=== PATIENT | female | born 1940 | race Caucasian/White ===

== ENCOUNTER 2020-05-24 09:30 | Outpatient (REF) | payer MEDICARE, SELFPAY ==
[2020-05-24 10:15] LABS: MANUAL DIFF FLAG NO
[2020-05-24 10:21] LABS: Basophils Absolute Auto 0.1 X10*3/uL (0.0-0.2); Basophils Percent Auto 0.7 % (0-2); Eosinophils Absolute Auto 0.3 X10*3/uL (0.0-0.4); Eosinophils Percent Auto 4.2 % (0-4); Hematocrit 42.3 % (37-47); Hemoglobin 13.1 g/dl (12.0-16.0); Imm Gran Abs Auto 0.03 X10*3/uL (0.00-0.03); Imm Gran Pct Auto 0.4 % (0.0-0.4); Lymphocytes Absolute Auto 1.3 X10*3/uL (1.2-4.9); Mean Corpuscular Hemoglobin 26.2 pg (27.0-33.0); Mean Corpuscular Volume 84.6 fL (80-98); Mean Platelet Volume 10.7 fL (9.4-12.3); Monocytes Absolute Auto 0.4 X10*3/uL (0.1-1.2); Monocytes Percent Auto 6.3 % (2-11); Neutrophils Absolute Auto 4.6 X10*3/uL (2.0-8.3); Neutrophils Percent Auto 69.4 % (45-73); Platelet Count 246 X10*3/uL (160-400); White Blood Count 6.7 X10*3/uL (4.8-10.8)
[2020-05-24 10:41] LABS: Estimated Average Glucose 105 mg/dL; Hemoglobin A1c % 5.3 %
[2020-05-24 10:43] LABS: Alanine Aminotransferase 29 U/L (0-31); Albumin Level 4.4 g/dL (3.5-5.0); Alkaline Phosphatase 75 U/L (39-117); Anion Gap 11 (12-20); Aspartate Amino Transferase 21 U/L (5-31); Bilirubin Total 0.5 mg/dL (0.0-1.0); Blood Urea Nitrogen 24 mg/dL (9-16); Calcium 9.7 mg/dL (8.4-10.2); Carbon Dioxide 25 mmol/L (22-29); Chloride 109 mmol/L (96-108); Cholesterol 152 mg/dL; Estimated Glomerular Filt Rate 51; Glucose Fasting 110 mg/dL (60-99); HDL Cholesterol 51 mg/dL; LDL Cholesterol Calculated 76 mg/dl; Potassium 4.2 mmol/l (3.3-5.1); Sodium 141 mmol/L (135-145); Total Protein 6.9 g/dL (6.5-8.0); Triglycerides 128 mg/dL
[2020-05-24 11:10] LABS: Thyroid Stimulating Hormone 1.18 mIU/mL (0.32-4.0); Vitamin D 25-OH Total 30.4 ng/mL (>30)
[2020-05-24 11:48] LABS: T4 Thyroxine 8.2 ug/dL (4.5-12.0)
[2020-05-24 18:54] LABS: Folate > 20.0 ng/mL (> or = 4.0); Vitamin B12 > 2000 pg/mL (200-900)
== END 2020-05-24 09:31 | disposition home or self-care (01) ==
LOC: HO.LAB 09:30
PROVIDERS: PCP Internal Medicine; Visit Provider Internal Medicine
DX: I63.9 Cerebral infarction, unspecified (principal); D50.9 Iron deficiency anemia, unspecified; K21.9 Gastro-esophageal reflux disease without esophagitis; F31.60 Bipolar disorder, current episode mixed, unspecified; J45.909 Unspecified asthma, uncomplicated; I10 Essential (primary) hypertension; E66.9 Obesity, unspecified; E78.00 Pure hypercholesterolemia, unspecified
CPT/HCPCS: 36415; 80053; 80061; 82306; 82607; 82746; 83036; 84436; 84443; 85025

== ENCOUNTER 2020-05-27 17:08 | Outpatient (REF) | payer MEDICARE, SELFPAY ==
--- NOTE | 2020-05-27 | US_ITS ---
EXAMINATION: RIGHT LOWER EXTREMITY VENOUS ULTRASOUND CLINICAL INFORMATION: Pain COMPARISON: None TECHNIQUE: Doppler color and grayscale evaluation of the veins of the right lower extremity FINDINGS: The right common femoral, superficial femoral, popliteal, profunda and visualized posterior tibial and peroneal veins in the calf are patent. There is no Canela's cyst. IMPRESSION: No evidence of DVT.
== END 2020-05-27 17:09 | disposition home or self-care (01) ==
LOC: HO.US 17:08
PROVIDERS: PCP Internal Medicine; Visit Provider Internal Medicine
DX: R60.0 Localized edema (principal); M79.89 Other specified soft tissue disorders
CPT/HCPCS: 93971

== ENCOUNTER → 2020-05-31 14:16 | Outpatient (BNVA) | payer MEDICARE, SELFPAY | PROVIDERS: PCP Internal Medicine; Visit Provider Internal Medicine | DX: Z86.73 Personal history of transient ischemic attack (TIA), and cerebral infarction without residual deficits (principal); Z51.81 Encounter for therapeutic drug level monitoring; Z79.01 Long term (current) use of anticoagulants | CPT/HCPCS: 85610 ==

== ENCOUNTER → 2020-06-28 13:16 | Outpatient (BNVA) | payer MEDICARE, SELFPAY | PROVIDERS: PCP Internal Medicine; Visit Provider Internal Medicine | DX: Z86.73 Personal history of transient ischemic attack (TIA), and cerebral infarction without residual deficits (principal); Z51.81 Encounter for therapeutic drug level monitoring; Z79.01 Long term (current) use of anticoagulants | CPT/HCPCS: 85610; 99211 ==

== ENCOUNTER → 2020-08-25 11:06 | Outpatient (BNVA) | payer MEDICARE, SELFPAY | PROVIDERS: PCP Internal Medicine; Visit Provider Internal Medicine | DX: Z86.73 Personal history of transient ischemic attack (TIA), and cerebral infarction without residual deficits (principal); Z51.81 Encounter for therapeutic drug level monitoring; Z79.01 Long term (current) use of anticoagulants | CPT/HCPCS: Q3014 ==

== ENCOUNTER → 2020-08-27 08:51 | Outpatient (BNVA) | payer MEDICARE, SELFPAY | PROVIDERS: PCP Internal Medicine; Visit Provider Internal Medicine | DX: Z86.73 Personal history of transient ischemic attack (TIA), and cerebral infarction without residual deficits (principal); Z51.81 Encounter for therapeutic drug level monitoring; Z79.01 Long term (current) use of anticoagulants | CPT/HCPCS: Q3014 ==

== ENCOUNTER → 2020-09-01 13:28 | Outpatient (BNVA) | payer MEDICARE, SELFPAY | PROVIDERS: PCP Internal Medicine; Visit Provider Internal Medicine | DX: Z86.73 Personal history of transient ischemic attack (TIA), and cerebral infarction without residual deficits (principal); Z51.81 Encounter for therapeutic drug level monitoring; Z79.01 Long term (current) use of anticoagulants | CPT/HCPCS: 85610; 99211 ==

== ENCOUNTER → 2020-09-13 11:16 | Outpatient (BNVA) | payer MEDICARE, SELFPAY | PROVIDERS: PCP Internal Medicine; Visit Provider Internal Medicine | DX: Z86.73 Personal history of transient ischemic attack (TIA), and cerebral infarction without residual deficits (principal); Z51.81 Encounter for therapeutic drug level monitoring; Z79.01 Long term (current) use of anticoagulants | CPT/HCPCS: 85610; 99211 ==

== ENCOUNTER → 2020-10-04 11:21 | Outpatient (BNVA) | payer MEDICARE, SELFPAY | PROVIDERS: PCP Internal Medicine; Visit Provider Internal Medicine | DX: Z86.73 Personal history of transient ischemic attack (TIA), and cerebral infarction without residual deficits (principal); Z51.81 Encounter for therapeutic drug level monitoring; Z79.01 Long term (current) use of anticoagulants | CPT/HCPCS: 85610; 99211 ==

== ENCOUNTER 2020-10-13 10:50 | Outpatient (REF) | payer MEDICARE, SELFPAY ==
[2020-10-13 12:01] LABS: Lithium 0.53 mmol/L (0.60-1.20)
[2020-10-13 12:07] LABS: Alanine Aminotransferase 24 U/L (0-31); Albumin Level 4.4 g/dL (3.5-5.0); Alkaline Phosphatase 80 U/L (39-117); Anion Gap 11 (12-20); Aspartate Amino Transferase 26 U/L (5-31); Bilirubin Total 0.5 mg/dL (0.0-1.0); Blood Urea Nitrogen 19 mg/dL (9-16); Calcium 10.2 mg/dL (8.4-10.2); Carbon Dioxide 25 mmol/L (22-29); Chloride 108 mmol/L (96-108); Estimated Glomerular Filt Rate 50; Glucose Random 91 mg/dL (60-115); Sodium 140 mmol/L (135-145); Total Protein 6.9 g/dL (6.5-8.0)
== END 2020-10-13 10:51 | disposition home or self-care (01) ==
LOC: HO.LAB 10:50
PROVIDERS: PCP Internal Medicine; Visit Provider Internal Medicine
DX: F31.62 Bipolar disorder, current episode mixed, moderate (principal)
CPT/HCPCS: 36415; 80053; 80178

== ENCOUNTER → 2020-10-25 11:33 | Outpatient (BNVA) | payer MEDICARE, SELFPAY | PROVIDERS: PCP Internal Medicine; Visit Provider Internal Medicine | DX: Z86.73 Personal history of transient ischemic attack (TIA), and cerebral infarction without residual deficits (principal); Z51.81 Encounter for therapeutic drug level monitoring; Z79.01 Long term (current) use of anticoagulants | CPT/HCPCS: 85610; 99211 ==

== ENCOUNTER → 2020-11-15 11:27 | Outpatient (BNVA) | payer MEDICARE, SELFPAY | PROVIDERS: PCP Internal Medicine; Visit Provider Internal Medicine | DX: Z86.73 Personal history of transient ischemic attack (TIA), and cerebral infarction without residual deficits (principal); Z79.01 Long term (current) use of anticoagulants; Z51.81 Encounter for therapeutic drug level monitoring | CPT/HCPCS: 85610; 99211 ==

== ENCOUNTER → 2020-12-21 10:58 | Outpatient (BNVA) | payer MEDICARE, SELFPAY | PROVIDERS: PCP Internal Medicine; Visit Provider Internal Medicine | DX: Z86.73 Personal history of transient ischemic attack (TIA), and cerebral infarction without residual deficits (principal); Z51.81 Encounter for therapeutic drug level monitoring; Z79.01 Long term (current) use of anticoagulants | CPT/HCPCS: 85610; 99211 ==

== ENCOUNTER → 2021-01-11 11:04 | Outpatient (BNVA) | payer MEDICARE, SELFPAY | PROVIDERS: PCP Internal Medicine; Visit Provider Internal Medicine | DX: Z86.73 Personal history of transient ischemic attack (TIA), and cerebral infarction without residual deficits (principal); Z51.81 Encounter for therapeutic drug level monitoring; Z79.01 Long term (current) use of anticoagulants | CPT/HCPCS: 85610; 99211 ==

== ENCOUNTER → 2021-01-24 10:25 | Outpatient (BNVA) | payer MEDICARE, SELFPAY | PROVIDERS: PCP Internal Medicine; Visit Provider Internal Medicine | DX: Z86.73 Personal history of transient ischemic attack (TIA), and cerebral infarction without residual deficits (principal); Z51.81 Encounter for therapeutic drug level monitoring; Z79.01 Long term (current) use of anticoagulants | CPT/HCPCS: 85610; 99211 ==

== ENCOUNTER → 2021-02-07 13:23 | Outpatient (BNVA) | payer MEDICARE, SELFPAY | PROVIDERS: PCP Internal Medicine; Visit Provider Internal Medicine | DX: Z86.73 Personal history of transient ischemic attack (TIA), and cerebral infarction without residual deficits (principal); Z51.81 Encounter for therapeutic drug level monitoring; Z79.01 Long term (current) use of anticoagulants | CPT/HCPCS: 85610; 99211 ==

== ENCOUNTER → 2021-03-07 13:02 | Outpatient (BNVA) | payer MEDICARE, SELFPAY | PROVIDERS: PCP Internal Medicine; Visit Provider Internal Medicine | DX: Z86.73 Personal history of transient ischemic attack (TIA), and cerebral infarction without residual deficits (principal); Z51.81 Encounter for therapeutic drug level monitoring; Z79.01 Long term (current) use of anticoagulants | CPT/HCPCS: 85610; 99211 ==

== ENCOUNTER → 2021-04-05 14:21 | Outpatient (BNVA) | payer MEDICARE, SELFPAY | PROVIDERS: PCP Internal Medicine; Visit Provider Internal Medicine | DX: Z86.73 Personal history of transient ischemic attack (TIA), and cerebral infarction without residual deficits (principal); Z51.81 Encounter for therapeutic drug level monitoring; Z79.01 Long term (current) use of anticoagulants | CPT/HCPCS: 85610; 99211 ==

== ENCOUNTER → 2021-05-03 10:50 | Outpatient (BNVA) | payer MEDICARE, SELFPAY | PROVIDERS: PCP Internal Medicine; Visit Provider Internal Medicine | DX: Z86.73 Personal history of transient ischemic attack (TIA), and cerebral infarction without residual deficits (principal); Z51.81 Encounter for therapeutic drug level monitoring; Z79.01 Long term (current) use of anticoagulants | CPT/HCPCS: 85610; 99211 ==

== ENCOUNTER → 2021-05-18 10:36 | Outpatient (BNVA) | payer MEDICARE, SELFPAY | PROVIDERS: PCP Internal Medicine; Visit Provider Internal Medicine | DX: Z86.73 Personal history of transient ischemic attack (TIA), and cerebral infarction without residual deficits (principal); Z51.81 Encounter for therapeutic drug level monitoring; Z79.01 Long term (current) use of anticoagulants | CPT/HCPCS: 85610; 99211 ==

== ENCOUNTER 2021-06-15 10:21 | Outpatient (REF) | payer MEDICARE, SELFPAY ==
--- NOTE | ~2021-06-15 | MM_ITS ---
EXAMINATION: BONE DENSITOMETRY CLINICAL INDICATION: Unspecified fracture of right foot, initial encounter. COMPARISON: None (current study represents initial baseline exam). TECHNIQUE: Using a [employer] DXA System (software version: 13.1) manufactured by [employer], dual-energy x-ray absorptiometry was performed of the lumbar spine and left hip. The images are of good technical quality. Summary results are attached. FINDINGS: AP SPINE L1-L2 (excluding L3 and L4): The data of L1-L4 has been changed to exclude the L3 and L4 vertebral bodies, because degenerative changes at these levels may cause overestimation of lumbar spine density. BMD 0.854 g/cm2, Z-score -0.9, T-score -2.6, osteoporosis. LEFT FEMUR, NECK: BMD 0.798 g/cm2, Z-score 0.3, T-score -1.7, osteopenia. LEFT FEMUR, TOTAL: BMD 0.872 g/cm2, Z-score 0.8, T-score -1.1, osteopenia. IDENTIFIED RISK FACTORS: Height loss, menopause. HISTORY OF FRACTURE: Foot. MEDICATIONS: None listed. MM/XR DEXA axial skeleton IMPRESSION: 1. DIAGNOSIS: Osteoporosis based on the lowest T-score value of -2.6 in the lumbar spine applying World Health Organization criteria. 2. 10-YEAR FRACTURE RISK PREDICTION, FRAX: According to the guidelines, FRAX calculation should only be performed on patients in the osteopenia bone density category. 3. Treatment Recommendations: NOF guidelines recommend consideration for treatment in postmenopausal women and men age 50 and older presenting with the following: -A hip or vertebral (clinical or morphometric) fracture. -T-score less than or equal to -2.5 at the femoral neck or spine after appropriate evaluation to exclude secondary causes. -Low bone mass at the hip or spine and a 10-year fracture probability by FRAX of greater than or equal to 3% for hip fracture or greater than or equal to 20% for major osteoporotic fracture based on the [place] adapted WHO algorithm. 4. Other Recommendations: All treatment decisions require clinical judgment and consideration of individual patient factors, including patient preferences, comorbidities, previous drug use, risk factors not captured in the FRAX model (e.g. frailty, falls, vitamin D deficiency, increased bone turnover, interval significant decline in bone density) and possible under or overestimation of fracture risk by FRAX. Additional medical evaluation for secondary cause of low bone mineral density may be appropriate. FUTURE SCAN RECOMMENDATION: People with diagnosed cases of osteoporosis or at high risk for fracture should have regular bone mineral density tests. For patients eligible for Medicare, routine testing is allowed once every 2 years. The testing frequency can be increased to one year for patients who have rapidly progressing disease, those who are receiving or discontinuing medical therapy to restore bone mass, or have additional risk factors.
== END 2021-06-15 10:22 | disposition home or self-care (01) ==
LOC: HO.MAMMO 10:21
PROVIDERS: Visit Provider Internal Medicine
DX: Z13.820 Encounter for screening for osteoporosis (principal); S92.901A Unspecified fracture of right foot, initial encounter for closed fracture; M81.0 Age-related osteoporosis without current pathological fracture; Z78.0 Asymptomatic menopausal state
CPT/HCPCS: 77080; 85610; 99211

== ENCOUNTER → 2021-07-13 10:59 | Outpatient (BNVA) | payer MEDICARE, SELFPAY | PROVIDERS: PCP Internal Medicine; Visit Provider Internal Medicine | DX: Z86.73 Personal history of transient ischemic attack (TIA), and cerebral infarction without residual deficits (principal); Z51.81 Encounter for therapeutic drug level monitoring; Z79.01 Long term (current) use of anticoagulants | CPT/HCPCS: 85610; 99211 ==

== ENCOUNTER → 2021-08-10 11:06 | Outpatient (BNVA) | payer MEDICARE, SELFPAY | PROVIDERS: PCP Internal Medicine; Visit Provider Internal Medicine | DX: Z86.73 Personal history of transient ischemic attack (TIA), and cerebral infarction without residual deficits (principal); Z51.81 Encounter for therapeutic drug level monitoring; Z79.01 Long term (current) use of anticoagulants | CPT/HCPCS: 85610; 99211 ==

== ENCOUNTER 2021-08-16 15:11 | Outpatient (REF) | payer MEDICARE, SELFPAY ==
[2021-08-16 16:23] LABS: Lithium 0.42 mmol/L (0.60-1.20)
[2021-08-16 16:31] LABS: Alanine Aminotransferase 24 U/L (0-31); Albumin Level 4.4 g/dL (3.5-5.0); Alkaline Phosphatase 93 U/L (39-117); Anion Gap 13 (12-20); Aspartate Amino Transferase 17 U/L (5-31); Bilirubin Total 0.3 mg/dL (0.0-1.0); Blood Urea Nitrogen 19 mg/dL (9-16); Calcium 10.3 mg/dL (8.4-10.2); Carbon Dioxide 21 mmol/L (22-29); Chloride 111 mmol/L (96-108); Estimated Glomerular Filt Rate 49; Glucose Random 115 mg/dL (60-115); Potassium 4.3 mmol/L (3.3-5.1); Sodium 141 mmol/L (135-145); Total Protein 7.1 g/dL (6.5-8.0)
[2021-08-16 16:51] LABS: Thyroid Stimulating Hormone 1.07 uIU/mL (0.32-4.0)
[2021-08-16 17:02] LABS: Folate 14.3 ng/mL (> or = 4.0); Vitamin B12 1708 pg/mL (200-900)
[2021-08-22 04:22] LABS: FT4 by Equilib. Dialysis 1.2 ng/dL (0.9-2.2)
== END 2021-08-16 15:12 | disposition home or self-care (01) ==
LOC: HO.LAB 15:11
PROVIDERS: PCP Internal Medicine; Visit Provider Psychiatry & Neurology Psychiatry
DX: F31.70 Bipolar disorder, currently in remission, most recent episode unspecified (principal); Z79.899 Other long term (current) drug therapy
CPT/HCPCS: 36415; 80053; 80178; 82607; 82746; 84439; 84443

== ENCOUNTER → 2021-09-05 10:45 | Outpatient (BNVA) | payer MEDICARE, SELFPAY | PROVIDERS: PCP Internal Medicine; Visit Provider Internal Medicine | DX: Z86.73 Personal history of transient ischemic attack (TIA), and cerebral infarction without residual deficits (principal); Z51.81 Encounter for therapeutic drug level monitoring; Z79.01 Long term (current) use of anticoagulants | CPT/HCPCS: 85610; 99211 ==

== ENCOUNTER → 2021-09-27 13:58 | Outpatient (BNVA) | payer MEDICARE, SELFPAY | PROVIDERS: PCP Internal Medicine; Visit Provider Internal Medicine | DX: Z86.73 Personal history of transient ischemic attack (TIA), and cerebral infarction without residual deficits (principal); Z51.81 Encounter for therapeutic drug level monitoring; Z79.01 Long term (current) use of anticoagulants | CPT/HCPCS: 85610; 99211 ==

== ENCOUNTER → 2021-09-30 15:42 | Outpatient (BNVA) | payer MEDICARE, SELFPAY | PROVIDERS: PCP Internal Medicine; Visit Provider Internal Medicine | DX: Z86.73 Personal history of transient ischemic attack (TIA), and cerebral infarction without residual deficits (principal); Z51.81 Encounter for therapeutic drug level monitoring; Z79.01 Long term (current) use of anticoagulants | CPT/HCPCS: 85610; 99211 ==

== ENCOUNTER → 2021-10-10 10:42 | Outpatient (BNVA) | payer MEDICARE, SELFPAY | PROVIDERS: PCP Internal Medicine; Visit Provider Internal Medicine | DX: Z86.73 Personal history of transient ischemic attack (TIA), and cerebral infarction without residual deficits (principal); Z51.81 Encounter for therapeutic drug level monitoring; Z79.01 Long term (current) use of anticoagulants | CPT/HCPCS: 85610; 99211 ==

== ENCOUNTER 2021-10-26 10:00 | Outpatient (REF) | payer MEDICARE, SELFPAY ==
[2021-10-26 11:50] LABS: Basophils Absolute Auto 0.1 X10*3/uL (0.0-0.2); Basophils Percent Auto 0.8 % (0-2); Eosinophils Absolute Auto 0.5 X10*3/uL (0.0-0.4); Eosinophils Percent Auto 5.6 % (0-4); Hematocrit 28.8 % (37.0-47.0); Hemoglobin 7.2 g/dl (12.0-16.0); Imm Gran Abs Auto 0.04 X10*3/uL (0.00-0.03); Imm Gran Pct Auto 0.5 % (0.0-0.4); Immature Retic Fraction 21.7 % (3.0-15.9); Lymphocytes Absolute Auto 1.4 X10*3/uL (1.2-4.9); Lymphocytes Percent Auto 16.7 % (20-40); MANUAL DIFF FLAG SCAN; Mean Corpuscular Hemoglobin 15.7 pg (27.0-33.0); Mean Platelet Volume 10.3 fL (9.4-12.3); Monocytes Absolute Auto 0.5 X10*3/uL (0.1-1.2); Monocytes Percent Auto 6.1 % (2-11); Neutrophils Absolute Auto 5.9 x10*3/uL (2.0-8.3); Neutrophils Percent Auto 70.3 % (45-73); Platelet Count 358 X10*3/uL (160-400); Red Blood Count 4.58 X10*6/uL (4.20-5.50); Retic HGB Equivalent 14.1 pg (30.0-35.0); Reticulocyte Percent 1.6 % (0.5-1.8); Reticulocytes Absolute 0.073 X10*6/uL (0.026-0.095); SCAN SMEAR FLAG 1; White Blood Count 8.3 X10*3/uL (4.8-10.8)
[2021-10-26 11:52] LABS: Mean Corpuscular Volume 62.9 fL (80.0-98.0)
[2021-10-26 12:07] LABS: Estimated Average Glucose 105 mg/dL; Hemoglobin A1c % 5.3 %
[2021-10-26 12:23] LABS: Alanine Aminotransferase 20 U/L (0-31); Albumin Level 4.2 g/dL (3.5-5.0); Alkaline Phosphatase 102 U/L (39-117); Anion Gap 13 (12-20); Aspartate Amino Transferase 17 U/L (5-31); Bilirubin Total 0.2 mg/dL (0.0-1.0); Blood Urea Nitrogen 21 mg/dL (9-16); Calcium 10.1 mg/dL (8.4-10.2); Carbon Dioxide 21 mmol/L (22-29); Chloride 109 mmol/L (96-108); Cholesterol 118 mg/dL; Estimated Glomerular Filt Rate 60; Glucose Random 101 mg/dL (60-115); HDL Cholesterol 44 mg/dL; Iron 10 mcg/dL (30-160); LDL Cholesterol Calculated 62 mg/dl; Percent Iron Saturation 2 % (15-50); Potassium 4.4 mmol/L (3.3-5.1); Sodium 139 mmol/L (135-145); Total Iron Binding Capacity 464 mcg/dL (228-428); Total Protein 6.7 g/dL (6.5-8.0); Triglycerides 63 mg/dL; Unsaturated Iron Binding 454 ug/dL
[2021-10-26 12:37] LABS: Free T4 (Free Thyroxine) 1.06 ng/dL (0.71-1.85); Thyroid Stimulating Hormone 1.46 uIU/mL (0.32-4.0); Vitamin D 25-OH Total 22.7 ng/mL (>30)
[2021-10-26 12:56] LABS: Folate 13.1 ng/mL (> or = 4.0); Vitamin B12 1152 pg/mL (200-900)
[2021-10-26 13:09] LABS: Ferritin 3 ng/mL (10-250)
[2021-10-26 14:06] LABS: SLIDE REVIEW VERIFIED
== END 2021-10-26 10:01 | disposition home or self-care (01) ==
LOC: HO.LAB 10:00
PROVIDERS: PCP Internal Medicine; Visit Provider Internal Medicine
DX: I10 Essential (primary) hypertension (principal); K21.9 Gastro-esophageal reflux disease without esophagitis; E78.00 Pure hypercholesterolemia, unspecified; R73.02 Impaired glucose tolerance (oral)
CPT/HCPCS: 36415; 80053; 80061; 82306; 82607; 82728; 82746; 83036; 83540; 84439; 84443; 85025; 85045

== ENCOUNTER 2021-10-26 15:57 | Emergency (ER) | payer MEDICARE, SELFPAY ==
--- NOTE | ~2021-10-26 | CT_ITS ---
EXAMINATION: CT CHEST, ABDOMEN AND PELVIS WITH CONTRAST CLINICAL INFORMATION: fall, hit chest and abdomen, low H H COMPARISON: Renal ultrasound 06/11/2009 TECHNIQUE: Multidetector volumetric imaging was performed from the thoracic inlet through the pubic symphysis following administration of 85 mL of Omnipaque 350. Sagittal and coronal reformatted images were obtained on the technologist's workstation. This CT examination was performed using dose optimization techniques as appropriate, variously including the following: *Automated exposure control *Adjustment of mA and/or kV according to patient size (this includes techniques or standardized protocols for targeted exams where dose is matched to indication/reason for exam; i.e. extremities or head) *Use of iterative reconstruction technique DLP: Chest 235, abdomen and pelvis 580 mGy-cm FINDINGS: CHEST: Lung: The lungs are clear without focal opacity or nodule. Mediastinum: A 1.3 cm right thyroid nodule is present.. The central vascular structures are unremarkable aside from the presence of marked coronary calcification. No hilar or mediastinal lymphadenopathy. Moderate portion of the stomach is in the mediastinum again (see below) Pericardium/Pleura: No significant effusion. No pleural mass or thickening. Chest Wall/Axilla: Marked degenerative changes present in the spine with scoliosis. No rib fractures are seen. ABDOMEN/PELVIS: Peritoneal Space: No significant free air or free fluid identified. Liver, Gallbladder, Biliary Tree: The liver is normal in size, shape, and attenuation. No focal hepatic lesion or biliary ductal dilatation is present. The gallbladder is unremarkable with no evidence of radiopaque gallstones, gallbladder wall thickening, or obvious pericholecystic inflammatory changes. Pancreas: Unremarkable Spleen: Unremarkable Adrenal Glands: Unremarkable Kidneys and Ureters: The kidneys are normal in size, shape, and attenuation. At least 4 nonobstructing punctate calcification noted in the left kidney the largest measuring only 2 to 3 mm in size. Hounsfield units are 300 but this is not accurate because of volume averaging. The largest stone is 10.7 cm from the posterior axillary line. Bilateral Bosniak class I cysts are present including one hyperattenuating mass measuring 80 Hounsfield units at the lower pole on the left most likely a hyperattenuating/hemorrhagic cyst. No hydronephrosis, hydroureter, or calculi seen. No perinephric stranding. Bladder: Unremarkable Gastrointestinal Tract: A moderate-sized hiatal hernia is present. The small and large bowel are unremarkable. The appendix is unremarkable. Abdominal Wall: No significant hernia is appreciated. Lymph Nodes: No lymphadenopathy. No retroperitoneal hematoma. Vascular: Marked calcific aorto iliac atherosclerotic plaque without aneurysm.. The IVC appears unremarkable. PELVIC VISCERA: A multilobular fibroid uterus is present. An abnormal adnexal mass is not seen. No free intraperitoneal fluid or blood is present. OSSEUS STRUCTURES: Mild degenerative changes are noted in the spine. No bony destructive lesions are seen. No acute fractures are identified. CT/CT abdomen pelvis w con IMPRESSION: No evidence of an acute traumatic injury in the chest abdomen or pelvis. The following incidental findings are present: * 1.3 cm right-sided thyroid nodule. Baseline thyroid ultrasound is recommended. * Moderate hiatal hernia * Moderate degenerative changes in the spine * Bilateral benign Bosniak class I renal cysts which need no further follow-up. * Hyperattenuating left lower pole renal mass which is most likely a Bosniak class II cyst. This could be confirmed with ultrasound. * Four punctate nonobstructing left renal calculi. * Uterine fibroid Fleischner guidelines were followed.
--- NOTE | ~2021-10-26 | CT_ITS ---
EXAMINATION: CT HEAD WITHOUT CONTRAST CLINICAL INFORMATION: Fell, head strike. COMPARISON: CT head dated from 11/17/2018. TECHNIQUE: Contiguous axial imaging was performed from the skull base to vertex without intravenous administration of contrast. This CT examination was performed using dose optimization techniques as appropriate, variously including the following: *Automated exposure control *Adjustment of mA and/or kV according to patient size (this includes techniques or standardized protocols for targeted exams where dose is matched to indication/reason for exam; i.e. extremities or head) *Use of iterative reconstruction technique DLP: 719 mGy-cm FINDINGS: Encephalomalacia/gliosis from a prior infarction in the left occipital lobe with associated ex vacuo dilatation of the adjacent lateral ventricle. Chronic left basal ganglia infarctions. There is no evidence of acute intracranial hemorrhage or edematous territorial infarction. Scattered hypoattenuation in the periventricular and deep white matter are consistent with moderate microangiopathy. Stewart-white matter differentiation is preserved. Proportional prominence of the ventricles and sulcal spaces. No evidence for obstructive hydrocephalus. No abnormal mass effect or midline shift. No extra-axial fluid collections. Calcified meningiomas along the interhemispheric falx are stable. No acute soft tissue or osseous abnormalities. Degenerative osteoarthritis of the TM joints. Periapical lucencies on left superior molars. Mild mucoperiosteal thickening of the paranasal sinuses. No air-fluid level. The mastoids are clear. CT/CT head/brain wo con IMPRESSION: Chronic infarctions as above. No acute intracranial abnormality.
[2021-10-26 16:24] VITALS: BP 151/75; PULSE 86; RESP 18; TEMP 36.7; O2SAT 97; BMI 29.5
--- NOTE | 2021-10-26 16:50 | ED.RECABL ---
HPI - Recheck/Abnormal Lab/Rx General Chief Complaint: Recheck/Abnormal Lab/Rx Stated Complaint: internal bleeding sent by Time Seen by Provider: 10/26/21 16:45 Source: patient Mode of arrival: ambulatory Limitations: no limitations History of Present Illness HPI narrative: This is a 80-year-old female history of CVA with left-sided weakness, hypercholesterolemia, asthma, hypertension, bipolar disorder, GERD, iron deficiency anemia presenting to the emergency department with abnormal labs according to her primary care provider. She was told that her hemoglobin and hematocrit were lower than usual. She tells me she is having no symptoms at this time. She has no complaints. She denies fatigue, nausea, vomiting, dizziness, rectal bleeding, hemoptysis, chest pain, shortness of breath, abdominal pain, weakness. Patient tells me that her last colonoscopy was a few years ago when it was normal to the best of her knowledge. MD complaint: abnormal lab (Low H&H per patient's primary care.) Description of abnormal result: Patient was told by PCP that her hemoglobin and hematocrit were low. Symptoms since prior visit: no new symptoms Associated symptoms: none Related Data Home Medications Medication Instructions Recorded Confirmed aspirin 81 mg tablet,delayed 81 mg PO DAILY 05/27/20 09/30/21 release (Adult Aspirin Regimen) cholecalciferol (vitamin D3) 25 25 mcg PO DAILY 05/27/20 09/30/21 mcg (1,000 unit) capsule clonazepam 0.5 mg tablet (Klonopin) 0.5 mg PO DAILY 05/27/20 09/30/21 lithium carbonate 450 mg mg PO 09/13/20 09/30/21 tablet,extended release lamotrigine 25 mg tablet 25 mg PO BID tab 04/25/21 09/30/21 Previous Rx's Medication Instructions Recorded montelukast 10 mg tablet 10 mg PO DAILY #90 tab 05/11/21 (Singulair) irbesartan 150 mg tablet 150 mg PO DAILY #90 tab 06/09/21 albuterol sulfate 90 mcg/actuation 2 puff INHALATION Q4-6H PRN #8.5 g 06/15/21 aerosol inhaler (ProAir HFA) warfarin 2 mg tablet 4 mg PO DAILY #180 tab 07/25/21 rosuvastatin 5 mg tablet 5 mg PO DAILY 90 Days #90 tab 08/29/21 fluticasone 250 mcg-salmeterol 50 1 inh INHALATION Q12H #60 ea 09/27/21 mcg/dose blistr powdr for inhalation (Advair Diskus) tiotropium bromide 2.5 2 puff INHALATION DAILY #4 g 09/27/21 mcg/actuation mist for inhalation (Spiriva Respimat) alendronate 70 mg tablet (Fosamax) 70 mg PO QWEEK 30 Days #13 tab 10/04/21 pantoprazole 40 mg tablet,delayed 40 mg PO DAILY 90 Days #90 tab 10/04/21 release ferrous sulfate 324 mg (65 mg 324 mg PO DAILY #30 tab 10/26/21 iron) tablet,delayed release Allergies Allergy/AdvReac Type Severity Reaction Status Date / Time clindamycin [CLINDAMYCIN] Allergy Unknown UNKNOWN Verified 10/10/21 10:54 oxycodone [OXYCODONE] Allergy Unknown UNKNOWN Verified 10/10/21 10:54 Penicillins [PENICILLINS] Allergy Unknown UNKNOWN Verified 10/10/21 10:54 Seafood Allergy Unknown anaphylaxis Verified 10/10/21 10:54 shellfish derived Allergy Unknown Anaphylaxis Verified 10/10/21 10:54 [SHELLFISH DERIVED] animal dander [ANIMAL DANDER] AdvReac Unknown ITCHING, Verified 10/10/21 10:54 REDNESS atorvastatin [Lipitor] AdvReac Unknown myalgia Verified 10/10/21 10:54 Review of Systems Review of Systems: Constitutional : No Weight loss, No Fever, No Chills, No Fatigue, No Malaise ENT/Mouth : No sore throat, No Rhinorrhea Eyes: No Eye Pain, No Swelling, No Redness Cardiovascular : No Chest Pain, No SOB, No Dyspnea on Exertion, No Orthopnea, No Edema, No Palpitations Respiratory : No Cough, No Sputum, No Wheezing Gastrointestinal : No Nausea, No Vomiting, No Diarrhea, No Constipation, No abdominal Pain, No Hematochezia, No Melena Genitourinary : No Dysuria, No Urinary Frequency, No Hematuria, Musculoskeletal : No joint pain, No Myalgias, No Joint Swelling Skin : No Skin Lesions, No rash Neuro : No Weakness, No Numbness, No Dizziness, No Headache Psych : No Anxiety/Panic, No Depression All other systems reviewed and are negative Yes all other systems are reviewed and are negative [facility] Past Medical History Attestation statement: The following information was validated with the patient. Source: old records reviewed and nursing notes reviewed Medical History Asthma Bipolar disorder GERD (gastroesophageal reflux disease) History of CVA (cerebrovascular accident) History of renal calculi Hypercholesterolemia Hypertension Impaired glucose tolerance Iron deficiency anemia Obesity (BMI 30-39.9) Patent foramen ovale Tubular adenoma of colon Surgical History History of mastoidectomy History of parathyroidectomy Family History Family History Father Cataract Mother Anxiety Cancer Brother Lung cancer Liver cancer Sister Dementia Autoimmune disease Social History Social History Housing: House Alcohol intake: never Patient Tobacco Use Status: Never used Tobacco e-Cigarette/Vaping Use: Never Used Second Hand Smoke Exposure: No Advance Directives: No Advance Directives Information Provided: No Current occupational status: retired Physical Exam Vital Signs: Vital Signs: Last Vital Signs Temp 98.4 F 10/26/21 19:52 Pulse 79 10/26/21 19:52 Resp 16 10/26/21 19:52 BP 140/73 H 10/26/21 19:52 Pulse Ox 97 10/26/21 18:00 BMI result Body Mass Index 29.5 Vital signs stable. Appearance: Alert.? Oriented X3.? No acute distress.? Head: Normocephalic, atraumatic, no step-offs or deformities Eyes: Pupils equal, round and reactive to light.? ENT: Pharynx normal.? Neck: Normal inspection.? Neck supple.? CVS: Normal heart rate and rhythm.? Pulses normal.? Respiratory: No respiratory distress.? Breath sounds normal.? Abdomen: Soft and nontender.? Skin: Skin warm and dry.? Normal skin color.? Normal skin turgor.? Extremities: No lower extremity edema.? No calf ttp. Left-sided weakness, this is patient's baseline (from old CVA) Rectal exam: Sternal nonbleeding nonthrombosed hemorrhoids noted upon rectal exam. No pain with palpation in the rectum, no gross blood noted on my exam. Back: No midline tenderness, no C-spine tenderness, full range of motion, no CVA tenderness bilaterally Neuro: Oriented X 3.? No motor deficit.? No sensory deficit. CN 2-12 intact Course Reevaluation(s) Reevaluation #1: Patient's hemoglobin 6.9 hematocrit 27.2 at this time verbal and written consent obtained for 1 unit of packed red blood cells. Went over risks and benefits with patient and significant other. Patient's electrolytes appear to be at baseline. COVID negative. OBS negative. Time: 19:06 Reevaluation #2: CT of the head with no acute findings. CT of the abdomen with no signs of acute bleeding. Incidental findings noted in these were shared with the patient. CT of the chest with no acute findings. Repeat CBC with improvement hemoglobin and hematocrit stable. Patient will be restarted on ferrous sulfate. Advised her to follow-up with her PCP. She tells me she has an appointment tomorrow with him. Also advised her to follow-up with Hematology. Educated patient on worrisome signs and symptoms. At this time I feel comfortable with discharge home. Time: 20:22 MDM - Recheck/Abnormal Lab/Rx MDM Narrative Medical decision making narrative: [id number] 80 yo f was sent here from PCP for abnormal labs, low H&H today. Physical exam benign. Plan at this time type and screen, laboratory studies, urine, obs Medical Records Attestation: I reviewed the patient's medical records. Lab Data Attestation: I reviewed the patient's lab results. Result diagrams: 10/26/21 20:06 10/26/21 17:10 Labs: Lab Results 10/26/21 10/26/21 10/26/21 Range/Units 17:06 17:10 17:10 WBC 6.8 (4.8-10.8) X10*3/uL RBC 4.35 (4.20-5.50) X10*6/uL Hgb 6.9 L* (12.0-16.0) g/dl Hct 27.2 L (37.0-47.0) % MCV 62.5 L (80.0-98.0) fL MCH 15.9 L (27.0-33.0) pg MCHC 25.4 L (31.0-35.0) g/dl RDW 21.0 H (11.0-16.0) % Plt Count 360 (160-400) X10*3/uL MPV 9.6 (9.4-12.3) fL Immature Gran % (Auto) 0.4 (0.0-0.4) % Neut % (Auto) 65.2 (45-73) % Lymph % (Auto) 21.3 (20-40) % [place] % (Auto) 6.2 (2-11) % Eos % (Auto) 6.5 H (0-4) % Baso % (Auto) 0.4 (0-2) % Lymph # (Auto) 1.4 (1.2-4.9) X10*3/uL [place] # (Auto) 0.4 (0.1-1.2) X10*3/uL Eos # (Auto) 0.4 (0.0-0.4) X10*3/uL Baso # (Auto) 0.0 (0.0-0.2) X10*3/uL Abs Immat Gran (auto) 0.03 (0.00-0.03) X10*3/uL Absolute Neuts (auto) 4.4 (2.0-8.3) x10*3/uL Absolute Nucleated RBC 0.000 (0.0-0.012) X10*3/uL Nucleated RBC % (auto) 0.0 (0.0-0.2) /100WBC Smear Tech's Comments PT (9.9-13.0) SEC INR (0.9-1.1) Sodium 141 (135-145) mmol/L Potassium 4.1 (3.3-5.1) mmol/L Chloride 112 H (96-108) mmol/L Carbon Dioxide 22 (22-29) mmol/L Anion Gap 11 L (12-20) BUN 19 H (9-16) mg/dL Creatinine 0.92 (0.5-1.4) mg/dL Estim Creat Clear Calc 45.3 Estimated GFR 59 Random Glucose 106 (60-115) mg/dL Calcium 9.8 (8.4-10.2) mg/dL Magnesium 2.2 (1.6-2.6) mg/dL Total Bilirubin 0.2 (0.0-1.0) mg/dL AST 16 (5-31) U/L ALT 19 (0-31) U/L Alkaline Phosphatase 94 (39-117) U/L Total Protein 6.4 L (6.5-8.0) g/dL Albumin 4.0 (3.5-5.0) g/dL Stool Occult Blood (NEGATIVE) COVID-19 (HOWIE) Negative (Negative) COVID-19 Clin Com See Note Blood Type Antibody Screen Crossmatch 10/26/21 10/26/21 10/26/21 Range/Units 17:10 17:10 17:12 WBC (4.8-10.8) X10*3/uL RBC (4.20-5.50) X10*6/uL Hgb (12.0-16.0) g/dl Hct (37.0-47.0) % MCV (80.0-98.0) fL MCH (27.0-33.0) pg MCHC (31.0-35.0) g/dl RDW (11.0-16.0) % Plt Count (160-400) X10*3/uL MPV (9.4-12.3) fL Immature Gran % (Auto) (0.0-0.4) % Neut % (Auto) (45-73) % Lymph % (Auto) (20-40) % [place] % (Auto) (2-11) % Eos % (Auto) (0-4) % Baso % (Auto) (0-2) % Lymph # (Auto) (1.2-4.9) X10*3/uL [place] # (Auto) (0.1-1.2) X10*3/uL Eos # (Auto) (0.0-0.4) X10*3/uL Baso # (Auto) (0.0-0.2) X10*3/uL Abs Immat Gran (auto) (0.00-0.03) X10*3/uL Absolute Neuts (auto) (2.0-8.3) x10*3/uL Absolute Nucleated RBC (0.0-0.012) X10*3/uL Nucleated RBC % (auto) (0.0-0.2) /100WBC Smear Tech's Comments PT 30.8 H (9.9-13.0) SEC INR 2.7 H (0.9-1.1) Sodium (135-145) mmol/L Potassium (3.3-5.1) mmol/L Chloride (96-108) mmol/L Carbon Dioxide (22-29) mmol/L Anion Gap (12-20) BUN (9-16) mg/dL Creatinine (0.5-1.4) mg/dL Estim Creat Clear Calc Estimated GFR Random Glucose (60-115) mg/dL Calcium (8.4-10.2) mg/dL Magnesium (1.6-2.6) mg/dL Total Bilirubin (0.0-1.0) mg/dL AST (5-31) U/L ALT (0-31) U/L Alkaline Phosphatase (39-117) U/L Total Protein (6.5-8.0) g/dL Albumin (3.5-5.0) g/dL Stool Occult Blood NEGATIVE (NEGATIVE) COVID-19 (HOWIE) (Negative) COVID-19 Clin Com Blood Type O Positive Antibody Screen NEGATIVE Crossmatch See Detail 10/26/21 Range/Units 20:06 WBC 9.1 (4.8-10.8) X10*3/uL RBC 4.76 (4.20-5.50) X10*6/uL Hgb 8.5 L D (12.0-16.0) g/dl Hct 32.7 L D (37.0-47.0) % MCV 68.7 L D (80.0-98.0) fL MCH 17.9 L (27.0-33.0) pg MCHC 26.0 L (31.0-35.0) g/dl RDW 25.3 H (11.0-16.0) % Plt Count 347 (160-400) X10*3/uL MPV 9.7 (9.4-12.3) fL Immature Gran % (Auto) 0.4 (0.0-0.4) % Neut % (Auto) 66.6 (45-73) % Lymph % (Auto) 19.9 L (20-40) % [place] % (Auto) 6.9 (2-11) % Eos % (Auto) 5.5 H (0-4) % Baso % (Auto) 0.7 (0-2) % Lymph # (Auto) 1.8 (1.2-4.9) X10*3/uL [place] # (Auto) 0.6 (0.1-1.2) X10*3/uL Eos # (Auto) 0.5 H (0.0-0.4) X10*3/uL Baso # (Auto) 0.1 (0.0-0.2) X10*3/uL Abs Immat Gran (auto) 0.04 H (0.00-0.03) X10*3/uL Absolute Neuts (auto) 6.1 (2.0-8.3) x10*3/uL Absolute Nucleated RBC 0.000 (0.0-0.012) X10*3/uL Nucleated RBC % (auto) 0.0 (0.0-0.2) /100WBC Smear Tech's Comments VERIFIED PT (9.9-13.0) SEC INR (0.9-1.1) Sodium (135-145) mmol/L Potassium (3.3-5.1) mmol/L Chloride (96-108) mmol/L Carbon Dioxide (22-29) mmol/L Anion Gap (12-20) BUN (9-16) mg/dL Creatinine (0.5-1.4) mg/dL Estim Creat Clear Calc Estimated GFR Random Glucose (60-115) mg/dL Calcium (8.4-10.2) mg/dL Magnesium (1.6-2.6) mg/dL Total Bilirubin (0.0-1.0) mg/dL AST (5-31) U/L ALT (0-31) U/L Alkaline Phosphatase (39-117) U/L Total Protein (6.5-8.0) g/dL Albumin (3.5-5.0) g/dL Stool Occult Blood (NEGATIVE) COVID-19 (HOWIE) (Negative) COVID-19 Clin Com Blood Type Antibody Screen Crossmatch Critical Care Time Critical Care Time Critical Care Time: No Total Critical Care Time: 35 Attestation: I attest to this time spent taking care of the patient, obtaining history, physical, reviewing labs, imaging, speaking to my attending. Discharge Plan Discharge Clinical Impression: Microcytic anemia Patient Disposition: Home, Self-Care Instructions: Anemia (ED) Additional Instructions: Take your medications as prescribed. If you were prescribed antibiotics today, it is important that you take your medication to their entirety, do not skip any doses, do not finish them early. Follow-up with your primary care provider as soon as possible. Follow up with hematology Return to the emergency department with new or worsening symptoms. Such as fevers, chills, chest pain, shortness of breath, nausea, vomiting, dizziness, headache, vision changes, lethargy In case of emergency call 911 I sent ferrous sulfate to her pharmacy. 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 CT/CT chest & abdomen pelvis w con IMPRESSION: No evidence of an acute traumatic injury in the chest abdomen or pelvis. The following incidental findings are present: *? 1.3 cm right-sided thyroid nodule. Baseline thyroid ultrasound is recommended. *? Moderate hiatal hernia *? Moderate degenerative changes in the spine *? Bilateral benign Bosniak class I renal cysts which need no further follow-up. *? Hyperattenuating left lower pole renal mass which is most likely a Bosniak class II cyst. This could be confirmed with ultrasound. *? Four punctate nonobstructing left renal calculi. *? Uterine fibroid Prescriptions: New ferrous sulfate 324 mg (65 mg iron) tablet,delayed release (DR/EC) 324 mg PO DAILY Qty: 30 0RF No Action montelukast [Singulair] 10 mg tablet 10 mg PO DAILY Qty: 90 2RF irbesartan 150 mg tablet 150 mg PO DAILY Qty: 90 3RF albuterol sulfate [ProAir HFA] 90 mcg/actuation HFA aerosol inhaler 2 puff inhalation Q4-6H PRN (Reason: shortness of breath or wheezing) Qty: 8.5 2RF warfarin 2 mg tablet 4 mg PO DAILY Qty: 180 3RF Protocol: Dose Management Condition: Sunday (Week One) Dose/Route: 4 mg Instruction: 2 x 2 mg tablets Condition: Sunday Dose/Route: 4 mg Instruction: 2 x 2 mg tablets Condition: Sunday Dose/Route: 4 mg Instruction: 2 x 2 mg tablets Condition: Sunday Dose/Route: 4 mg Instruction: 2 x 2 mg tablets Condition: Dose/Route: 4 mg Instruction: 2 x 2 mg tablets Condition: Sunday Dose/Route: 4 mg Instruction: 2 x 2 mg tablets Condition: Sunday Dose/Route: 4 mg Instruction: 2 x 2 mg tablets Condition: Sunday (Week Two) Dose/Route: 4 mg Instruction: 2 x 2 mg tablets Condition: Sunday Dose/Route: 4 mg Instruction: 2 x 2 mg tablets Condition: Sunday Dose/Route: 4 mg Instruction: 2 x 2 mg tablets Condition: Sunday Dose/Route: 4 mg Instruction: 2 x 2 mg tablets Condition: Dose/Route: 4 mg Instruction: 2 x 2 mg tablets Condition: Sunday Dose/Route: 4 mg Instruction: 2 x 2 mg tablets Condition: Sunday Dose/Route: 4 mg Instruction: 2 x 2 mg tablets Protocol Text: Adjustment Start Date: Sunday10/10/21 INR Value: 2.8 INR Date: 10/10/21 Recheck Date: 10/31/21 rosuvastatin 5 mg tablet 5 mg PO DAILY 90 Days Qty: 90 2RF pantoprazole 40 mg tablet,delayed release (DR/EC) 40 mg PO DAILY 90 Days Qty: 90 2RF alendronate [Fosamax] 70 mg tablet 70 mg PO QWEEK 30 Days Qty: 13 3RF lamotrigine 25 mg tablet 25 mg PO BID 0RF Label Comments: Dr. Garcia cholecalciferol (vitamin D3) 25 mcg (1,000 unit) capsule 25 mcg PO DAILY 0RF clonazepam [Klonopin] 0.5 mg tablet 0.5 mg PO DAILY 0RF aspirin [Adult Aspirin Regimen] 81 mg tablet,delayed release (DR/EC) 81 mg PO DAILY 0RF fluticasone propion-salmeterol [Advair Diskus] 250-50 mcg/dose blister with device 1 inh inhalation Q12H Qty: 60 4RF Spiriva Respimat 2.5 mcg/actuation mist 2 puff inhalation DAILY Qty: 4 3RF lithium carbonate 450 mg tablet extended release PO 0RF Referrals: Maria Eugenia Law MD [Physician] - 1 week Po,Victoriano Luna MD [Primary Care Provider] - 2 days
[2021-10-26 17:16] LABS: MANUAL DIFF FLAG NO
[2021-10-26 17:17] LABS: OBS Int Ctl Valid YES; OBS1 NEGATIVE (NEGATIVE)
[2021-10-26 17:20] LABS: Basophils Percent Auto 0.4 % (0-2); Eosinophils Absolute Auto 0.4 X10*3/uL (0.0-0.4); Eosinophils Percent Auto 6.5 % (0-4); Hematocrit 27.2 % (37.0-47.0); Imm Gran Abs Auto 0.03 X10*3/uL (0.00-0.03); Imm Gran Pct Auto 0.4 % (0.0-0.4); Lymphocytes Absolute Auto 1.4 X10*3/uL (1.2-4.9); Lymphocytes Percent Auto 21.3 % (20-40); Mean Corpuscular HGB Conc 25.4 g/dl (31.0-35.0); Mean Corpuscular Hemoglobin 15.9 pg (27.0-33.0); Mean Platelet Volume 9.6 fL (9.4-12.3); Monocytes Absolute Auto 0.4 X10*3/uL (0.1-1.2); Monocytes Percent Auto 6.2 % (2-11); Neutrophils Absolute Auto 4.4 x10*3/uL (2.0-8.3); Neutrophils Percent Auto 65.2 % (45-73); Platelet Count 360 X10*3/uL (160-400); Red Blood Count 4.35 X10*6/uL (4.20-5.50); White Blood Count 6.8 X10*3/uL (4.8-10.8)
[2021-10-26 17:23] LABS: INTERNATIONAL NORM RATIO 2.7 (0.9-1.1); Prothrombin Time 30.8 SEC (9.9-13.0)
[2021-10-26 17:25] LABS: Mean Corpuscular Volume 62.5 fL (80.0-98.0)
[2021-10-26 17:26] LABS: Hemoglobin 6.9 g/dl (12.0-16.0)
[2021-10-26 17:33] LABS: COVID-19 Test Negative (Negative); IDNOW Serial# 16C4AD1C
[2021-10-26 17:39] LABS: Alanine Aminotransferase 19 U/L (0-31); Alkaline Phosphatase 94 U/L (39-117); Anion Gap 11 (12-20); Aspartate Amino Transferase 16 U/L (5-31); Bilirubin Total 0.2 mg/dL (0.0-1.0); Blood Urea Nitrogen 19 mg/dL (9-16); Calcium 9.8 mg/dL (8.4-10.2); Carbon Dioxide 22 mmol/L (22-29); Chloride 112 mmol/L (96-108); Creatinine Clr Calc Pharmacy 45.3; Estimated Glomerular Filt Rate 59; Glucose Random 106 mg/dL (60-115); Magnesium 2.2 mg/dL (1.6-2.6); Potassium 4.1 mmol/L (3.3-5.1); Sodium 141 mmol/L (135-145); Total Protein 6.4 g/dL (6.5-8.0)
[2021-10-26 18:00] VITALS: BP 133/69; PULSE 78; RESP 18; TEMP 37.1; O2SAT 97
[2021-10-26] MEDS: iohexoL 350 MG/ML 100 ML INFUS..BTL IV (18:29)
[2021-10-26 18:42] VITALS: BP 122/74; PULSE 80; RESP 18; TEMP 37.1
[2021-10-26 18:59] VITALS: BP 137/72; PULSE 80; PULSE 81; RESP 16; TEMP 37.2
[2021-10-26 19:52] VITALS: BP 140/73; PULSE 79; RESP 16; TEMP 36.9
[2021-10-26] MEDS: Ferrous Sulfate 324 MG TABLET.DR PO (19:58)
[2021-10-26 20:15] LABS: Basophils Absolute Auto 0.1 X10*3/uL (0.0-0.2); Basophils Percent Auto 0.7 % (0-2); Eosinophils Absolute Auto 0.5 X10*3/uL (0.0-0.4); Eosinophils Percent Auto 5.5 % (0-4); Hematocrit 32.7 % (37.0-47.0); Hemoglobin 8.5 g/dl (12.0-16.0); Imm Gran Abs Auto 0.04 X10*3/uL (0.00-0.03); Imm Gran Pct Auto 0.4 % (0.0-0.4); Lymphocytes Absolute Auto 1.8 X10*3/uL (1.2-4.9); Lymphocytes Percent Auto 19.9 % (20-40); MANUAL DIFF FLAG SCAN; Mean Corpuscular Hemoglobin 17.9 pg (27.0-33.0); Mean Corpuscular Volume 68.7 fL (80.0-98.0); Mean Platelet Volume 9.7 fL (9.4-12.3); Monocytes Absolute Auto 0.6 X10*3/uL (0.1-1.2); Monocytes Percent Auto 6.9 % (2-11); Neutrophils Absolute Auto 6.1 x10*3/uL (2.0-8.3); Neutrophils Percent Auto 66.6 % (45-73); Platelet Count 347 X10*3/uL (160-400); Red Blood Count 4.76 X10*6/uL (4.20-5.50); Red Cell Distribution Width 25.3 % (11.0-16.0); SCAN SMEAR FLAG 1; White Blood Count 9.1 X10*3/uL (4.8-10.8)
[2021-10-26 20:16] LABS: PLT ABN DIST 1
[2021-10-26 20:18] LABS: SLIDE REVIEW VERIFIED
== END 2021-10-26 21:01 | disposition home or self-care (01) ==
PROVIDERS: Physician Assistant; Emergency Provider Emergency Medicine; PCP Internal Medicine
DX: D50.9 Iron deficiency anemia, unspecified (principal); R79.89 Other specified abnormal findings of blood chemistry; M54.6 Pain in thoracic spine; R51.9 Headache, unspecified; R10.84 Generalized abdominal pain; Z20.822 Contact with and (suspected) exposure to COVID-19; Z79.899 Other long term (current) drug therapy
CPT/HCPCS: 36415; 36430; 70450; 71260; 74177; 80053; 82272; 83735; 85025; 85610; 86850; 86900; 86901; 86923; 87635; 96360; 99284; 99291; P9016; Q9967

== ENCOUNTER → 2021-10-27 14:43 | Outpatient (BNVA) | payer MEDICARE, SELFPAY | PROVIDERS: PCP Internal Medicine; Visit Provider Internal Medicine | DX: Z86.73 Personal history of transient ischemic attack (TIA), and cerebral infarction without residual deficits (principal); Z51.81 Encounter for therapeutic drug level monitoring; Z79.01 Long term (current) use of anticoagulants | CPT/HCPCS: 85610; 99211 ==

== ENCOUNTER → 2021-11-16 11:00 | Outpatient (BNVA) | payer MEDICARE, SELFPAY | PROVIDERS: PCP Internal Medicine; Visit Provider Internal Medicine | DX: Z86.73 Personal history of transient ischemic attack (TIA), and cerebral infarction without residual deficits (principal); Z51.81 Encounter for therapeutic drug level monitoring; Z79.01 Long term (current) use of anticoagulants | CPT/HCPCS: 85610; 99211 ==

== ENCOUNTER 2021-11-21 10:10 | Outpatient (REF) | payer MEDICARE, SELFPAY ==
--- NOTE | ~2021-11-21 | US_ITS ---
EXAMINATION: US RETROPERITONEAL LIMITED (RENAL ONLY) CLINICAL INFORMATION: Personal history of urinary calculi. COMPARISON: CT chest, abdomen and pelvis with contrast 10/26/2021. TECHNIQUE: Real-time imaging of the kidneys. FINDINGS: RIGHT KIDNEY: 11.1 x 3.6 x 4.8 cm (SAG x AP x TRV). The kidney is normal in size and contour. Right renal pelviectasis without leah hydronephrosis. Renal cortical thickness is normal. No calculi or focal parenchymal lesions. LEFT KIDNEY: 10.8 x 4.8 x 4.7 cm (SAG x AP x TRV). The kidney is normal in size and contour benign-appearing 1.7 cm left renal cyst, no imaging follow-up recommended. 7 mm nonobstructing left lower pole renal stone. 3 mm nonobstructing left midpole renal stone. Renal cortical thickness is normal. No hydronephrosis. US/US renal BI IMPRESSION: Nonobstructing left renal stones measuring up to 7 mm. Right renal pelviectasis without leah hydronephrosis.
--- NOTE | ~2021-11-21 | US_ITS ---
EXAMINATION: US THYROID CLINICAL INFORMATION: Nontoxic single thyroid nodule. COMPARISON: CT chest, abdomen and pelvis with contrast 10/26/2021. TECHNIQUE: Linear transducer grayscale and color Doppler examination with attention to the region of the thyroid. FINDINGS: SIZE: Measurements of the thyroid lobes and nodules are given in sagittal, anteroposterior and transverse dimensions respectively. Right Thyroid Lobe: 3.9 x 1.8 x 2.0 cm, volume 7.4 mL. Parenchyma: The gland echotexture is homogeneous. Thyroid vascularity is normal. Left Thyroid Lobe: 3.8 x 1.5 x 1.6 cm, volume 4.8 mL. Parenchyma: The gland echotexture is homogeneous. Thyroid vascularity is normal. Isthmus: 0.5 cm in maximum AP dimension. Estimated total number of nodules greater than or equal to 1 cm: 2. Forest Examiner nodules are described as follows: 1. Location: Inferior right isthmus. Size: 1.9 x 1.1 x 1.9 cm, volume 2.03 mL. Nodule characteristics: Composition: Spongiform (0). ACR TI-RADS total points: 0 ACR TI-RADS category: 1 2. Location: Left inferior medial. Size: 0.6 x 0.5 x 0.6 cm, volume 0.09 mL. Nodule characteristics: Composition: Solid (2). Echogenicity: Isoechoic (1). Shape: Not taller than wide (0). Margins: Ill-defined (0). Echogenic Foci: None (0). ACR TI-RADS total points: 3 ACR TI-RADS category: 3 3. Location: Superior isthmus. Size: 1.3 x 0.4 x 0.8 cm, volume 0.21 mL. Nodule characteristics: Composition: Solid (2). Echogenicity: Isoechoic (1). Shape: Not taller than wide (0). Margins: Ill-defined (0). Echogenic Foci: None (0). ACR TI-RADS total points: 3 ACR TI-RADS category: 3 NODES: No lymphadenopathy is seen in the tissue surrounding the thyroid gland. US/US thyroid IMPRESSION: 2 TI RADS 3 thyroid nodules measuring up to 1.3 cm. Given size less than 1.5 cm, no routine follow up imaging recommended. A 1.9 cm benign-appearing spongiform nodule for which no imaging follow-up is recommended. ACR TI-RADS RECOMMENDATION REFERENCE: Ultrasound-guided fine-needle aspiration, followup ultrasound, no further follow up. * TR1 (0 point) and TR 2 (2 points): No FNA or follow up * TR3 (3 points): FNA if more than or equal to 2.5 cm in maximum dimension, followup ultrasound in 1, 3 and 5 years if 1.5 to 2.4 cm in maximum dimension. * TR4 (4-6 points): FNA if more than or equal to 1.5 cm in maximum dimension, followup ultrasound in 1, 2, 3 and 5 years if 1 to 1.4 cm in maximum dimension. * TR5 (more than or equal to 7 points): FNA if more than or equal to 1 cm in maximum dimension, followup ultrasound every year for 5 years if 0.5 to 0.9 cm in maximum dimension. * TR3, TR4 or TR5 nodules that are below the size threshold for follow up receive no follow up.
== END 2021-11-21 10:11 | disposition home or self-care (01) ==
LOC: HO.HMGCX 10:10
PROVIDERS: Visit Provider Internal Medicine
DX: N28.1 Cyst of kidney, acquired (principal); E04.1 Nontoxic single thyroid nodule; Z87.442 Personal history of urinary calculi
CPT/HCPCS: 76536; 76775

== ENCOUNTER → 2021-12-14 10:54 | Outpatient (BNVA) | payer MEDICARE, SELFPAY | PROVIDERS: PCP Internal Medicine; Visit Provider Internal Medicine | DX: Z86.73 Personal history of transient ischemic attack (TIA), and cerebral infarction without residual deficits (principal); Z79.01 Long term (current) use of anticoagulants; Z51.81 Encounter for therapeutic drug level monitoring | CPT/HCPCS: 85610 ==

== ENCOUNTER → 2021-12-16 15:22 | Outpatient (BNVA) | payer MEDICARE, SELFPAY | PROVIDERS: PCP Internal Medicine; Visit Provider Internal Medicine | DX: Z86.73 Personal history of transient ischemic attack (TIA), and cerebral infarction without residual deficits (principal); Z79.01 Long term (current) use of anticoagulants; Z51.81 Encounter for therapeutic drug level monitoring | CPT/HCPCS: 85610; 99211 ==

== ENCOUNTER → 2021-12-28 13:20 | Outpatient (BNVA) | payer MEDICARE, SELFPAY | PROVIDERS: PCP Internal Medicine; Visit Provider Internal Medicine | DX: Z86.73 Personal history of transient ischemic attack (TIA), and cerebral infarction without residual deficits (principal); Z79.01 Long term (current) use of anticoagulants; Z51.81 Encounter for therapeutic drug level monitoring | CPT/HCPCS: 85610; 99211 ==

== ENCOUNTER → 2022-01-24 13:20 | Outpatient (BNVA) | payer MEDICARE, SELFPAY | PROVIDERS: PCP Internal Medicine; Visit Provider Internal Medicine | DX: Z86.73 Personal history of transient ischemic attack (TIA), and cerebral infarction without residual deficits (principal); Z79.01 Long term (current) use of anticoagulants; Z51.81 Encounter for therapeutic drug level monitoring | CPT/HCPCS: 85610; 99211 ==

== ENCOUNTER 2022-02-21 13:40 | Outpatient (REF) | payer MEDICARE, SELFPAY ==
[2022-02-21 14:20] LABS: MANUAL DIFF FLAG NO
[2022-02-21 14:42] LABS: Basophils Absolute Auto 0.1 X10*3/uL (0.0-0.2); Basophils Percent Auto 0.7 % (0-2); Eosinophils Absolute Auto 0.3 X10*3/uL (0.0-0.4); Hematocrit 48.2 % (37.0-47.0); Hemoglobin 15.6 g/dl (12.0-16.0); Imm Gran Abs Auto 0.03 X10*3/uL (0.00-0.03); Imm Gran Pct Auto 0.4 % (0.0-0.4); Immature Retic Fraction 9.4 % (3.0-15.9); Lymphocytes Absolute Auto 1.7 X10*3/uL (1.2-4.9); Lymphocytes Percent Auto 20.3 % (20-40); Mean Corpuscular HGB Conc 32.4 g/dl (31.0-35.0); Mean Corpuscular Hemoglobin 28.8 pg (27.0-33.0); Mean Corpuscular Volume 89.1 fL (80.0-98.0); Mean Platelet Volume 10.6 fL (9.4-12.3); Monocytes Absolute Auto 0.6 X10*3/uL (0.1-1.2); Monocytes Percent Auto 6.8 % (2-11); Neutrophils Absolute Auto 5.8 x10*3/uL (2.0-8.3); Neutrophils Percent Auto 67.8 % (45-73); Platelet Count 220 X10*3/uL (160-400); Red Blood Count 5.41 X10*6/uL (4.20-5.50); Red Cell Distribution Width 15.6 % (11.0-16.0); Retic HGB Equivalent 34.5 pg (30.0-35.0); Reticulocyte Percent 1.3 % (0.5-1.8); Reticulocytes Absolute 0.069 X10*6/uL (0.026-0.095); White Blood Count 8.5 X10*3/uL (4.8-10.8)
[2022-02-21 15:19] LABS: Iron 63 mcg/dL (30-160); Percent Iron Saturation 18 % (15-50); Total Iron Binding Capacity 355 mcg/dL (228-428); Unsaturated Iron Binding 292 ug/dL
[2022-02-21 15:41] LABS: Ferritin 48 ng/mL (10-250)
[2022-02-21 15:57] LABS: Folate 9.5 ng/mL (> or = 4.0); Vitamin B12 871 pg/mL (200-900)
== END 2022-02-21 13:41 | disposition home or self-care (01) ==
LOC: HO.LAB 13:40
PROVIDERS: Absent Provider Internal Medicine; PCP Internal Medicine; Visit Provider Internal Medicine
DX: Z86.73 Personal history of transient ischemic attack (TIA), and cerebral infarction without residual deficits (principal); D50.9 Iron deficiency anemia, unspecified; Z51.81 Encounter for therapeutic drug level monitoring; Z79.01 Long term (current) use of anticoagulants
CPT/HCPCS: 36415; 82607; 82728; 82746; 83540; 85025; 85045; 85610; 99211

== ENCOUNTER 2022-03-01 13:00 | Outpatient (RCR) | payer MEDICARE, SELFPAY ==
--- NOTE | 2022-01-02 15:20 | MHC.PT.EP ---
[facility] [place] Office [place] Office [place] Office [address] Brice Munoz [address] [phone] F: [phone] F: [phone] F: [phone] F: [phone] Physical Therapy Plan of Care Date of Evaluation: Date of Surgery: Diagnosis: bicipital tendonitis R shoulder Assessment: 81 y/o RHD female referred to PT with R bicipital tendonitis. Of note, she arrives with her and needs MICROFILM CLERK from for ambulation due to poor balance and vision. 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 She has R shoulder/ elbow pain for 3-4 months of insidious onset that is worse with lifting, carrying, reaching behind back, and dressing. Her and sister help with ADL s, child's nurse, grooming. Examination shows decreased cervical AROM (limited R-sided motions), significantly limited R shoulder A/AA/PROM, decreased R UE strength, decreased R elbow extension, and pain. Recommend PT 1x/week for 8 weeks to address impairments, implement HEP and optimize functional mobility. They will also be looking into script for balance therapy. Frequency and Duration: The patient will be seen 1x/week for 8 weeks Short Term Goals: 4 weeks 1. I with HEP 2. Demonstate R elbow AROM WNL Veneer Lathe Operator Goals: 8 weeks 1. I with HEP and self management of sx 2. Pt will be able to don shirt with pain < 3/10 3. Improve R shoulder flexion to 90* in sitting Treatment Plan: Modalities to reduce pain, spasms and effusion. Manual therapy to restore motion and function. Therapeutic exercise to improve strength and flexibility. Neuromuscular re-education for posture and balance. Therapeutic activities to return to functional activities of daily living. Electronically signed by: Kori Jesus PT Please sign and return to therapist. Thank you for your referral.
--- NOTE | 2022-03-10 14:32 | MHC.PT.DC ---
[facility] [place] Office [place] [facility] [place] Office [address] Brice Munoz [address] [phone] F: [phone] F: [phone] F: [phone] F: [phone] Physical Therapy Discharge Report Diagnosis: bicipital tendonitis R shoulder Date of Surgery: Date of Evaluation: 01/02/22 Date of Discharge: 03/10/22 Treatments to Date: 8 Cancellations to Date: 0 No Shows to Date: 0 Discharge Status: Improved Function Independent with HEP Discharge Summary: Her assists with HEP. They reports less pain and improved function. D/c to HEP Electronically signed by: Kori Jesus PT Please sign and return to therapist. Thank you for your referral.
== END 2022-03-10 14:33 | disposition home or self-care (01) ==
LOC: HO.PTCHIC 13:00
PROVIDERS: PCP Internal Medicine; Visit Provider Internal Medicine
DX: M75.21 Bicipital tendinitis, right shoulder (principal)
CPT/HCPCS: 97035; 97110; 97140; 97162

== ENCOUNTER → 2022-03-21 13:02 | Outpatient (BNVA) | payer MEDICARE, SELFPAY | PROVIDERS: PCP Internal Medicine; Visit Provider Internal Medicine | DX: Z86.73 Personal history of transient ischemic attack (TIA), and cerebral infarction without residual deficits (principal); Z79.01 Long term (current) use of anticoagulants; Z51.81 Encounter for therapeutic drug level monitoring | CPT/HCPCS: 85610; 99211 ==

== ENCOUNTER → 2022-04-10 14:19 | Outpatient (BNVA) | payer MEDICARE, SELFPAY | PROVIDERS: PCP Internal Medicine; Visit Provider Internal Medicine | DX: Z86.73 Personal history of transient ischemic attack (TIA), and cerebral infarction without residual deficits (principal); Z79.01 Long term (current) use of anticoagulants; Z51.81 Encounter for therapeutic drug level monitoring | CPT/HCPCS: 85610; 99211 ==

== ENCOUNTER 2022-05-08 12:43 | Outpatient (REF) | payer MEDICARE, SELFPAY ==
[2022-05-08 14:38] LABS: Lithium 0.53 mmol/L (0.60-1.20)
[2022-05-08 14:50] LABS: Alanine Aminotransferase 24 U/L (0-31); Albumin Level 4.6 g/dL (3.5-5.0); Alkaline Phosphatase 67 U/L (39-117); Anion Gap 16 (12-20); Aspartate Amino Transferase 16 U/L (5-31); Bilirubin Total 0.2 mg/dL (0.0-1.0); Blood Urea Nitrogen 23 mg/dL (9-16); Calcium 10.5 mg/dL (8.4-10.2); Carbon Dioxide 24 mmol/L (22-29); Chloride 108 mmol/L (96-108); Estimated Glomerular Filt Rate 50; Glucose Random 106 mg/dL (60-115); Potassium 4.6 mmol/L (3.3-5.1); Sodium 143 mmol/L (135-145); Total Protein 7.1 g/dL (6.5-8.0)
[2022-05-08 15:02] LABS: Thyroid Stimulating Hormone 0.96 uIU/mL (0.32-4.0)
[2022-05-12 15:57] LABS: Lamotrigine Lamictal 2.9 mcg/mL (4.0-18.0)
== END 2022-05-08 12:44 | disposition home or self-care (01) ==
LOC: HO.LAB 12:43
PROVIDERS: PCP Internal Medicine; Visit Provider Psychiatry & Neurology Psychiatry
DX: Z86.73 Personal history of transient ischemic attack (TIA), and cerebral infarction without residual deficits (principal); F31.70 Bipolar disorder, currently in remission, most recent episode unspecified; Z51.81 Encounter for therapeutic drug level monitoring; Z79.01 Long term (current) use of anticoagulants; Z79.899 Other long term (current) drug therapy
CPT/HCPCS: 36415; 80053; 80175; 80178; 84443; 85610; 99211

== ENCOUNTER → 2022-05-15 15:08 | Outpatient (BNVA) | payer MEDICARE, SELFPAY | PROVIDERS: PCP Internal Medicine; Visit Provider Psychiatry & Neurology Psychiatry | DX: F31.62 Bipolar disorder, current episode mixed, moderate (principal); I10 Essential (primary) hypertension; Z86.73 Personal history of transient ischemic attack (TIA), and cerebral infarction without residual deficits; R26.81 Unsteadiness on feet | CPT/HCPCS: 90833; 99212 ==

== ENCOUNTER → 2022-05-16 12:38 | Outpatient (REF) | payer MEDICARE, SELFPAY ==
--- NOTE | 2022-05-16 12:46 | ECG_ITS ---
Test Reason : bipolar Blood Pressure : / mmHG Vent. Rate : 078 BPM Atrial Rate : 078 BPM P-R Int : 184 ms QRS Dur : 070 ms QT Int : 380 ms P-R-T Axes : 057 -30 042 degrees QTc Int : 433 ms Normal sinus rhythm Left axis deviation Inferior infarct (cited on or before 17-NOV-2018) Possible Anterolateral infarct , age undetermined Abnormal ECG When compared with ECG of 17-NOV-2018 17:20, Borderline criteria for Anterior infarct are now Present Borderline criteria for Anterolateral infarct are now Present Nonspecific T wave abnormality has replaced inverted T waves in Inferior leads Referred By: Emilio Garcia Electronically Signed By:LOUIS SZYMANSKI
== END ==
LOC: HO.CARD 12:38
PROVIDERS: PCP Internal Medicine; Visit Provider Psychiatry & Neurology Psychiatry
DX: F31.62 Bipolar disorder, current episode mixed, moderate (principal)
CPT/HCPCS: 93005

== ENCOUNTER 2022-05-24 13:00 | Outpatient (RCR) | payer MEDICARE, SELFPAY ==
[2022-03-06 14:50] VITALS: BP 150/90; PULSE 77; O2SAT 96
--- NOTE | 2022-03-06 16:23 | MHC.PT.EP ---
[facility] [place] Office [place] Office [place] Office [address] Brice Munoz [address] [phone] F: [phone] F: [phone] F: [phone] F: [phone] Physical Therapy Plan of Care Date of Evaluation: Date of Surgery: Diagnosis: This is a 81 female presenting to skilled PT with a script for leg weakness, gait/balance Assessment: This is a 81 female presenting to skilled PT with a script for leg weakness, gait/balance. Patient was recently DC last week from out clinic for R shoulder pain. Reports R shoulder pain for 3-4 months of insidious onset. Feels like she has good days and bad days, still and cannot associate soreness with any activity. She is now here for balance/gait. Pt reports a history of 2 CVA's (lacks peripheral vision on R side and hemiparesis R side), the last 3 years ago. She had some therapy right after the strokes but feels like she is getting weaker and weaker. She reports difficulty with dressing and cooking. Her does her hair (he is a hairdresser). She has B railings on all stairs, grab bars in the bathroom. She has a full flight of stairs to the bedroom (goes up these on all 4 limbs). States she gets some help from her sister and with chores and meals. She has had multiple falls and reports at least 3 in the last week. Her walks in with her arm-in-arm, denies AD use but has them at home. Assessment reveals pain that ranges up to a 10/10. She demos decreased RUE and RLE ROM, decreased RUE and RLE strength, impaired gait pattern with LOB and reports of multiple falls, decreased balance as evidenced through testing as well as gross functional decline with transfers, ADLs and ambulation. She is a fair candidate for skilled PT 2x/wk for 4wks (patient would like to come 1x/wk for 8wks) Frequency and Duration: The patient will be seen 2x/wk for 4wks Short Term Goals: I in HEP demo at least 10 mins on the stepper Tester Armature Or Fields Goals: Improve DGI by at least 5 Improve LE strength by at least 1/5 Demo proper transfers supine<>sit without cues or assist Report no falls in 5 wks Treatment Plan: Modalities to reduce pain, spasms and effusion. Manual therapy to restore motion and function. Therapeutic exercise to improve strength and flexibility. Neuromuscular re-education for posture and balance. Therapeutic activities to return to functional activities of daily living. Electronically signed by: Cathy Cedeno PT Please sign and return to therapist. Thank you for your referral.
--- NOTE | 2022-09-28 09:13 | MHC.PT.DC ---
[facility] [place] Office [place] Office [place] Office [address] Brice Munoz [address] [phone] F: [phone] F: [phone] F: [phone] F: [phone] Physical Therapy Discharge Report Diagnosis: This is a 81 female presenting to skilled PT with a script for leg weakness, gait/balance Date of Surgery: Date of Evaluation: 03/06/22 Date of Discharge: 09/28/22 Treatments to Date: 8 Cancellations to Date: 0 No Shows to Date: 0 Discharge Status: Discharge Summary: Pt performs exercises with mild fatigue, she was challenged with balance exs and was progressing with strength and endurance. Pt has handouts for HEP and is DC with exercises at this time with assist from . Electronically signed by: Cathy Cedeno PT Please sign and return to therapist. Thank you for your referral.
== END 2022-09-28 09:13 | disposition home or self-care (01) ==
LOC: HO.PTCHIC 13:00
PROVIDERS: PCP Internal Medicine; Visit Provider Internal Medicine
DX: R26.81 Unsteadiness on feet (principal); Z86.73 Personal history of transient ischemic attack (TIA), and cerebral infarction without residual deficits
CPT/HCPCS: 85610; 97110; 97112; 97163; 99211

== ENCOUNTER → 2022-06-26 13:06 | Outpatient (BNVA) | payer MEDICARE, SELFPAY | PROVIDERS: PCP Internal Medicine; Visit Provider Internal Medicine | DX: Z86.73 Personal history of transient ischemic attack (TIA), and cerebral infarction without residual deficits (principal); Z79.01 Long term (current) use of anticoagulants; Z51.81 Encounter for therapeutic drug level monitoring | CPT/HCPCS: 85610; 99211 ==

== ENCOUNTER → 2022-07-24 13:03 | Outpatient (BNVA) | payer MEDICARE, SELFPAY | PROVIDERS: PCP Internal Medicine; Visit Provider Internal Medicine | DX: Z86.73 Personal history of transient ischemic attack (TIA), and cerebral infarction without residual deficits (principal); Z79.01 Long term (current) use of anticoagulants; Z51.81 Encounter for therapeutic drug level monitoring | CPT/HCPCS: 85610; 99211 ==

== ENCOUNTER → 2022-08-21 13:01 | Outpatient (BNVA) | payer MEDICARE, SELFPAY | PROVIDERS: PCP Internal Medicine; Visit Provider Internal Medicine | DX: Z86.73 Personal history of transient ischemic attack (TIA), and cerebral infarction without residual deficits (principal); Z79.01 Long term (current) use of anticoagulants; Z51.81 Encounter for therapeutic drug level monitoring; F31.62 Bipolar disorder, current episode mixed, moderate; I69.319 Unspecified symptoms and signs involving cognitive functions following cerebral infarction | CPT/HCPCS: 85610; 99211; 99212 ==

== ENCOUNTER → 2022-09-18 13:23 | Outpatient (BNVA) | payer MEDICARE, SELFPAY | PROVIDERS: PCP Internal Medicine; Visit Provider Internal Medicine | DX: Z86.73 Personal history of transient ischemic attack (TIA), and cerebral infarction without residual deficits (principal); Z51.81 Encounter for therapeutic drug level monitoring; Z79.01 Long term (current) use of anticoagulants | CPT/HCPCS: 85610; 99211 ==

== ENCOUNTER → 2022-10-09 13:24 | Outpatient (BNVA) | payer MEDICARE, SELFPAY | PROVIDERS: PCP Internal Medicine; Visit Provider Psychiatry & Neurology Psychiatry | DX: I69.319 Unspecified symptoms and signs involving cognitive functions following cerebral infarction (principal); F31.62 Bipolar disorder, current episode mixed, moderate | CPT/HCPCS: 90833; 99212 ==

== ENCOUNTER → 2022-10-16 13:43 | Outpatient (BNVA) | payer MEDICARE, SELFPAY | PROVIDERS: PCP Internal Medicine; Visit Provider Internal Medicine | DX: Z86.73 Personal history of transient ischemic attack (TIA), and cerebral infarction without residual deficits (principal); Z79.01 Long term (current) use of anticoagulants; Z51.81 Encounter for therapeutic drug level monitoring | CPT/HCPCS: 85610; 99211 ==

== ENCOUNTER → 2022-11-13 13:34 | Outpatient (BNVA) | payer MEDICARE, SELFPAY | PROVIDERS: PCP Internal Medicine; Visit Provider Internal Medicine | DX: Z86.73 Personal history of transient ischemic attack (TIA), and cerebral infarction without residual deficits (principal); Z79.01 Long term (current) use of anticoagulants; Z51.81 Encounter for therapeutic drug level monitoring | CPT/HCPCS: 85610; 99211 ==

== ENCOUNTER → 2022-12-11 13:25 | Outpatient (BNVA) | payer MEDICARE, SELFPAY | PROVIDERS: PCP Internal Medicine; Visit Provider Internal Medicine | DX: Z86.73 Personal history of transient ischemic attack (TIA), and cerebral infarction without residual deficits (principal); Z79.01 Long term (current) use of anticoagulants; Z51.81 Encounter for therapeutic drug level monitoring | CPT/HCPCS: 85610; 99211 ==

== ENCOUNTER → 2022-12-12 14:13 | Outpatient (BNVA) | payer MEDICARE, SELFPAY | PROVIDERS: PCP Internal Medicine; Visit Provider Psychiatry & Neurology Psychiatry | DX: F31.62 Bipolar disorder, current episode mixed, moderate (principal); F31.9 Bipolar disorder, unspecified; G89.4 Chronic pain syndrome; I69.319 Unspecified symptoms and signs involving cognitive functions following cerebral infarction; I10 Essential (primary) hypertension | CPT/HCPCS: Q3014 ==

== ENCOUNTER 2023-01-01 09:31 | Outpatient (REF) | payer MEDICARE, SELFPAY ==
[2023-01-01 10:54] LABS: Lithium 0.37 mmol/L (0.60-1.20)
== END 2023-01-01 09:32 | disposition home or self-care (01) ==
LOC: HO.LAB 09:31
PROVIDERS: Psychiatry & Neurology Psychiatry; PCP Internal Medicine; Visit Provider Internal Medicine
DX: F31.9 Bipolar disorder, unspecified (principal); Z79.899 Other long term (current) drug therapy
CPT/HCPCS: 36415; 80178

== ENCOUNTER → 2023-01-18 15:21 | Outpatient (BNVA) | payer MEDICARE, SELFPAY | PROVIDERS: PCP Internal Medicine; Visit Provider Internal Medicine | DX: Z86.73 Personal history of transient ischemic attack (TIA), and cerebral infarction without residual deficits (principal); Z51.81 Encounter for therapeutic drug level monitoring; Z79.01 Long term (current) use of anticoagulants | CPT/HCPCS: 85610; 99211 ==

== ENCOUNTER → 2023-01-31 11:09 | Outpatient (BNVA) | payer MEDICARE, SELFPAY | PROVIDERS: PCP Internal Medicine; Visit Provider Psychiatry & Neurology Psychiatry | DX: F31.9 Bipolar disorder, unspecified (principal) ==

== ENCOUNTER → 2023-02-14 13:25 | Outpatient (BNVA) | payer MEDICARE, SELFPAY | PROVIDERS: PCP Internal Medicine; Visit Provider Internal Medicine | DX: Z86.73 Personal history of transient ischemic attack (TIA), and cerebral infarction without residual deficits (principal); Z79.01 Long term (current) use of anticoagulants; Z51.81 Encounter for therapeutic drug level monitoring | CPT/HCPCS: 85610; 99211 ==

== ENCOUNTER 2023-02-28 14:03 | Outpatient (AMB) | payer MEDICARE, SELFPAY ==
--- NOTE | 2023-02-28 15:38 | MHC.OFFVISPS ---
Intake Intake Visit Reasons: DEPRESSION Allergies clindamycin [CLINDAMYCIN] Allergy (Unknown, Verified 02/14/23 13:29) UNKNOWN oxycodone [OXYCODONE] Allergy (Unknown, Verified 02/14/23 13:29) UNKNOWN Penicillins [PENICILLINS] Allergy (Unknown, Verified 02/14/23 13:29) UNKNOWN seafood Allergy (Unknown, Verified 02/14/23 13:29) Anaphylaxis shellfish derived [SHELLFISH DERIVED] Allergy (Unknown, Verified 02/14/23 13:29) Anaphylaxis animal dander [ANIMAL DANDER] Adverse Reaction (Unknown, Verified 02/14/23 13:29) ITCHING, REDNESS atorvastatin [Lipitor] Adverse Reaction (Unknown, Verified 02/14/23 13:29) myalgia Medication List - Last Reconciled 02/28/23 by Emilio Garcia MD albuterol sulfate 90 mcg/actuation (ProAir HFA) 2 puffs inhalation Q4-6H PRN alendronate (Fosamax) 70 mg PO QWEEK 30 days fluticasone propionate 100 mcg/actuation (Flovent Diskus) 2 inhalations inhalation BID irbesartan 150 mg PO DAILY lamotrigine 50 mg (1/2 x 100 mg) PO QAM 90 days lithium carbonate ER 300 mg PO BEDTIME 30 days lorazepam 0.5 mg PO BEDTIME PRN modafinil 100 mg PO DAILY montelukast (Singulair) 10 mg PO DAILY pantoprazole 40 mg PO DAILY 90 days rosuvastatin 5 mg PO DAILY 90 days warfarin 4 mg See Protocol PO DAILY HPI- Psychiatric Chief Complaint: DEPRESSION HPI Narrative: Patient has noticed some improvement in mood and energy on modafinil 100 mg daily. She did not increase to 150 mg as we discussed on the previous appointment. No manic symptoms has been going to the [facility] 3 times a week. She has gone to some dances with her although not able to dance she does enjoy the stimulation and is feeling she states more live more interested in things no elevated mood states racing thoughts agitation irritability. Lamictal continues at 100 mg daily Continues on Coumadin no new stroke symptoms feels more alert she and her seems getting along better Past Psychiatric History: History of bipolar disorder was stable on lithium for years until CVA Subjective Review of Systems Review of Systems Has problems with balance slowed mental processing good memory especially in regards to numbers Mental Status Exam Mental Status Exam Narrative: Mental Status Exam Narrative: Appearance: Casually dressed Behavior: Cooperative psychomotor: Slowed ambulation difficulty with balance not using cane or walker Speech: Clear some hesitation Thought proccess logical some improved processing speed Thought content: feels somewhat better more alive better able to enjoy things Mood: Less apathetic euthymic Affect: Sears affect SI:denies HI:denies VH/AH:none Delusions:none Insight/judgment:generally ok takes her medication regularly has been more cooperative with adding activities going to [facility] Memory/cog: some episodic memory difficulty but more alert knows her dosing and medication [facility] edwina Garcia Assessment and Plan Assessment & Plan (1) 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): Status: Acute Code(s): I69.319 - Unspecified symptoms and signs involving cognitive functions following cerebral infarction (2) History of CVA (cerebrovascular accident): Status: Acute Code(s): Z86.73 - Personal history of transient ischemic attack (TIA), and cerebral infarction without residual deficits (3) Bipolar disorder: Status: Acute Qualifiers: Active/Remission status: currently active Current bipolar episode type: mixed Current episode severity: moderate Qualified Code(s): F31.62 - Bipolar disorder, current episode mixed, moderate Code(s): F31.9 - Bipolar disorder, unspecified (4) Gait instability: Status: Acute Code(s): R26.81 - Unsteadiness on feet Plan Patient continues on lithium Lamictal modafinil. History of CVA. Has shown significant improvement on modafinil. With blood pressure stable not hypertensive no palpitations will maintain 100 mg dose of modafinil continue to monitor for arrhythmia blood pressure changes or manic agitation. Check renal function on lithium check Lamictal level. Could try and increase Lamictal to 150 mg depending on level might benefit from eventual discontinuation of lithium however there is some evidence that low-dose lithium is neuroprotective Encourage physical therapy for gait stability would also most likely benefit from exercise classes at the [facility] and cognitive stimulation discussion classes card games bingo etc. Medications: Refilled modafinil 100 mg PO DAILY 90 tabs 0RF Orders: Orders Comprehensive Met. Panel 02/28/23 F31.9 - Bipolar disorder, unspecified Lamotrigine Lamictal 02/28/23 F31.9 - Bipolar disorder, unspecified [place] 02/28/23 F31.9 - Bipolar disorder, unspecified Counseling and coordination of Care Pt. Self Management counseling: Behavior activation Details-Self Mgmt counseling: Patient and her appear to be more social and active this is been quite helpful for the patient and she has been more cooperative with this Medication management counseling: Effectiveness, Side effects and Dosing range Diagnosis and Prognosis Counseling: Impact of diagnosis on life functions and Adequacy of current interventions Details: I spent [38] minutes reviewing the record, seeing the patient and documenting in the medical record. Counseling provided to the patient/caregiver as outlined below. Addressed patient/caregiver concerns regarding current medication regime including effective adherence. Addressed patient/caregiver concerns regarding diagnosis and prognosis including accuracy of diagnosis, prognosis over time, impact of diagnosis. Addressed patient/caregiver concerns regarding impact of recent stressors. [facility] Medical History (Updated 08/30/22 @ 15:27 by Victoriano Wong MD) Asthma Bipolar disorder 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) GERD (gastroesophageal reflux disease) History of CVA (cerebrovascular accident) History of renal calculi Hypercholesterolemia Hypertension Impaired glucose tolerance Iron deficiency anemia Obesity (BMI 30-39.9) Patent foramen ovale Tubular adenoma of colon Surgical History History of mastoidectomy History of parathyroidectomy Family History Father Cataract Mother Anxiety Cancer Brother Lung cancer Liver cancer Sister Dementia Autoimmune disease Social History Housing: House Alcohol intake: never Patient Tobacco Use Status: Never used Tobacco e-Cigarette/Vaping Use: Never Used Second Hand Smoke Exposure: No Current occupational status: retired Cognitive needs: Yes Hearing needs: No Vision needs: Yes Social History: Patient has a medical history hypertension renal insufficiency glaucoma status post CVA. 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 She does have 3 children. 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
== END 2023-02-28 14:42 | disposition home or self-care (01) ==
LOC: HO.HOP 14:03
PROVIDERS: PCP Internal Medicine; Visit Provider Psychiatry & Neurology Psychiatry
DX: F31.62 Bipolar disorder, current episode mixed, moderate (principal); I69.319 Unspecified symptoms and signs involving cognitive functions following cerebral infarction; R26.81 Unsteadiness on feet; Z86.73 Personal history of transient ischemic attack (TIA), and cerebral infarction without residual deficits
CPT/HCPCS: 90833; 99213

== ENCOUNTER 2023-02-28 14:03 | Outpatient (REF) | payer MEDICARE, SELFPAY ==
[2023-02-28 17:27] LABS: Lithium 0.31 mmol/L (0.60-1.20)
[2023-03-01 02:49] LABS: Alanine Aminotransferase 20 U/L (0-31); Albumin Level 4.2 g/dL (3.5-5.0); Alkaline Phosphatase 70 U/L (39-117); Anion Gap 12 (12-20); Aspartate Amino Transferase 23 U/L (5-31); Bilirubin Total 0.3 mg/dL (0.0-1.0); Blood Urea Nitrogen 16 mg/dL (9-16); Calcium 10.1 mg/dL (8.4-10.2); Carbon Dioxide 25 mmol/L (22-29); Chloride 109 mmol/L (96-108); Estimated Glomerular Filt Rate 59; Glucose Random 91 mg/dL (60-115); Sodium 142 mmol/L (135-145); Total Protein 6.9 g/dL (6.5-8.0)
[2023-03-05 00:19] LABS: Lamotrigine Lamictal 1.1 mcg/mL (2.5-15.0)
== END 2023-02-28 14:04 | disposition home or self-care (01) ==
LOC: HO.LAB 14:03
PROVIDERS: PCP Internal Medicine; Visit Provider Psychiatry & Neurology Psychiatry
DX: F31.9 Bipolar disorder, unspecified (principal); F31.62 Bipolar disorder, current episode mixed, moderate; R26.81 Unsteadiness on feet; Z86.73 Personal history of transient ischemic attack (TIA), and cerebral infarction without residual deficits; Z79.899 Other long term (current) drug therapy
CPT/HCPCS: 36415; 80053; 80175; 80178; 90833; 99212

== ENCOUNTER 2023-03-06 13:43 | Outpatient (AMB) | payer MEDICARE, SELFPAY ==
[2023-03-06 13:50] VITALS: BP 144/70; PULSE 73; O2SAT 98; BMI 29.5
--- NOTE | 2023-03-06 13:50 | A.OFFPC_ITS ---
Vital Signs 03/06/23 13:50 03/06/23 14:16 Height 5 ft 1 in Weight 156 lb BMI 29.5 BP 144/70 H 138/70 Blood Pressure Location Lt brachial Lt brachial Position Sitting Sitting Pulse 73 Pulse Source Pulse Oximeter Pulse Oximetry (%) 98 Oxygen Delivery Method Room Air Intake Visit Reasons: follow up Allergies clindamycin [CLINDAMYCIN] Allergy (Unknown, Verified 03/06/23 13:50) UNKNOWN oxycodone [OXYCODONE] Allergy (Unknown, Verified 03/06/23 13:50) UNKNOWN Penicillins [PENICILLINS] Allergy (Unknown, Verified 03/06/23 13:50) UNKNOWN seafood Allergy (Unknown, Verified 03/06/23 13:50) Anaphylaxis shellfish derived [SHELLFISH DERIVED] Allergy (Unknown, Verified 03/06/23 13:50) Anaphylaxis animal dander [ANIMAL DANDER] Adverse Reaction (Unknown, Verified 03/06/23 13:50) ITCHING, REDNESS atorvastatin [Lipitor] Adverse Reaction (Unknown, Verified 03/06/23 13:50) myalgia Tobacco use date assessed: 12/04/22 Fall risk assessment: 1 Fall in past year Last assessed Fall Risk: 03/06/23 Dental Screening Dental Screen Date: 03/06/23 Did you have a dental visit in the last 12 months?: Yes Did you have a dental problem in the last 6 months where you did not have access to dental care?: No Was dental information given to patient?: Patient has dentist HPI follow up HPI0 Details 82-year-old overweight female with a history of CVA iron deficiency anemia GERD asthma hypertension hypercholesterolemia impaired glucose tolerance last seen in November 2022 patient is here for follow-up patient also has recurrent depression seeing Psychiatry blood work monitored February 2023 last complete blood work with cholesterol is last year blood work that I have requested was not done again. Patient has been feeling better has been walking a little bit more has been eating lunch is outside. Otherwise no nausea no vomiting no chest pains no shortness of breath no bowel bladder symptoms. 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) GERD (gastroesophageal reflux disease) History of CVA (cerebrovascular accident) History of renal calculi Hypercholesterolemia Hypertension Impaired glucose tolerance Iron deficiency anemia Obesity (BMI 30-39.9) Patent foramen ovale Tubular adenoma of colon Surgical History History of mastoidectomy History of parathyroidectomy Family History (Updated 03/06/23 @ 13:51 by Coreen Fajardo [employer] CLERK) Father Cataract Mother Anxiety Cancer Mental health disorder Brother Lung cancer Liver cancer Sister Dementia Autoimmune disease Social History Housing: House Alcohol intake: never Patient Tobacco Use Status: Never used Tobacco e-Cigarette/Vaping Use: Never Used Second Hand Smoke Exposure: No Current occupational status: retired Cognitive needs: Yes Hearing needs: No Vision needs: Yes Questionnaire PHQ-9 Over the last 2 weeks, how often have you been bothered by any of the following problems? 1. Little interest or pleasure in doing things: not at all 2. Feeling down, depressed, or hopeless: not at all 3. Trouble falling or staying asleep, or sleeping too much: not at all 4. Feeling tired or having little energy: not at all 5. Poor appetite or overeating: not at all 6. Feeling bad about yourself - or that you are a failure or have let yourself or your family down: not at all 7. Trouble concentrating on things, such as reading the newspaper or watching television: not at all 8. Moving or speaking so slowly that other people could have noticed. Or the opposite - being so fidgety or restless that you have been moving around a lot more than usual: not at all 9. Thoughts that you would be better off or of hurting yourself in some way: not at all Total score: 0 Depression Screening Interpretation: Negative Source: Developed by Drs. Francis Kim, Shelley Estrella, Miguel Morrison and colleagues, with an educational kezia from [employer]. Thrive Questionnaire Date Thrive assessed: 12/04/22 AUDIT C Alcohol Use Questionnaire (AUDIT-C) 1. How often do you have a drink containing alcohol?: Never 3. How often do you have six or more drinks on one occasion?: Never Total Score: 0 MARANDA-7 AMB Questionnaire MARANDA-7 Date MARANDA - 7 assessed: 08/30/22 Source: Developed by Drs. Francis Kim, Shelley Estrella, Miguel Morrison and colleagues, with an educational kezia from [employer]. Physical exam (Primary Care) Vital Signs: Last Vital Signs Pulse 73 03/06/23 13:50 BP 138/70 03/06/23 14:16 Pulse Ox 98 03/06/23 13:50 Oxygen Delivery Method Room Air 03/06/23 13:50 BMI result Body Mass Index 29.5 Tobacco/Smoking Status: Tobacco use Status Tobacco use date assessed 12/04/22 03/06/23 13:57 Patient Tobacco Use Status Never used Tobacco 03/06/23 13:57 e-Cigarette/Vaping Use Never Used 03/06/23 13:57 PHQ-9: PHQ-9 Score PHQ-9: Total score 0 03/06/23 14:28 Depression Screening Interpretation: Negative Thrive Assessment: Date of Thrive Assessment Date Thrive assessed 12/04/22 03/06/23 13:57 Const General: alert; No acute distress Eyes Conjunctivae: conjunctivae normal Resp Auscultation: clear to auscultation bilaterally Cardio Rate: regular rate Rhythm: regular rhythm GI Inspection: Yes normal to inspection Extrem General: Yes normal to inspection and No edema Immunizations tetanus-diphtheria toxoids-Td Performing Provider: Victoriano Wong MD Administered by: Coreen Fajardo CMA on 03/06/23 14:28 Dose Route Admin Location Lot Number Expiration Date [employer]DC Sanding Machine Buffer 0.5 mL IM Left Deltoid [id number] 12/17/23 [address]-6 [employer] VIS Given Date VIS Provided VIS Publication Date 03/06/23 Single Vaccine 21 Eligibility Eligibility Date Funding Source Not [facility] Eligible 03/06/23 [facility] Assessment and Plan Assessment & Plan (1) History of CVA (cerebrovascular accident): Comment: Status post tPA July 2017 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 November 2018 Code(s): Z86.73 - Personal history of transient ischemic attack (TIA), and cerebral infarction without residual deficits Plan: Continuing on anticoagulation, Control the cholesterol, weight, blood pressure, diabetes (2) GERD (gastroesophageal reflux disease): Code(s): K21.9 - Gastro-esophageal reflux disease without esophagitis Qualifiers: Esophagitis presence: without esophagitis Qualified Code(s): K21.9 - Gastro-esophageal reflux disease without esophagitis Plan: Avoid the foods that causes that usually spicy foods, tomato products, juices, coffee, soda and foods that your sensitive to. After eating do not lie down, allow 3-4 hours before in lie down. And keep the head of bed above 30 degrees to avoid the acid from going up. (3) Bipolar disorder: Comment: Dr. Garcia psychiatrist Code(s): F31.9 - Bipolar disorder, unspecified Qualifiers: Active/Remission status: currently active Current bipolar episode type: mixed Current episode severity: moderate Qualified Code(s): F31.62 - Bipolar disorder, current episode mixed, moderate Plan: Patient follows up with Psychiatry on modafinil lamotrigine and lithium (4) Asthma: Comment: PFT January 2018 Code(s): J45.909 - Unspecified asthma, uncomplicated Qualifiers: Asthma complication type: uncomplicated Asthma persistence: intermittent Asthma severity: mild Qualified Code(s): J45.20 - Mild intermittent asthma, uncomplicated Plan: Continue with inhaler as needed (5) Hypertension: Code(s): I10 - Essential (primary) hypertension Qualifiers: Hypertension type: essential hypertension Qualified Code(s): I10 - Essential (primary) hypertension Plan: Continue with blood pressure medication. Decrease salt intake and exercise patient takes irbesartan 150 mg once a day (6) Hypercholesterolemia: Code(s): E78.00 - Pure hypercholesterolemia, unspecified Plan: Avoid fried foods, chicken skin, eggs, butter margarine, pastries and meat. Be it pork or beef they have a lot of cholesterol LDL goal of less than 70 and triglyceride of less than 150 patient on rosuvastatin 5 mg once a day (7) Impaired glucose tolerance: Code(s): R73.02 - Impaired glucose tolerance (oral) Plan: Decrease the amount of carbohydrate intake, pasta, bread, rice and potatoes are all sugar and that is aside from all the sweet stuff, remember that fruits are good but they are Sweet also. (8) Overweight (BMI 25.0-29.9): Code(s): E66.3 - Overweight Plan: Diet and exercise Orders: Orders Td State Immunization Today Z23 - Encounter for immunization Coding Level of Care Code Est Pt Level 4 (17280) Diagnoses History of CVA (cerebrovascular accident) Z86.73 GERD (gastroesophageal reflux disease) K21.9 Esophagitis presence: without esophagitis Bipolar disorder F31.62 Active/Remission status: currently active Current bipolar episode type: mixed Current episode severity: moderate Asthma J45.20 Asthma complication type: uncomplicated Asthma persistence: intermittent Asthma severity: mild Hypertension I10 Hypertension type: essential hypertension Hypercholesterolemia E78.00 Impaired glucose tolerance R73.02 Overweight (BMI 25.0-29.9) E66.3
[2023-03-06 14:16] VITALS: BP 138/70
== END 2023-03-06 14:35 | disposition home or self-care (01) ==
PROVIDERS: PCP Internal Medicine; Visit Provider Internal Medicine
DX: K21.9 Gastro-esophageal reflux disease without esophagitis (principal); Z86.73 Personal history of transient ischemic attack (TIA), and cerebral infarction without residual deficits; F31.62 Bipolar disorder, current episode mixed, moderate; Z23 Encounter for immunization; J45.20 Mild intermittent asthma, uncomplicated; I10 Essential (primary) hypertension; E78.00 Pure hypercholesterolemia, unspecified; R73.02 Impaired glucose tolerance (oral); E66.3 Overweight
CPT/HCPCS: 90471; 90714; 99214

== ENCOUNTER 2023-03-13 13:19 | Outpatient (AMB) | payer MEDICARE, SELFPAY ==
[2023-03-13 13:27] LABS: Prothrombin Time Whole Bld POC 34.9 sec (11.1-13.5); ~PT, ~INR - Anti Coag Clinic 2.9 (0.9-1.1)
--- NOTE | 2023-03-13 13:39 | MHC.OFFVISCO ---
Intake Intake Visit Reasons: Anticoagulation Allergies clindamycin [CLINDAMYCIN] Allergy (Unknown, Verified 03/13/23 13:19) UNKNOWN oxycodone [OXYCODONE] Allergy (Unknown, Verified 03/13/23 13:19) UNKNOWN Penicillins [PENICILLINS] Allergy (Unknown, Verified 03/13/23 13:19) UNKNOWN seafood Allergy (Unknown, Verified 03/13/23 13:19) Anaphylaxis shellfish derived [SHELLFISH DERIVED] Allergy (Unknown, Verified 03/13/23 13:19) Anaphylaxis animal dander [ANIMAL DANDER] Adverse Reaction (Unknown, Verified 03/13/23 13:19) ITCHING, REDNESS atorvastatin [Lipitor] Adverse Reaction (Unknown, Verified 03/13/23 13:19) myalgia Medication List - Last Reconciled 03/13/23 by Silvia Saunders RN albuterol sulfate 90 mcg/actuation (ProAir HFA) 2 puffs inhalation Q4-6H PRN alendronate (Fosamax) 70 mg PO QWEEK 30 days fluticasone propionate 100 mcg/actuation (Flovent Diskus) 2 inhalations inhalation BID irbesartan 150 mg PO DAILY lamotrigine 150 mg PO DAILY lithium carbonate ER 300 mg PO BEDTIME 30 days lorazepam 0.5 mg PO BEDTIME PRN modafinil 100 mg PO DAILY montelukast (Singulair) 10 mg PO DAILY pantoprazole 40 mg PO DAILY 90 days rosuvastatin 5 mg PO DAILY 90 days warfarin 4 mg See Protocol PO DAILY Nursing Note Amb to ACS feeling Medications and supplements reviewed No changes in health, diet, medications, or supplements Denies any unusual signs and symptoms of bruising, bleeding Denies any new Chest pain, SOB, or clotting INR: in therapeutic range Nutritional guidance given: balance greens and reds in diet Dose: continue usual dosing; 4mg daily F/U INR: 4 weeks Patient verbalizes understanding of instructions given with accurate read back/ teach back of dosing Anti-Coag Initial Assessment Social Hx Patient Tobacco Use Status: Never used Tobacco alcohol intake: never Coding Level of Care Code Est Patient Level 1 Diagnoses Current use of anticoagulant therapy Z79.01 Time Spent (min) 15 Assessment & Plan Assessment & Plan (1) Current use of anticoagulant therapy: Code(s): 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
== END 2023-03-13 13:43 | disposition home or self-care (01) ==
LOC: HO.ACS 13:19
PROVIDERS: PCP Internal Medicine; Visit Provider Internal Medicine
DX: Z79.01 Long term (current) use of anticoagulants (principal)

== ENCOUNTER → 2023-03-13 13:19 | Outpatient (BNVA) | payer MEDICARE, SELFPAY | PROVIDERS: PCP Internal Medicine; Visit Provider Internal Medicine | DX: Z86.73 Personal history of transient ischemic attack (TIA), and cerebral infarction without residual deficits (principal); Z79.01 Long term (current) use of anticoagulants; Z51.81 Encounter for therapeutic drug level monitoring | CPT/HCPCS: 85610; 99211 ==

== ENCOUNTER 2023-04-10 13:04 | Outpatient (AMB) | payer MEDICARE, SELFPAY ==
[2023-04-10 13:43] LABS: ~PT, ~INR - Anti Coag Clinic 2.5 (0.9-1.1)
--- NOTE | 2023-04-10 13:43 | MHC.OFFVISCO ---
Intake Intake Visit Reasons: Anticoagulation Allergies clindamycin [CLINDAMYCIN] Allergy (Unknown, Verified 04/10/23 13:38) UNKNOWN oxycodone [OXYCODONE] Allergy (Unknown, Verified 04/10/23 13:38) UNKNOWN Penicillins [PENICILLINS] Allergy (Unknown, Verified 04/10/23 13:38) UNKNOWN seafood Allergy (Unknown, Verified 04/10/23 13:38) Anaphylaxis shellfish derived [SHELLFISH DERIVED] Allergy (Unknown, Verified 04/10/23 13:38) Anaphylaxis animal dander [ANIMAL DANDER] Adverse Reaction (Unknown, Verified 04/10/23 13:38) ITCHING, REDNESS atorvastatin [Lipitor] Adverse Reaction (Unknown, Verified 04/10/23 13:38) myalgia Medication List - Last Reconciled 04/10/23 by Piedad Diana RN albuterol sulfate 90 mcg/actuation (ProAir HFA) 2 puffs inhalation Q4-6H PRN alendronate (Fosamax) 70 mg PO QWEEK 30 days fluticasone propionate 100 mcg/actuation (Flovent Diskus) 2 inhalations inhalation BID irbesartan 150 mg PO DAILY lamotrigine 150 mg PO DAILY lithium carbonate ER 300 mg PO BEDTIME 30 days lorazepam 0.5 mg PO BEDTIME PRN modafinil 100 mg PO DAILY montelukast (Singulair) 10 mg PO DAILY pantoprazole 40 mg PO DAILY 90 days rosuvastatin 5 mg PO DAILY 90 days warfarin 4 mg See Protocol PO DAILY Nursing Note INR: 2.5- in therapeutic range Medications and supplements reviewed- no changes No changes in health, diet, medications, or supplements, Denies any signs and symptoms of bleeding or bruising or clotting. Bleeding, bruising, clotting discussed Nutritional guidance given Dose: 4mg x 7 F/U INR: 4 weeks Patient verbalizes understanding of instructions given pt present for visit. 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
== END 2023-04-10 13:51 | disposition home or self-care (01) ==
LOC: HO.ACS 13:04
PROVIDERS: PCP Internal Medicine; Visit Provider Internal Medicine
DX: Z79.01 Long term (current) use of anticoagulants (principal)

== ENCOUNTER → 2023-04-10 13:04 | Outpatient (BNVA) | payer MEDICARE, SELFPAY | PROVIDERS: PCP Internal Medicine; Visit Provider Internal Medicine | DX: Z86.73 Personal history of transient ischemic attack (TIA), and cerebral infarction without residual deficits (principal); Z79.01 Long term (current) use of anticoagulants; Z51.81 Encounter for therapeutic drug level monitoring | CPT/HCPCS: 85610; 99211 ==

== ENCOUNTER 2023-04-20 18:35 | Emergency (ER) | payer MEDICARE, SELFPAY ==
--- NOTE | ~2023-04-20 | CT_ITS ---
EXAMINATION: CT head/brain wo IV con, CT cervical spine wo IV con INDICATION INFORMATION: Reason for Exam fall with head strike, on anticoagulation COMPARISON: CT head without contrast 10/26/2021 TECHNIQUE: Separate noncontrast CT examinations of the head and cervical spine were performed. Coronal and sagittal images were created for each examination at the technologist workstation. This CT examination was performed using dose optimization techniques as appropriate, variously including the following: *Automated exposure control *Adjustment of mA and/or kV according to patient size (this includes techniques or standardized protocols for targeted exams where dose is matched to indication/reason for exam; i.e. extremities or head) *Use of iterative reconstruction technique DLP: 923.43 mGy-cm FINDINGS: Head: No acute osseous or soft tissue abnormality. The mastoid air cells and visualized portions of the paranasal sinuses are well aerated. There is no evidence of acute intracranial hemorrhage or territorial infarction. No abnormal mass effect or midline shift is seen. No extra-axial fluid collections are identified. No hydrocephalus. Ex vacuo dilatation of the left occipital and temporal horns. Patchy periventricular and deep white matter hypoattenuation is consistent with moderate small vessel ischemic changes. Chronic left HAIR MIXER territory infarct. Chronic lacunar infarcts involving the left stark radiata, left thalamus, bilateral basal ganglia. Stable masslike calcifications along the falx cerebri, compatible with meningiomas Cervical spine: There is no evidence of acute cervical spine fracture. Vertebral bodies remain normal in height. Alignment is maintained. Disc space heights are maintained. No pre- or paravertebral soft tissue abnormality is identified. Moderate atlantodental arthrosis with retrodental pannus contributing to suspected mild to moderate central spinal canal stenosis. Osteopenia. Visualized portions of the lung apices are unremarkable. The thyroid gland is unremarkable. CT/CT cervical spine wo IV con IMPRESSION: 1. No acute intracranial abnormality. 2. No cervical spine fracture or traumatic malalignment.
--- NOTE | ~2023-04-20 | CT_ITS ---
EXAMINATION: CT head/brain wo IV con, CT cervical spine wo IV con INDICATION INFORMATION: Reason for Exam fall with head strike, on anticoagulation COMPARISON: CT head without contrast 10/26/2021 TECHNIQUE: Separate noncontrast CT examinations of the head and cervical spine were performed. Coronal and sagittal images were created for each examination at the technologist workstation. This CT examination was performed using dose optimization techniques as appropriate, variously including the following: *Automated exposure control *Adjustment of mA and/or kV according to patient size (this includes techniques or standardized protocols for targeted exams where dose is matched to indication/reason for exam; i.e. extremities or head) *Use of iterative reconstruction technique DLP: 923.43 mGy-cm FINDINGS: Head: No acute osseous or soft tissue abnormality. The mastoid air cells and visualized portions of the paranasal sinuses are well aerated. There is no evidence of acute intracranial hemorrhage or territorial infarction. No abnormal mass effect or midline shift is seen. No extra-axial fluid collections are identified. No hydrocephalus. Ex vacuo dilatation of the left occipital and temporal horns. Patchy periventricular and deep white matter hypoattenuation is consistent with moderate small vessel ischemic changes. Chronic left SCREEN TACKER territory infarct. Chronic lacunar infarcts involving the left stark radiata, left thalamus, bilateral basal ganglia. Stable masslike calcifications along the falx cerebri, compatible with meningiomas Cervical spine: There is no evidence of acute cervical spine fracture. Vertebral bodies remain normal in height. Alignment is maintained. Disc space heights are maintained. No pre- or paravertebral soft tissue abnormality is identified. Moderate atlantodental arthrosis with retrodental pannus contributing to suspected mild to moderate central spinal canal stenosis. Osteopenia. Visualized portions of the lung apices are unremarkable. The thyroid gland is unremarkable. CT/CT head/brain wo IV con IMPRESSION: 1. No acute intracranial abnormality. 2. No cervical spine fracture or traumatic malalignment.
[2023-04-20 20:27] VITALS: BP 148/96; PULSE 94; O2SAT 97
[2023-04-20 20:29] VITALS: BP 150/74; PULSE 78; RESP 12; TEMP 36.5; O2SAT 97; BMI 28.5
--- NOTE | 2023-04-20 22:00 | PC.NURSE ---
Pt ca&ox4, no signs of distress. Pt at bedside Pt reports 1/10 head pain. Pt requesting to remove collar Pt and advised collar needs to remain on until provider reads the CT scan Pt hob lowered for comfort. Plan of care ongoing.
--- NOTE | 2023-04-20 22:34 | PC.NURSE ---
Pt ca&ox4, no signs of distress. Pts remains at bedside. Pt denies pain but reports being uncomfortable with collar on Pt advised we will remove it as soon as we can. Plan of care ongoing.
[2023-04-20 22:35] VITALS: RESP 14
--- NOTE | 2023-04-20 22:51 | PC.NURSE ---
Pt head cleaned per provider request. Provider with pt. Plan of care ongoing.
--- NOTE | 2023-04-20 23:07 | PC.NURSE ---
Lidocaine 10ml pulled per provider
--- NOTE | 2023-04-20 23:51 | PC.NURSE ---
Provider Calos administered lidocaine
--- NOTE | 2023-04-20 23:52 | ED_ITS ---
HPI - Fall General Chief Complaint: Fall Stated Complaint: mechanical fall w/ headstrike, on thinners Time Seen by Provider: 04/20/23 22:09 Source: patient and family Mode of arrival: ambulatory Limitations: no limitations History of Present Illness HPI Narrative: Patient comes to the emergency room accompanied by her . Earlier today, patient turned around too fast tripped and fell hitting her head on the ground. Patient does take blood thinners. Patient states that she only has pain at the laceration site, no headache, no neck pain. Patient denies any other injuries. Related Data Previous Rx's Medication Instructions Recorded alendronate 70 mg tablet (Fosamax) 70 mg PO QWEEK 30 days #13 tabs 08/30/22 warfarin 2 mg tablet 4 mg PO DAILY #180 tabs 09/05/22 lithium carbonate 300 mg 300 mg PO BEDTIME 30 days #90 tabs 09/28/22 tablet,extended release montelukast 10 mg tablet 10 mg PO DAILY #90 tabs 11/14/22 (Singulair) pantoprazole 40 mg tablet,delayed 40 mg PO DAILY 90 days #90 tabs 11/14/22 release fluticasone propionate 100 2 inh inhalation BID #3 ea 12/04/22 mcg/actuation blister powder for inhalation (Flovent Diskus) rosuvastatin 5 mg tablet 5 mg PO DAILY 90 days #90 tabs 02/14/23 irbesartan 150 mg tablet 150 mg PO DAILY #90 tabs 02/26/23 modafinil 100 mg tablet 100 mg PO DAILY #90 tabs 02/28/23 albuterol sulfate 90 mcg/actuation 2 puff inhalation Q4-6H PRN 03/05/23 aerosol inhaler (ProAir HFA) shortness of breath or wheezing #8.5 grams lamotrigine 150 mg tablet 150 mg PO DAILY #30 tabs 03/06/23 lorazepam 0.5 mg tablet 0.5 mg PO BEDTIME PRN anxiety #90 03/07/23 tabs Allergies Allergy/AdvReac Type Severity Reaction Status Date / Time clindamycin [CLINDAMYCIN] Allergy Unknown UNKNOWN Verified 04/10/23 13:38 oxycodone [OXYCODONE] Allergy Unknown UNKNOWN Verified 04/10/23 13:38 Penicillins [PENICILLINS] Allergy Unknown UNKNOWN Verified 08/29/23 13:38 seafood Allergy Unknown Anaphylaxis Verified 04/10/23 13:38 shellfish derived Allergy Unknown Anaphylaxis Verified 04/10/23 13:38 [SHELLFISH DERIVED] animal dander [ANIMAL DANDER] AdvReac Unknown ITCHING, Verified 04/10/23 13:38 REDNESS atorvastatin [Lipitor] AdvReac Unknown myalgia Verified 04/10/23 13:38 Review of Systems Review of Systems: Constitutional : No Weight loss, No Fever, No Chills, No Night Sweats, No Fatigue, No Malaise ENT/Mouth : No Hearing loss, No Ear Pain, No Nasal Congestion, No Sinus Pain, No Hoarseness, No sore throat, No Rhinorrhea, No Swallowing Difficulty Eyes: No Eye Pain, No Swelling, No Redness, No Foreign Body, No Discharge, No Vi kamla Changes Cardiovascular : No Chest Pain, No SOB, No Dyspnea on Exertion, No Orthopnea, No Edema, No Palpitations Respiratory : No Cough, No Sputum, No Wheezing, No Smoke Exposure, No Dyspnea Gastrointestinal : No Nausea, No Vomiting, No Diarrhea, No Constipation, No abdominal Pain, No Hematochezia, No Melena Genitourinary : no irregular bleeding, No Dysuria, No Urinary Frequency, No Hematuria, No Urinary Incontinence, No Urgency, No Flank Pain, No Urinary Flow Changes, No Hesitancy Musculoskeletal : No joint pain, No Myalgias, No Joint Swelling Skin : Laceration to the scalp Neuro : No Weakness, No Numbness, No Paresthesias, No Loss of Consciousness, No Dizziness, No Headache Psych : No Anxiety/Panic, No Depression, No SI/HI/AH/VH, No Social Issues, Heme/Lymph: No Bruising, No Bleeding,No Lymphadenopathy Endocrine : No Polyuria, No Polydipsia, No Temperature Intolerance [facility] Past Medical History Medical History 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) Impaired glucose tolerance Patent foramen ovale Tubular adenoma of colon History of renal calculi Hypercholesterolemia Obesity (BMI 30-39.9) Hypertension Asthma Bipolar disorder GERD (gastroesophageal reflux disease) Iron deficiency anemia History of CVA (cerebrovascular accident) Surgical History History of parathyroidectomy History of mastoidectomy Family History Family History (Updated 03/06/23 @ 13:51 by Coreen Fajardo CMA) Father Cataract Mother Anxiety Cancer Mental health disorder Brother Lung cancer Liver cancer Sister Dementia Autoimmune disease Social History Social History Housing: House Alcohol intake: never Patient Tobacco Use Status: Never used Tobacco Smoked in Last 30 Days: No e-Cigarette/Vaping Use: Never Used Second Hand Smoke Exposure: No Use of substances other than those prescribed or required for medical reasons: No Advance Directives: No Advance Directives Information Provided: Yes Current occupational status: retired Cognitive needs: Yes Hearing needs: No Vision needs: Yes Physical Exam Vital Signs: Vital Signs: Last Vital Signs Temp 97.7 F 04/20/23 20:29 Pulse 78 04/20/23 20:29 Resp 14 04/20/23 22:35 BP 150/74 H 04/20/23 20:29 Pulse Ox 97 04/20/23 20:29 O2 Del Method Room Air 04/20/23 20:29 BMI result Body Mass Index 28.5 Const: Other: Appearance: Alert. Oriented X3. No acute distress. Eyes: Pupils equal, round and reactive to light. ENT: Pharynx normal. Neck: Normal inspection. Neck supple. No lymph nodes noted. No crepitus CVS: Normal heart rate and rhythm. Pulses normal. Normal S1 and S2 Respiratory: No respiratory distress. Breath sounds normal. No Wheezing. No rales Abdomen: Soft and nontender. No rigidity. No distention. Skin: Skin warm and dry. Normal skin color. Patient has a 5 cm laceration to the scalp, actively bleeding Extremities: No lower extremity edema. No Lacerations. No Rash Neuro: Oriented X 3. No motor deficit. No sensory deficit. Moving all extremities. No slurred speech. CN 2 through 12 grossly intact Psych: calm, cooperative, normal affect Medical Decision Making Medical Decision Making MDM Narrative: -initially comes maddy were considered to close the wound. However, it was too deep and actively bleeding. Patient required absorbable sutures initially, stop the bleeding. Then, nonabsorbable sutures were used to close the scalp, total of 6 external sutures. Patient tolerated well the procedure. -patient given p.o. Tylenol Differential Diagnosis Differential Diagnoses: The differential diagnosis associated with the presentation includes (Laceration, contusion, concussion, intracranial bleed) Admission/Observation Consideration of admission/observation: Escalation of care including admission/observation considered (Given the differential, admission was considered arrived) Independent Interpretation Interpretation: My interpretation of CT scan of the head, no intracranial bleed. Patient has large circular calcified lesions, unlikely to be a bleed. I reviewed the radiology report, calcified meningiomas Radiology Impression Discussion of test interpretation with radiology: I have reviewed the radiologist's reading. Radiologist Impression: FINDINGS: Head: No acute osseous or soft tissue abnormality. The mastoid air cells and visualized portions of the paranasal sinuses are well aerated. There is no evidence of acute intracranial hemorrhage or territorial infarction. No abnormal mass effect or midline shift is seen. No extra-axial fluid collections are identified. No hydrocephalus. Ex vacuo dilatation of the left occipital and temporal horns. Patchy periventricular and deep white matter hypoattenuation is consistent with moderate small vessel ischemic changes. Chronic left LICENSED MORTGAGE LOAN OFFICER territory infarct. Chronic lacunar infarcts involving the left stark radiata, left thalamus, bilateral basal ganglia. Stable masslike calcifications along the falx cerebri, compatible with meningiomas Cervical spine: There is no evidence of acute cervical spine fracture. Vertebral bodies remain normal in height. Alignment is maintained. Disc space heights are maintained. No pre- or paravertebral soft tissue abnormality is identified. Moderate atlantodental arthrosis with retrodental pannus contributing to suspected mild to moderate central spinal canal stenosis. Osteopenia. Visualized portions of the lung apices are unremarkable. The thyroid gland is unremarkable. CT/CT head/brain wo IV con IMPRESSION: 1. No acute intracranial abnormality. 2. No cervical spine fracture or traumatic malalignment. Independent Historian Clinical information obtained from an independent historian. History obtained from or confirmed by: Spouse (At bedside) Discharge Plan Discharge Clinical Impression: Fall, Laceration of scalp Patient Disposition: Home, Self-Care Instructions: Laceration (ED), Care For Your Stitches (ED), Fall Prevention for Older Adults (ED) Additional Instructions: Your sutures need to be removed in 7-10 days. Please follow-up with your primary care physician tomorrow. If you have any worsening or new symptoms, p lease return to the emergency room or call 911 Prescriptions: No Action warfarin 2 mg tablet 4 mg PO DAILY Qty: 180 3RF Protocol: Dose Management Condition: Sunday (Week One) Dose/Route: 4 mg Instruction: 2 x 2 mg tablets Condition: Sunday Dose/Route: 4 mg Instruction: 2 x 2 mg tablets Condition: Sunday Dose/Route: 4 mg Instruction: 2 x 2 mg tablets Condition: Sunday Dose/Route: 4 mg Instruction: 2 x 2 mg tablets Condition: Dose/Route: 4 mg Instruction: 2 x 2 mg tablets Condition: Sunday Dose/Route: 4 mg Instruction: 2 x 2 mg tablets Condition: Sunday Dose/Route: 4 mg Instruction: 2 x 2 mg tablets Condition: Sunday (Week Two) Dose/Route: 4 mg Instruction: 2 x 2 mg tablets Condition: Sunday Dose/Route: 4 mg Instruction: 2 x 2 mg tablets Condition: Sunday Dose/Route: 4 mg Instruction: 2 x 2 mg tablets Condition: Sunday Dose/Route: 4 mg Instruction: 2 x 2 mg tablets Condition: Dose/Route: 4 mg Instruction: 2 x 2 mg tablets Condition: Sunday Dose/Route: 4 mg Instruction: 2 x 2 mg tablets Condition: Sunday Dose/Route: 4 mg Instruction: 2 x 2 mg tablets Protocol Text: Adjustment Start Date: Sunday04/10/23 INR Value: 2.5 INR Date: 04/10/23 Recheck Date: 05/08/23 Additional Instructions: cont prev dosing call with any changes in medications lithium carbonate 300 mg tablet extended release 300 mg PO BEDTIME 30 Days Qty: 90 3RF montelukast [Singulair] 10 mg tablet 10 mg PO DAILY Qty: 90 3RF pantoprazole 40 mg tablet,delayed release (DR/EC) 40 mg PO DAILY 90 Days Qty: 90 2RF rosuvastatin 5 mg tablet 5 mg PO DAILY 90 Days Qty: 90 2RF irbesartan 150 mg tablet 150 mg PO DAILY Qty: 90 3RF albuterol sulfate [ProAir HFA] 90 mcg/actuation HFA aerosol inhaler 2 puff inhalation Q4-6H PRN (Reason: shortness of breath or wheezing) Qty: 8.5 0RF lamotrigine 150 mg tablet 150 mg PO DAILY Qty: 30 2RF lorazepam 0.5 mg tablet 0.5 mg PO BEDTIME PRN (Reason: anxiety) Qty: 90 1RF alendronate [Fosamax] 70 mg tablet 70 mg PO QWEEK 30 Days Qty: 13 3RF Flovent Diskus 100 mcg/actuation blister with device 2 inh inhalation BID Qty: 3 3RF modafinil 100 mg tablet 100 mg PO DAILY Qty: 90 0RF
[2023-04-21] MEDS: Acetaminophen 325 MG TABLET 975 MG PO (00:07)
--- NOTE | 2023-04-21 00:08 | PC.NURSE ---
pt med per mar. plan of care ongoing.
== END 2023-04-21 00:21 | disposition home or self-care (01) ==
PROVIDERS: Emergency Provider Emergency Medicine; PCP Internal Medicine
DX: S01.01XA Laceration without foreign body of scalp, initial encounter (principal); W01.0XXA Fall on same level from slipping, tripping and stumbling without subsequent striking against object, initial encounter; Z79.01 Long term (current) use of anticoagulants; Z79.899 Other long term (current) drug therapy; Y93.9 Activity, unspecified; Y92.019 Unspecified place in single-family (private) house as the place of occurrence of the external cause; Y99.9 Unspecified external cause status
CPT/HCPCS: 12032; 70450; 72125; 99284

== ENCOUNTER 2023-04-26 13:04 | Outpatient (AMB) | payer MEDICARE, SELFPAY ==
[2023-04-26 13:12] VITALS: BP 134/80; PULSE 86; O2SAT 96; BMI 27.6
--- NOTE | 2023-04-26 13:12 | MHC.PC.OV ---
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 Accompanied by: Self / Same As Patient Allergies clindamycin [CLINDAMYCIN] Allergy (Unknown, Verified 04/26/23 13:12) UNKNOWN oxycodone [OXYCODONE] Allergy (Unknown, Verified 04/26/23 13:12) UNKNOWN Penicillins [PENICILLINS] Allergy (Unknown, Verified 04/26/23 13:12) UNKNOWN seafood Allergy (Unknown, Verified 04/26/23 13:12) Anaphylaxis shellfish derived [SHELLFISH DERIVED] Allergy (Unknown, Verified 04/26/23 13:12) Anaphylaxis animal dander [ANIMAL DANDER] Adverse Reaction (Unknown, Verified 04/26/23 13:12) ITCHING, REDNESS atorvastatin [Lipitor] Adverse Reaction (Unknown, Verified 04/26/23 13:12) myalgia Tobacco use date assessed: 04/26/23 Fall risk assessment: 1 Fall in past year Last assessed Fall Risk: 04/26/23 Dental Screening Dental Screen Date: 04/26/23 Did you have a dental visit in the last 12 months?: Yes Did you have a dental problem in the last 6 months where you did not have access to dental care?: No Was dental information given to patient?: Patient has dentist HPI Suture removal HPI Details 82-year-old overweight female with a history of CVA GERD bipolar disorder asthma hypertension hypercholesterolemia impaired glucose tolerance last seen in February 2023. Patient is here for follow-up. Review of the notes patient was recently in the hospital for a fall with head trauma patient was turning around to fast and tripped patient is on a blood thinner CT scan done no bleed had laceration of the scalp [facility] Medical History 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) Impaired glucose tolerance Patent foramen ovale Tubular adenoma of colon History of renal calculi Hypercholesterolemia Obesity (BMI 30-39.9) Hypertension Asthma Bipolar disorder GERD (gastroesophageal reflux disease) Iron deficiency anemia History of CVA (cerebrovascular accident) Surgical History History of parathyroidectomy History of mastoidectomy Family History Father Cataract Mother Anxiety Cancer Mental health disorder Brother Lung cancer Liver cancer Sister Dementia Autoimmune disease Social History Housing: House Alcohol intake: never Patient Tobacco Use Status: Never used Tobacco e-Cigarette/Vaping Use: Never Used Second Hand Smoke Exposure: No Current occupational status: retired Cognitive needs: Yes Hearing needs: No Vision needs: Yes Questionnaire PHQ-9 Over the last 2 weeks, how often have you been bothered by any of the following problems? 1. Little interest or pleasure in doing things: not at all 2. Feeling down, depressed, or hopeless: not at all 3. Trouble falling or staying asleep, or sleeping too much: not at all 4. Feeling tired or having little energy: not at all 5. Poor appetite or overeating: not at all 6. Feeling bad about yourself - or that you are a failure or have let yourself or your family down: not at all 7. Trouble concentrating on things, such as reading the newspaper or watching television: not at all 8. Moving or speaking so slowly that other people could have noticed. Or the opposite - being so fidgety or restless that you have been moving around a lot more than usual: not at all 9. Thoughts that you would be better off or of hurting yourself in some way: not at all Total score: 0 Depression Screening Interpretation: Negative Source: Developed by Drs. Francis Kim, Shelley Estrella, Miguel Morrison and colleagues, with an educational kezia from [employer]. Thrive Questionnaire Date Thrive assessed: 04/26/23 I am a: Patient What is your living situation today?: I have a steady place to live Within the past 12 months, did the food you bought not last and you didn't have the money to get more?: Never true Within the past 12 months, did you worry whether your food would run out before you got money to buy more?: Never true Do you have trouble paying for medicines?: No Do you have trouble getting transportation to medical appointments?: No Do you have trouble paying your heating and electricity bill?: No Do you have trouble taking care of your child, family member or friend?: No Do you have trouble with day-to-day activities such as bathing, preparing meals, shopping, managing finances, etc.?: No Are you currently unemployed and looking for a job?: No Are you interested in more education?: No Please select the resources that you would like help with: None Currently or been in a relationship where the following occur: no concerns reported AUDIT C Alcohol Use Questionnaire (AUDIT-C) 1. How often do you have a drink containing alcohol?: Never 3. How often do you have six or more drinks on one occasion?: Never Total Score: 0 MARANDA-7 AMB Questionnaire MARANDA-7 Date MARANDA - 7 assessed: 04/26/23 Feeling nervous, anxious, or on edge: 0 = Not at all Not being able to stop or control worryin = Not at all Worrying too much about different things: 0 = Not at all Trouble relaxin = Not at all Being so restless that it is hard to sit still: 0 = Not at all Becoming easily annoyed or irritable: 0 = Not at all Feeling afraid as if something awful might happen: 0 = Not at all Total MARANDA-7 score (0-4 normal; 5-9 mild; 10-14 moderate; 15-21 severe): 0 Source: Developed by Drs. Francis Kim, Shelley Estrella, Miguel Morrison and colleagues, with an educational kezia from [employer]. Physical exam (Primary Care) Vital Signs: Last Vital Signs Pulse 86 04/26/23 13:12 BP 134/80 04/26/23 13:12 Pulse Ox 96 04/26/23 13:12 Oxygen Delivery Method Room Air 04/26/23 13:12 BMI result Body Mass Index 27.6 Tobacco/Smoking Status: Tobacco use Status Tobacco use date assessed 04/26/23 04/26/23 13:23 Patient Tobacco Use Status Never used Tobacco 04/26/23 13:23 e-Cigarette/Vaping Use Never Used 04/26/23 13:23 PHQ-9: PHQ-9 Score PHQ-9: Total score 0 04/26/23 13:38 Depression Screening Interpretation: Negative Thrive Assessment: Date of Thrive Assessment Date Thrive assessed 04/26/23 04/26/23 13:23 Currently or been in a relationship where the following occur: no concerns reported Const General: alert; No acute distress [facility] Head images: 1. 5 cm lacaretion 7 sutures Eyes Conjunctivae: conjunctivae normal Resp Auscultation: clear to auscultation bilaterally Cardio Rate: regular rate Rhythm: regular rhythm GI Inspection: Yes normal to inspection Extrem General: Yes normal to inspection and No edema Assessment and Plan Assessment & Plan (1) Head trauma: Code(s): S09.90XA - Unspecified injury of head, initial encounter (2) Laceration of scalp: Code(s): S01.01XA - Laceration without foreign body of scalp, initial encounter Plan: suture removal 7 stitches L scalp area (3) Fall: Code(s): W19.XXXA - Unspecified fall, initial encounter Coding Level of Care Code Est Pt Level 3 (20852) Diagnoses Head trauma S09.90XA Laceration of scalp S01.01XA Fall W19.XXXA
== END 2023-04-26 13:59 | disposition home or self-care (01) ==
PROVIDERS: PCP Internal Medicine; Visit Provider Internal Medicine
DX: S09.90XA Unspecified injury of head, initial encounter (principal); S01.01XA Laceration without foreign body of scalp, initial encounter; W19.XXXA Unspecified fall, initial encounter
CPT/HCPCS: 99213

== ENCOUNTER 2023-05-07 13:02 | Outpatient (AMB) | payer MEDICARE, SELFPAY ==
[2023-05-07 13:11] LABS: Prothrombin Time Whole Bld POC 39.2 sec (11.1-13.5); ~PT, ~INR - Anti Coag Clinic 3.3 (0.9-1.1)
--- NOTE | 2023-05-07 13:11 | MHC.OFFVISCO ---
Intake Intake Visit Reasons: Anticoagulation Allergies clindamycin [CLINDAMYCIN] Allergy (Unknown, Verified 05/07/23 13:04) UNKNOWN oxycodone [OXYCODONE] Allergy (Unknown, Verified 05/07/23 13:04) UNKNOWN Penicillins [PENICILLINS] Allergy (Unknown, Verified 05/07/23 13:04) UNKNOWN seafood Allergy (Unknown, Verified 05/07/23 13:04) Anaphylaxis shellfish derived [SHELLFISH DERIVED] Allergy (Unknown, Verified 05/07/23 13:04) Anaphylaxis animal dander [ANIMAL DANDER] Adverse Reaction (Unknown, Verified 05/07/23 13:04) ITCHING, REDNESS atorvastatin [Lipitor] Adverse Reaction (Unknown, Verified 05/07/23 13:04) myalgia Medication List - Last Reconciled 05/07/23 by Piedad Diana RN albuterol sulfate 90 mcg/actuation (ProAir HFA) 2 puffs inhalation Q4-6H PRN alendronate (Fosamax) 70 mg PO QWEEK 30 days fluticasone propionate 100 mcg/actuation (Flovent Diskus) 2 inhalations inhalation BID irbesartan 150 mg PO DAILY lamotrigine 150 mg PO DAILY lithium carbonate ER 300 mg PO BEDTIME 30 days lorazepam 0.5 mg PO BEDTIME PRN modafinil 100 mg PO DAILY montelukast (Singulair) 10 mg PO DAILY pantoprazole 40 mg PO DAILY 90 days rosuvastatin 5 mg PO DAILY 90 days warfarin 4 mg See Protocol PO DAILY Nursing Note INR 3.3-?? out of therapeutic range Medications and supplements reviewed Patient status: pt s/p fall on 04/20/23 with lacertion to scalp- had sutures which were removed by dr ruelas. pt spouse states ct scan of head done in ed Medications or supplements: no changes Diet: decreased Denies any signs and symptoms of bleeding or clotting or unusual bruising Bleeding, bruising, clotting discussed Nutritional guidance given: have greens to lower inr Dose: already took warfarin today reduce tomm to 2mg then cont 4mg x 7 F/U INR Date : 2 weeks?? Patient and spouse verbalizing understanding of instructions given. 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
== END 2023-05-07 13:19 | disposition home or self-care (01) ==
LOC: HO.ACS 13:02
PROVIDERS: PCP Internal Medicine; Visit Provider Internal Medicine
DX: Z79.01 Long term (current) use of anticoagulants (principal)

== ENCOUNTER → 2023-05-07 13:02 | Outpatient (BNVA) | payer MEDICARE, SELFPAY | PROVIDERS: PCP Internal Medicine; Visit Provider Internal Medicine | DX: Z86.73 Personal history of transient ischemic attack (TIA), and cerebral infarction without residual deficits (principal); Z79.01 Long term (current) use of anticoagulants; Z51.81 Encounter for therapeutic drug level monitoring | CPT/HCPCS: 85610; 99211 ==

== ENCOUNTER 2023-05-22 13:04 | Outpatient (AMB) | payer MEDICARE, SELFPAY ==
--- NOTE | 2023-05-22 13:15 | MHC.OFFVISCO ---
Intake Intake Visit Reasons: Anticoagulation Allergies clindamycin [CLINDAMYCIN] Allergy (Unknown, Verified 05/22/23 13:09) UNKNOWN oxycodone [OXYCODONE] Allergy (Unknown, Verified 05/22/23 13:09) UNKNOWN Penicillins [PENICILLINS] Allergy (Unknown, Verified 05/22/23 13:09) UNKNOWN seafood Allergy (Unknown, Verified 05/22/23 13:09) Anaphylaxis shellfish derived [SHELLFISH DERIVED] Allergy (Unknown, Verified 05/22/23 13:09) Anaphylaxis animal dander [ANIMAL DANDER] Adverse Reaction (Unknown, Verified 05/22/23 13:09) ITCHING, REDNESS atorvastatin [Lipitor] Adverse Reaction (Unknown, Verified 05/22/23 13:09) myalgia Medication List - Last Reconciled 05/22/23 by Piedad Diana RN albuterol sulfate 90 mcg/actuation (ProAir HFA) 2 puffs inhalation Q4-6H PRN alendronate (Fosamax) 70 mg PO QWEEK 30 days fluticasone propionate 100 mcg/actuation (Flovent Diskus) 2 inhalations inhalation BID irbesartan 150 mg PO DAILY lamotrigine 150 mg PO DAILY lithium carbonate ER 300 mg PO BEDTIME 30 days lorazepam 0.5 mg PO BEDTIME PRN modafinil 100 mg PO DAILY montelukast (Singulair) 10 mg PO DAILY pantoprazole 40 mg PO DAILY 90 days rosuvastatin 5 mg PO DAILY 90 days warfarin 4 mg See Protocol PO DAILY Nursing Note INR: 2.6- in therapeutic range Medications and supplements reviewed- no changes No changes in health, diet, medications, or supplements, Denies any signs and symptoms of bleeding or bruising or clotting. Bleeding, bruising, clotting discussed Nutritional guidance given Dose: 4mg x 7 F/U INR: 4 weeks Patient verbalizes understanding of instructions given Anti-Coag Initial Assessment Social Hx Patient Tobacco Use Status: Never used Tobacco alcohol intake: never Alcohol intake frequency: does not drink Coding Level of Care Code Est Patient Level 1 Diagnoses Current use of anticoagulant therapy Z79.01 Assessment & Plan Assessment & Plan (1) Current use of anticoagulant therapy: Code(s): Z79.01 - [facility] (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
== END 2023-05-22 13:21 | disposition home or self-care (01) ==
LOC: HO.ACS 13:04
PROVIDERS: PCP Internal Medicine; Visit Provider Internal Medicine
DX: Z79.01 Long term (current) use of anticoagulants (principal)

== ENCOUNTER → 2023-05-22 13:04 | Outpatient (BNVA) | payer MEDICARE, SELFPAY | PROVIDERS: PCP Internal Medicine; Visit Provider Internal Medicine | DX: Z86.73 Personal history of transient ischemic attack (TIA), and cerebral infarction without residual deficits (principal); Z79.01 Long term (current) use of anticoagulants; Z51.81 Encounter for therapeutic drug level monitoring | CPT/HCPCS: 85610; 99211 ==

== ENCOUNTER 2023-06-26 13:12 | Outpatient (AMB) | payer MEDICARE, SELFPAY ==
--- NOTE | 2023-06-26 13:33 | MHC.OFFVISCO ---
Intake Intake Visit Reasons: Anticoagulation Allergies clindamycin [CLINDAMYCIN] Allergy (Unknown, Verified 06/26/23 13:24) UNKNOWN oxycodone [OXYCODONE] Allergy (Unknown, Verified 06/26/23 13:24) UNKNOWN Penicillins [PENICILLINS] Allergy (Unknown, Verified 06/26/23 13:24) UNKNOWN seafood Allergy (Unknown, Verified 06/26/23 13:24) Anaphylaxis shellfish derived [SHELLFISH DERIVED] Allergy (Unknown, Verified 06/26/23 13:24) Anaphylaxis animal dander [ANIMAL DANDER] Adverse Reaction (Unknown, Verified 06/26/23 13:24) ITCHING, REDNESS atorvastatin [Lipitor] Adverse Reaction (Unknown, Verified 06/26/23 13:24) myalgia Medication List - Last Reconciled 06/26/23 by Piedad Diana RN albuterol sulfate 90 mcg/actuation (ProAir HFA) 2 puffs inhalation Q4-6H PRN alendronate (Fosamax) 70 mg PO QWEEK 30 days fluticasone propionate 100 mcg/actuation (Flovent Diskus) 2 inhalations inhalation BID irbesartan 150 mg PO DAILY lamotrigine 150 mg PO DAILY lithium carbonate ER 300 mg PO BEDTIME 30 days lorazepam 0.5 mg PO BEDTIME PRN modafinil 100 mg PO DAILY montelukast (Singulair) 10 mg PO DAILY pantoprazole 40 mg PO DAILY 90 days rosuvastatin 5 mg PO DAILY 90 days warfarin 4 mg See Protocol PO DAILY Nursing Note INR 3.1-?? out of therapeutic range of 2-3 Medications and supplements reviewed Patient status: no c.o, to acs with ,he provides steadying assist as nec Medications or supplements: no changes Diet: same Denies any signs and symptoms of bleeding or clotting or unusual bruising Bleeding, bruising, clotting discussed Nutritional guidance given: eat greens today and tomm, no reds for 2 days Dose: 4mg x 7 F/U INR Date : pt req 4 weeks?? Patient verbalizing understanding of instructions given. 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
[2023-06-28 13:34] LABS: Prothrombin Time Whole Bld POC 37.1 sec (11.1-13.5); ~PT, ~INR - Anti Coag Clinic 3.1 (0.9-1.1)
== END 2023-06-26 13:36 | disposition home or self-care (01) ==
LOC: HO.ACS 13:12
PROVIDERS: PCP Internal Medicine; Visit Provider Internal Medicine
DX: Z79.01 Long term (current) use of anticoagulants (principal)

== ENCOUNTER → 2023-06-26 13:12 | Outpatient (BNVA) | payer MEDICARE, SELFPAY | PROVIDERS: PCP Internal Medicine; Visit Provider Internal Medicine | DX: Z86.73 Personal history of transient ischemic attack (TIA), and cerebral infarction without residual deficits (principal); Z79.01 Long term (current) use of anticoagulants; Z51.81 Encounter for therapeutic drug level monitoring | CPT/HCPCS: 85610; 99211 ==

== ENCOUNTER 2023-07-23 13:16 | Outpatient (AMB) | payer MEDICARE, SELFPAY ==
[2023-07-23 13:18] VITALS: BP 126/80; PULSE 78; O2SAT 99; BMI 26.7
--- NOTE | 2023-07-23 13:18 | MHC.PC.OV ---
Vital Signs 07/23/23 13:18 Height 5 ft 2 in Weight 146 lb BMI 26.7 BP 126/80 Blood Pressure Location Lt brachial Position Sitting Pulse 78 Pulse Source Pulse Oximeter Pulse Oximetry (%) 99 Oxygen Delivery Method Room Air Intake Visit Reasons: cva, htn, chol Surveillance Analyst Required: No Allergies clindamycin [CLINDAMYCIN] Allergy (Unknown, Verified 07/23/23 13:22) UNKNOWN oxycodone [OXYCODONE] Allergy (Unknown, Verified 07/23/23 13:22) UNKNOWN Penicillins [PENICILLINS] Allergy (Unknown, Verified 07/23/23 13:22) UNKNOWN seafood Allergy (Unknown, Verified 07/23/23 13:22) Anaphylaxis shellfish derived [SHELLFISH DERIVED] Allergy (Unknown, Verified 07/23/23 13:22) Anaphylaxis animal dander [ANIMAL DANDER] Adverse Reaction (Unknown, Verified 07/23/23 13:22) ITCHING, REDNESS atorvastatin [Lipitor] Adverse Reaction (Unknown, Verified 07/23/23 13:22) myalgia Medication List - Last Reconciled 07/23/23 by Victoriano Wong MD albuterol sulfate 90 mcg/actuation (ProAir HFA) 2 puffs inhalation Q4-6H PRN alendronate (Fosamax) 70 mg PO QWEEK 30 days fluticasone propionate 100 mcg/actuation (Flovent Diskus) 2 inhalations inhalation BID irbesartan 150 mg PO DAILY lamotrigine 150 mg PO DAILY lithium carbonate ER 300 mg PO BEDTIME 30 days lorazepam 0.5 mg PO BEDTIME PRN modafinil 100 mg PO DAILY montelukast (Singulair) 10 mg PO DAILY pantoprazole 40 mg PO DAILY 90 days rosuvastatin 5 mg PO DAILY 90 days warfarin 4 mg See Protocol PO DAILY Tobacco use date assessed: 07/23/23 Last assessed Fall Risk: 07/23/23 Dental Screening Dental Screen Date: 07/23/23 Did you have a dental visit in the last 12 months?: No Did you have a dental problem in the last 6 months where you did not have access to dental care?: No HPI cva, htn, chol HPI Details 82-year-old overweight female with a history of impaired glucose tolerance osteoporosis hypercholesterolemia hypertension GERD bipolar disorder asthma history of CV cognitive impairment coming in for follow-up. Patient has declined mammogram. [facility] Medical History (Updated 07/23/23 @ 13:39 by Victoriano Wong MD) Breast cancer screening Colon cancer screening Gait instability 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) Impaired glucose tolerance Patent foramen ovale Tubular adenoma of colon History of renal calculi Hypercholesterolemia Obesity (BMI 30-39.9) Hypertension Asthma Bipolar disorder GERD (gastroesophageal reflux disease) Iron deficiency anemia History of CVA (cerebrovascular accident) Surgical History History of parathyroidectomy History of mastoidectomy Family History Father Cataract Mother Anxiety Cancer Mental health disorder Brother Lung cancer Liver cancer Sister Dementia Autoimmune disease Social History Housing: House Alcohol intake: never Patient Tobacco Use Status: Never used Tobacco e-Cigarette/Vaping Use: Never Used Second Hand Smoke Exposure: No Current occupational status: retired Cognitive needs: Yes Hearing needs: No Vision needs: Yes Questionnaire Thrive Questionnaire Date Thrive assessed: 04/26/23 AUDIT C Alcohol Use Questionnaire (AUDIT-C) 1. How often do you have a drink containing alcohol?: Never 3. How often do you have six or more drinks on one occasion?: Never Total Score: 0 MARANDA-7 AMB Questionnaire MARANDA-7 Date MARANDA - 7 assessed: 04/26/23 Source: Developed by Drs. Francis Kim, Shelley Estrella, Miguel Morrison and colleagues, with an educational kezia from [employer]. Physical exam (Primary Care) Vital Signs: Last Vital Signs Pulse 78 07/23/23 13:18 BP 126/80 07/23/23 13:18 Pulse Ox 99 07/23/23 13:18 Oxygen Delivery Method Room Air 07/23/23 13:18 BMI result Body Mass Index 26.7 Tobacco/Smoking Status: Tobacco use Status Tobacco use date assessed 07/23/23 07/23/23 13:24 Patient Tobacco Use Status Never used Tobacco 07/23/23 13:18 e-Cigarette/Vaping Use Never Used 07/23/23 13:18 Thrive Assessment: Date of Thrive Assessment Date Thrive assessed 04/26/23 07/23/23 13:18 Const General: alert; No acute distress Eyes Conjunctivae: conjunctivae normal Resp Auscultation: clear to auscultation bilaterally Cardio Rate: regular rate Rhythm: regular rhythm GI Inspection: Yes normal to inspection Extrem General: Yes normal to inspection and No edema Assessment and Plan Assessment & Plan (1) Impaired glucose tolerance: Code(s): R73.02 - Impaired glucose tolerance (oral) Plan: Decrease the amount of carbohydrate intake, pasta, bread, rice and potatoes are all sugar and that is aside from all the sweet stuff, remember that fruits are good but they are Sweet also. (2) Osteoporosis: Code(s): M81.0 - Age-related osteoporosis without current pathological fracture Plan: Discussed about bone density (3) Hypercholesterolemia: Code(s): E78.00 - Pure hypercholesterolemia, unspecified Plan: Avoid fried foods, chicken skin, eggs, butter margarine, pastries and meat. Be it pork or beef they have a lot of cholesterol LDL goal of less than 130 and triglyceride of less than 150 patient is on rosuvastatin 5 mg once a (4) Hypertension: Code(s): I10 - Essential (primary) hypertension Qualifiers: Hypertension type: essential hypertension Qualified Code(s): I10 - Essential (primary) hypertension Plan: Continue with blood pressure medication. Decrease salt intake and exercise patient takes irbesartan 150 mg once a day (5) Asthma: Comment: PFT January 2018 Code(s): J45.909 - Unspecified asthma, uncomplicated Qualifiers: Asthma severity: mild Asthma persistence: intermittent Asthma complication type: uncomplicated Qualified Code(s): J45.20 - Mild intermittent asthma, uncomplicated Plan: Continue with inhaler as needed (6) Bipolar disorder: Comment: Dr. Garcia psychiatrist Code(s): F31.9 - Bipolar disorder, unspecified Qualifiers: Active/Remission status: currently active Current bipolar episode type: mixed Current episode severity: moderate Qualified Code(s): F31.62 - Bipolar disorder, current episode mixed, moderate Plan: Continue with counseling and therapy (7) GERD (gastroesophageal reflux disease): Code(s): K21.9 - Gastro-esophageal reflux disease without esophagitis Qualifiers: Esophagitis presence: without esophagitis Qualified Code(s): K21.9 - Gastro-esophageal reflux disease without esophagitis Plan: Avoid the foods that causes that usually spicy foods, tomato products, juices, coffee, soda and foods that your sensitive to. After eating do not lie down, allow 3-4 hours before in lie down. And keep the head of bed above 30 degrees to avoid the acid from going up. (8) History of CVA (cerebrovascular accident): Comment: Status post tPA July 2017 left [employer] territory occipital and temporal infarct November 2018 Code(s): Z86.73 - Personal history of transient ischemic attack (TIA), and cerebral infarction without residual deficits Plan: Control the cholesterol, weight, blood pressure (9) Cognitive impairment: Code(s): R41.89 - Other symptoms and signs involving cognitive functions and awareness Plan: Supportive treatment Orders: Orders XR DEXA axial skeleton Today M81.0 - Age-related osteoporosis without current pathological fracture Medications: Refilled alendronate (Fosamax) 70 mg PO QWEEK 30 days 13 tabs 3RF M81.0 - Age-related osteoporosis without current pathological fracture Coding Level of Care Code Est Pt Level 4 ([id number]) Diagnoses Impaired glucose tolerance R73.02 Osteoporosis M81.0 Hypercholesterolemia E78.00 Essential hypertension I10 Hypertension type: essential hypertension Mild intermittent asthma without complication J45.20 Asthma severity: mild Asthma persistence: intermittent Asthma complication type: uncomplicated Bipolar disorder, current episode mixed, moderate F31.62 Active/Remission status: currently active Current bipolar episode type: mixed Current episode severity: moderate Gastroesophageal reflux disease without esophagitis K21.9 Esophagitis presence: without esophagitis History of CVA (cerebrovascular accident) Z86.73 Cognitive impairment R41.89
== END 2023-07-23 13:56 | disposition home or self-care (01) ==
PROVIDERS: PCP Internal Medicine; Visit Provider Internal Medicine
DX: R73.02 Impaired glucose tolerance (oral) (principal); M81.0 Age-related osteoporosis without current pathological fracture; F31.62 Bipolar disorder, current episode mixed, moderate; E78.00 Pure hypercholesterolemia, unspecified; I10 Essential (primary) hypertension; J45.20 Mild intermittent asthma, uncomplicated; K21.9 Gastro-esophageal reflux disease without esophagitis; Z86.73 Personal history of transient ischemic attack (TIA), and cerebral infarction without residual deficits; R41.89 Other symptoms and signs involving cognitive functions and awareness
CPT/HCPCS: 99214

== ENCOUNTER 2023-07-25 13:13 | Outpatient (AMB) | payer MEDICARE, SELFPAY ==
--- NOTE | 2023-07-25 13:22 | MHC.OFFVISCO ---
Intake Intake Visit Reasons: Anticoagulation Allergies clindamycin [CLINDAMYCIN] Allergy (Unknown, Verified 07/25/23 13:15) UNKNOWN oxycodone [OXYCODONE] Allergy (Unknown, Verified 07/25/23 13:15) UNKNOWN Penicillins [PENICILLINS] Allergy (Unknown, Verified 07/25/23 13:15) UNKNOWN seafood Allergy (Unknown, Verified 07/25/23 13:15) Anaphylaxis shellfish derived [SHELLFISH DERIVED] Allergy (Unknown, Verified 07/25/23 13:15) Anaphylaxis animal dander [ANIMAL DANDER] Adverse Reaction (Unknown, Verified 07/25/23 13:15) ITCHING, REDNESS atorvastatin [Lipitor] Adverse Reaction (Unknown, Verified 07/25/23 13:15) myalgia Medication List - Last Reconciled 07/25/23 by Piedad Diana RN albuterol sulfate 90 mcg/actuation (ProAir HFA) 2 puffs inhalation Q4-6H PRN alendronate (Fosamax) 70 mg PO QWEEK 30 days fluticasone propionate 100 mcg/actuation (Flovent Diskus) 2 inhalations inhalation BID irbesartan 150 mg PO DAILY lamotrigine 150 mg PO DAILY lithium carbonate ER 300 mg PO BEDTIME 30 days lorazepam 0.5 mg PO BEDTIME PRN modafinil 100 mg PO DAILY montelukast (Singulair) 10 mg PO DAILY pantoprazole 40 mg PO DAILY 90 days rosuvastatin 5 mg PO DAILY 90 days warfarin 4 mg See Protocol PO DAILY Nursing Note INR 4.3-? out of therapeutic range of 2-3 Medications and supplements reviewed Patient status: pt c.o bilat arm pain, saw pcp yesterday Medications or supplements: taking tylenol 2-3 times a day, voltaren bid pt spouse present- aware to increase greens with tylenol usage Diet: same Denies any signs and symptoms of bleeding or clotting or unusual bruising Bleeding, bruising, clotting discussed - aware at risk for bleeding- avoid high risk activity Nutritional guidance given: eat greens for 2 days, no reds for 2 days F/U appt mon 07/30/23 Dose- already took warfarin today, hold dose tomm- may reduce weekly dosing if continued tylenol and voltaren usage?? Patient verbalizing understanding of instructions given. 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
[2023-07-26 09:17] LABS: Prothrombin Time Whole Bld POC 51.3 sec (11.1-13.5); ~PT, ~INR - Anti Coag Clinic 4.3 (0.9-1.1)
== END 2023-07-25 13:40 | disposition home or self-care (01) ==
LOC: HO.ACS 13:13
PROVIDERS: PCP Internal Medicine; Visit Provider Internal Medicine
DX: Z79.01 Long term (current) use of anticoagulants (principal)

== ENCOUNTER → 2023-07-25 13:13 | Outpatient (BNVA) | payer MEDICARE, SELFPAY | PROVIDERS: PCP Internal Medicine; Visit Provider Internal Medicine | DX: Z86.73 Personal history of transient ischemic attack (TIA), and cerebral infarction without residual deficits (principal); Z79.01 Long term (current) use of anticoagulants; Z51.81 Encounter for therapeutic drug level monitoring | CPT/HCPCS: 85610; 99211 ==

== ENCOUNTER 2023-07-30 13:21 | Outpatient (AMB) | payer MEDICARE, SELFPAY ==
[2023-07-30 13:27] LABS: Prothrombin Time Whole Bld POC 26.9 sec (11.1-13.5); ~PT, ~INR - Anti Coag Clinic 2.2 (0.9-1.1)
--- NOTE | 2023-07-30 13:31 | MHC.OFFVISCO ---
Intake Intake Visit Reasons: Anticoagulation Allergies clindamycin [CLINDAMYCIN] Allergy (Unknown, Verified 07/30/23 13:22) UNKNOWN oxycodone [OXYCODONE] Allergy (Unknown, Verified 07/30/23 13:22) UNKNOWN Penicillins [PENICILLINS] Allergy (Unknown, Verified 07/30/23 13:22) UNKNOWN seafood Allergy (Unknown, Verified 07/30/23 13:22) Anaphylaxis shellfish derived [SHELLFISH DERIVED] Allergy (Unknown, Verified 07/30/23 13:22) Anaphylaxis animal dander [ANIMAL DANDER] Adverse Reaction (Unknown, Verified 07/30/23 13:22) ITCHING, REDNESS atorvastatin [Lipitor] Adverse Reaction (Unknown, Verified 07/30/23 13:22) myalgia Medication List - Last Reconciled 07/30/23 by Silvia Saunders RN albuterol sulfate 90 mcg/actuation (ProAir HFA) 2 puffs inhalation Q4-6H PRN alendronate (Fosamax) 70 mg PO QWEEK 30 days diclofenac sodium 1% (Voltaren Arthritis Pain) 2 grams topical BID fluticasone furoate 200 mcg/actuation (Arnuity Ellipta) 1 inh inhalation DAILY irbesartan 150 mg PO DAILY lamotrigine 150 mg PO DAILY lithium carbonate ER 300 mg PO BEDTIME 30 days lorazepam 0.5 mg PO BEDTIME PRN modafinil 100 mg PO DAILY montelukast (Singulair) 10 mg PO DAILY pantoprazole 40 mg PO DAILY 90 days rosuvastatin 5 mg PO DAILY 90 days warfarin 4 mg See Protocol PO DAILY Nursing Note Amb to ACS feeling ok, noted slower gait, unsteady, accomp by who is assisting with ambulation pt indicates that she has had multiple falls little ones, missing couch both deny any head involvement with falls Medications and supplements reviewed No other changes in health, diet, medications, or supplements Denies any unusual signs and symptoms of bruising, bleeding Denies any new Chest pain, SOB, or clotting INR: 2.2 now in therapeutic range Nutritional guidance given: balance greens and reds in diet, instructed to ingrease greens if taking tylenol and the voltaren for arthritis Dose: continue usual dosing; 4mg daily F/U INR: 2 weeks Patient verbalizes understanding of instructions given with accurate read back/ teach back of dosing Anti-Coag Initial Assessment Social Hx Patient Tobacco Use Status: Never used Tobacco alcohol intake: never Alcohol intake frequency: does not drink Questionnaires HAS-BLED Does the patient had uncontrolled Hypertension?: No Does the patient have renal disease?: No Does the patient have liver disease?: No Does the patient have a history of stroke?: Yes Has the patient had major bleeding or predisposition to bleeding?: No Does the patient have labile INRs?: No Is the patient over 65 years of age?: Yes Is the patient on medications that gives them a predisposition to bleeding?: Yes Does the patient use alcohol?: No HAS-BLED Score: 3 CHADSVASC Age: 75 or over Gender: Female Does the patient have a history of CHF?: No Does the patient have a history of Hypertension?: Yes Does the patient have a history of Stroke/TIA/Thromboembolism?: Yes Does the patient have a history of Vascular Disease (prior [place], PAD or aortic plaque)?: No Does the patient have a history of Diabetes?: No CHADS VACS Score: 6 Deidra Prediction Score Rsk VTE Active Cancer: No Previous VTE, excluding superficial vein thrombosis: No Reduced mobility: Yes Already known Thrombophilic Condition: Yes With-in last month Trauma and/or Surgery: No Elderly 70 year or older: Yes Heart and/or Respiratory Failure: No Acute Myocardial infarction and/or Ischemic Stroke: No Acute Infection and/or Rheumatologic Disorder: No Obesity (BMI 30 or greater): No Ongoing Hormonal Treatment: No Score: 7 Deidra Score less than 4; Low Risk of VTE Deidra Score 4 or greater; High Risk of VTE Coding Level of Care Code Est Patient Level 1 Diagnoses Current use of anticoagulant therapy Z79.01 Time Spent (min) 15 Assessment & Plan Assessment & Plan (1) Current use of anticoagulant therapy: Code(s): Z79.01 - [facility]FP (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
== END 2023-07-30 13:41 | disposition home or self-care (01) ==
LOC: HO.ACS 13:21
PROVIDERS: PCP Internal Medicine; Visit Provider Internal Medicine
DX: Z79.01 Long term (current) use of anticoagulants (principal)

== ENCOUNTER → 2023-07-30 13:21 | Outpatient (BNVA) | payer MEDICARE, SELFPAY | PROVIDERS: PCP Internal Medicine; Visit Provider Internal Medicine | DX: Z86.73 Personal history of transient ischemic attack (TIA), and cerebral infarction without residual deficits (principal); Z79.01 Long term (current) use of anticoagulants; Z51.81 Encounter for therapeutic drug level monitoring | CPT/HCPCS: 85610; 99211 ==

== ENCOUNTER → 2023-07-31 14:02 | Outpatient (BNVA) | payer MEDICARE, SELFPAY | PROVIDERS: PCP Internal Medicine; Visit Provider Psychiatry & Neurology Psychiatry ==

== ENCOUNTER 2023-08-14 13:06 | Outpatient (AMB) | payer MEDICARE, SELFPAY ==
[2023-08-14 13:35] LABS: Prothrombin Time Whole Bld POC 29.6 sec (11.1-13.5); ~PT, ~INR - Anti Coag Clinic 2.5 (0.9-1.1)
--- NOTE | 2023-08-14 13:36 | MHC.OFFVISCO ---
Intake Intake Visit Reasons: Anticoagulation Allergies clindamycin [CLINDAMYCIN] Allergy (Unknown, Verified 08/14/23 13:29) UNKNOWN oxycodone [OXYCODONE] Allergy (Unknown, Verified 08/14/23 13:29) UNKNOWN Penicillins [PENICILLINS] Allergy (Unknown, Verified 08/14/23 13:29) UNKNOWN seafood Allergy (Unknown, Verified 08/14/23 13:29) Anaphylaxis shellfish derived [SHELLFISH DERIVED] Allergy (Unknown, Verified 08/14/23 13:29) Anaphylaxis animal dander [ANIMAL DANDER] Adverse Reaction (Unknown, Verified 08/14/23 13:29) ITCHING, REDNESS atorvastatin [Lipitor] Adverse Reaction (Unknown, Verified 08/14/23 13:29) myalgia Medication List - Last Reconciled 08/14/23 by Silvia Saunders RN albuterol sulfate 90 mcg/actuation (ProAir HFA) 2 puffs inhalation Q4-6H PRN alendronate (Fosamax) 70 mg PO QWEEK 30 days diclofenac sodium 1% (Voltaren Arthritis Pain) 2 grams topical BID fluticasone furoate 200 mcg/actuation (Arnuity Ellipta) 1 inh inhalation DAILY irbesartan 150 mg PO DAILY lamotrigine 150 mg PO DAILY lithium carbonate ER 300 mg PO BEDTIME 30 days lorazepam 0.5 mg PO BEDTIME PRN modafinil 100 mg PO DAILY montelukast (Singulair) 10 mg PO DAILY pantoprazole 40 mg PO DAILY 90 days rosuvastatin 5 mg PO DAILY 90 days warfarin 4 mg See Protocol PO DAILY Nursing Note Amb to ACS accomp by feeling well, sts balance better this week, no recent falls Medications and supplements reviewed No changes in health, diet, medications, or supplements Denies any unusual signs and symptoms of bruising, bleeding Denies any new Chest pain, SOB, or clotting INR: 2.5 in therapeutic range Nutritional guidance given: balance greens and reds in diet Dose: continue usual dosing; 4mg daily F/U INR: 4 weeks Patient verbalizes understanding of instructions given with accurate read back/ teach back of dosing Anti-Coag Initial Assessment Social Hx Patient Tobacco Use Status: Never used Tobacco alcohol intake: never Alcohol intake frequency: does not drink Coding Level of Care Code Est Patient Level 1 Diagnoses Current use of anticoagulant therapy Z79.01 Time Spent (min) 15 Assessment & Plan Assessment & Plan (1) Current use of anticoagulant therapy: Code(s): 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
== END 2023-08-14 13:39 | disposition home or self-care (01) ==
LOC: HO.ACS 13:06
PROVIDERS: PCP Internal Medicine; Visit Provider Internal Medicine
DX: Z79.01 Long term (current) use of anticoagulants (principal)

== ENCOUNTER → 2023-08-14 13:06 | Outpatient (BNVA) | payer MEDICARE, SELFPAY | PROVIDERS: PCP Internal Medicine; Visit Provider Internal Medicine | DX: Z86.73 Personal history of transient ischemic attack (TIA), and cerebral infarction without residual deficits (principal); Z51.81 Encounter for therapeutic drug level monitoring; Z79.01 Long term (current) use of anticoagulants | CPT/HCPCS: 85610; 99211 ==

== ENCOUNTER 2023-09-10 13:13 | Outpatient (AMB) | payer MEDICARE, SELFPAY ==
[2023-09-10 13:33] LABS: Prothrombin Time Whole Bld POC 31.6 sec (11.1-13.5); ~PT, ~INR - Anti Coag Clinic 2.6 (0.9-1.1)
--- NOTE | 2023-09-10 13:34 | MHC.OFFVISCO ---
Intake Intake Visit Reasons: Anticoagulation Allergies clindamycin [CLINDAMYCIN] Allergy (Unknown, Verified 09/10/23 13:26) UNKNOWN oxycodone [OXYCODONE] Allergy (Unknown, Verified 09/10/23 13:26) UNKNOWN Penicillins [PENICILLINS] Allergy (Unknown, Verified 09/10/23 13:26) UNKNOWN seafood Allergy (Unknown, Verified 09/10/23 13:26) Anaphylaxis shellfish derived [SHELLFISH DERIVED] Allergy (Unknown, Verified 09/10/23 13:26) Anaphylaxis animal dander [ANIMAL DANDER] Adverse Reaction (Unknown, Verified 09/10/23 13:26) ITCHING, REDNESS atorvastatin [Lipitor] Adverse Reaction (Unknown, Verified 09/10/23 13:26) myalgia Medication List - Last Reconciled 09/10/23 by Silvia Saundesr RN albuterol sulfate 90 mcg/actuation (ProAir HFA) 2 puffs inhalation Q4-6H PRN alendronate (Fosamax) 70 mg PO QWEEK 30 days diclofenac sodium 1% (Voltaren Arthritis Pain) 2 grams topical BID fluticasone furoate 200 mcg/actuation (Arnuity Ellipta) 1 inh inhalation DAILY irbesartan 150 mg PO DAILY lamotrigine 150 mg PO DAILY lithium carbonate ER 300 mg PO BEDTIME 30 days lorazepam 0.5 mg PO BEDTIME PRN modafinil 100 mg PO DAILY montelukast (Singulair) 10 mg PO DAILY pantoprazole 40 mg PO DAILY 90 days rosuvastatin 5 mg PO DAILY 90 days warfarin 4 mg See Protocol PO DAILY Nursing Note Amb to [facility], accomp by (pt has memory issues) feeling well, sts she fell last Sunday (09/01) verifies no head issues soft fall Medications and supplements reviewed No changes in health, diet, medications, or supplements Denies any unusual signs and symptoms of bruising, bleeding Denies any new Chest pain, SOB, or clotting INR: 2.6 in therapeutic range Nutritional guidance given: balance greens and reds in diet, be consistent Dose: continue usual dosing;4mg daily F/U INR: 4 weeks Patient verbalizes understanding of instructions given with accurate read back/ teach back of dosing Anti-Coag Initial Assessment Social Hx Patient Tobacco Use Status: Never used Tobacco alcohol intake: never Alcohol intake frequency: does not drink Coding Level of Care Code Est Patient Level 1 Diagnoses Current use of anticoagulant therapy Z79.01 Time Spent (min) 15 Assessment & Plan Assessment & Plan (1) Current use of anticoagulant therapy: Code(s): Z79.01 - half-way (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
== END 2023-09-10 13:39 | disposition home or self-care (01) ==
LOC: HO.ACS 13:13
PROVIDERS: PCP Internal Medicine; Visit Provider Internal Medicine
DX: Z79.01 Long term (current) use of anticoagulants (principal)

== ENCOUNTER → 2023-09-10 13:13 | Outpatient (BNVA) | payer MEDICARE, SELFPAY | PROVIDERS: PCP Internal Medicine; Visit Provider Internal Medicine | DX: Z86.73 Personal history of transient ischemic attack (TIA), and cerebral infarction without residual deficits (principal); Z79.01 Long term (current) use of anticoagulants; Z51.81 Encounter for therapeutic drug level monitoring | CPT/HCPCS: 85610; 99211 ==

== ENCOUNTER 2023-10-09 12:58 | Outpatient (AMB) | payer MEDICARE, SELFPAY ==
--- NOTE | 2023-10-09 13:08 | MHC.OFFVISCO ---
Intake Intake Visit Reasons: Anticoagulation Allergies clindamycin [CLINDAMYCIN] Allergy (Unknown, Verified 10/09/23 13:04) UNKNOWN oxycodone [OXYCODONE] Allergy (Unknown, Verified 10/09/23 13:04) UNKNOWN Penicillins [PENICILLINS] Allergy (Unknown, Verified 10/09/23 13:04) UNKNOWN seafood Allergy (Unknown, Verified 10/09/23 13:04) Anaphylaxis shellfish derived [SHELLFISH DERIVED] Allergy (Unknown, Verified 10/09/23 13:04) Anaphylaxis animal dander [ANIMAL DANDER] Adverse Reaction (Unknown, Verified 10/09/23 13:04) ITCHING, REDNESS atorvastatin [Lipitor] Adverse Reaction (Unknown, Verified 10/09/23 13:04) myalgia Medication List - Last Reconciled 10/09/23 by Piedad Diana RN albuterol sulfate 90 mcg/actuation (ProAir HFA) 2 puffs inhalation Q4-6H PRN alendronate (Fosamax) 70 mg PO QWEEK 30 days diclofenac sodium 1% (Voltaren Arthritis Pain) 2 grams topical BID fluticasone furoate 200 mcg/actuation (Arnuity Ellipta) 1 inh inhalation DAILY irbesartan 150 mg PO DAILY lamotrigine 150 mg PO DAILY lithium carbonate ER 300 mg PO BEDTIME 30 days lorazepam 0.5 mg PO BEDTIME PRN modafinil 100 mg PO DAILY montelukast (Singulair) 10 mg PO DAILY pantoprazole 40 mg PO DAILY 90 days rosuvastatin 5 mg PO DAILY 90 days warfarin 4 mg See Protocol PO DAILY Nursing Note INR: 2.7- in therapeutic range of 2-3 Medications and supplements reviewed- no changes No changes in health, diet, medications, or supplements, Denies any signs and symptoms of bleeding or bruising or clotting. Bleeding, bruising, clotting discussed Nutritional guidance given Dose: 4mg x7 F/U INR: 4 weeks Patient and verbalizes understanding of instructions given Anti-Coag Initial Assessment Social Hx Patient Tobacco Use Status: Never used Tobacco alcohol intake: never Alcohol intake frequency: does not drink Coding Level of Care Code Est Patient Level 1 Diagnoses Current use of anticoagulant therapy Z79.01 Assessment & Plan Assessment & Plan (1) Current use of anticoagulant therapy: Code(s): Z79.01 - group home (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
[2023-10-09 13:10] LABS: Prothrombin Time Whole Bld POC 32.2 sec (11.1-13.5); ~PT, ~INR - Anti Coag Clinic 2.7 (0.9-1.1)
== END 2023-10-09 13:14 | disposition home or self-care (01) ==
LOC: HO.ACS 12:58
PROVIDERS: PCP Internal Medicine; Visit Provider Internal Medicine
DX: Z79.01 Long term (current) use of anticoagulants (principal)

== ENCOUNTER → 2023-10-09 12:58 | Outpatient (BNVA) | payer MEDICARE, SELFPAY | PROVIDERS: PCP Internal Medicine; Visit Provider Internal Medicine | DX: Z86.73 Personal history of transient ischemic attack (TIA), and cerebral infarction without residual deficits (principal); Z79.01 Long term (current) use of anticoagulants; Z51.81 Encounter for therapeutic drug level monitoring | CPT/HCPCS: 85610; 99211 ==

== ENCOUNTER 2023-11-06 13:04 | Outpatient (AMB) | payer MEDICARE, SELFPAY ==
[2023-11-06 13:10] LABS: Prothrombin Time Whole Bld POC 40.7 sec (11.1-13.5); ~PT, ~INR - Anti Coag Clinic 3.4 (0.9-1.1)
--- NOTE | 2023-11-06 13:19 | MHC.OFFVISCO ---
Intake Intake Visit Reasons: Anticoagulation Allergies clindamycin [CLINDAMYCIN] Allergy (Unknown, Verified 11/06/23 13:06) UNKNOWN oxycodone [OXYCODONE] Allergy (Unknown, Verified 11/06/23 13:06) UNKNOWN Penicillins [PENICILLINS] Allergy (Unknown, Verified 11/06/23 13:06) UNKNOWN seafood Allergy (Unknown, Verified 11/06/23 13:06) Anaphylaxis shellfish derived [SHELLFISH DERIVED] Allergy (Unknown, Verified 11/06/23 13:06) Anaphylaxis animal dander [ANIMAL DANDER] Adverse Reaction (Unknown, Verified 11/06/23 13:06) ITCHING, REDNESS atorvastatin [Lipitor] Adverse Reaction (Unknown, Verified 11/06/23 13:06) myalgia Medication List - Last Reconciled 11/06/23 by Silvia Parker, RN albuterol sulfate 90 mcg/actuation (ProAir HFA) 2 puffs inhalation Q4-6H PRN alendronate (Fosamax) 70 mg PO QWEEK 30 days diclofenac sodium 1% (Voltaren Arthritis Pain) 2 grams topical BID fluticasone furoate 200 mcg/actuation (Arnuity Ellipta) 1 inh inhalation DAILY irbesartan 150 mg PO DAILY lamotrigine 150 mg PO DAILY lithium carbonate ER 300 mg PO BEDTIME 30 days lorazepam 0.5 mg PO BEDTIME PRN modafinil 100 mg PO DAILY montelukast (Singulair) 10 mg PO DAILY pantoprazole 40 mg PO DAILY 90 days rosuvastatin 5 mg PO DAILY 90 days warfarin 4 mg See Protocol PO DAILY Nursing Note INR 3.4?out of therapeutic range of 2-3 Medications and supplements reviewed: no changes Patient status: feels well Medications or supplements: no changes Diet: has been a bit out of ordinary for pt as has been out of town and pt states she has not had any greens. Denies any signs and symptoms of bleeding or clotting or unusual bruising Bleeding, bruising, clotting discussed Nutritional guidance given: pt to have a serving of greens today Dose: pt already took today's dose of 4mg which is daily dose so tomorrow's dose cut to 2mg F/U INR Date : 2 weeks?? Patient verbalizing understanding of instructions given. 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
== END 2023-11-06 13:23 | disposition home or self-care (01) ==
LOC: HO.ACS 13:04
PROVIDERS: PCP Internal Medicine; Visit Provider Internal Medicine
DX: Z79.01 Long term (current) use of anticoagulants (principal)

== ENCOUNTER → 2023-11-06 13:04 | Outpatient (BNVA) | payer MEDICARE, SELFPAY | PROVIDERS: PCP Internal Medicine; Visit Provider Internal Medicine | DX: Z86.73 Personal history of transient ischemic attack (TIA), and cerebral infarction without residual deficits (principal); Z79.01 Long term (current) use of anticoagulants; Z51.81 Encounter for therapeutic drug level monitoring | CPT/HCPCS: 85610; 99211 ==

== ENCOUNTER 2023-11-13 13:50 | Outpatient (AMB) | payer MEDICARE, SELFPAY ==
--- NOTE | 2023-11-13 14:14 | A.OFFPSYCH_ITS ---
Intake Intake Visit Reasons: depression Allergies clindamycin [CLINDAMYCIN] Allergy (Unknown, Verified 11/06/23 13:06) UNKNOWN oxycodone [OXYCODONE] Allergy (Unknown, Verified 11/06/23 13:06) UNKNOWN Penicillins [PENICILLINS] Allergy (Unknown, Verified 11/06/23 13:06) UNKNOWN seafood Allergy (Unknown, Verified 11/06/23 13:06) Anaphylaxis shellfish derived [SHELLFISH DERIVED] Allergy (Unknown, Verified 11/06/23 13:06) Anaphylaxis animal dander [ANIMAL DANDER] Adverse Reaction (Unknown, Verified 11/06/23 13:06) ITCHING, REDNESS atorvastatin [Lipitor] Adverse Reaction (Unknown, Verified 11/06/23 13:06) myalgia HPI- Psychiatric Chief Complaint: depression HPI Narrative: Patient seen psychiatric follow-up. Patient's mood somewhat flat some in motivation but has been going to the [facility] 3 times week she does feel somewhat discouraged at times why does her stay with her she is slow moving but their relationship continues to be quite connected. Her 's brother recently [place] that had been stressful for the family no new medical concerns except for left hand finger tingling for the past 2 3 weeks no other symptoms noted No facial cranial nerve abnormalities gait unchanged alert cooperative patient had felt that she had stopped modafinil otherwise she continues on lamotrigine Past Psychiatric History: History of bipolar disorder was stable on lithium for years until CVA Mental Status Exam Mental Status Exam Narrative: Mental Status Exam Narrative: Appearance: Casually dressed Behavior: Cooperative psychomotor: Slowed ambulation difficulty with balance not using cane or walker Speech: Clear some hesitation Thought proccess logical some improved processing speed Thought content: Feeling okay wishes she could function better not motivated for further physical rehab future oriented Mood: Mood described as okay Affect: Sears affect somewhat flat SI:denies HI:denies VH/AH:none Delusions:none Insight/judgment:generally ok takes her medication regularly has been more cooperative with adding activities going to [facility] Memory/cog: some episodic memory difficulty but more alert knows her dosing and medication generally [address] [facility] home address Assessment and Plan Assessment & Plan (1) 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 HIPAA compliant testing sent to Dr. Krishnamurthy her PCP patient's to call in the morning to go to the ER if any furthering of symptoms appears to have developed what appears to be peripheral neuropathy question carpal tunnel to go to the are any further symptoms Medications: Refilled modafinil 100 mg PO DAILY 90 tabs 0RF Counseling and coordination of Care Pt. Self Management counseling: Maintenance-social rhythm and Behavior activation Diagnosis and Prognosis Counseling: Problematic behaviors secondary to diagnosis and Adequacy of current interventions Details: I spent [37] minutes reviewing the record, seeing the patient and documenting in the medical record. Counseling provided to the patient/caregiver as outlined below. Addressed patient/caregiver concerns regarding current medication regime including effective adherence. Addressed patient/caregiver concerns regarding diagnosis and prognosis including accuracy of diagnosis, prognosis over time, impact of diagnosis. Addressed patient/caregiver concerns regarding impact of recent stressors. 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) Impaired glucose tolerance Patent foramen ovale Tubular adenoma of colon History of renal calculi Hypercholesterolemia Obesity (BMI 30-39.9) Hypertension Asthma Bipolar disorder GERD (gastroesophageal reflux disease) Iron deficiency anemia History of CVA (cerebrovascular accident) Surgical History History of parathyroidectomy History of mastoidectomy Family History Father Cataract Mother Anxiety Cancer Mental health disorder Brother Lung cancer Liver cancer Sister Dementia Autoimmune disease Social History Housing: House Alcohol intake: never Patient Tobacco Use Status: Never used Tobacco e-Cigarette/Vaping Use: Never Used Second Hand Smoke Exposure: No Current occupational status: retired Cognitive needs: Yes Hearing needs: No Vision needs: Yes Social History: Patient has a medical history hypertension renal insufficiency glaucoma status post CVA. 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 She does have 3 children. 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
== END 2023-11-13 15:34 | disposition home or self-care (01) ==
LOC: HO.HOP 13:50
PROVIDERS: PCP Internal Medicine; Visit Provider Psychiatry & Neurology Psychiatry
DX: I69.319 Unspecified symptoms and signs involving cognitive functions following cerebral infarction (principal); F31.62 Bipolar disorder, current episode mixed, moderate
CPT/HCPCS: 90833; 99213

== ENCOUNTER → 2023-11-13 13:50 | Outpatient (BNVA) | payer MEDICARE, SELFPAY | PROVIDERS: PCP Internal Medicine; Visit Provider Psychiatry & Neurology Psychiatry | DX: I69.319 Unspecified symptoms and signs involving cognitive functions following cerebral infarction (principal); F31.62 Bipolar disorder, current episode mixed, moderate | CPT/HCPCS: 99212 ==

== ENCOUNTER 2023-11-14 12:14 | Outpatient (AMB) | payer MEDICARE, SELFPAY ==
[2023-11-14 12:31] VITALS: BP 138/82; PULSE 84; O2SAT 97; BMI 26.8
--- NOTE | 2023-11-14 12:31 | A.OFFPC_ITS ---
Vital Signs 11/14/23 12:31 Height 5 ft 2 in Weight 146 lb 6.191 oz BMI 26.8 BP 138/82 Blood Pressure Location Lt brachial Position Sitting Pulse 84 Pulse Source Pulse Oximeter Pulse Oximetry (%) 97 Oxygen Delivery Method Room Air Intake Visit Reasons: Finger tips are numb Hazardous Materials Analyst Required: No Allergies clindamycin [CLINDAMYCIN] Allergy (Unknown, Verified 11/14/23 12:31) UNKNOWN oxycodone [OXYCODONE] Allergy (Unknown, Verified 11/14/23 12:31) UNKNOWN Penicillins [PENICILLINS] Allergy (Unknown, Verified 11/14/23 12:31) UNKNOWN seafood Allergy (Unknown, Verified 11/14/23 12:31) Anaphylaxis shellfish derived [SHELLFISH DERIVED] Allergy (Unknown, Verified 11/14/23 12:31) Anaphylaxis animal dander [ANIMAL DANDER] Adverse Reaction (Unknown, Verified 11/14/23 12:31) ITCHING, REDNESS atorvastatin [Lipitor] Adverse Reaction (Unknown, Verified 11/14/23 12:31) myalgia Tobacco use date assessed: 11/14/23 Last assessed Fall Risk: 11/14/23 Dental Screening Dental Screen Date: 07/23/23 HPI Finger tips are numb HPI Details 82-year-old female with multiple medical problems history of CVA cognitive impairment GERD bipolar disorder asthma hypertension hypercholesterolemia impaired glucose tolerance and osteoporosis last seen in July 2023. Patient continues to be followed up by Psychiatry. Complains of acute problem right now. Patient complains of left hand numbness for 1 week denies any fall or trauma denies any change in color of the hands. Persistence prompted for consultation. 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) Impaired glucose tolerance Patent foramen ovale Tubular adenoma of colon History of renal calculi Hypercholesterolemia Obesity (BMI 30-39.9) Hypertension Asthma Bipolar disorder GERD (gastroesophageal reflux disease) Iron deficiency anemia History of CVA (cerebrovascular accident) Surgical History History of parathyroidectomy History of mastoidectomy Family History Father Cataract Mother Anxiety Cancer Mental health disorder Brother Lung cancer Liver cancer Sister Dementia Autoimmune disease Social History Housing: House Alcohol intake: never Patient Tobacco Use Status: Never used Tobacco e-Cigarette/Vaping Use: Never Used Second Hand Smoke Exposure: No Current occupational status: retired Cognitive needs: Yes Hearing needs: No Vision needs: Yes Questionnaire Thrive Questionnaire Date Thrive assessed: 11/14/23 AUDIT C Alcohol Use Questionnaire (AUDIT-C) 1. How often do you have a drink containing alcohol?: Never 3. How often do you have six or more drinks on one occasion?: Never Total Score: 0 MARANDA-7 AMB Questionnaire MARANDA-7 Date MARANDA - 7 assessed: 04/26/23 Source: Developed by Drs. Francis Kim, Shelley Estrella, Miguel Morrison and colleagues, with an educational kezia from [employer]. Physical exam (Primary Care) Vital Signs: Last Vital Signs Pulse 84 11/14/23 12:31 BP 138/82 11/14/23 12:31 Pulse Ox 97 11/14/23 12:31 Oxygen Delivery Method Room Air 11/14/23 12:31 BMI result Body Mass Index 26.8 Tobacco/Smoking Status: Tobacco use Status Tobacco use date assessed 11/14/23 11/14/23 12:37 Patient Tobacco Use Status Never used Tobacco 11/14/23 12:31 e-Cigarette/Vaping Use Never Used 11/14/23 12:31 Thrive Assessment: Date of Thrive Assessment Date Thrive assessed 11/14/23 11/14/23 12:37 Neuro Other: numbness on the tips of the left fingers. Palpable radial pulse good Assessment and Plan Assessment & Plan (1) Numbness and tingling in left hand: Code(s): R20.0 - Anesthesia of skin; R20.2 - Paresthesia of skin Plan: Discussed about carpal tunnel syndrome and advised to wear the left wrist splint at night. On follow-up will discuss about this problem and if still continues to have some numbness will advise nerve conduction test. Coding Level of Care Code Est Pt Level 3 (96332) Diagnoses Numbness and tingling in left hand R20.0; R20.2
== END 2023-11-14 13:56 | disposition home or self-care (01) ==
PROVIDERS: PCP Internal Medicine; Visit Provider Internal Medicine
DX: R20.0 Anesthesia of skin (principal); R20.2 Paresthesia of skin
CPT/HCPCS: 99213

== ENCOUNTER 2023-11-19 09:22 | Outpatient (REF) | payer MEDICARE, SELFPAY ==
[2023-11-19 09:39] LABS: MANUAL DIFF FLAG NO
[2023-11-19 10:29] LABS: Basophils Absolute Auto 0.1 X10*3/uL (0.0-0.2); Basophils Percent Auto 0.7 % (0-2); Eosinophils Absolute Auto 0.3 X10*3/uL (0.0-0.4); Eosinophils Percent Auto 4.5 % (0-4); Hematocrit 35.5 % (37.0-47.0); Hemoglobin 10.1 g/dl (12.0-16.0); Imm Gran Abs Auto 0.01 X10*3/uL (0.00-0.03); Imm Gran Pct Auto 0.1 % (0.0-0.4); Immature Retic Fraction 19.7 % (3.0-15.9); Lymphocytes Absolute Auto 1.5 X10*3/uL (1.2-4.9); Lymphocytes Percent Auto 22.8 % (20-40); Mean Corpuscular HGB Conc 28.5 g/dl (31.0-35.0); Mean Corpuscular Hemoglobin 20.6 pg (27.0-33.0); Mean Corpuscular Volume 72.4 fL (80.0-98.0); Mean Platelet Volume 10.7 fL (9.4-12.3); Monocytes Absolute Auto 0.5 X10*3/uL (0.1-1.2); Monocytes Percent Auto 7.8 % (2-11); Neutrophils Absolute Auto 4.3 x10*3/uL (2.0-8.3); Neutrophils Percent Auto 64.1 % (45-73); Platelet Count 331 X10*3/uL (160-400); Red Cell Distribution Width 18.2 % (11.0-16.0); Retic HGB Equivalent 19.1 pg (30.0-35.0); Reticulocyte Percent 1.1 % (0.5-1.8); Reticulocytes Absolute 0.052 X10*6/uL (0.026-0.095); White Blood Count 6.7 X10*3/uL (4.8-10.8)
[2023-11-19 11:21] LABS: Alanine Aminotransferase 19 U/L (0-31); Albumin Level 4.2 g/dL (3.5-5.0); Alkaline Phosphatase 65 U/L (39-117); Anion Gap 10 (12-20); Aspartate Amino Transferase 21 U/L (5-31); Bilirubin Total 0.3 mg/dL (0.0-1.0); Blood Urea Nitrogen 21 mg/dL (9-16); Calcium 9.8 mg/dL (8.4-10.2); Carbon Dioxide 24 mmol/L (22-29); Chloride 113 mmol/L (96-108); Cholesterol 126 mg/dL (<200); Estimated Glomerular Filt Rate > 60; Ferritin 7 ng/mL (10-250); Free T4 (Free Thyroxine) 0.89 ng/dL (0.71-1.85); Glucose Fasting 97 mg/dL (60-99); Glucose Random 97 mg/dL (60-115); HDL Cholesterol 46 mg/dL (>40); Iron 15 mcg/dL (30-160); LDL Cholesterol Calculated 64 mg/dL (<100); Percent Iron Saturation 4 % (15-50); Potassium 4.4 mmol/L (3.3-5.1); Sodium 143 mmol/L (135-145); Thyroid Stimulating Hormone 1.35 uIU/mL (0.32-4.0); Total Iron Binding Capacity 342 mcg/dL (228-428); Total Protein 6.8 g/dL (6.5-8.0); Triglycerides 83 mg/dL (<150); Unsaturated Iron Binding 327 ug/dL; Vitamin D 25-OH Total 21.4 ng/mL (>30)
[2023-11-19 12:17] LABS: Folate 3.3 ng/mL (> or = 4.0); Vitamin B12 485 pg/mL (200-900)
== END 2023-11-19 09:23 | disposition home or self-care (01) ==
LOC: HO.LAB 09:22
PROVIDERS: Absent Provider Psychiatry & Neurology Psychiatry; PCP Internal Medicine; Visit Provider Internal Medicine
DX: R73.02 Impaired glucose tolerance (oral) (principal); F31.9 Bipolar disorder, unspecified; E78.00 Pure hypercholesterolemia, unspecified; R41.89 Other symptoms and signs involving cognitive functions and awareness
CPT/HCPCS: 36415; 80053; 80061; 82306; 82607; 82728; 82746; 83540; 84439; 84443; 85025; 85045; 85610; 99211

== ENCOUNTER 2023-11-19 09:41 | Outpatient (AMB) | payer MEDICARE, SELFPAY ==
[2023-11-19 09:46] LABS: Prothrombin Time Whole Bld POC 39.4 sec (11.1-13.5); ~PT, ~INR - Anti Coag Clinic 3.3 (0.9-1.1)
--- NOTE | 2023-11-19 09:51 | MHC.OFFVISCO ---
Intake Intake Visit Reasons: Anticoagulation Allergies clindamycin [CLINDAMYCIN] Allergy (Unknown, Verified 11/19/23 09:41) UNKNOWN oxycodone [OXYCODONE] Allergy (Unknown, Verified 11/19/23 09:41) UNKNOWN Penicillins [PENICILLINS] Allergy (Unknown, Verified 11/19/23 09:41) UNKNOWN seafood Allergy (Unknown, Verified 11/19/23 09:41) Anaphylaxis shellfish derived [SHELLFISH DERIVED] Allergy (Unknown, Verified 11/19/23 09:41) Anaphylaxis animal dander [ANIMAL DANDER] Adverse Reaction (Unknown, Verified 11/19/23 09:41) ITCHING, REDNESS atorvastatin [Lipitor] Adverse Reaction (Unknown, Verified 11/19/23 09:41) myalgia Medication List - Last Reconciled 11/19/23 by Silvia Parker, RN albuterol sulfate 90 mcg/actuation (ProAir HFA) 2 puffs inhalation Q4-6H PRN alendronate (Fosamax) 70 mg PO QWEEK 30 days diclofenac sodium 1% (Voltaren Arthritis Pain) 2 grams topical BID fluticasone furoate 200 mcg/actuation (Arnuity Ellipta) 1 inh inhalation DAILY irbesartan 150 mg PO DAILY lamotrigine 150 mg PO DAILY lithium carbonate ER 300 mg PO BEDTIME 30 days lorazepam 0.5 mg PO BEDTIME PRN modafinil 100 mg PO DAILY montelukast (Singulair) 10 mg PO DAILY pantoprazole 40 mg PO DAILY 90 days rosuvastatin 5 mg PO DAILY 90 days warfarin 4 mg See Protocol PO DAILY Nursing Note Pt to [facility] accompanied by INR 3.3?out of therapeutic range of 2-3 Medications and supplements reviewed: no changes Patient status: no changes Medications or supplements: no changes Diet: no changes Only change today is pt was NPO overnight for fasting bloodwork today and has not had breakfast yet. Denies any signs and symptoms of bleeding or clotting or unusual bruising Bleeding, bruising, clotting discussed Nutritional guidance given: to have greens today and tomorrow then balance both greens and reds Dose: already took today's dose of 4mg which is pt's usual daily dose but decreased tomorrow and the next day to 2mg each. After those 2 days she will return to 4 mg daily. F/U INR Date : 2 weeks?? Patient verbalizing understanding of instructions given. Anti-Coag Initial Assessment Social Hx Patient Tobacco Use Status: Never used Tobacco alcohol intake: never Alcohol intake frequency: does not drink Coding Level of Care Code Est Patient Level 1 Diagnoses Current use of anticoagulant therapy Z79.01 Assessment & Plan Assessment & Plan (1) Current use of anticoagulant therapy: Code(s): Z79.01 - long-term (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
== END 2023-11-19 09:57 | disposition home or self-care (01) ==
LOC: HO.ACS 09:41
PROVIDERS: PCP Internal Medicine; Visit Provider Internal Medicine
DX: Z79.01 Long term (current) use of anticoagulants (principal)

== ENCOUNTER 2023-12-03 12:59 | Outpatient (AMB) | payer MEDICARE, SELFPAY ==
[2023-12-03 13:12] LABS: Prothrombin Time Whole Bld POC 31.2 sec (11.1-13.5); ~PT, ~INR - Anti Coag Clinic 2.6 (0.9-1.1)
--- NOTE | 2023-12-03 13:18 | MHC.OFFVISCO ---
Intake Intake Visit Reasons: Anticoagulation Allergies clindamycin [CLINDAMYCIN] Allergy (Unknown, Verified 12/03/23 13:06) UNKNOWN oxycodone [OXYCODONE] Allergy (Unknown, Verified 12/03/23 13:06) UNKNOWN Penicillins [PENICILLINS] Allergy (Unknown, Verified 12/03/23 13:06) UNKNOWN seafood Allergy (Unknown, Verified 12/03/23 13:06) Anaphylaxis shellfish derived [SHELLFISH DERIVED] Allergy (Unknown, Verified 12/03/23 13:06) Anaphylaxis animal dander [ANIMAL DANDER] Adverse Reaction (Unknown, Verified 12/03/23 13:06) ITCHING, REDNESS atorvastatin [Lipitor] Adverse Reaction (Unknown, Verified 12/03/23 13:06) myalgia Medication List - Last Reconciled 12/03/23 by Korina Andrew RN albuterol sulfate 90 mcg/actuation (ProAir HFA) 2 puffs inhalation Q4-6H PRN alendronate (Fosamax) 70 mg PO QWEEK 30 days ascorbic acid (vitamin C) 500 mg PO .QD 90 days diclofenac sodium 1% (Voltaren Arthritis Pain) 2 grams topical BID ferrous sulfate 325 mg PO DAILY fluticasone furoate 200 mcg/actuation (Arnuity Ellipta) 1 inh inhalation DAILY folic acid 1 mg PO DAILY irbesartan 150 mg PO DAILY lamotrigine 150 mg PO DAILY lithium carbonate ER 300 mg PO BEDTIME 30 days lorazepam 0.5 mg PO BEDTIME PRN modafinil 100 mg PO DAILY montelukast (Singulair) 10 mg PO DAILY pantoprazole 40 mg PO DAILY 90 days rosuvastatin 5 mg PO DAILY 90 days warfarin 4 mg See Protocol PO DAILY Nursing Note INR: 2.6 in therapeutic range Medications and supplements reviewed No changes in health, diet, medications, or supplements, Denies any signs and symptoms of bleeding or bruising or clotting. Bleeding, bruising, clotting discussed Nutritional guidance given - REVIEW Food list weekly - eat a mix of fruits and vegetables Dose: 4MG DAILY F/U INR: 4 WEEKS Patient verbalizes understanding of instructions given Anti-Coag Initial Assessment Social Hx Patient Tobacco Use Status: Never used Tobacco alcohol intake: never Alcohol intake frequency: does not drink Coding Level of Care Code Est Patient Level 1 Diagnoses Current use of anticoagulant therapy Z79.01 Assessment & Plan Assessment & Plan (1) Current use of anticoagulant therapy: Code(s): Z79.01 - alf (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
== END 2023-12-03 13:20 | disposition home or self-care (01) ==
LOC: HO.ACS 12:59
PROVIDERS: PCP Internal Medicine; Visit Provider Internal Medicine
DX: Z79.01 Long term (current) use of anticoagulants (principal)

== ENCOUNTER → 2023-12-03 12:59 | Outpatient (BNVA) | payer MEDICARE, SELFPAY | PROVIDERS: PCP Internal Medicine; Visit Provider Internal Medicine | DX: Z86.73 Personal history of transient ischemic attack (TIA), and cerebral infarction without residual deficits (principal); Z51.81 Encounter for therapeutic drug level monitoring; Z79.01 Long term (current) use of anticoagulants | CPT/HCPCS: 85610; 99211 ==

== ENCOUNTER 2023-12-31 12:57 | Outpatient (AMB) | payer MEDICARE, SELFPAY ==
--- NOTE | 2023-12-31 13:14 | MHC.OFFVISCO ---
Intake Intake Visit Reasons: Anticoagulation Allergies clindamycin [CLINDAMYCIN] Allergy (Unknown, Verified 12/31/23 13:03) UNKNOWN oxycodone [OXYCODONE] Allergy (Unknown, Verified 12/31/23 13:03) UNKNOWN Penicillins [PENICILLINS] Allergy (Unknown, Verified 12/31/23 13:03) UNKNOWN seafood Allergy (Unknown, Verified 12/31/23 13:03) Anaphylaxis shellfish derived [SHELLFISH DERIVED] Allergy (Unknown, Verified 12/31/23 13:03) Anaphylaxis animal dander [ANIMAL DANDER] Adverse Reaction (Unknown, Verified 12/31/23 13:03) ITCHING, REDNESS atorvastatin [Lipitor] Adverse Reaction (Unknown, Verified 12/31/23 13:03) myalgia Medication List - Last Reconciled 12/31/23 by Silvia Parker, RN albuterol sulfate 90 mcg/actuation (ProAir HFA) 2 puffs inhalation Q4-6H PRN alendronate (Fosamax) 70 mg PO QWEEK 30 days ascorbic acid (vitamin C) 500 mg PO .QD 90 days diclofenac sodium 1% (Voltaren Arthritis Pain) 2 grams topical BID ferrous sulfate 325 mg PO DAILY fluticasone furoate 200 mcg/actuation (Arnuity Ellipta) 1 inh inhalation DAILY folic acid 1 mg PO DAILY irbesartan 150 mg PO DAILY lamotrigine 150 mg PO DAILY lithium carbonate ER 300 mg PO BEDTIME 30 days lorazepam 0.5 mg PO BEDTIME PRN modafinil 100 mg PO DAILY montelukast (Singulair) 10 mg PO DAILY pantoprazole 40 mg PO DAILY 90 days rosuvastatin 5 mg PO DAILY 90 days warfarin 4 mg See Protocol PO DAILY Nursing Note Pt to [facility] accompanied by INR: 2.7 in therapeutic range of 2-3 Medications and supplements reviewed: no changes No changes in health, diet, medications, or supplements, Denies any signs and symptoms of bleeding or bruising or clotting. Bleeding, bruising, clotting discussed Nutritional guidance given Dose: 4mg daily F/U INR: 4 weeks Patient verbalizes understanding of instructions given Anti-Coag Initial Assessment Social Hx Patient Tobacco Use Status: Never used Tobacco alcohol intake: never Alcohol intake frequency: does not drink Coding Level of Care Code Est Patient Level 1 Diagnoses Current use of anticoagulant therapy Z79.01 Results AMB INR Fingerstick AMB INR Fingerstick 2.7 Last Edit by Silvia Parker RN on 12/31/23 13:11 interface delay Assessment & Plan Assessment & Plan (1) Current use of anticoagulant therapy: Code(s): Z79.01 - [facility] (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
[2023-12-31 13:17] LABS: Prothrombin Time Whole Bld POC 32.2 sec (11.1-13.5); ~PT, ~INR - Anti Coag Clinic 2.7 (0.9-1.1)
== END 2023-12-31 14:37 | disposition home or self-care (01) ==
LOC: HO.ACS 12:57
PROVIDERS: PCP Internal Medicine; Visit Provider Internal Medicine
DX: Z79.01 Long term (current) use of anticoagulants (principal)

== ENCOUNTER → 2023-12-31 12:57 | Outpatient (BNVA) | payer MEDICARE, SELFPAY | PROVIDERS: PCP Internal Medicine; Visit Provider Internal Medicine | DX: Z86.73 Personal history of transient ischemic attack (TIA), and cerebral infarction without residual deficits (principal); Z79.01 Long term (current) use of anticoagulants; Z51.81 Encounter for therapeutic drug level monitoring | CPT/HCPCS: 85610; 99211 ==

== ENCOUNTER 2024-01-30 13:02 | Outpatient (AMB) | payer MEDICARE, SELFPAY ==
--- NOTE | 2024-01-30 13:28 | MHC.OFFVISCO ---
Intake Intake Visit Reasons: Anticoagulation Allergies clindamycin [CLINDAMYCIN] Allergy (Unknown, Verified 01/30/24 13:14) UNKNOWN oxycodone [OXYCODONE] Allergy (Unknown, Verified 01/30/24 13:14) UNKNOWN Penicillins [PENICILLINS] Allergy (Unknown, Verified 01/30/24 13:14) UNKNOWN seafood Allergy (Unknown, Verified 01/30/24 13:14) Anaphylaxis shellfish derived [SHELLFISH DERIVED] Allergy (Unknown, Verified 01/30/24 13:14) Anaphylaxis animal dander [ANIMAL DANDER] Adverse Reaction (Unknown, Verified 01/30/24 13:14) ITCHING, REDNESS atorvastatin [Lipitor] Adverse Reaction (Unknown, Verified 01/30/24 13:14) myalgia Medication List - Last Reconciled 01/30/24 by Maryjane Real RN albuterol sulfate 90 mcg/actuation (ProAir HFA) 2 puffs inhalation Q4-6H PRN alendronate (Fosamax) 70 mg PO QWEEK 30 days ascorbic acid (vitamin C) 500 mg PO .QD 90 days diclofenac sodium 1% (Voltaren Arthritis Pain) 2 grams topical BID ferrous sulfate 325 mg PO DAILY fluticasone furoate 200 mcg/actuation (Arnuity Ellipta) 1 inh inhalation DAILY folic acid 1 mg PO DAILY irbesartan 150 mg PO DAILY lamotrigine 150 mg PO DAILY lithium carbonate ER 300 mg PO BEDTIME 30 days lorazepam 0.5 mg PO BEDTIME PRN modafinil 100 mg PO DAILY montelukast (Singulair) 10 mg PO DAILY pantoprazole 40 mg PO DAILY 90 days rosuvastatin 5 mg PO DAILY 90 days warfarin 4 mg See Protocol PO DAILY Nursing Note NO CP,SOB,DIET/MED CHANGES,FALLS OR SX OF BLEEDING CONTINUE 4MGM DAILY AND FOLLOW-UP IN 4 WEEKS. GOOD UNDERSTANDING OF DOSING INSTR. Anti-Coag Initial Assessment Social Hx Patient Tobacco Use Status: Never used Tobacco alcohol intake: never Alcohol intake frequency: does not drink Coding Level of Care Code Est Patient Level 1 Diagnoses Current use of anticoagulant therapy Z79.01 Results AMB INR Fingerstick AMB INR Fingerstick 2.7 Last Edit by Maryjane Real RN on 01/30/24 13:26 Assessment & Plan Assessment & Plan (1) Current use of anticoagulant therapy: Code(s): Z79.01 - care home (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
[2024-01-30 14:39] LABS: Prothrombin Time Whole Bld POC 32.3 sec (11.1-13.5); ~PT, ~INR - Anti Coag Clinic 2.7 (0.9-1.1)
== END 2024-01-30 13:30 | disposition home or self-care (01) ==
LOC: HO.ACS 13:02
PROVIDERS: PCP Internal Medicine; Visit Provider Internal Medicine
DX: Z79.01 Long term (current) use of anticoagulants (principal)

== ENCOUNTER → 2024-01-30 13:02 | Outpatient (BNVA) | payer MEDICARE, SELFPAY | PROVIDERS: PCP Internal Medicine; Visit Provider Internal Medicine | DX: Z86.73 Personal history of transient ischemic attack (TIA), and cerebral infarction without residual deficits (principal); Z79.01 Long term (current) use of anticoagulants; Z51.81 Encounter for therapeutic drug level monitoring | CPT/HCPCS: 85610; 99211 ==

== ENCOUNTER 2024-02-12 15:29 | Outpatient (AMB) | payer MEDICARE, SELFPAY ==
[2024-02-12 15:32] VITALS: BP 136/80; PULSE 80; O2SAT 97; BMI 26.2
--- NOTE | 2024-02-12 15:32 | A.OFFPC_ITS ---
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 Technician Required: No Teaching Artist: Not Required per policy Accompanied by: Self / Same As Patient Allergies clindamycin [CLINDAMYCIN] Allergy (Unknown, Verified 02/12/24 15:32) UNKNOWN oxycodone [OXYCODONE] Allergy (Unknown, Verified 02/12/24 15:32) UNKNOWN Penicillins [PENICILLINS] Allergy (Unknown, Verified 02/12/24 15:32) UNKNOWN seafood Allergy (Unknown, Verified 02/12/24 15:32) Anaphylaxis shellfish derived [SHELLFISH DERIVED] Allergy (Unknown, Verified 02/12/24 15:32) Anaphylaxis animal dander [ANIMAL DANDER] Adverse Reaction (Unknown, Verified 02/12/24 15:32) ITCHING, REDNESS atorvastatin [Lipitor] Adverse Reaction (Unknown, Verified 02/12/24 15:32) myalgia Tobacco use date assessed: 11/14/23 Fall risk assessment: 1 Fall in past year Last assessed Fall Risk: 02/12/24 Dental Screening Dental Screen Date: 02/12/24 Did you have a dental visit in the last 12 months?: No Did you have a dental problem in the last 6 months where you did not have access to dental care?: No Was dental information given to patient?: Patient has dentist HPI HTN, Cholesterol HPI Details 83-year-old female with a history of imp aired glucose tolerance osteoporosis nephrolithiasis hypercholesterolemia hypertension asthma GERD bipolar disorder history of CVA and cognitive impairment coming in for follow- up. Last seen in November 2023 regarding numbness of the left hand.complain of nasal congestion , eye tearing - advisedx allergy med [facility] Medical History (Updated 11/14/23 @ 12:51 by Victoriano Wong MD) Breast cancer screening Colon cancer screening Gait instability 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) Impaired glucose tolerance Patent foramen ovale Tubular adenoma of colon History of renal calculi Hypercholesterolemia Obesity (BMI 30-39.9) Hypertension Asthma Bipolar disorder GERD (gastroesophageal reflux disease) Iron deficiency anemia History of CVA (cerebrovascular accident) Surgical History History of parathyroidectomy History of mastoidectomy Family History Father Cataract Mother Anxiety Cancer Mental health disorder Brother Lung cancer Liver cancer Sister Dementia Autoimmune disease Social History Housing: House Alcohol intake: never Patient Tobacco Use Status: Never used Tobacco e-Cigarette/Vaping Use: Never Used Second Hand Smoke Exposure: No Current occupational status: retired Cognitive needs: Yes Hearing needs: No Vision needs: Yes Questionnaire PHQ-9 Over the last 2 weeks, how often have you been bothered by any of the following problems? 1. Little interest or pleasure in doing things: not at all 2. Feeling down, depressed, or hopeless: not at all 3. Trouble falling or staying asleep, or sleeping too much: not at all 4. Feeling tired or having little energy: not at all 5. Poor appetite or overeating: not at all 6. Feeling bad about yourself - or that you are a failure or have let yourself or your family down: not at all 7. Trouble concentrating on things, such as reading the newspaper or watching television: not at all 8. Moving or speaking so slowly that other people could have noticed. Or the opposite - being so fidgety or restless that you have been moving around a lot more than usual: not at all 9. Thoughts that you would be better off or of hurting yourself in some way: not at all Total score: 0 Depression Screening Interpretation: Negative Depression Screening Done: Yes Source: Developed by Drs. Francis Kim, Shelley Estrella, Miguel Morrison and colleagues, with an educational kezia from [employer] Thrive Questionnaire Date Thrive assessed: 11/14/23 MARANDA-7 AMB Questionnaire MARANDA-7 Date MARANDA - 7 assessed: 02/12/24 Feeling nervous, anxious, or on edge: 0 = Not at all Not being able to stop or control worryin = Not at all Worrying too much about different things: 0 = Not at all Trouble relaxin = Not at all Being so restless that it is hard to sit still: 0 = Not at all Becoming easily annoyed or irritable: 0 = Not at all Feeling afraid as if something awful might happen: 0 = Not at all Total MARANDA-7 score (0-4 normal; 5-9 mild; 10-14 moderate; 15-21 severe): 0 Source: Developed by Drs. Francis Kim, Shelley Estrella, Miguel Morrison and colleagues, with an educational kezia from [employer] Physical exam (Primary Care) Vital Signs: Last Vital Signs Pulse 80 02/12/24 15:32 BP 136/80 02/12/24 15:32 Pulse Ox 97 02/12/24 15:32 Oxygen Delivery Method Room Air 02/12/24 15:32 BMI result Body Mass Index 26.2 Tobacco/Smoking Status: Tobacco use Status Tobacco use date assessed 11/14/23 02/12/24 15:35 Patient Tobacco Use Status Never used Tobacco 02/12/24 15:35 e-Cigarette/Vaping Use Never Used 02/12/24 15:35 PHQ-9: PHQ-9 Score PHQ-9: Total score 0 02/12/24 15:35 Depression Screening Interpretation: Negative Thrive Assessment: Date of Thrive Assessment Date Thrive assessed 11/14/23 02/12/24 15:35 Const General: alert; No acute distress Eyes Conjunctivae: conjunctivae normal Resp Auscultation: clear to auscultation bilaterally Cardio Rate: regular rate Rhythm: regular rhythm GI Inspection: Yes normal to inspection Extrem General: Yes normal to inspection and No edema Assessment and Plan Assessment & Plan (1) Iron deficiency anemia: Code(s): D50.9 - Iron deficiency anemia, unspecified Plan: Presently has been placed on folic acid and iron and vitamin-C (2) Numbness and tingling in left hand: Code(s): R20.0 - Anesthesia of skin; R20.2 - Paresthesia of skin (3) Cognitive impairment: Code(s): R41.89 - Other symptoms and signs involving cognitive functions and awareness Plan: Continuing to monitor (4) History of CVA (cerebrovascular accident): Comment: Status post tPA July 2017 left [employer] territory occipital and temporal infarct November 2018 Code(s): Z86.73 - Personal history of transient ischemic attack (TIA), and cerebral infarction without residual deficits Plan: Control the cholesterol, weight, blood pressure, continue with blood pressure control patient also on anticoagulation (5) GERD (gastroesophageal reflux disease): Code(s): K21.9 - Gastro-esophageal reflux disease without esophagitis Qualifiers: Esophagitis presence: without esophagitis Qualified Code(s): K21.9 - Gastro-esophageal reflux disease without esophagitis Plan: Avoid the foods that causes that usually spicy foods, tomato products, juices, c offee, soda and foods that your sensitive to. After eating do not lie down, allow 3-4 hours before in lie down. And keep the head of bed above 30 degrees to avoid the acid from going up. (6) Impaired glucose tolerance: Code(s): R73.02 - Impaired glucose tolerance (oral) Plan: Decrease the amount of carbohydrate intake, pasta, bread, rice and potatoes are all sugar and that is aside from all the sweet stuff, remember that fruits are good but they are Sweet also. (7) Hypertension: Code(s): I10 - Essential (primary) hypertension Qualifiers: Hypertension type: essential hypertension Qualified Code(s): I10 - Essential (primary) hypertension Plan: Continue with blood pressure medication. Decrease salt intake and exercise takes here irbesartan Orders: Orders XR DEXA axial skeleton Today M81.0 - Age-related osteoporosis without current pathological fracture Complete Blood Count Auto Diff Today D50.9 - Iron deficiency anemia, unspecified IRON PROFILE Today D50.9 - Iron deficiency anemia, unspecified Thyroid Stimulating Hormone Today D50.9 - Iron deficiency anemia, unspecified Vitamin B12 and Folate Today D50.9 - Iron deficiency anemia, unspecified Vitamin D 25-OH Total Today D50.9 - Iron deficiency anemia, unspecified NE nerve conduction velocity Today R20.0 - Anesthesia of skin, R20.2 - Paresthesia of skin Comprehensive Met. Panel Today D50.9 - Iron deficiency anemia, unspecified Ferritin Today D50.9 - Iron deficiency anemia, unspecified Free T4 (Free Thyroxine) Today D50.9 - Iron deficiency anemia, unspecified NE electromyogram (EMG) Today R20.0 - Anesthesia of skin, R20.2 - Paresthesia of skin Medications: New fluticasone furoate-vilanterol 100-25 mcg/dose (Breo Ellipta) 1 inh inhalation DAILY 60 ea 12RF J45.20 - Mild intermittent asthma, uncomplicated Discontinued fluticasone furoate 200 mcg/actuation (Arnuity Ellipta) Discontinued Reason: Doctor's Order 1 inh inhalation DAILY 30 ea 12RF J45.20 - Mild intermittent asthma, uncomplicated Coding Level of Care Code Est Pt Level 4 (57273) Complex EM visit Add On G2211 Diagnoses Iron deficiency anemia D50.9 Numbness and tingling in left hand R20.0; R20.2 Cognitive impairment R41.89 History of CVA (cerebrovascular accident) Z86.73 Gastroesophageal reflux disease without esophagitis K21.9 Esophagitis presence: without esophagitis Impaired glucose tolerance R73.02 Essential hypertension I10 Hypertension type: essential hypertension
== END 2024-02-12 16:30 | disposition home or self-care (01) ==
PROVIDERS: PCP Internal Medicine; Visit Provider Internal Medicine
DX: D50.9 Iron deficiency anemia, unspecified (principal); R20.0 Anesthesia of skin; R20.2 Paresthesia of skin; R41.89 Other symptoms and signs involving cognitive functions and awareness; Z86.73 Personal history of transient ischemic attack (TIA), and cerebral infarction without residual deficits; K21.9 Gastro-esophageal reflux disease without esophagitis; R73.02 Impaired glucose tolerance (oral); I10 Essential (primary) hypertension
CPT/HCPCS: 99214; G2211

== ENCOUNTER 2024-02-18 13:59 | Outpatient (AMB) | payer MEDICARE, SELFPAY ==
--- NOTE | 2024-02-18 14:18 | A.OFFPSYCH_ITS ---
Intake Intake Visit Reasons: depression, Bipolar disorder Intake Note: Patient seen with her Allergies clindamycin [CLINDAMYCIN] Allergy (Unknown, Verified 03/10/24 13:27) UNKNOWN oxycodone [OXYCODONE] Allergy (Unknown, Verified 03/10/24 13:27) UNKNOWN Penicillins [PENICILLINS] Allergy (Unknown, Verified 03/10/24 13:27) UNKNOWN seafood Allergy (Unknown, Verified 03/10/24 13:27) Anaphylaxis shellfish derived [SHELLFISH DERIVED] Allergy (Unknown, Verified 03/10/24 13:27) Anaphylaxis animal dander [ANIMAL DANDER] Adverse Reaction (Unknown, Verified 03/10/24 13:27) ITCHING, REDNESS atorvastatin [Lipitor] Adverse Reaction (Unknown, Verified 03/10/24 13:27) myalgia Medication List - Last Reconciled 02/18/24 by Emilio Garcia MD albuterol sulfate 90 mcg/actuation (ProAir HFA) 2 puffs inhalation Q4-6H PRN alendronate (Fosamax) 70 mg PO QWEEK 30 days ascorbic acid (vitamin C) 500 mg PO .QD 90 days diclofenac sodium 1% (Voltaren Arthritis Pain) 2 grams topical BID ferrous sulfate 325 mg PO DAILY fluticasone furoate-vilanterol 100-25 mcg/dose (Breo Ellipta) 1 inh inhalation DAILY folic acid 1 mg PO DAILY irbesartan 150 mg PO DAILY lamotrigine 150 mg PO DAILY 90 days lithium carbonate ER 300 mg PO BEDTIME 30 days lorazepam 0.5 mg PO BEDTIME PRN modafinil 100 mg PO DAILY montelukast (Singulair) 10 mg PO DAILY pantoprazole 40 mg PO DAILY 90 days rosuvastatin 5 mg PO DAILY 90 days warfarin 4 mg See Protocol PO DAILY HPI- Psychiatric Chief Complaint: depression, Bipolar disorder HPI Narrative: Patient seen psychiatric follow-up. The patient's mood is okay some periods of apathy but generally improved since being on modafinil. Remains on lithium 300 mg gradually lower and Lamictal 150 mg . Patient has generally not had any breakthrough manic or psychotic symptoms. Have suggested physical therapy on multiple times to the patient. Could increase modafinil or change to our modafinil but have tried to use the lowest dose possible Past Psychiatric History: History of bipolar disorder was stable on lithium for years until CVA Mental Status Exam Mental Status Exam Narrative: Mental Status Exam Narrative: Appearance: Casually dressed Behavior: Cooperative psychomotor: Slowed ambulation difficulty with balance not using cane or walker Speech: Clear some hesitation Thought proccess logical some improved processing speed Thought content: Feeling okay wishes she could function better expressing some desire for further physical rehab future oriented Mood: Mood described as okay Affect: Sears affect somewhat flat SI:denies HI:denies VH/AH:none Delusions:none Insight/judgment:generally ok takes her medication regularly has been more cooperative with adding activities going to senior center Memory/cog: some episodic memory difficulty but more alert knows her dosing and medication generally [facility] Garcia home address Assessment and Plan Assessment & Plan (1) Bipolar disorder: Status: Acute Qualifiers: Active/Remission status: currently active Current bipolar episode type: mixed Current episode severity: moderate Qualified Code(s): F31.62 - Bipolar disorder, current episode mixed, moderate Code(s): F31.9 - Bipolar disorder, unspecified (2) Gait instability: Status: Acute Code(s): R26.81 - Unsteadiness on feet (3) History of CVA (cerebrovascular accident): Status: Acute Code(s): Z86.73 - Personal history of transient ischemic attack (TIA), and cerebral infarction without residual deficits Plan Check lithium and Lamictal level check renal function consider further tapering of lithium urged regular physical therapy could change Lamictal to bedtime in case contributing at all to daytime unsteadiness but patient has not really participated in ongoing physical therapy hopefully with modafinil she may have more motivation could increase dose but would need to monitor for agitation anxiety or arin has tolerated modafinil well No significant cycling quality of life has significantly improved Orders: Orders Lamotrigine Lamictal 02/26/24 R26.81 - Unsteadiness on feet, R41.89 - Other symptoms and signs involving cognitive functions and awareness, F31.62 - Bipolar disorder, current episode mixed, moderate Vitamin B12 and Folate 02/26/24 R26.81 - Unsteadiness on feet, R41.89 - Other symptoms and signs involving cognitive functions and awareness, F31.62 - Bipolar disorder, current episode mixed, moderate [place] 02/26/24 R26.81 - Unsteadiness on feet, R41.89 - Other symptoms and signs involving cognitive functions and awareness, F31.62 - Bipolar disorder, current episode mixed, moderate TSH reflex Free T4 02/26/24 R26.81 - Unsteadiness on feet, R41.89 - Other symptoms and signs involving cognitive functions and awareness, F31.62 - Bipolar disorder, current episode mixed, moderate Comprehensive [place]. Panel Fast 02/26/24 R26.81 - Unsteadiness on feet, R41.89 - Other symptoms and signs involving cognitive functions and awareness, F31.62 - Bipolar disorder, current episode mixed, moderate Counseling and coordination of Care Pt. Self Management counseling: Exercise and Behavior activation Details-Self Mgmt counseling: Strongly urged ongoing PT ongoing senior center which she has been doing Medication management counseling: Effectiveness, Side effects and Dosing range Diagnosis and Prognosis Counseling: Problematic behaviors secondary to diagnosis and Adequacy of current interventions Details: I spent [38 minutes reviewing the record, seeing the patient and documenting in the medical record. Counseling provided to the patient/caregiver as outlined below. Addressed patient/caregiver concerns regarding current medication regime including effective adherence. Addressed patient/caregiver concerns regarding diagnosis and prognosis including accuracy of diagnosis, prognosis over time, impact of diagnosis. Addressed patient/caregiver concerns regarding impact of recent stressors. 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) Impaired glucose tolerance Patent foramen ovale Tubular adenoma of colon History of renal calculi Hypercholesterolemia Obesity (BMI 30-39.9) Hypertension Asthma Bipolar disorder GERD (gastroesophageal reflux disease) Iron deficiency anemia History of CVA (cerebrovascular accident) Surgical History History of parathyroidectomy History of mastoidectomy Family History Father Cataract Mother Anxiety Cancer Mental health disorder Brother Lung cancer Liver cancer Sister Dementia Autoimmune disease Social History Housing: House Alcohol intake: never Patient Tobacco Use Status: Never used Tobacco e-Cigarette/Vaping Use: Never Used Second Hand Smoke Exposure: No Current occupational status: retired Cognitive needs: Yes Hearing needs: No Vision needs: Yes Social History: Patient has a medical history hypertension renal insufficiency glaucoma status post CVA. 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 She does have 3 children. There is a strong family history of bipolar disorder no history of alcohol or substance abuse Substance History: none Trauma History: none Coding Level of Care Code Est Pt Level 3 (55339) Therapy 30m w/E&M (56708) Diagnoses Bipolar disorder, current episode mixed, moderate F31.62 Active/Remission status: currently active Current bipolar episode type: mixed Current episode severity: moderate Gait instability R26.81 History of CVA (cerebrovascular accident) Z86.73
== END 2024-02-18 16:40 | disposition home or self-care (01) ==
LOC: HO.HOP 13:59
PROVIDERS: PCP Internal Medicine; Visit Provider Psychiatry & Neurology Psychiatry
DX: F31.62 Bipolar disorder, current episode mixed, moderate (principal); R26.81 Unsteadiness on feet; Z86.73 Personal history of transient ischemic attack (TIA), and cerebral infarction without residual deficits
CPT/HCPCS: 90833; 99213

== ENCOUNTER → 2024-02-18 13:59 | Outpatient (BNVA) | payer MEDICARE, SELFPAY | PROVIDERS: PCP Internal Medicine; Visit Provider Psychiatry & Neurology Psychiatry | DX: F31.62 Bipolar disorder, current episode mixed, moderate (principal); R26.81 Unsteadiness on feet; Z86.73 Personal history of transient ischemic attack (TIA), and cerebral infarction without residual deficits | CPT/HCPCS: 99212 ==

== ENCOUNTER 2024-02-27 12:59 | Outpatient (REF) | payer MEDICARE, SELFPAY ==
[2024-02-27 14:26] LABS: Lithium 0.35 mmol/L (0.60-1.20)
[2024-02-27 14:50] LABS: Alanine Aminotransferase 20 U/L (0-31); Albumin Level 4.4 g/dL (3.5-5.0); Alkaline Phosphatase 67 U/L (39-117); Anion Gap 12 (12-20); Aspartate Amino Transferase 18 U/L (5-31); Bilirubin Total 0.3 mg/dL (0.0-1.0); Blood Urea Nitrogen 17 mg/dL (9-16); Calcium 10.8 mg/dL (8.4-10.2); Carbon Dioxide 25 mmol/L (22-29); Chloride 110 mmol/L (96-108); Estimated Glomerular Filt Rate 55; Glucose Fasting 107 mg/dL (60-99); Potassium 4.2 mmol/L (3.3-5.1); Sodium 143 mmol/L (135-145); Total Protein 6.9 g/dL (6.5-8.0)
[2024-02-27 14:58] LABS: TSH reflex Free T4 0.97 uIU/mL (0.32-4.0)
[2024-02-27 15:13] LABS: Folate > 20.0 ng/mL (> or = 4.0)
[2024-02-27 15:19] LABS: Vitamin B12 680 pg/mL (200-900)
[2024-03-01 22:14] LABS: Lamotrigine Lamictal 3.4 mcg/mL (2.5-15.0)
== END 2024-02-27 13:00 | disposition home or self-care (01) ==
LOC: HO.LAB 12:59
PROVIDERS: PCP Internal Medicine; Visit Provider Psychiatry & Neurology Psychiatry
DX: F31.62 Bipolar disorder, current episode mixed, moderate (principal); R26.81 Unsteadiness on feet; R41.89 Other symptoms and signs involving cognitive functions and awareness; Z86.73 Personal history of transient ischemic attack (TIA), and cerebral infarction without residual deficits; Z51.81 Encounter for therapeutic drug level monitoring; Z79.01 Long term (current) use of anticoagulants
CPT/HCPCS: 36415; 80053; 80175; 80178; 82607; 82746; 84443; 85610; 99211

== ENCOUNTER 2024-02-27 13:04 | Outpatient (AMB) | payer MEDICARE, SELFPAY ==
--- NOTE | 2024-02-27 13:28 | MHC.OFFVISCO ---
Intake Intake Visit Reasons: Anticoagulation Allergies clindamycin [CLINDAMYCIN] Allergy (Unknown, Verified 02/27/24 13:23) UNKNOWN oxycodone [OXYCODONE] Allergy (Unknown, Verified 02/27/24 13:23) UNKNOWN Penicillins [PENICILLINS] Allergy (Unknown, Verified 02/27/24 13:23) UNKNOWN seafood Allergy (Unknown, Verified 02/27/24 13:23) Anaphylaxis shellfish derived [SHELLFISH DERIVED] Allergy (Unknown, Verified 02/27/24 13:23) Anaphylaxis animal dander [ANIMAL DANDER] Adverse Reaction (Unknown, Verified 02/27/24 13:23) ITCHING, REDNESS atorvastatin [Lipitor] Adverse Reaction (Unknown, Verified 02/27/24 13:23) myalgia Medication List - Last Reconciled 02/27/24 by Piedad Diana RN albuterol sulfate 90 mcg/actuation 2 puffs inhalation Q4-6H PRN alendronate (Fosamax) 70 mg PO QWEEK 30 days ascorbic acid (vitamin C) 500 mg PO .QD 90 days diclofenac sodium 1% (Voltaren Arthritis Pain) 2 grams topical BID ferrous sulfate 325 mg PO DAILY fluticasone furoate-vilanterol 100-25 mcg/dose (Breo Ellipta) 1 inh inhalation DAILY folic acid 1 mg PO DAILY irbesartan 150 mg PO DAILY lamotrigine 150 mg PO DAILY 90 days lithium carbonate ER 300 mg PO BEDTIME 30 days lorazepam 0.5 mg PO BEDTIME PRN modafinil 100 mg PO DAILY montelukast (Singulair) 10 mg PO DAILY pantoprazole 40 mg PO DAILY 90 days rosuvastatin 5 mg PO DAILY 90 days warfarin 4 mg See Protocol PO DAILY Nursing Note INR 3.1-? out of therapeutic range of 2-3 Medications and supplements reviewed Patient status: pt acompanied by , she states occ fall, aware if hits head to seek medical attention pt states having labs today for dr antony Medications or supplements: no changes Diet: same Denies any signs and symptoms of bleeding or clotting or unusual bruising Bleeding, bruising, clotting discussed Nutritional guidance given: eat dark cooked greens today and tomm Dose: 4 mg x 7 F/U INR Date : 2 weeks Patient verbalizing understanding of instructions given. Anti-Coag Initial Assessment Social Hx Patient Tobacco Use Status: Never used Tobacco alcohol intake: never Alcohol intake frequency: does not drink Coding Level of Care Code Est Patient Level 1 Diagnoses Current use of anticoagulant therapy Z79.01 Assessment & Plan Assessment & Plan (1) Current use of anticoagulant therapy: Code(s): Z79.01 - intermediate (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
[2024-02-27 13:30] LABS: Prothrombin Time Whole Bld POC 37.6 sec (11.1-13.5); ~PT, ~INR - Anti Coag Clinic 3.1 (0.9-1.1)
== END 2024-02-27 13:36 | disposition home or self-care (01) ==
LOC: HO.ACS 13:04
PROVIDERS: PCP Internal Medicine; Visit Provider Internal Medicine
DX: Z79.01 Long term (current) use of anticoagulants (principal)

== ENCOUNTER 2024-03-10 13:23 | Outpatient (AMB) | payer MEDICARE, SELFPAY ==
[2024-03-10 13:33] LABS: Prothrombin Time Whole Bld POC 32.3 sec (11.1-13.5); ~PT, ~INR - Anti Coag Clinic 2.7 (0.9-1.1)
--- NOTE | 2024-03-10 13:39 | MHC.OFFVISCO ---
Intake Intake Visit Reasons: Anticoagulation Allergies clindamycin [CLINDAMYCIN] Allergy (Unknown, Verified 03/10/24 13:27) UNKNOWN oxycodone [OXYCODONE] Allergy (Unknown, Verified 03/10/24 13:27) UNKNOWN Penicillins [PENICILLINS] Allergy (Unknown, Verified 03/10/24 13:27) UNKNOWN seafood Allergy (Unknown, Verified 03/10/24 13:27) Anaphylaxis shellfish derived [SHELLFISH DERIVED] Allergy (Unknown, Verified 03/10/24 13:27) Anaphylaxis animal dander [ANIMAL DANDER] Adverse Reaction (Unknown, Verified 03/10/24 13:27) ITCHING, REDNESS atorvastatin [Lipitor] Adverse Reaction (Unknown, Verified 03/10/24 13:27) myalgia Medication List - Last Reconciled 03/10/24 by Korina Andrew RN albuterol sulfate 90 mcg/actuation 2 puffs inhalation Q4-6H PRN alendronate (Fosamax) 70 mg PO QWEEK 30 days ascorbic acid (vitamin C) 500 mg PO .QD 90 days diclofenac sodium 1% (Voltaren Arthritis Pain) 2 grams topical BID ferrous sulfate 325 mg PO DAILY fluticasone furoate-vilanterol 100-25 mcg/dose (Breo Ellipta) 1 inh inhalation DAILY folic acid 1 mg PO DAILY irbesartan 150 mg PO DAILY lamotrigine 150 mg PO DAILY 90 days lithium carbonate ER 300 mg PO BEDTIME 30 days lorazepam 0.5 mg PO BEDTIME PRN modafinil 100 mg PO DAILY montelukast (Singulair) 10 mg PO DAILY pantoprazole 40 mg PO DAILY 90 days rosuvastatin 5 mg PO DAILY 90 days warfarin 4 mg See Protocol PO DAILY Nursing Note Pt came with spouse - she states she is doing much better at remembering things now, starting physical therapy for balance and strengthening, previous visit INR: 2.7 in therapeutic range Medications and supplements reviewed No changes in health, diet, medications, or supplements, Denies any signs and symptoms of bleeding or bruising or clotting. Bleeding, bruising, clotting discussed Nutritional guidance given Dose: 4MG DAILY F/U INR: 4 WEEKS Patient verbalizes understanding of instructions given Anti-Coag Initial Assessment Social Hx Patient Tobacco Use Status: Never used Tobacco alcohol intake: never Alcohol intake frequency: does not drink Coding Level of Care Code Est Patient Level 1 Diagnoses Current use of anticoagulant therapy Z79.01 Results AMB INR Fingerstick AMB INR Fingerstick 2.7 Last Edit by Korina Andrew RN on 03/10/24 13:35 MANUAL ENTRY Assessment & Plan Assessment & Plan (1) Current use of anticoagulant therapy: Code(s): 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
== END 2024-03-10 13:44 | disposition home or self-care (01) ==
LOC: HO.ACS 13:23
PROVIDERS: PCP Internal Medicine; Visit Provider Internal Medicine
DX: Z79.01 Long term (current) use of anticoagulants (principal)

== ENCOUNTER → 2024-03-10 13:23 | Outpatient (BNVA) | payer MEDICARE, SELFPAY | PROVIDERS: PCP Internal Medicine; Visit Provider Internal Medicine | DX: Z86.73 Personal history of transient ischemic attack (TIA), and cerebral infarction without residual deficits (principal); Z79.01 Long term (current) use of anticoagulants; Z51.81 Encounter for therapeutic drug level monitoring | CPT/HCPCS: 85610; 99211 ==

== ENCOUNTER 2024-03-11 10:18 | Outpatient (REF) | payer MEDICARE, SELFPAY ==
--- NOTE | ~2024-03-11 | MM_ITS ---
EXAMINATION: BONE DENSITOMETRY CLINICAL INDICATION: Age-related osteoporosis without current pathological fracture. COMPARISON: Baseline BD dated 06/15/2021. TECHNIQUE: Using a Software [employer] DXA System (software version: 13.1) manufactured by [employer], dual-energy x-ray absorptiometry was performed of the lumbar spine and left hip. The images are of good technical quality. Summary results are attached. FINDINGS: LEFT FEMUR, NECK: Current: BMD 0.791 g/cm2, Z-score 0.4, T-score -1.8, osteopenia. Baseline: BMD 0.798 g/cm2. LEFT FEMUR, TOTAL: Current: BMD 0.844 g/cm2, Z-score 0.8, T-score -1.3, osteopenia, 3.2% decrease from baseline (<5% change is not significant). Baseline: BMD 0.872 g/cm2. AP SPINE L1-L4: Current: BMD 1.062 g/cm2, Z-score 0.9, T-score -1.0, normal, 10.6% increase from baseline (<5% change is not significant). Baseline: BMD 0.960 g/cm2. IDENTIFIED RISK FACTORS: Height loss, menopause, recurrent falls. HISTORY OF FRACTURE: None listed. MEDICATIONS: Calcium, vitamin D. MM/XR DEXA axial skeleton IMPRESSION: 1. DIAGNOSIS: Osteopenia based on the lowest T-score value of -1.8 in the femoral neck applying World Health Organization criteria. 2. 10-YEAR FRACTURE RISK PREDICTION, FRAX: Major osteoporotic fracture (clinical spine, forearm, hip or shoulder) 14.9%. Hip fracture 4.2%. 3. Treatment Recommendations: NOF guidelines recommend consideration for treatment in postmenopausal women and men age 50 and older presenting with the following: -A hip or vertebral (clinical or morphometric) fracture. -T-score less than or equal to -2.5 at the femoral neck or spine after appropriate evaluation to exclude secondary causes. -Low bone mass at the hip or spine and a 10-year fracture probability by FRAX of greater than or equal to 3% for hip fracture or greater than or equal to 20% for major osteoporotic fracture based on the [place] adapted WHO algorithm. 4. Other Recommendations: All treatment decisions require clinical judgment and consideration of individual patient factors, including patient preferences, comorbidities, previous drug use, risk factors not captured in the FRAX model (e.g. frailty, falls, vitamin D deficiency, increased bone turnover, interval significant decline in bone density) and possible under or overestimation of fracture risk by FRAX. Additional medical evaluation for secondary cause of low bone mineral density may be appropriate. FUTURE SCAN RECOMMENDATION: People with diagnosed cases of osteoporosis or at high risk for fracture should have regular bone mineral density tests. For patients eligible for Medicare, routine testing is allowed once every 2 years. The testing frequency can be increased to one year for patients who have rapidly progressing disease, those who are receiving or discontinuing medical therapy to restore bone mass, or have additional risk factors.
== END 2024-03-11 10:19 | disposition home or self-care (01) ==
LOC: HO.MAMMO 10:18
PROVIDERS: PCP Internal Medicine; Visit Provider Internal Medicine
DX: M81.0 Age-related osteoporosis without current pathological fracture (principal); R20.0 Anesthesia of skin; R20.2 Paresthesia of skin
CPT/HCPCS: 77080

== ENCOUNTER 2024-04-07 13:10 | Outpatient (AMB) | payer MEDICARE, SELFPAY ==
--- NOTE | 2024-04-07 13:22 | MHC.OFFVISCO ---
Intake Intake Visit Reasons: Anticoagulation Allergies clindamycin [CLINDAMYCIN] Allergy (Unknown, Verified 04/07/24 13:14) UNKNOWN oxycodone [OXYCODONE] Allergy (Unknown, Verified 04/07/24 13:14) UNKNOWN Penicillins [PENICILLINS] Allergy (Unknown, Verified 04/07/24 13:14) UNKNOWN seafood Allergy (Unknown, Verified 04/07/24 13:14) Anaphylaxis shellfish derived [SHELLFISH DERIVED] Allergy (Unknown, Verified 04/07/24 13:14) Anaphylaxis animal dander [ANIMAL DANDER] Adverse Reaction (Unknown, Verified 04/07/24 13:14) ITCHING, REDNESS atorvastatin [Lipitor] Adverse Reaction (Unknown, Verified 04/07/24 13:14) myalgia Medication List - Last Reconciled 04/07/24 by Silvia Parker, RN albuterol sulfate 90 mcg/actuation 2 puffs inhalation Q4-6H PRN alendronate (Fosamax) 70 mg PO QWEEK 30 days ascorbic acid (vitamin C) 500 mg PO .QD 90 days diclofenac sodium 1% (Voltaren Arthritis Pain) 2 grams topical BID ferrous sulfate 325 mg PO DAILY fluticasone furoate-vilanterol 100-25 mcg/dose (Breo Ellipta) 1 inh inhalation DAILY folic acid 1 mg PO DAILY irbesartan 150 mg PO DAILY lamotrigine 150 mg PO DAILY 90 days lithium carbonate ER 300 mg PO BEDTIME 30 days lorazepam 0.5 mg PO BEDTIME PRN modafinil 100 mg PO DAILY montelukast (Singulair) 10 mg PO DAILY pantoprazole 40 mg PO DAILY 90 days rosuvastatin 5 mg PO DAILY 90 days warfarin 4 mg See Protocol PO DAILY Nursing Note Pt to [facility] accompanied by . She is forgtetful and refers to her when asked a question. States he takes care of her. Marked kyphosis noted. holds on to pt when ambulating. INR: 2.5 in therapeutic range of 2-3 Medications and supplements reviewed No changes in health, diet, medications, or supplements, Denies any signs and symptoms of bleeding or bruising or clotting. Bleeding, bruising, clotting discussed Nutritional guidance given Dose: 4mg daily F/U INR: 4 weeks Patient verbalizes understanding of instructions given Anti-Coag Initial Assessment Social Hx Patient Tobacco Use Status: Never used Tobacco alcohol intake: never Alcohol intake frequency: does not drink Coding Level of Care Code Est Patient Level 1 Diagnoses Current use of anticoagulant therapy Z79.01 Results AMB INR Fingerstick AMB INR Fingerstick 2.5 Last Edit by Silvia Parker RN on 04/07/24 13:20 interface delay Assessment & Plan Assessment & Plan (1) Current use of anticoagulant therapy: Code(s): 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
[2024-04-07 13:26] LABS: Prothrombin Time Whole Bld POC 30.3 sec (11.1-13.5); ~PT, ~INR - Anti Coag Clinic 2.5 (0.9-1.1)
== END 2024-04-07 13:26 | disposition home or self-care (01) ==
LOC: HO.ACS 13:10
PROVIDERS: PCP Internal Medicine; Visit Provider Internal Medicine
DX: Z79.01 Long term (current) use of anticoagulants (principal)

== ENCOUNTER → 2024-04-07 13:10 | Outpatient (BNVA) | payer MEDICARE, SELFPAY | PROVIDERS: PCP Internal Medicine; Visit Provider Internal Medicine | DX: Z13.89 Encounter for screening for other disorder (principal) | CPT/HCPCS: 85610; 99211 ==

== ENCOUNTER 2024-04-07 13:31 | Outpatient (REF) | payer MEDICARE, SELFPAY ==
[2024-04-07 13:54] LABS: MANUAL DIFF FLAG NO
[2024-04-07 14:26] LABS: Basophils Absolute Auto 0.1 X10*3/uL (0.0-0.2); Basophils Percent Auto 0.8 % (0-2); Eosinophils Absolute Auto 0.5 X10*3/uL (0.0-0.4); Eosinophils Percent Auto 6.3 % (0-4); Hematocrit 44.9 % (37.0-47.0); Hemoglobin 14.6 g/dl (12.0-16.0); Imm Gran Abs Auto 0.03 X10*3/uL (0.00-0.03); Imm Gran Pct Auto 0.4 % (0.0-0.4); Lymphocytes Absolute Auto 1.4 X10*3/uL (1.2-4.9); Mean Corpuscular HGB Conc 32.5 g/dl (31.0-35.0); Mean Corpuscular Hemoglobin 29.7 pg (27.0-33.0); Mean Corpuscular Volume 91.4 fL (80.0-98.0); Mean Platelet Volume 10.6 fL (9.4-12.3); Monocytes Absolute Auto 0.5 X10*3/uL (0.1-1.2); Monocytes Percent Auto 6.5 % (2-11); Neutrophils Absolute Auto 5.1 x10*3/uL (2.0-8.3); Platelet Count 205 X10*3/uL (160-400); Red Blood Count 4.91 X10*6/uL (4.20-5.50); Red Cell Distribution Width 14.9 % (11.0-16.0); White Blood Count 7.6 X10*3/uL (4.8-10.8)
[2024-04-07 14:58] LABS: Parathyroid Hormone Intact 73.2 pg/mL (8.7-77.1)
[2024-04-07 15:00] LABS: Alanine Aminotransferase 20 U/L (0-31); Albumin Level 4.3 g/dL (3.5-5.0); Alkaline Phosphatase 64 U/L (39-117); Anion Gap 12 (12-20); Aspartate Amino Transferase 17 U/L (5-31); Bilirubin Total 0.4 mg/dL (0.0-1.0); Blood Urea Nitrogen 24 mg/dL (9-16); Calcium 11.2 mg/dL (8.4-10.2); Carbon Dioxide 27 mmol/L (22-29); Chloride 108 mmol/L (96-108); Estimated Glomerular Filt Rate 57; Glucose Random 93 mg/dL (60-115); Iron 132 mcg/dL (30-160); Percent Iron Saturation 46 % (15-50); Potassium 4.1 mmol/L (3.3-5.1); Sodium 143 mmol/L (135-145); Total Iron Binding Capacity 284 mcg/dL (228-428); Total Protein 7.1 g/dL (6.5-8.0); Unsaturated Iron Binding 152 ug/dL
[2024-04-07 15:21] LABS: Folate 14.1 ng/mL (> or = 4.0); Vitamin B12 425 pg/mL (200-900)
[2024-04-07 15:22] LABS: Ferritin 56 ng/mL (10-250); Free T4 (Free Thyroxine) 0.91 ng/dL (0.71-1.85); Thyroid Stimulating Hormone 1.03 uIU/mL (0.32-4.0); Vitamin D 25-OH Total 40.1 ng/mL (>30)
[2024-04-07 16:33] LABS: Lithium 0.34 mmol/L (0.60-1.20)
[2024-04-10 12:53] LABS: Calcium, Ionized 5.9 mg/dL (4.7-5.5)
[2024-04-11 11:53] LABS: Lamotrigine Lamictal 2.9 mcg/mL (2.5-15.0)
== END 2024-04-07 13:32 | disposition home or self-care (01) ==
LOC: HO.LAB 13:31
PROVIDERS: PCP Internal Medicine; Visit Provider Psychiatry & Neurology Psychiatry
DX: E83.52 Hypercalcemia (principal); R26.81 Unsteadiness on feet; R41.89 Other symptoms and signs involving cognitive functions and awareness; F31.62 Bipolar disorder, current episode mixed, moderate; F31.9 Bipolar disorder, unspecified; D50.9 Iron deficiency anemia, unspecified
CPT/HCPCS: 36415; 80053; 80175; 80178; 82306; 82330; 82607; 82728; 82746; 83540; 83970; 84439; 84443; 85025; 85610; 99211

== ENCOUNTER 2024-04-16 15:00 | Outpatient (RCR) | payer MEDICARE, SELFPAY ==
--- NOTE | 2024-03-05 14:42 | MHC.PT.EP ---
[facility] [place] Office [place] Office [place] Office [address] Munoz [address] [phone] F: [phone] F: [phone] F: [phone] F: [phone] Physical Therapy Plan of Care Date of Evaluation: 03/05/24 Date of Surgery: n/a Diagnosis: gait instability Assessment: Patient is a 83 year old female presenting to PT with gait instability. Pt reports onset began 5 years ago due to CVA. She presents today with impairments in gait mechanics, balance, fall risk, LE strength. Pt's current occupation is retired, with baseline physical activities including ambulating, stair negotiation, ADLs. Pt expresses rn long term care goal of improving balance, and is motivated to work towards this in PT. Clinical presentation today is most consistent with signs and sx associated with gait instability and pt will benefit from skilled PT 2 week x 4 weeks to address the following problems and impairments noted upon evaluation: gait mechanics, balance, fall risk, LE strength. These problems limit the patient with the following functional activities: ambulating, stair negotiation, ADLs. The prescribed treatment plan of care is medically necessary. Co-morbidities of CVA were identified and taken into considerations of plan of care. Pt was educated on HEP, role of PT, prognosis, POC. Frequency and Duration: The patient will be seen 2 x week x 4 weeks Short Term Goals: Pt will demonstrate improved LE strength by 1/3 grade in 2 weeks. Pt will demonstrate compliance with use of AD in 2 weeks. Long-Term Goals: Pt will demonstrate improved DGI score by 2 points in 4 weeks for reduced risk of falls. Pt will demonstrate improved 30 second chair stand test by 1 STS in 4 weeks for improved LE endurance. Pt will demonstrate improved TUG score by 2 seconds in 4 weeks for reduced risk of falls. Treatment Plan: Modalities to reduce pain, spasms and effusion. Manual therapy to restore motion and function. Therapeutic exercise to improve strength and flexibility. Neuromuscular re-education for posture and balance. Therapeutic activities to return to functional activities of daily living. Electronically signed by: Hanane Jones, PT, DPT, ATC Please sign and return to therapist. Thank you for your referral.
--- NOTE | 2024-04-24 07:58 | MHC.PT.DC ---
[facility] [place] Office [place] Office [place] Office [address] [facility] [phone] F: [phone] F: [phone] F: [phone] F: [phone] Physical Therapy Discharge Report Diagnosis: gait instability Date of Surgery: n/a Date of Evaluation: 03/05/24 Date of Discharge: 04/24/24 Treatments to Date: 6 Cancellations to Date: 5 No Shows to Date: 0 Discharge Status: Recommend MD Follow-up Discharge Summary: Pt admitted to hospital and therefore to be d/c from outpatient PT services. Electronically signed by: Hanane Jones, PT, DPT, ATC Please sign and return to therapist. Thank you for your referral.
== END 2024-04-24 07:58 | disposition home or self-care (01) ==
LOC: HO.PTCHIC 15:00
PROVIDERS: PCP Internal Medicine; Visit Provider Internal Medicine
DX: R26.81 Unsteadiness on feet (principal); Z86.73 Personal history of transient ischemic attack (TIA), and cerebral infarction without residual deficits
CPT/HCPCS: 97110; 97112; 97162

== ENCOUNTER 2024-04-21 11:14 | Inpatient (IN) | payer MEDICARE, SELFPAY ==
--- NOTE | ~2024-04-21 | CT_ITS ---
EXAMINATION: CT CHEST, ABDOMEN AND PELVIS WITH CONTRAST CLINICAL INFORMATION: Fall with chest and abdominal trauma COMPARISON: CT chest, abdomen and pelvis 10/26/2021 TECHNIQUE: Multidetector volumetric imaging was performed from the thoracic inlet through the pubic symphysis following administration of 85 mL of Omnipaque 350. Sagittal and coronal reformatted images were obtained on the technologist's workstation. This CT examination was performed using dose optimization techniques as appropriate, variously including the following: *Automated exposure control *Adjustment of mA and/or kV according to patient size (this includes techniques or standardized protocols for targeted exams where dose is matched to indication/reason for exam; i.e. extremities or head) *Use of iterative reconstruction technique DLP: 236 mGy-cm FINDINGS: CHEST: Lung: There is mild emphysema and bronchial thickening. A few tiny punctate nodules are seen (see saved elkins images). Some bibasilar atelectasis is present. The lungs are clear without focal opacity or nodule. Mediastinum: The mediastinum is normal. The central vascular structures are unremarkable. No hilar or mediastinal lymphadenopathy. Thyroid: Multinodular goiter is present with the largest nodule measuring about 2.2 cm in the right lobe. Coronary Artery Calcium: Extensive Pericardium/Pleura: No significant effusion. No pleural mass or thickening. Chest Wall/Axilla: Unremarkable. No rib fractures or chest wall hematomas are seen. ABDOMEN/PELVIS: Peritoneal Space: No significant free air or free fluid identified. Liver, Gallbladder, Biliary Tree: The liver is normal in size, shape, and attenuation. No focal hepatic lesion or biliary ductal dilatation is present. The gallbladder is unremarkable with no evidence of radiopaque gallstones, gallbladder wall thickening, or obvious pericholecystic inflammatory changes. Pancreas: Unremarkable Spleen: Unremarkable Adrenal Glands: Unremarkable Kidneys and Ureters: The kidneys are normal in size, shape, and attenuation. No hydronephrosis. Again seen are some punctate nonobstructing calculi in the left kidney the largest measuring 3 mm at the lower pole, unchanged from prior. No right-sided calculi are seen. Multiple bilateral benign Bosniak class I renal cysts are noted which require no additional imaging or follow-up. There is also a single hyperattenuating Bosniak class II cyst at the lower pole of the left kidney measuring 1.4 cm which is unchanged from prior. This also needs no imaging follow-up. No solid renal masses are seen. No perinephric stranding. Bladder: Unremarkable Gastrointestinal Tract: A large hiatal hernia is present with a large portion of the stomach above the diaphragm The small and large bowel are unremarkable. The appendix is unremarkable. Abdominal Wall: No significant hernia is appreciated. Lymph Nodes: No retroperitoneal lymphadenopathy. Vascular: Calcific atherosclerotic changes are present in the aorta and iliofemoral vessels. There is no evidence of an abdominal aortic aneurysm.. The IVC appears unremarkable. PELVIC VISCERA: Multiple uterine masses are present some with calcifications some with low central attenuation consistent with uterine fibroids. Appearances are similar when compared to 10/26/2021. An abnormal adnexal mass or free intraperitoneal fluid is not seen. OSSEUS STRUCTURES: Moderate degenerative changes are noted in the spine. No bony destructive lesions are seen. No bony destructive lesions. CT/CT abdomen pelvis w IV con IMPRESSION: 1. No evidence of an acute traumatic injury in the chest, abdomen or pelvis. 2. Multinodular goiter. Thyroid ultrasound should be performed if clinically indicated. 3. Large hiatal hernia. 4. Nonobstructing left renal calculi. 5. Bilateral renal cysts which require no additional imaging or follow-up. 6. Uterine fibroids. Fleischner guidelines were followed. Electronically signed by: Tigre Ryder MD 04/21/2024 02:54 PM EDT
--- NOTE | ~2024-04-21 | CT_ITS ---
EXAMINATION: CT HEAD WITHOUT CONTRAST CT FACIAL BONES WITHOUT CONTRAST CT CERVICAL SPINE WITHOUT CONTRAST CLINICAL INFORMATION: Fall. Trauma. COMPARISON: CT cervical spine April 20, 2023 TECHNIQUE: Imaging was performed from the skull base to vertex without intravenous administration of contrast. In addition, helical noncontrast CT imaging was acquired through the cervical spine and facial bones and source images were reviewed along with axial reconstructions and sagittal and coronal MPRs. [This CT examination was performed using dose optimization techniques as appropriate, variously including the following: *Automated exposure control *Adjustment of mA and/or kV according to patient size (this includes techniques or standardized protocols for targeted exams where dose is matched to indication/reason for exam; i.e. extremities or head) *Use of iterative reconstruction technique] DLP: 1256 mGy-cm FINDINGS: HEAD: Soft tissue swelling over the right orbit and forehead. Chronic lacunar infarct in the left thalamus and stark radiata and bilateral basal ganglia. Old infarct with focal encephalomalacia in the left occipital lobe. There is associated ex vacuo ventricular dictation of the left occipital and temporal horns of the left lateral ventricle. Chronic coarse calcifications along the midline falx unchanged since prior study. No intracranial mass, hemorrhage, or midline shift is visualized. There is generalized global volume loss. There is moderate prominence of the ventricles and the sulci . There is moderate hypodensity of the periventricular white matter due to chronic small vessel ischemic disease. There are vascular calcifications of the internal carotid arteries bilaterally. No extra-axial collections are identified. FACIAL BONES: There is soft tissue swelling over the right orbit and forehead. There is no evidence of an acute facial bone fracture. The paranasal sinuses are well aerated. The orbital globes and retrobulbar structures are normal. CERVICAL SPINE: There is no evidence of acute cervical spine fracture. Vertebral bodies remain normal in height. Mild degenerative spondylosis of the cervical spine. No pre- or paravertebral soft tissue abnormality is identified. Limited assessment of the lung apices is unremarkable. CT/CT cervical spine wo IV con IMPRESSION: 1. No acute intracranial process or discrete facial bone fracture. 2. No acute cervical spine fracture or traumatic subluxation. Electronically signed by: Clarence Langley MD 04/21/2024 03:26 PM EDT
[2024-04-21 11:35] VITALS: BP 105/62; PULSE 68; TEMP 37.1; O2SAT 95; BMI 27.4
[2024-04-21 11:54] VITALS: BP 160/83; PULSE 78; RESP 14; TEMP 36.8; O2SAT 95
[2024-04-21 11:54] LABS: MANUAL DIFF FLAG NO
[2024-04-21 11:56] LABS: Basophils Percent Auto 0.5 % (0-2); Eosinophils Percent Auto 0.4 % (0-4); Hematocrit 47.3 % (37.0-47.0); Hemoglobin 15.6 g/dl (12.0-16.0); Imm Gran Abs Auto 0.07 X10*3/uL (0.00-0.03); Imm Gran Pct Auto 0.8 % (0.0-0.4); Lymphocytes Absolute Auto 0.6 X10*3/uL (1.2-4.9); Lymphocytes Percent Auto 7.3 % (20-40); Mean Corpuscular Hemoglobin 29.9 pg (27.0-33.0); Mean Corpuscular Volume 90.6 fL (80.0-98.0); Mean Platelet Volume 9.5 fL (9.4-12.3); Monocytes Absolute Auto 0.6 X10*3/uL (0.1-1.2); Monocytes Percent Auto 7.2 % (2-11); Neutrophils Absolute Auto 7.1 x10*3/uL (2.0-8.3); Neutrophils Percent Auto 83.8 % (45-73); Platelet Count 189 X10*3/uL (160-400); Red Blood Count 5.22 X10*6/uL (4.20-5.50); Red Cell Distribution Width 14.8 % (11.0-16.0); White Blood Count 8.5 X10*3/uL (4.8-10.8)
[2024-04-21 12:09] LABS: INTERNATIONAL NORM RATIO 4.1 (0.9-1.1); Prothrombin Time 50.5 SEC (11.1-13.3)
[2024-04-21 12:16] LABS: Alanine Aminotransferase 19 U/L (0-31); Albumin Level 4.4 g/dL (3.5-5.0); Alkaline Phosphatase 63 U/L (39-117); Anion Gap 12 (12-20); Aspartate Amino Transferase 14 U/L (5-31); Bilirubin Total 0.6 mg/dL (0.0-1.0); Blood Urea Nitrogen 15 mg/dL (9-16); Calcium 10.4 mg/dL (8.4-10.2); Carbon Dioxide 25 mmol/L (22-29); Chloride 108 mmol/L (96-108); Creatinine Clr Calc Pharmacy 46.9; Estimated Glomerular Filt Rate > 60; Glucose Random 115 mg/dL (60-115); Magnesium 2.2 mg/dL (1.6-2.6); Potassium 4.3 mmol/L (3.3-5.1); Sodium 141 mmol/L (135-145); Total Protein 7.2 g/dL (6.5-8.0)
[2024-04-21] MEDS: iohexoL 350 MG/ML 100 ML INFUS..BTL 85 ML IV (12:51)
--- NOTE | 2024-04-21 15:33 | ED_ITS ---
HPI - Weakness General Chief complaint: Weakness Stated complaint: DIZZY,WEAK XDAYS,FALL TODAY NO INJURY PER EMS Time Seen by Provider: 04/21/24 12:35 Source: patient Mode of arrival: EMS Limitations: no limitations History of Present Illness ED Provider: Dr. Javad Marte HPI Narrative: 83-year-old female with a history of hypertension, depression, multiple strokes on warfarin who presents emergency department for 4 days of weakness, loss of appetite, not eating, not drinking, difficulty walking. According to the family, on Sunday,04/18/2023 (3 days prior to evaluation) she developed an abrasion above her right eyebrow. She did see her compensation and benefits administrator who started her on an antibiotic cream. Since that time she was gotten progressively worse. The rash on her right for it is spread. She denies pain over the rash. Her right eye became swollen shut. Patient has become weaker and over the last 24 hours she has had difficulty walking even with the assistance. Today, the patient got up and walked without support from her family and was found on the floor. She was then brought to the emergency department by ambulance for evaluation. She denied fever, chills, chest pain, shortness of breath. She states she has nausea with no vomiting or diarrhea. Related Data Home Medications ?Medication ?Instructions ?Recorded ?Confirmed diclofenac sodium 1 % topical gel 2 g topical BID 07/25/23 04/07/24 (Voltaren Arthritis Pain) Previous Rx's ?Medication ?Instructions ?Recorded irbesartan 150 mg tablet 150 mg PO DAILY #90 tabs 02/26/23 alendronate 70 mg tablet (Fosamax) 70 mg PO QWEEK 30 days #13 tabs 08/07/23 warfarin 2 mg tablet 4 mg PO DAILY #180 tabs 08/08/23 ascorbic acid (vitamin C) 500 mg 500 mg PO .QD 90 days #90 caps 11/19/23 capsule ferrous sulfate 325 mg (65 mg 325 mg PO DAILY #90 tabs 11/19/23 iron) tablet folic acid 1 mg tablet 1 mg PO DAILY #90 tabs 11/19/23 lithium carbonate 300 mg 300 mg PO BEDTIME 30 days #90 tabs 11/25/23 tablet,extended release rosuvastatin 5 mg tablet 5 mg PO DAILY 90 days #90 tabs 12/25/23 montelukast 10 mg tablet 10 mg PO DAILY #90 tabs 02/01/24 (Singulair) lamotrigine 150 mg tablet 150 mg PO DAILY 90 days #90 tabs 02/05/24 fluticasone furoate 100 1 inh inhalation DAILY #60 ea 02/12/24 mcg-vilanterol 25 mcg/dose inhalation powder (Breo Ellipta) albuterol sulfate 90 mcg/actuation 2 puff inhalation Q4-6H PRN 02/19/24 aerosol inhaler shortness of breath or wheezing #2 ea pantoprazole 40 mg tablet,delayed 40 mg PO DAILY 90 days #90 tabs 02/19/24 release modafinil 100 mg tablet 100 mg PO DAILY #90 tabs 02/25/24 lorazepam 0.5 mg tablet 0.5 mg PO BEDTIME PRN anxiety #90 03/03/24 tabs Allergies Allergy/AdvReac Type Severity Reaction Status Date / Time clindamycin [CLINDAMYCIN] Allergy Unknown UNKNOWN Verified 04/21/24 11:38 oxycodone [OXYCODONE] Allergy Unknown UNKNOWN Verified 04/21/24 11:38 Penicillins [PENICILLINS] Allergy Unknown UNKNOWN Verified 04/21/24 11:38 seafood Allergy Unknown Anaphylaxis Verified 04/21/24 11:38 shellfish derived Allergy Unknown Anaphylaxis Verified 04/21/24 11:38 [SHELLFISH DERIVED] animal dander [ANIMAL DANDER] AdvReac Unknown ITCHING, Verified 04/21/24 11:38 REDNESS atorvastatin [Lipitor] AdvReac Unknown myalgia Verified 04/21/24 11:38 Review of Systems 2 Review of Systems: Yes all other systems are reviewed and are negative [facility] Past Medical History [facility] Narrative: Social history: She lives at home with her family and her sister. She denies tobacco, alcohol and drug use. Medical History (Updated 04/21/24 @ 16:31 by Javad Marte MD) Gait instability Breast cancer screening Colon cancer screening 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) Impaired glucose tolerance Patent foramen ovale Tubular adenoma of colon History of renal calculi Hypercholesterolemia Obesity (BMI 30-39.9) Hypertension Asthma Bipolar disorder GERD (gastroesophageal reflux disease) Iron deficiency anemia History of CVA (cerebrovascular accident) Surgical History History of parathyroidectomy History of mastoidectomy Family History Family History Father Cataract Mother Anxiety Cancer Mental health disorder Brother Lung cancer Liver cancer Sister Dementia Autoimmune disease Social History Social History Housing: House Alcohol intake: never Patient Tobacco Use Status: Never used Tobacco e-Cigarette/Vaping Use: Never Used Second Hand Smoke Exposure: No Advance Directives: No Advance Directives Information Provided: Yes Do you have a plan to hurt others: No Plan Current occupational status: retired Cognitive needs: Yes Hearing needs: No Vision needs: Yes Physical Exam 2 Vital Signs: Vital Signs: Last Vital Signs Temp 97.9 F 04/21/24 15:35 Pulse 75 04/21/24 15:35 Resp 14 04/21/24 15:35 BP 170/89 H 04/21/24 15:35 Pulse Ox 96 04/21/24 15:35 O2 Del Method Room Air 04/21/24 15:35 BMI result Body Mass Index 27.4 Vital signs revealed an elevated blood pressure of 170/89 Exam: General: Awake, alert in no distress, defers to her family to answer questions HEENT: Normocephalic, patient has an erythematous vesicular rash to the right forehead that spares that does not extend to the nose. Patient's upper and lower eyelids are swollen shut. Pupils were equal round reactive light, right sclera is erythematous. Fluorescein dye stain the left eye revealed no uptake Neck: Supple, no adenopathy Lung: breath sounds symmetric, no wheezing, rales or rhonchi Chest: symmetric movement, nontender Heart: regular rate and rhythm, normal S1, S2 no murmurs or rubs Abdomen: soft, non-tender, nondistended, normal bowel sounds Back: no vertebral tenderness, no CVAT Extremities: no deformities, moves all extremities symmetrically Neuro: Awake, alert, oriented, normal speech, cranial nerves intact, moves all extremities symmetrically Psych: Pleasant, cooperative Medications Administered Generic Name Dose Route Start Last Admin Trade Name Freq PRN Reason Stop Dose Admin Sodium Chloride 1,000 mls @ 999 mls/hr 04/21/24 16:18 04/21/24 16:28 Ns IV 04/21/24 17:18 999 mls/hr .Q1H1M STA Administration Discontinued Medications Generic Name Dose Route Start Last Admin Trade Name Titiq PRN Reason Stop Dose Admin Erythromycin 1 cm 04/21/24 16:23 04/21/24 16:36 Erythromycin Base 0.5% Oph Oin 1 Gm Tube EYE-RIGHT 04/21/24 16:24 1 cm ONCE ONE Administration Fluorescein Sodium 1 strip 04/21/24 16:20 04/21/24 16:43 Fluorescein Sodium Strip EYE-LEFT 04/21/24 16:21 1 strip ONCE ONE Administration Iohexol 85 ml 04/21/24 12:51 04/21/24 12:51 Iohexol 350 Mg/Ml 100 Ml Infus..Btl IV 04/21/24 12:52 85 ml ONCE ONE Administration Ondansetron HCl 4 mg 04/21/24 16:18 04/21/24 16:27 Ondansetron Hcl 4 Mg/2 Ml Vial IVPUSH 04/21/24 16:19 4 mg ONCE ONE Administration Prednisone 40 mg 04/21/24 16:18 04/21/24 16:28 Prednisone 20 Mg Tablet PO 04/21/24 16:19 40 mg ONCE ONE Administration Valacyclovir HCl 1,000 mg 04/21/24 16:18 04/21/24 16:28 Valacyclovir Hcl 1,000 Mg Tablet PO 04/21/24 16:19 1,000 mg ONCE ONE Administration Medical Decision Making Medical Decision Making MDM Narrative: 83-year-old female with a history of hypertension, depression, multiple strokes on warfarin who presents emergency department for 4 days of weakness, loss of appetite, not eating, not drinking, difficulty walking, rash to right forehead x3 days with swelling over right upper and lower eyelids and unwitnessed fall today. Vital signs revealed an elevated blood pressure. Patient's rash on her right forehead is consistent with herpes zoster. Patient has no blurred vision and fluorescein dye uptake was negative. Patient does have subconjunctival hematoma on the right most likely secondary to the fall. Differential diagnosis: ?Includes but is not limited to skull fracture, intracranial bleed, facial fracture, neck fracture, diverticulitis, pancreatitis, electrolyte abnormalities, anemia Following evaluation was ordered:CBC, CMP, PT/INR, CK, urinalysis, magnesium, CT scans of the head, facial bones, cervical spine, abdomen pelvis Patient was initially treated with the following: Prednisone 40 mg orally, valacyclovir 1000 mg p.o., Zofran 4 mg IV, erythromycin ophthalmic ointment to right eye, normal saline x1 L Course: 16:46 Patient's rash to the right side of her forehead is consistent with herpes zoster. She was treated with prednisone and valacyclovir. Patient does have a scleral hemorrhage to her right eye but no evidence of fluorescein dye uptake in her cornea which is reassuring suggesting that she does not have herpes zoster involvement of her eye. The CT scans were negative which is also reassuring. Patient however his very weak in his not able to eat or drink therefore I think she should be admitted for IV fluid until she can eat and drink. I did discuss admission over tiger text with the covering hospitalist physician patent legal assistant, Emliy Luz and the patient will be admitted to the hospitalist service for further treatment. Admission/Observation Consideration of admission/observation: Escalation of care including admission/observation considered (Yes) Consult Healthcare Provider Management of the patient was discussed with: Hospitalist Lab Data MDM Lab Attestation statement: I reviewed the patient's lab results. My interpretation patient's laboratory evaluation is as follows: CBC was normal. INR was supratherapeutic at 4.1., CMP was normal 04/21/24 11:51 04/21/24 11:51 Labs: Lab Results 04/21/24 Range/Units 11:51 WBC 8.5 (4.8-10.8) X10*3/uL RBC 5.22 (4.20-5.50) X10*6/uL Hgb 15.6 (12.0-16.0) g/dl Hct 47.3 H (37.0-47.0) % MCV 90.6 (80.0-98.0) fL MCH 29.9 (27.0-33.0) pg MCHC 33.0 (31.0-35.0) g/dl RDW 14.8 (11.0-16.0) % Plt Count 189 (160-400) X10*3/uL MPV 9.5 (9.4-12.3) fL Immature Gran % (Auto) 0.8 H (0.0-0.4) % Neut % (Auto) 83.8 H (45-73) % Lymph % (Auto) 7.3 L (20-40) % [place] % (Auto) 7.2 (2-11) % Eos % (Auto) 0.4 (0-4) % Baso % (Auto) 0.5 (0-2) % Lymph # (Auto) 0.6 L (1.2-4.9) X10*3/uL [place] # (Auto) 0.6 (0.1-1.2) X10*3/uL Eos # (Auto) 0.0 (0.0-0.4) X10*3/uL Baso # (Auto) 0.0 (0.0-0.2) X10*3/uL Abs Immat Gran (auto) 0.07 H (0.00-0.03) X10*3/uL Absolute Neuts (auto) 7.1 (2.0-8.3) x10*3/uL Absolute Nucleated RBC 0.000 (0.0-0.012) X10*3/uL Nucleated RBC % (auto) 0.0 (0.0-0.2) /100WBC PT 50.5 H (11.1-13.3) SEC INR 4.1 H (0.9-1.1) Sodium 141 (135-145) mmol/L Potassium 4.3 (3.3-5.1) mmol/L Chloride 108 (96-108) mmol/L Carbon Dioxide 25 (22-29) mmol/L Anion Gap 12 (12-20) BUN 15 (9-16) mg/dL Creatinine 0.85 (0.5-1.4) mg/dL Estim Creat Clear Calc 46.9 Estimated GFR > 60 Random Glucose 115 (60-115) mg/dL Calcium 10.4 H D (8.4-10.2) mg/dL Magnesium 2.2 (1.6-2.6) mg/dL Total Bilirubin 0.6 (0.0-1.0) mg/dL AST 14 (5-31) U/L ALT 19 (0-31) U/L Alkaline Phosphatase 63 (39-117) U/L Total Creatine Kinase 52 (26-140) U/L Total Protein 7.2 (6.5-8.0) g/dL Albumin 4.4 (3.5-5.0) g/dL Radiology Impression Discussion of test interpretation with radiology: I have reviewed the radiologist's reading. Radiologist Impression: CT chest w IV con IMPRESSION: 1. No evidence of an acute traumatic injury in the chest, abdomen or pelvis. 2. Multinodular goiter. Thyroid ultrasound should be performed if clinically indicated. 3. Large hiatal hernia. 4. Nonobstructing left renal calculi. 5. Bilateral renal cysts which require no additional imaging or follow-up. 6. Uterine fibroids. Fleischner guidelines were followed. Electronically signed by: Tigre Ryder MD 04/21/2024 02:54 PM EDT RP Dictated By: Tigre Ryder MD T head/brain wo IV con IMPRESSION: 1. No acute intracranial process or discrete facial bone fracture. 2. No acute cervical spine fracture or traumatic subluxation. Electronically signed by: Clarence Langley MD 04/21/2024 03:26 PM EDT RP Dictated By: Clarence Langley MD Independent Historian Clinical information obtained from an independent historian. History obtained from or confirmed by: Spouse and Other (Son, sister) Chronic Conditions Patient?s care impacted by: Hypertension Discharge Plan Discharge Patient Disposition: Admitted As Inpatient Print Language: Divehi
[2024-04-21 15:35] VITALS: BP 170/89; PULSE 75; RESP 14; TEMP 36.6; O2SAT 96
[2024-04-21] MEDS: ondansetron HCL 4 MG/2 ML VIAL IVPUSH (16:27)
[2024-04-21] MEDS: predniSONE 20 MG TABLET 40 MG PO (16:28)
[2024-04-21] MEDS: valACYclovir HCL 1,000 MG TABLET 1000 MG PO (16:28)
[2024-04-21] MEDS: 0.9 % Sodium Chloride 1,000 ML 999 ML IV (16:28)
[2024-04-21] MEDS: Erythromycin Base 0.5% Oph Oin 1 GM TUBE 1 CM EYE-RIGHT ×2 (16:36→21:39)
[2024-04-21] MEDS: Fluorescein Sodium STRIP 1 STRIP EYE-LEFT (16:43)
--- NOTE | 2024-04-21 16:50 | P.HPHOSP_ITS ---
History of Present Illness Date of Service: 04/21/24 Chief Complaint: dailure to thrive 83-year-old woman with multiple medical problems presenting to the ER for weakness, poor appetite and facial rash. According to the patient's she went to see an air conditioning service technician on Sunday as she had a small wound above her eye. She was given antibiotics and sent home. Since then the rash has worsened, she has erythema and edema across her right eye and forehead area. Right eye is shut closed due to swelling, she does have severe injection to right eye, fluorescent testing completed in the ED with no signs of corneal injury. Patient denies any visual changes. She does have some areas of crusting to her forehead and it appeared that she has a herpes zoster. She was given a dose of valacyclovir in the ER, will transition to acyclovir IV with prednisone. Patient denied any recent fever, chills. She did report some mild nausea but no vomiting. No recent illness or sick contacts. She is pretty sedentary she has a history of a stroke. Calcium is noted to be elevated as well as H&H but this is likely secondary to dehydration my blood pressure is mildly elevated as well. Plan will be to admit patient for treatment of herpes zoster and failure to thrive. Review of Systems 2 Review of Systems: Denies any recent fever chills or decrease in appetite respiratory denies any shortness of breath or cough cardiovascular denied chest pain gastrointestinal denies any dysphagia abdominal pain nausea vomiting or diarrhea genitourinary denies any dysuria frequency or hematuria musculoskeletal denies any joint pain or swelling neuropsych denies any weakness or seizures all other systems reviewed are negative [facility] Medical History (Updated 04/21/24 @ 16:31 by Javad Marte MD) Gait instability Breast cancer screening Colon cancer screening 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) Impaired glucose tolerance Patent foramen ovale Tubular adenoma of colon History of renal calculi Hypercholesterolemia Obesity (BMI 30-39.9) Hypertension Asthma Bipolar disorder GERD (gastroesophageal reflux disease) Iron deficiency anemia History of CVA (cerebrovascular accident) Family History Father Cataract Mother Anxiety Cancer Mental health disorder Brother Lung cancer Liver cancer Sister Dementia Autoimmune disease Surgical History History of parathyroidectomy History of mastoidectomy Social History Household Members: Spouse Housing: House Do you presently have visiting nurse or other home services: No Alcohol intake: never Patient Tobacco Use Status: Never used Tobacco Smoked in Last 30 Days: No e-Cigarette/Vaping Use: Never Used Second Hand Smoke Exposure: No Use of substances other than those prescribed or required for medical reasons: No Currently Displaying Signs/Symptoms of Drug Intoxication Withdrawal: No Have you been hit, kicked, punched, or otherwise hurt by someone within the past year? If so, by whom?: No Do you feel safe in your current relationship?: Yes Is there a partner from a previous relationship who is making you feel unsafe now?: No Are you made to feel afraid or neglected: No Advance Directives: No Advance Directives Information Provided: Yes Do you have a plan to hurt others: No Plan Recently lost weight without trying: No Nutrition Risks: No Nutritional Risk Patient : No : No Poor oral hygiene: No service: No Current occupational status: retired Cognitive needs: Yes Hearing needs: No Vision needs: Yes Meds Allergies Allergy/AdvReac Type Severity Reaction Status Date / Time clindamycin [CLINDAMYCIN] Allergy Unknown UNKNOWN Verified 04/21/24 11:38 oxycodone [OXYCODONE] Allergy Unknown UNKNOWN Verified 04/21/24 11:38 Penicillins [PENICILLINS] Allergy Unknown UNKNOWN Verified 04/21/24 11:38 seafood Allergy Unknown Anaphylaxis Verified 04/21/24 11:38 shellfish derived Allergy Unknown Anaphylaxis Verified 04/21/24 11:38 [SHELLFISH DERIVED] animal dander [ANIMAL DANDER] AdvReac Unknown ITCHING, Verified 04/21/24 11:38 REDNESS atorvastatin [Lipitor] AdvReac Unknown myalgia Verified 04/21/24 11:38 Active Medications: Current Medications Artificial Tears (Artificial Tears 15 Ml Drops) 2 drop EYE-RIGHT QID MING Erythromycin (Erythromycin Base 0.5% Oph Oin 1 Gm Tube) 1 cm EYE-RIGHT TID MING Stop: 04/28/24 20:59 Sodium Chloride (Ns) 1,000 mls @ 999 mls/hr IV .Q1H1M STA Stop: 04/21/24 17:18 Last Admin: 04/21/24 16:28 Dose: 999 mls/hr Lactated Ringer's (Lr) 1,000 mls @ 100 mls/hr IVCONT .Q10H MING Home Medications ?Medication ?Instructions ?Recorded ?Confirmed ?Last Taken ?Type alendronate 70 mg tablet (Fosamax) 70 mg PO MO 04/21/24 04/21/24 04/21/24 History tobramycin 0.3 %-dexamethasone 0.1 1 drp ophthalmic-Right TID 04/21/24 04/21/24 04/21/24 History % eye drops,suspension Physical Exam 2 Vital Signs and Narrative: Vital Signs: Last Vital Signs Temp 97.9 F 04/21/24 15:35 Pulse 75 04/21/24 15:35 Resp 14 04/21/24 15:35 BP 170/89 H 04/21/24 15:35 Pulse Ox 96 04/21/24 15:35 O2 Del Method Room Air 04/21/24 15:35 BMI result Body Mass Index 27.4 Appearing in no acute distress head is normocephalic atraumatic eyes pupils are PERRLA sclera is anicteric mouth throat mucous membranes are intact and moist neck is supple no lymphadenopathy, no JVD noted lung sounds are clear to auscultation heart regular rate rhythm, clear S1, S2 positive bowel sounds, abdomen is soft, nontender neuro patient is alert x3, no focal deficits Right eye swollen shut, erythema, edema, crusting to forehead and nose area with severe eye injection but no corneal involvement Results Labs 04/22/24 05:46 04/22/24 05:46 Labs: Laboratory Results - last 24 hr 04/21/24 11:51 MCV 90.6 MCH 29.9 MCHC 33.0 RDW 14.8 Plt Count 189 MPV 9.5 Immature Gran % (Auto) 0.8 H Neut % (Auto) 83.8 H Lymph % (Auto) 7.3 L [place] % (Auto) 7.2 Eos % (Auto) 0.4 Baso % (Auto) 0.5 Lymph # (Auto) 0.6 L [place] # (Auto) 0.6 Eos # (Auto) 0.0 Baso # (Auto) 0.0 Abs Immat Gran (auto) 0.07 H Absolute Neuts (auto) 7.1 Absolute Nucleated RBC 0.000 Nucleated RBC % (auto) 0.0 PT 50.5 H INR 4.1 H Anion Gap 12 Estim Creat Clear Calc 46.9 Estimated GFR > 60 Random Glucose 115 Calcium 10.4 H D Magnesium 2.2 Total Bilirubin 0.6 AST 14 ALT 19 Alkaline Phosphatase 63 Total Creatine Kinase 52 Total Protein 7.2 Albumin 4.4 Imaging Radiologist's Impressions: Impressions Cervical Spine CT 04/21/24 12:23 IMPRESSION: 1. No acute intracranial process or discrete facial bone fracture. 2. No acute cervical spine fracture or traumatic subluxation. Electronically signed by: Clarence Langley MD 04/21/2024 03:26 PM EDT RP Face CT 04/21/24 12:23 IMPRESSION: 1. No acute intracranial process or discrete facial bone fracture. 2. No acute cervical spine fracture or traumatic subluxation. Electronically signed by: Clarence Langley MD 04/21/2024 03:26 PM EDT RP Head CT 04/21/24 12:23 IMPRESSION: 1. No acute intracranial process or discrete facial bone fracture. 2. No acute cervical spine fracture or traumatic subluxation. Electronically signed by: Clarence Langley MD 04/21/2024 03:26 PM EDT RP Abdomen/Pelvis CT 04/21/24 12:38 IMPRESSION: 1. No evidence of an acute traumatic injury in the chest, abdomen or pelvis. 2. Multinodular goiter. Thyroid ultrasound should be performed if clinically indicated. 3. Large hiatal hernia. 4. Nonobstructing left renal calculi. 5. Bilateral renal cysts which require no additional imaging or follow-up. 6. Uterine fibroids. Fleischner guidelines were followed. Electronically signed by: Tigre Ryder MD 04/21/2024 02:54 PM EDT RP Chest CT 04/21/24 12:38 IMPRESSION: 1. No evidence of an acute traumatic injury in the chest, abdomen or pelvis. 2. Multinodular goiter. Thyroid ultrasound should be performed if clinically indicated. 3. Large hiatal hernia. 4. Nonobstructing left renal calculi. 5. Bilateral renal cysts which require no additional imaging or follow-up. 6. Uterine fibroids. Fleischner guidelines were followed. Electronically signed by: Tigre Ryder MD 04/21/2024 02:54 PM EDT RP Assessment and Plan (1) Herpes zoster: Status: Acute Plan 83 year old women admitted with failure to thrive and herpes zoster Herpes zoster face and eye involvement neg flourecent test started on acyclovir and prednisone Monitor for any signs of pain Failure to thrive/fall Head CT negative for acute intracranial process or facial fracture, no cervical spine fracture or trauma poor appetite, weakness dehydrated, give LR@ 100 Physical therapy consultation Hypercalcemia likely secondary to dehydration continue IV fluids and follow BMP Supratherapeutic INR Hold warfarin Hypertension Continue home blood pressure medications Asthma No exacerbation Continue albuterol History of CVA Continue anticoagulation Mental health Continue home medications GERD Continue PPI DVT prophylaxis with warfarin Full code Quality Stroke Does the patient have a stroke diagnosis?: No VTE Prior VTE?: No VTE Risk Level:: Medical - moderate - high VTE Device Contraindication: Treatment Not Indicated VTE Drug Contraindication: N/A - Med Ordered
[2024-04-21] MEDS: Lactated Ringers 1,000 ML 100 ML IVCONT (18:02)
--- NOTE | 2024-04-21 18:34 | MHC.EDTECH ---
Patient given dinner tray
--- NOTE | 2024-04-21 18:49 | PC.NURSE ---
No need for a swallow test at this time
[2024-04-21 19:28] VITALS: BP 155/79; PULSE 93; RESP 16; TEMP 36.4; O2SAT 96
[2024-04-21] MEDS: Acyclovir Sodium 680 MG in 0.9 % Sodium Chloride 100 ML 113.6 MG IV (19:41)
--- NOTE | 2024-04-21 19:45 | PHA.MEDREC ---
Pharmacy Consult ? Medication Reconciliation Pharmacy has completed the medication reconciliation. Reviewed med rec done by nurse and made some adjustments. Patient said she last took her warfarin 4 mg dose today 04/21/24 in the morning, she no longer uses Breo, she takes her alendronate on sunday (she took today's dose already) and she's on her second to last day of tobramycin-dexamethasone eye drops (1 drop in the right eye tid).
[2024-04-21 19:50] LABS: Appearance Urine Clear; Color Urine Yellow; Glucose Urine UA Negative (Negative); Leukocyte Esterase Urine Small (1+) (Negative); Nitrite Urine Negative (Negative); Specific Gravity - Urine >= 1.030 (1.005-1.025); UMIC TRIGGER UACC YES; Urine Blood Small (1+) (Negative); Urine Ketones 15 mg/dL (Negative); Urine Protein Trace mg/dL (Neg-Trace)
[2024-04-21 19:52] LABS: Bacteria Urine None Seen (None Seen); Hyaline Casts Urine 0-2 /LPF (0-2); UACC Culture Trigger YES
--- NOTE | 2024-04-21 20:14 | MHC.EDTECH ---
Patient walked to the bathroom
[2024-04-22] VITALS (8 sets, daily range): BP systolic 133–174; BP diastolic 62–86; PULSE 68–82; RESP 16–18; TEMP 36–37.2; O2SAT 93–97
[2024-04-22] MEDS: Lactated Ringers 1,000 ML 100 ML IVCONT ×3 (03:03→21:24)
[2024-04-22 05:56] LABS: MANUAL DIFF FLAG NO
[2024-04-22] MEDS: Acyclovir Sodium 680 MG in 0.9 % Sodium Chloride 100 ML 113.6 MG IV ×2 (06:00→19:45)
[2024-04-22 06:13] LABS: Prothrombin Time 72.9 SEC (11.1-13.3)
[2024-04-22 06:17] LABS: Basophils Percent Auto 0.3 % (0-2); Hematocrit 42.2 % (37.0-47.0); Hemoglobin 14.1 g/dl (12.0-16.0); Imm Gran Abs Auto 0.06 X10*3/uL (0.00-0.03); Imm Gran Pct Auto 0.8 % (0.0-0.4); Lymphocytes Absolute Auto 0.6 X10*3/uL (1.2-4.9); Lymphocytes Percent Auto 8.9 % (20-40); Mean Corpuscular HGB Conc 33.4 g/dl (31.0-35.0); Mean Corpuscular Hemoglobin 29.9 pg (27.0-33.0); Mean Corpuscular Volume 89.6 fL (80.0-98.0); Mean Platelet Volume 9.6 fL (9.4-12.3); Monocytes Absolute Auto 0.5 X10*3/uL (0.1-1.2); Monocytes Percent Auto 6.4 % (2-11); Neutrophils Percent Auto 83.6 % (45-73); Platelet Count 171 X10*3/uL (160-400); Red Blood Count 4.71 X10*6/uL (4.20-5.50); Red Cell Distribution Width 14.6 % (11.0-16.0); White Blood Count 7.2 X10*3/uL (4.8-10.8)
[2024-04-22 06:19] LABS: Alanine Aminotransferase 14 U/L (0-31); Albumin Level 3.7 g/dL (3.5-5.0); Alkaline Phosphatase 55 U/L (39-117); Anion Gap 12 (12-20); Aspartate Amino Transferase 12 U/L (5-31); Bilirubin Total 0.4 mg/dL (0.0-1.0); Blood Urea Nitrogen 15 mg/dL (9-16); Calcium 9.3 mg/dL (8.4-10.2); Carbon Dioxide 21 mmol/L (22-29); Chloride 111 mmol/L (96-108); Creatinine Clr Calc Pharmacy 52.4; Estimated Glomerular Filt Rate > 60; Glucose Random 124 mg/dL (60-115); Potassium 4.3 mmol/L (3.3-5.1); Sodium 140 mmol/L (135-145); Total Protein 5.9 g/dL (6.5-8.0)
[2024-04-22] MEDS: Artificial Tears 15 ML DROPS 2 DROP EYE-RIGHT ×4 (07:32→19:45)
[2024-04-22] MEDS: predniSONE 20 MG TABLET 40 MG PO (07:32)
[2024-04-22] MEDS: Erythromycin Base 0.5% Oph Oin 1 GM TUBE 1 CM EYE-RIGHT ×3 (07:32→19:45)
--- NOTE | 2024-04-22 08:04 | HO.PM.IMPN ---
Subjective Subjective Date of Service: 04/22/24 Review of Systems Follow up herpes zoster Physical Exam Vital Signs: Vital Signs: Last Vital Signs Temp 96.8 F 04/22/24 08:00 Pulse 82 04/22/24 08:00 Resp 16 04/22/24 08:00 BP 154/78 H 04/22/24 08:00 Pulse Ox 95 04/22/24 08:00 O2 Del Method Room Air 04/22/24 08:00 BMI result Body Mass Index 27.4 Appearing in no acute distress lung sounds are clear to auscultation heart regular rate rhythm, clear S1, S2 positive bowel sounds, abdomen is soft, nontender neuro patient is alert x3, no focal deficits Objective Data Active Medications Acetaminophen (Acetaminophen 325 Mg Tablet) 650 mg PO Q6H PRN PRN Reason: Pain, Mild (Pain Scale 1-3), fever or headache Albuterol Sulfate (Albuterol Sulfate 90 Mcg 8 Gm Inhaler) 2 puff INHALE RQ4H PRN PRN Reason: shortness of breath or wheezing Artificial Tears (Artificial Tears 15 Ml Drops) 2 drop EYE-RIGHT QID [facility] Last Admin: 04/22/24 07:32 Dose: 2 drop Documented By: TAMMY Atorvastatin Calcium (Atorvastatin Calcium 20 Mg Tablet) 5 mg PO DAILY [facility] Calcium Carbonate (Calcium Carbonate 750 Mg Tab.Chew) 750 mg PO Q4H PRN PRN Reason: Heartburn Erythromycin (Erythromycin Base 0.5% Oph Oin 1 Gm Tube) 1 cm EYE-RIGHT TID [facility] Stop: 04/28/24 20:59 Last Admin: 04/22/24 07:32 Dose: 1 cm Documented By: TAMMY Ferrous Sulfate (Ferrous Sulfate 324 Mg Tablet.Dr) 324 mg PO DAILY [facility] Folic Acid (Folic Acid 1 Mg Tablet) 1 mg PO DAILY [facility] Lactated Ringer's (Lr) 1,000 mls @ 100 mls/hr IVCONT .Q10H [facility] Last Admin: 04/22/24 03:03 Dose: 100 mls/hr Documented By: JANEE Acyclovir Sodium 680 mg/ (Sodium Chloride) 113.6 mls @ 113.6 mls/hr IV Q12H [facility] Last Infusion: 04/22/24 07:48 Dose: Infused Documented By: TAMMY Lamotrigine (Lamotrigine 25 Mg Tablet) 150 mg PO DAILY [facility] Arcadia Carbonate ([place]cadia Carbonate Er 300 Mg Tablet.Er) 300 mg PO BEDTIME [facility] Lorazepam (Lorazepam 0.5 Mg Tablet) 0.5 mg PO BEDTIME PRN PRN Reason: anxiety Magnesium Hydroxide (Milk Of Magnesia 30 Ml Oral.Susp) 30 ml PO DAILY PRN PRN Reason: Constipation Melatonin (Melatonin 3 Mg Tablet) 6 mg PO BEDTIME PRN PRN Reason: Insomnia Modafinil (Modafinil 100 Mg Tablet) 100 mg PO DAILY [facility] Montelukast Sodium (Montelukast Sodium 10 Mg Tablet) 10 mg PO DAILY [facility] Non-Formulary Medication (Tobramycin-Dexamethasone) 1 drop EYE-RIGHT TID [facility] Omeprazole (Omeprazole 20 Mg Capsule.Dr) 20 mg PO DAILY@629 [facility] Prednisone (Prednisone 20 Mg Tablet) 40 mg PO DAILY [facility] Last Admin: 04/22/24 07:32 Dose: 40 mg Documented By: TAMMY Sodium Chloride (0.9 % Sodium Chloride Flush 3 Ml Syringe) 3 ml IVFLUSH QSHIFT [facility] Last Admin: 04/22/24 07:17 Dose: Not Given Documented By: TAMMY Non-Admin Reason: IV Running Valsartan (Valsartan 80 Mg Tablet) 80 mg PO DAILY [facility] Labs 04/22/24 05:46 04/22/24 05:46 Labs: Laboratory Results - last 24 hr 04/21/24 04/21/24 04/22/24 11:51 19:40 05:46 MCV 90.6 89.6 MCH 29.9 29.9 MCHC 33.0 33.4 RDW 14.8 14.6 Plt Count 189 171 MPV 9.5 9.6 Immature Gran % (Auto) 0.8 H 0.8 H Neut % (Auto) 83.8 H 83.6 H Lymph % (Auto) 7.3 L 8.9 L [place] % (Auto) 7.2 6.4 Eos % (Auto) 0.4 0.0 Baso % (Auto) 0.5 0.3 Lymph # (Auto) 0.6 L 0.6 L [place] # (Auto) 0.6 0.5 Eos # (Auto) 0.0 0.0 Baso # (Auto) 0.0 0.0 Abs Immat Gran (auto) 0.07 H 0.06 H Absolute Neuts (auto) 7.1 6.0 Absolute Nucleated RBC 0.000 0.000 Nucleated RBC % (auto) 0.0 0.0 PT 50.5 H 72.9 H D INR 4.1 H 6.0 H* Anion Gap 12 12 Estim Creat Clear Calc 46.9 52.4 Estimated GFR > 60 > 60 Random Glucose 115 124 H Calcium 10.4 H D 9.3 D Magnesium 2.2 2.0 Total Bilirubin 0.6 0.4 AST 14 12 ALT 19 14 Alkaline Phosphatase 63 55 Total Creatine Kinase 52 Total Protein 7.2 5.9 L Albumin 4.4 3.7 Urine Color Yellow Urine Appearance Clear Urine pH 7.0 Ur Specific [place] >= 1.030 H Urine Protein Trace Urine Glucose (UA) Negative Urine Ketones 15 Urine Blood Small (1+) H Urine Nitrite Negative Ur Leukocyte Esterase Small (1+) H Urine RBC 11-20 H Urine WBC 6-10 H Ur Squamous Epith Cells 6-10 Urine Bacteria None Seen Hyaline Casts 0-2 Assessment and Plan (1) Acute dehydration: Status: Acute (2) Herpes zoster: Status: Acute Plan 83 year old women admitted with failure to thrive and herpes zoster Herpes zoster face and eye involvement neg flourecent test continue acyclovir and prednisone Monitor for any signs of pain Failure to thrive/fall Head CT negative for acute intracranial process or facial fracture, no cervical spine fracture or trauma poor appetite, weakness dehydrated, continue LR@ 100 Physical therapy consultation Hypercalcemia. Resolved likely secondary to dehydration continue IV fluids Supratherapeutic INR Hold warfarin Hypertension Continue home blood pressure medications Asthma No exacerbation Continue albuterol History of CVA Continue anticoagulation Mental health Continue home medications GERD Continue PPI DVT prophylaxis with warfarin Full code Quality Stroke Does the patient have a stroke diagnosis?: No VTE Prior VTE?: No VTE Risk Level:: Medical - moderate - high VTE Device Contraindication: Treatment Not Indicated VTE Drug Contraindication: N/A - Med Ordered
[2024-04-22] MEDS: modafiniL 100 MG TABLET PO (09:43)
[2024-04-22] MEDS: Folic Acid 1 MG TABLET PO (09:43)
[2024-04-22] MEDS: ondansetron HCL 4 MG/2 ML VIAL IVPUSH ×2 (09:43→21:20)
[2024-04-22] MEDS: Montelukast Sodium 10 MG TABLET PO (09:44)
[2024-04-22] MEDS: Ferrous Sulfate 324 MG TABLET.DR PO (09:44)
[2024-04-22] MEDS: lamoTRIgine 25 MG TABLET 150 MG PO (09:44)
[2024-04-22] MEDS: Omeprazole 20 MG CAPSULE.DR PO (09:44)
[2024-04-22] MEDS: Valsartan 80 MG TABLET PO (09:45)
[2024-04-22] MEDS: Atorvastatin Calcium 20 MG TABLET 5 MG PO (09:45)
--- NOTE | 2024-04-22 09:55 | MHC.CM.PN ---
PT LIVES WITH THEY ARE INDEPENDENT HAD NO PREVIOUS SERVICES HAS OWN [facility] HOME DC PLAN HOME NO SERVICES
[2024-04-22] MEDS: Lithium Carbonate ER 300 MG TABLET.ER PO (19:41)
[2024-04-22] MEDS: Melatonin 3 MG TABLET 6 MG PO (21:25)
[2024-04-23 03:13] VITALS: BP 170/82; PULSE 77; RESP 18; TEMP 37.4; O2SAT 94
[2024-04-23] MEDS: Omeprazole 20 MG CAPSULE.DR PO (06:16)
[2024-04-23] MEDS: Lactated Ringers 1,000 ML 100 ML IVCONT ×2 (06:16→19:27)
[2024-04-23] MEDS: Acyclovir Sodium 680 MG in 0.9 % Sodium Chloride 100 ML 113.6 MG IV ×2 (06:30→19:32)
[2024-04-23 07:15] LABS: Prothrombin Time 62.7 SEC (11.1-13.3)
[2024-04-23 07:35] LABS: INTERNATIONAL NORM RATIO 5.1 (0.9-1.1)
[2024-04-23 07:44] VITALS: BP 165/81; PULSE 75; RESP 16; TEMP 36.7; O2SAT 96
[2024-04-23] MEDS: Erythromycin Base 0.5% Oph Oin 1 GM TUBE 1 CM EYE-RIGHT ×3 (07:49→22:05)
[2024-04-23] MEDS: lamoTRIgine 25 MG TABLET 150 MG PO (07:49)
[2024-04-23] MEDS: Artificial Tears 15 ML DROPS 2 DROP EYE-RIGHT ×4 (07:49→22:06)
[2024-04-23] MEDS: Valsartan 80 MG TABLET PO (07:50)
[2024-04-23] MEDS: Atorvastatin Calcium 20 MG TABLET 5 MG PO (07:50)
[2024-04-23] MEDS: modafiniL 100 MG TABLET PO (07:50)
[2024-04-23] MEDS: Ferrous Sulfate 324 MG TABLET.DR PO (07:50)
[2024-04-23] MEDS: Folic Acid 1 MG TABLET PO (07:50)
[2024-04-23] MEDS: Montelukast Sodium 10 MG TABLET PO (07:50)
[2024-04-23] MEDS: predniSONE 20 MG TABLET 40 MG PO (07:51)
--- NOTE | 2024-04-23 10:25 | HO.PM.IMPN ---
Subjective Subjective Date of Service: 04/23/24 Review of Systems Follow up herpes zoster still with discomfort swollen eyes Physical Exam Vital Signs: Vital Signs: Last Vital Signs Temp 98.1 F 04/23/24 07:44 Pulse 75 04/23/24 07:44 Resp 16 04/23/24 07:44 BP 165/81 H 04/23/24 07:44 Pulse Ox 96 04/23/24 07:44 O2 Del Method Room Air 04/23/24 07:44 BMI result Body Mass Index 27.4 Appearing in no acute distress Edema to both eyes, right eye closed shut lung sounds are clear to auscultation heart regular rate rhythm, clear S1, S2 positive bowel sounds, abdomen is soft, nontender neuro patient is alert x3, no focal deficits Objective Data Active Medications Acetaminophen (Acetaminophen 325 Mg Tablet) 650 mg PO Q6H PRN PRN Reason: Pain, Mild (Pain Scale 1-3), fever or headache Albuterol Sulfate (Albuterol Sulfate 90 Mcg 8 Gm Inhaler) 2 puff INHALE RQ4H PRN PRN Reason: shortness of breath or wheezing Artificial Tears (Artificial Tears 15 Ml Drops) 2 drop EYE-RIGHT QID [facility] Last Admin: 04/23/24 07:49 Dose: 2 drop Documented By: FERMIN Atorvastatin Calcium (Atorvastatin Calcium 20 Mg Tablet) 5 mg PO DAILY [facility] Last Admin: 04/23/24 07:50 Dose: 5 mg Documented By: FERMIN Calcium Carbonate (Calcium Carbonate 750 Mg Tab.Chew) 750 mg PO Q4H PRN PRN Reason: Heartburn Erythromycin (Erythromycin Base 0.5% Oph Oin 1 Gm Tube) 1 cm EYE-RIGHT TID [facility] Stop: 04/28/24 20:59 Last Admin: 04/23/24 07:49 Dose: 1 cm Documented By: FERMIN Ferrous Sulfate (Ferrous Sulfate 324 Mg Tablet.Dr) 324 mg PO DAILY [facility] Last Admin: 04/23/24 07:50 Dose: 324 mg Documented By: FERMIN Folic Acid (Folic Acid 1 Mg Tablet) 1 mg PO DAILY [facility] Last Admin: 04/23/24 07:50 Dose: 1 mg Documented By: FERMIN Lactated Ringer's (Lr) 1,000 mls @ 100 mls/hr IVCONT .Q10H [facility] Last Admin: 04/23/24 06:16 Dose: 100 mls/hr Documented By: YUDITH Acyclovir Sodium 680 mg/ (Sodium Chloride) 113.6 mls @ 113.6 mls/hr IV Q12H [facility] Last Infusion: 04/23/24 07:57 Dose: Infused Documented By: FERMIN Lamotrigine (Lamotrigine 25 Mg Tablet) 150 mg PO DAILY [facility] Last Admin: 04/23/24 07:49 Dose: 150 mg Documented By: FERMIN [place] Carbonate ([place] Carbonate Er 300 Mg Tablet.Er) 300 mg PO BEDTIME [facility] Last Admin: 04/22/24 19:41 Dose: 300 mg Documented By: YUDITH Lorazepam (Lorazepam 0.5 Mg Tablet) 0.5 mg PO BEDTIME PRN PRN Reason: anxiety Magnesium Hydroxide (Milk Of Magnesia 30 Ml Oral.Susp) 30 ml PO DAILY PRN PRN Reason: Constipation Melatonin (Melatonin 3 Mg Tablet) 6 mg PO BEDTIME PRN PRN Reason: Insomnia Last Admin: 04/22/24 21:25 Dose: 6 mg Documented By: YUDITH Modafinil (Modafinil 100 Mg Tablet) 100 mg PO DAILY [facility] Last Admin: 04/23/24 07:50 Dose: 100 mg Documented By: FERMIN Montelukast Sodium (Montelukast Sodium 10 Mg Tablet) 10 mg PO DAILY [facility] Last Admin: 04/23/24 07:50 Dose: 10 mg Documented By: FERMIN Non-Formulary Medication (Tobramycin-Dexamethasone) 1 drop EYE-RIGHT TID [facility] Omeprazole (Omeprazole 20 Mg Capsule.) 20 mg PO DAILY@0630 [facility] Last Admin: 04/23/24 06:16 Dose: 20 mg Documented By: YUDITH Ondansetron HCl (Ondansetron Hcl 4 Mg/2 Ml Vial) 4 mg IVPUSH Q8H PRN PRN Reason: Nausea and Vomiting Last Admin: 04/22/24 21:20 Dose: 4 mg Documented By: YUDITH Prednisone (Prednisone 20 Mg Tablet) 40 mg PO DAILY [facility] Last Admin: 04/23/24 07:51 Dose: 40 mg Documented By: FERMIN Sodium Chloride (0.9 % Sodium Chloride Flush 3 Ml Syringe) 3 ml IVFLUSH QSHIFT [facility] Last Admin: 04/23/24 07:51 Dose: Not Given Documented By: FERMIN Non-Admin Reason: IV Running Valsartan (Valsartan 80 Mg Tablet) 80 mg PO DAILY [facility] Last Admin: 04/23/24 07:50 Dose: 80 mg Documented By: FERMIN Labs 04/22/24 05:46 04/22/24 05:46 Labs: Laboratory Results - last 24 hr 04/23/24 05:55 Hold Purple Top SEE NOTE PT 62.7 H INR 5.1 H* Microbiology Microbiology Results: Microbiology 04/21/24 Unknown Urine Culture - Preliminary Urine clean catch - Clean Catch Midstream Culture too young to evaluate. Assessment and Plan (1) Acute dehydration: Status: Acute (2) Herpes zoster: Status: Acute Plan 83 year old women admitted with failure to thrive and herpes zoster Herpes zoster face and eye involvement neg flourecent test continue acyclovir and prednisone Monitor for any signs of pain Failure to thrive/fall Head CT negative for acute intracranial process or facial fracture, no cervical spine fracture or trauma poor appetite, weakness dehydrated, continue LR@ 100 Physical therapy consultation when able to see better Hypercalcemia. Resolved likely secondary to dehydration continue IV fluids Supratherapeutic INR Hold warfarin Hypertension Continue home blood pressure medications Asthma No exacerbation Continue albuterol History of CVA Continue anticoagulation Mental health Continue home medications GERD Continue PPI DVT prophylaxis with warfarin Full code Quality Stroke Does the patient have a stroke diagnosis?: No VTE Prior VTE?: No VTE Risk Level:: Medical - moderate - high VTE Device Contraindication: Treatment Not Indicated VTE Drug Contraindication: N/A - Med Ordered
[2024-04-23 11:34] VITALS: BP 168/82; PULSE 80; RESP 16; TEMP 36; O2SAT 97
[2024-04-23 16:00] VITALS: BP 148/82; PULSE 76; RESP 20; TEMP 36.2; O2SAT 98
[2024-04-23 19:48] VITALS: BP 162/80; PULSE 77; RESP 16; TEMP 36.9; O2SAT 96
[2024-04-23] MEDS: Melatonin 3 MG TABLET 6 MG PO (22:04)
[2024-04-23] MEDS: Lithium Carbonate ER 300 MG TABLET.ER PO (22:05)
[2024-04-23 23:33] VITALS: BP 151/83; PULSE 68; RESP 14; TEMP 36.2; O2SAT 97
[2024-04-24] VITALS (7 sets, daily range): BP systolic 140–168; BP diastolic 75–85; PULSE 71–98; RESP 16–18; TEMP 36.1–36.7; O2SAT 96–100
[2024-04-24] MEDS: Omeprazole 20 MG CAPSULE.DR PO (05:57)
[2024-04-24] MEDS: Lactated Ringers 1,000 ML 100 ML IVCONT (05:59)
[2024-04-24] MEDS: Acyclovir Sodium 680 MG in 0.9 % Sodium Chloride 100 ML 113.6 MG IV ×2 (06:37→18:43)
[2024-04-24] MEDS: Folic Acid 1 MG TABLET PO (08:16)
[2024-04-24] MEDS: Ferrous Sulfate 324 MG TABLET.DR PO (08:16)
[2024-04-24] MEDS: Atorvastatin Calcium 20 MG TABLET 5 MG PO (08:16)
[2024-04-24] MEDS: Valsartan 80 MG TABLET PO (08:16)
[2024-04-24] MEDS: modafiniL 100 MG TABLET PO (08:16)
[2024-04-24] MEDS: predniSONE 20 MG TABLET 40 MG PO (08:16)
[2024-04-24] MEDS: Montelukast Sodium 10 MG TABLET PO (08:17)
[2024-04-24] MEDS: Erythromycin Base 0.5% Oph Oin 1 GM TUBE 1 CM EYE-RIGHT ×3 (08:17→21:20)
[2024-04-24] MEDS: Artificial Tears 15 ML DROPS 2 DROP EYE-RIGHT ×4 (08:18→21:20)
--- NOTE | 2024-04-24 08:38 | HO.PM.IMPN ---
Subjective Subjective Date of Service: 04/24/24 Review of Systems Follow up herpes zoster still with discomfort swollen eyes Physical Exam Vital Signs: Vital Signs: Last Vital Signs Temp 98.0 F 04/24/24 07:17 Pulse 72 04/24/24 07:17 Resp 16 04/24/24 07:17 BP 153/78 H 04/24/24 08:16 Pulse Ox 96 04/24/24 07:17 O2 Del Method Room Air 04/24/24 07:17 BMI result Body Mass Index 27.4 Appearing in no acute distress lung sounds are clear to auscultation heart regular rate rhythm, clear S1, S2 positive bowel sounds, abdomen is soft, nontender neuro patient is alert x3, no focal deficits Eyes: Periorbital: periorbital findings abnormal Eyelids: Yes eyelid abnormality (edema, crusting to right eye ) Conjunctivae: conjunctival abnormal (edema ) Corneas: fluorescein used (normal test in the ED on admission ) Pupils: Equal, round and reactive pupils present Neuro: Cranial nerves: Yes Equal, round and reactive pupils present Objective Data Active Medications Acetaminophen (Acetaminophen 325 Mg Tablet) 650 mg PO Q6H PRN PRN Reason: Pain, Mild (Pain Scale 1-3), fever or headache Albuterol Sulfate (Albuterol Sulfate 90 Mcg 8 Gm Inhaler) 2 puff INHALE RQ4H PRN PRN Reason: shortness of breath or wheezing Artificial Tears (Artificial Tears 15 Ml Drops) 2 drop EYE-RIGHT QID [facility] Last Admin: 04/24/24 08:18 Dose: 2 drop Documented By: IDA Atorvastatin Calcium (Atorvastatin Calcium 20 Mg Tablet) 5 mg PO DAILY [facility] Last Admin: 04/24/24 08:16 Dose: 5 mg Documented By: IDA Calcium Carbonate (Calcium Carbonate 750 Mg Tab.Chew) 750 mg PO Q4H PRN PRN Reason: Heartburn Erythromycin (Erythromycin Base 0.5% Oph Oin 1 Gm Tube) 1 cm EYE-RIGHT TID [facility] Stop: 04/28/24 20:59 Last Admin: 04/24/24 08:17 Dose: 1 cm Documented By: IDA Ferrous Sulfate (Ferrous Sulfate 324 Mg Tablet.) 324 mg PO DAILY [facility] Last Admin: 04/24/24 08:16 Dose: 324 mg Documented By: IDA Folic Acid (Folic Acid 1 Mg Tablet) 1 mg PO DAILY [facility] Last Admin: 04/24/24 08:16 Dose: 1 mg Documented By: IDA Lactated Ringer's (Lr) 1,000 mls @ 100 mls/hr IVCONT .Q10H [facility] Last Infusion: 04/24/24 06:37 Dose: 0 mls/hr Documented By: MICHAELA Acyclovir Sodium 680 mg/ (Sodium Chloride) 113.6 mls @ 113.6 mls/hr IV Q12H [facility] Last Infusion: 04/24/24 08:05 Dose: Infused Documented By: IDA Lamotrigine (Lamotrigine 25 Mg Tablet) 150 mg PO DAILY [facility] Last Admin: 04/24/24 08:38 Dose: Not Given Documented By: IDA Non-Admin Reason: takes at nigh [place] Carbonate ([place] Carbonate Er 300 Mg Tablet.Er) 300 mg PO BEDTIME [facility] Last Admin: 04/23/24 22:05 Dose: 300 mg Documented By: MICHAELA Lorazepam (Lorazepam 0.5 Mg Tablet) 0.5 mg PO BEDTIME PRN PRN Reason: anxiety Magnesium Hydroxide (Milk Of Magnesia 30 Ml Oral.Susp) 30 ml PO DAILY PRN PRN Reason: Constipation Melatonin (Melatonin 3 Mg Tablet) 6 mg PO BEDTIME PRN PRN Reason: Insomnia Last Admin: 04/23/24 22:04 Dose: 6 mg Documented By: MICHAELA Modafinil (Modafinil 100 Mg Tablet) 100 mg PO DAILY [facility] Last Admin: 04/24/24 08:16 Dose: 100 mg Documented By: IDA Montelukast Sodium (Montelukast Sodium 10 Mg Tablet) 10 mg PO DAILY [facility] Last Admin: 04/24/24 08:17 Dose: 10 mg Documented By: IDA Non-Formulary Medication (Tobramycin-Dexamethasone) 1 drop EYE-RIGHT TID [facility] Omeprazole (Omeprazole 20 Mg Capsule.Dr) 20 mg PO DAILY@0630 [facility] Last Admin: 04/24/24 05:57 Dose: 20 mg Documented By: MICHAELA Ondansetron HCl (Ondansetron Hcl 4 Mg/2 Ml Vial) 4 mg IVPUSH Q8H PRN PRN Reason: Nausea and Vomiting Last Admin: 04/22/24 21:20 Dose: 4 mg Documented By: YUDITH Prednisone (Prednisone 20 Mg Tablet) 40 mg PO DAILY [facility] Last Admin: 04/24/24 08:16 Dose: 40 mg Documented By: IDA Sodium Chloride (0.9 % Sodium Chloride Flush 3 Ml Syringe) 3 ml IVFLUSH QSHIFT [facility] Last Admin: 04/24/24 08:17 Dose: Not Given Documented By: IDA Non-Admin Reason: IV Running Valsartan (Valsartan 80 Mg Tablet) 80 mg PO DAILY [facility] Last Admin: 04/24/24 08:16 Dose: 80 mg Documented By: IDA Labs 04/22/24 05:46 04/22/24 05:46 Microbiology Microbiology Results: Microbiology 04/21/24 Unknown Urine Culture - Final Urine clean catch - Clean Catch Midstream Assessment and Plan (1) Acute dehydration: Status: Acute (2) Herpes zoster: Status: Acute Plan 83 year old women admitted with failure to thrive and herpes zoster Herpes zoster/ophthalmicus face and eye involvement neg flourecent test continue IV acyclovir prednisone tapered down to 30 today Erythromycin ointment Monitor for any signs of pain Brief discussion over the phone with Dr. Paul Hoyt today, sent pictures via [employer], recommendation to monitor for pupillary response but continue current treatment Failure to thrive/fall Head CT negative for acute intracranial process or facial fracture, no cervical spine fracture or trauma poor appetite, weakness now eating better stop IV fluids Physical therapy consultation when able to see better Hypercalcemia. Resolved likely secondary to dehydration Supratherapeutic INR Hold warfarin Hypertension Continue home blood pressure medications Asthma No exacerbation Continue albuterol History of CVA Continue anticoagulation Mental health Continue home medications GERD Continue PPI DVT prophylaxis with warfarin when INR therapeutic Attending Dr. Beard Full code Quality Stroke Does the patient have a stroke diagnosis?: No VTE Prior VTE?: No VTE Risk Level:: Medical - moderate - high VTE Device Contraindication: Treatment Not Indicated VTE Drug Contraindication: N/A - Med Ordered
[2024-04-24 10:18] LABS: INTERNATIONAL NORM RATIO 2.4 (0.9-1.1); Prothrombin Time 29.1 SEC (11.1-13.3)
[2024-04-24 10:24] LABS: Anion Gap 11 (12-20); Blood Urea Nitrogen 16 mg/dL (9-16); Calcium 9.1 mg/dL (8.4-10.2); Carbon Dioxide 26 mmol/L (22-29); Chloride 112 mmol/L (96-108); Creatinine Clr Calc Pharmacy 45.8; Estimated Glomerular Filt Rate > 60; Glucose Random 96 mg/dL (60-115); Potassium 3.6 mmol/L (3.3-5.1); Sodium 145 mmol/L (135-145)
[2024-04-24] MEDS: 0.9 % Sodium Chloride Flush 3 ML SYRINGE IVFLUSH ×2 (17:33→21:20)
[2024-04-24] MEDS: lamoTRIgine 25 MG TABLET 150 MG PO (21:19)
[2024-04-24] MEDS: Lithium Carbonate ER 300 MG TABLET.ER PO (21:19)
[2024-04-25] VITALS (7 sets, daily range): BP systolic 142–168; BP diastolic 71–80; PULSE 62–78; RESP 18; TEMP 36.4–36.6; O2SAT 95–99
[2024-04-25] MEDS: Omeprazole 20 MG CAPSULE.DR PO (06:31)
[2024-04-25] MEDS: Acyclovir Sodium 680 MG in 0.9 % Sodium Chloride 100 ML 113.6 MG IV ×2 (06:33→19:26)
[2024-04-25] MEDS: Folic Acid 1 MG TABLET PO (08:02)
[2024-04-25] MEDS: 0.9 % Sodium Chloride Flush 3 ML SYRINGE IVFLUSH ×3 (08:02→19:32)
[2024-04-25] MEDS: predniSONE 10 MG TABLET 30 MG PO (08:02)
[2024-04-25] MEDS: Atorvastatin Calcium 20 MG TABLET 5 MG PO (08:02)
[2024-04-25] MEDS: Valsartan 80 MG TABLET PO (08:02)
[2024-04-25] MEDS: Ferrous Sulfate 324 MG TABLET.DR PO (08:02)
[2024-04-25] MEDS: Montelukast Sodium 10 MG TABLET PO (08:02)
[2024-04-25] MEDS: Erythromycin Base 0.5% Oph Oin 1 GM TUBE 1 CM EYE-RIGHT ×3 (08:02→20:44)
[2024-04-25] MEDS: modafiniL 100 MG TABLET PO (08:02)
[2024-04-25] MEDS: Artificial Tears 15 ML DROPS 2 DROP EYE-RIGHT ×4 (08:04→20:45)
--- NOTE | 2024-04-25 09:46 | P.PNIM_ITS ---
Subjective Subjective Date of Service: 04/25/24 Interval History: seen and examined this AM reports feeling better compared to yesterday reports improved swelling around eyes denies any eye pain or visual changes Review of Systems Negative except HPI/interval history. Physical Exam 2 Vital Signs: Vital Signs: Last Vital Signs Temp 97.8 F 04/25/24 07:43 Pulse 73 04/25/24 07:43 Resp 18 04/25/24 07:43 BP 143/71 H 04/25/24 08:02 Pulse Ox 97 04/25/24 07:43 O2 Del Method Room Air 04/25/24 07:43 BMI result Body Mass Index 27.4 Const: Other: General - no acute distress, appears comfortable HEENT - [place]ER[place]; R-sided rash - still some vesicular lesions and crusting at different stages Cardiovascular - regular rate and rhythm, S1-S2 Lungs - normal respiratory effort, clear to auscultation bilaterally, no wheezing Abdomen - soft, nontender, no rebound or guarding Extremities - no edema bilaterally Neuro - awake and alert, no focal deficits Objective Data Active Medications Acetaminophen (Acetaminophen 325 Mg Tablet) 650 mg PO Q6H PRN PRN Reason: Pain, Mild (Pain Scale 1-3), fever or headache Albuterol Sulfate (Albuterol Sulfate 90 Mcg 8 Gm Inhaler) 2 puff INHALE RQ4H PRN PRN Reason: shortness of breath or wheezing Artificial Tears (Artificial Tears 15 Ml Drops) 2 drop EYE-RIGHT QID [facility] Last Admin: 04/25/24 08:04 Dose: 2 drop Documented By: IDA Atorvastatin Calcium (Atorvastatin Calcium 20 Mg Tablet) 5 mg PO DAILY [facility] Last Admin: 04/25/24 08:02 Dose: 5 mg Documented By: IDA Calcium Carbonate (Calcium Carbonate 750 Mg Tab.Chew) 750 mg PO Q4H PRN PRN Reason: Heartburn Erythromycin (Erythromycin Base 0.5% Oph Oin 1 Gm Tube) 1 cm EYE-RIGHT TID [facility] Stop: 04/28/24 20:59 Last Admin: 04/25/24 08:02 Dose: 1 cm Documented By: IDA Ferrous Sulfate (Ferrous Sulfate 324 Mg Tablet.) 324 mg PO DAILY [facility] Last Admin: 04/25/24 08:02 Dose: 324 mg Documented By: IDA Folic Acid (Folic Acid 1 Mg Tablet) 1 mg PO DAILY [facility] Last Admin: 04/25/24 08:02 Dose: 1 mg Documented By: IDA Acyclovir Sodium 680 mg/ (Sodium Chloride) 113.6 mls @ 113.6 mls/hr IV Q12H [facility] Last Infusion: 04/25/24 07:57 Dose: Infused Documented By: IDA Lamotrigine (Lamotrigine 25 Mg Tablet) 150 mg PO BEDTIME [facility] Last Admin: 04/24/24 21:19 Dose: 150 mg Documented By: MICHAELA [place] Carbonate ([place] Carbonate Er 300 Mg Tablet.Er) 300 mg PO BEDTIME [facility] Last Admin: 04/24/24 21:19 Dose: 300 mg Documented By: MICHAELA Lorazepam (Lorazepam 0.5 Mg Tablet) 0.5 mg PO BEDTIME PRN PRN Reason: anxiety Magnesium Hydroxide (Milk Of Magnesia 30 Ml Oral.Susp) 30 ml PO DAILY PRN PRN Reason: Constipation Melatonin (Melatonin 3 Mg Tablet) 6 mg PO BEDTIME PRN PRN Reason: Insomnia Last Admin: 04/23/24 22:04 Dose: 6 mg Documented By: MICHAELA Modafinil (Modafinil 100 Mg Tablet) 100 mg PO DAILY [facility] Last Admin: 04/25/24 08:02 Dose: 100 mg Documented By: IDA Montelukast Sodium (Montelukast Sodium 10 Mg Tablet) 10 mg PO DAILY [facility] Last Admin: 04/25/24 08:02 Dose: 10 mg Documented By: IDA Non-Formulary Medication (Tobramycin-Dexamethasone) 1 drop EYE-RIGHT TID [facility] Omeprazole (Omeprazole 20 Mg Capsule.Dr) 20 mg PO DAILY@0630 [facility] Last Admin: 04/25/24 06:31 Dose: 20 mg Documented By: MICHAELA Ondansetron HCl (Ondansetron Hcl 4 Mg/2 Ml Vial) 4 mg IVPUSH Q8H PRN PRN Reason: Nausea and Vomiting Last Admin: 04/22/24 21:20 Dose: 4 mg Documented By: YUDITH Prednisone (Prednisone 10 Mg Tablet) 30 mg PO DAILY [facility] Last Admin: 04/25/24 08:02 Dose: 30 mg Documented By: IDA Sodium Chloride (0.9 % Sodium Chloride Flush 3 Ml Syringe) 3 ml IVFLUSH QSHIFT [facility] Last Admin: 04/25/24 08:02 Dose: 3 ml Documented By: IDA Valsartan (Valsartan 80 Mg Tablet) 80 mg PO DAILY [facility] Last Admin: 04/25/24 08:02 Dose: 80 mg Documented By: IDA Labs 04/22/24 05:46 04/24/24 09:54 Labs: Laboratory Results - last 24 hr 04/24/24 09:54 PT 29.1 H D INR 2.4 H D Anion Gap 11 L Estim Creat Clear Calc 45.8 Estimated GFR > 60 Random Glucose 96 Calcium 9.1 Assessment and Plan (1) Acute dehydration: Status: Acute (2) Herpes zoster: Status: Acute Plan 83 year old women admitted with failure to thrive and herpes zoster Herpes zoster of the face face and periorbital invovlement; neg flourecent test continue IV acyclovir prednisone tapered down to 30 today Erythromycin ointment Monitor for any signs of pain Brief discussion over the phone with Dr. Paul Hoyt done previously, sent pictures via [employer], recommendation to monitor for pupillary response but continue current treatment Failure to thrive/fall Head CT negative for acute intracranial process or facial fracture, no cervical spine fracture or trauma poor appetite, weakness now eating better Physical therapy consultation when able to see better Hypercalcemia. Resolved likely secondary to dehydration Supratherapeutic INR resolved; will restart coumadin today unclear inidcation for coumadin -- ? related to her CVA Hypertension Continue home blood pressure medications Asthma No exacerbation Continue albuterol History of CVA continue baseline meds Mental health Continue home medications GERD Continue PPI DVT prophylaxis - coumadin Full code reaosn for continued hospitalization: Pt with improving herpes zoster involving the face, but lesions still at different stages, hence will continue IV acyclovir (renally adjusted) Quality Stroke Does the patient have a stroke diagnosis?: No VTE Prior VTE?: No VTE Risk Level:: Medical - moderate - high VTE Device Contraindication: Treatment Not Indicated VTE Drug Contraindication: N/A - Med Ordered
[2024-04-25 10:55] LABS: INTERNATIONAL NORM RATIO 1.7 (0.9-1.1); Prothrombin Time 20.4 SEC (11.1-13.3)
[2024-04-25] MEDS: Warfarin Sodium 4 MG TABLET PO (16:29)
[2024-04-25] MEDS: Milk of Magnesia 30 ML ORAL.SUSP PO (16:29)
[2024-04-25] MEDS: lamoTRIgine 25 MG TABLET 150 MG PO (20:43)
[2024-04-25] MEDS: Lithium Carbonate ER 300 MG TABLET.ER PO (20:43)
[2024-04-26] VITALS (7 sets, daily range): BP systolic 123–153; BP diastolic 61–81; PULSE 55–83; RESP 16–20; TEMP 36.1–36.8; O2SAT 95–97
[2024-04-26] MEDS: Omeprazole 20 MG CAPSULE.DR PO (06:16)
[2024-04-26] MEDS: Acyclovir Sodium 680 MG in 0.9 % Sodium Chloride 100 ML 113.6 MG IV ×2 (06:16→17:57)
[2024-04-26 07:57] LABS: INTERNATIONAL NORM RATIO 1.4 (0.9-1.1); Prothrombin Time 17.3 SEC (11.1-13.3)
[2024-04-26] MEDS: Folic Acid 1 MG TABLET PO (08:56)
[2024-04-26] MEDS: Erythromycin Base 0.5% Oph Oin 1 GM TUBE 1 CM EYE-RIGHT ×3 (08:56→20:23)
[2024-04-26] MEDS: predniSONE 10 MG TABLET 30 MG PO (08:56)
[2024-04-26] MEDS: Montelukast Sodium 10 MG TABLET PO (08:56)
[2024-04-26] MEDS: Valsartan 80 MG TABLET PO (08:56)
[2024-04-26] MEDS: modafiniL 100 MG TABLET PO (08:57)
[2024-04-26] MEDS: Atorvastatin Calcium 10 MG TABLET 5 MG PO (08:57)
[2024-04-26] MEDS: Artificial Tears 15 ML DROPS 2 DROP EYE-RIGHT ×4 (08:58→20:24)
[2024-04-26] MEDS: 0.9 % Sodium Chloride Flush 3 ML SYRINGE IVFLUSH ×3 (08:58→20:33)
[2024-04-26] MEDS: Ferrous Sulfate 324 MG TABLET.DR PO (08:58)
--- NOTE | 2024-04-26 09:50 | P.PNIM_ITS ---
Subjective Subjective Date of Service: 04/26/24 Interval History: seen and examined this AM reports feeling better compared to yesterday reports improved swelling around eyes denies any eye pain or visual changes Review of Systems Negative except HPI/interval history. Physical Exam 2 Vital Signs: Vital Signs: Last Vital Signs Temp 97.8 F 04/26/24 07:13 Pulse 75 04/26/24 07:13 Resp 16 04/26/24 07:13 BP 153/81 H 04/26/24 08:56 Pulse Ox 97 04/26/24 07:13 O2 Del Method Room Air 04/26/24 07:13 BMI result Body Mass Index 27.4 Appearing in no acute distress lung sounds are clear to auscultation heart regular rate rhythm, clear S1, S2 positive bowel sounds, abdomen is soft, nontender neuro patient is alert x3, no focal deficits Objective Data Active Medications Acetaminophen (Acetaminophen 325 Mg Tablet) 650 mg PO Q6H PRN PRN Reason: Pain, Mild (Pain Scale 1-3), fever or headache Albuterol Sulfate (Albuterol Sulfate 90 Mcg 8 Gm Inhaler) 2 puff INHALE RQ4H PRN PRN Reason: shortness of breath or wheezing Artificial Tears (Artificial Tears 15 Ml Drops) 2 drop EYE-RIGHT QID [facility] Last Admin: 04/26/24 08:58 Dose: 2 drop Documented By: FRANKLYN Atorvastatin Calcium (Atorvastatin Calcium 10 Mg Tablet) 5 mg PO DAILY [facility] Last Admin: 04/26/24 08:57 Dose: 5 mg Documented By: FRANKLYN Calcium Carbonate (Calcium Carbonate 750 Mg Tab.Chew) 750 mg PO Q4H PRN PRN Reason: Heartburn Erythromycin (Erythromycin Base 0.5% Oph Oin 1 Gm Tube) 1 cm EYE-RIGHT TID [facility] Stop: 04/28/24 20:59 Last Admin: 04/26/24 08:56 Dose: 1 cm Documented By: FRANKLYN Ferrous Sulfate (Ferrous Sulfate 324 Mg Tablet.) 324 mg PO DAILY [facility] Last Admin: 04/26/24 08:58 Dose: 324 mg Documented By: FRANKLYN Folic Acid (Folic Acid 1 Mg Tablet) 1 mg PO DAILY [facility] Last Admin: 04/26/24 08:56 Dose: 1 mg Documented By: FRANKLYN Acyclovir Sodium 680 mg/ (Sodium Chloride) 113.6 mls @ 113.6 mls/hr IV Q12H [facility] Last Infusion: 04/26/24 07:30 Dose: Infused Documented By: FRANKLYN Lamotrigine (Lamotrigine 25 Mg Tablet) 150 mg PO BEDTIME [facility] Last Admin: 04/25/24 20:43 Dose: 150 mg Documented By: MATT [place] Carbonate ([place] Carbonate Er 300 Mg Tablet.Er) 300 mg PO BEDTIME [facility] Last Admin: 04/25/24 20:43 Dose: 300 mg Documented By: MATT Lorazepam (Lorazepam 0.5 Mg Tablet) 0.5 mg PO BEDTIME PRN PRN Reason: anxiety Magnesium Hydroxide (Milk Of Magnesia 30 Ml Oral.Susp) 30 ml PO DAILY PRN PRN Reason: Constipation Last Admin: 04/25/24 16:29 Dose: 30 ml Documented By: IDA Melatonin (Melatonin 3 Mg Tablet) 6 mg PO BEDTIME PRN PRN Reason: Insomnia Last Admin: 04/23/24 22:04 Dose: 6 mg Documented By: MICHAELA Modafinil (Modafinil 100 Mg Tablet) 100 mg PO DAILY [facility] Last Admin: 04/26/24 08:57 Dose: 100 mg Documented By: FRANKLYN Montelukast Sodium (Montelukast Sodium 10 Mg Tablet) 10 mg PO DAILY [facility] Last Admin: 04/26/24 08:56 Dose: 10 mg Documented By: FRANKLYN Omeprazole (Omeprazole 20 Mg Capsule.Dr) 20 mg PO DAILY@0630 [facility] Last Admin: 04/26/24 06:16 Dose: 20 mg Documented By: MATT Ondansetron HCl (Ondansetron Hcl 4 Mg/2 Ml Vial) 4 mg IVPUSH Q8H PRN PRN Reason: Nausea and Vomiting Last Admin: 04/22/24 21:20 Dose: 4 mg Documented By: YUDITH Prednisone (Prednisone 10 Mg Tablet) 30 mg PO DAILY [facility] Last Admin: 04/26/24 08:56 Dose: 30 mg Documented By: FRANKLYN Sodium Chloride (0.9 % Sodium Chloride Flush 3 Ml Syringe) 3 ml IVFLUSH QSHIFT [facility] Last Admin: 04/26/24 08:58 Dose: 3 ml Documented By: FRANKLYN Valsartan (Valsartan 80 Mg Tablet) 80 mg PO DAILY [facility] Last Admin: 04/26/24 08:56 Dose: 80 mg Documented By: FRANKLYN Warfarin Sodium (Warfarin Sodium 4 Mg Tablet) 4 mg PO DAILY@1800 [facility] Last Admin: 04/25/24 16:29 Dose: 4 mg Documented By: IDA Labs 04/22/24 05:46 04/24/24 09:54 Labs: Laboratory Results - last 24 hr 04/25/24 04/26/24 10:38 07:28 Hold Purple Top SEE NOTE PT 20.4 H D 17.3 H INR 1.7 H 1.4 H Assessment and Plan (1) Acute dehydration: Status: Acute (2) Herpes zoster: Status: Acute Plan 83 year old women admitted with failure to thrive and herpes zoster Herpes zoster of the face face and periorbital invovlement; neg flourecent test continue IV acyclovir prednisone tapered down to 30mg Erythromycin ointment Monitor for any signs of pain Brief discussion over the phone with Dr. Paul Hoyt, sent pictures via Monitor, recommendation to monitor for pupillary response but continue current treatment Failure to thrive/fall Head CT negative for acute intracranial process or facial fracture, no cervical spine fracture or trauma poor appetite, weakness now eating better Physical therapy consultation when able to see better Hypercalcemia. Resolved likely secondary to dehydration Supratherapeutic INR resolved continue warfarin as ordered Hypertension Continue home blood pressure medications Asthma No exacerbation Continue albuterol History of CVA continue baseline meds Mental health Continue home medications GERD Continue PPI DVT prophylaxis - coumadin Attending Dr. Sibley Full code reason for continued hospitalization: Pt with improving herpes zoster involving the face, but lesions still at different stages, hence will continue IV acyclovir (renally adjusted) Quality Stroke Does the patient have a stroke diagnosis?: No VTE Prior VTE?: No VTE Risk Level:: Medical - moderate - high VTE Device Contraindication: Treatment Not Indicated VTE Drug Contraindication: N/A - Med Ordered
[2024-04-26] MEDS: Warfarin Sodium 4 MG TABLET PO (17:57)
[2024-04-26] MEDS: lamoTRIgine 25 MG TABLET 150 MG PO (20:22)
[2024-04-26] MEDS: Lithium Carbonate ER 300 MG TABLET.ER PO (20:23)
[2024-04-26] MEDS: LORazepam 0.5 MG TABLET PO (22:09)
[2024-04-27 03:31] VITALS: BP 122/62; PULSE 67; RESP 18; TEMP 36.3; O2SAT 95
[2024-04-27] MEDS: Acyclovir Sodium 680 MG in 0.9 % Sodium Chloride 100 ML 113.6 MG IV ×2 (06:29→18:33)
[2024-04-27] MEDS: Omeprazole 20 MG CAPSULE.DR PO (06:29)
[2024-04-27 07:15] LABS: INTERNATIONAL NORM RATIO 1.8 (0.9-1.1); Prothrombin Time 21.8 SEC (11.1-13.3)
[2024-04-27 07:56] VITALS: BP 138/67; PULSE 65; RESP 14; TEMP 36.4; O2SAT 97
--- NOTE | 2024-04-27 08:48 | P.PNIM_ITS ---
Subjective Subjective Date of Service: 04/27/24 Interval History: seen and examined this AM reports feeling better compared to yesterday reports improved swelling around eyes denies any eye pain or visual changes Review of Systems Negative except HPI/interval history. Physical Exam 2 Vital Signs: Vital Signs: Last Vital Signs Temp 97.6 F 04/27/24 07:56 Pulse 65 04/27/24 07:56 Resp 14 04/27/24 07:56 BP 138/67 04/27/24 07:56 Pulse Ox 97 04/27/24 07:56 O2 Del Method Room Air 04/27/24 07:56 BMI result Body Mass Index 27.4 Appearing in no acute distress Erythema and crusting to rught eye \ lung sounds are clear to auscultation heart regular rate rhythm, clear S1, S2 positive bowel sounds, abdomen is soft, nontender neuro patient is alert x3, no focal deficits Objective Data Active Medications Acetaminophen (Acetaminophen 325 Mg Tablet) 650 mg PO Q6H PRN PRN Reason: Pain, Mild (Pain Scale 1-3), fever or headache Albuterol Sulfate (Albuterol Sulfate 90 Mcg 8 Gm Inhaler) 2 puff INHALE RQ4H PRN PRN Reason: shortness of breath or wheezing Artificial Tears (Artificial Tears 15 Ml Drops) 2 drop EYE-RIGHT QID [facility] Last Admin: 04/26/24 20:24 Dose: 2 drop Documented By: MATT Atorvastatin Calcium (Atorvastatin Calcium 10 Mg Tablet) 5 mg PO DAILY [facility] Last Admin: 04/26/24 08:57 Dose: 5 mg Documented By: FRANKLYN Calcium Carbonate (Calcium Carbonate 750 Mg Tab.Chew) 750 mg PO Q4H PRN PRN Reason: Heartburn Erythromycin (Erythromycin Base 0.5% Oph Oin 1 Gm Tube) 1 cm EYE-RIGHT TID [facility] Stop: 04/28/24 20:59 Last Admin: 04/26/24 20:23 Dose: 1 cm Documented By: MATT Ferrous Sulfate (Ferrous Sulfate 324 Mg Tablet.) 324 mg PO DAILY [facility] Last Admin: 04/26/24 08:58 Dose: 324 mg Documented By: FRANKLYN Folic Acid (Folic Acid 1 Mg Tablet) 1 mg PO DAILY [facility] Last Admin: 04/26/24 08:56 Dose: 1 mg Documented By: FRANKLYN Acyclovir Sodium 680 mg/ (Sodium Chloride) 113.6 mls @ 113.6 mls/hr IV Q12H [facility] Last Admin: 04/27/24 06:29 Dose: 113.6 mls/hr Documented By: MATT Lamotrigine (Lamotrigine 25 Mg Tablet) 150 mg PO BEDTIME [facility] Last Admin: 04/26/24 20:22 Dose: 150 mg Documented By: MATT [place] Carbonate ([place] Carbonate Er 300 Mg Tablet.Er) 300 mg PO BEDTIME [facility] Last Admin: 04/26/24 20:23 Dose: 300 mg Documented By: MATT Lorazepam (Lorazepam 0.5 Mg Tablet) 0.5 mg PO BEDTIME PRN PRN Reason: anxiety Last Admin: 04/26/24 22:09 Dose: 0.5 mg Documented By: MATT Magnesium Hydroxide (Milk Of Magnesia 30 Ml Oral.Susp) 30 ml PO DAILY PRN PRN Reason: Constipation Last Admin: 04/25/24 16:29 Dose: 30 ml Documented By: IDA Melatonin (Melatonin 3 Mg Tablet) 6 mg PO BEDTIME PRN PRN Reason: Insomnia Last Admin: 04/23/24 22:04 Dose: 6 mg Documented By: MICHAELA Modafinil (Modafinil 100 Mg Tablet) 100 mg PO DAILY [facility] Last Admin: 04/26/24 08:57 Dose: 100 mg Documented By: FRANKLYN Montelukast Sodium (Montelukast Sodium 10 Mg Tablet) 10 mg PO DAILY [facility] Last Admin: 04/26/24 08:56 Dose: 10 mg Documented By: FRANKLYN Omeprazole (Omeprazole 20 Mg Capsule.Dr) 20 mg PO DAILY@0630 [facility] Last Admin: 04/27/24 06:29 Dose: 20 mg Documented By: MATT Ondansetron HCl (Ondansetron Hcl 4 Mg/2 Ml Vial) 4 mg IVPUSH Q8H PRN PRN Reason: Nausea and Vomiting Last Admin: 04/22/24 21:20 Dose: 4 mg Documented By: YUDITH Prednisone (Prednisone 10 Mg Tablet) 30 mg PO DAILY [facility] Last Admin: 04/26/24 08:56 Dose: 30 mg Documented By: FRANKLYN Sodium Chloride (0.9 % Sodium Chloride Flush 3 Ml Syringe) 3 ml IVFLUSH QSHIFT [facility] Last Admin: 04/26/24 20:33 Dose: 3 ml Documented By: MATT Valsartan (Valsartan 80 Mg Tablet) 80 mg PO DAILY [facility] Last Admin: 04/26/24 08:56 Dose: 80 mg Documented By: FRANKLYN Warfarin Sodium (Warfarin Sodium 4 Mg Tablet) 4 mg PO DAILY@1800 [facility] Last Admin: 04/26/24 17:57 Dose: 4 mg Documented By: FRANKLYN Labs 04/22/24 05:46 04/24/24 09:54 Labs: Laboratory Results - last 24 hr 04/27/24 05:25 Hold Purple Top SEE NOTE PT 21.8 H D INR 1.8 H Assessment and Plan (1) Acute dehydration: Status: Acute (2) Herpes zoster: Status: Acute Plan 83 year old women admitted with failure to thrive and herpes zoster Herpes zoster of the face face and periorbital invovlement; neg flourecent test continue IV acyclovir prednisone tapered down to 30mg, start 20 mg tomorrow Erythromycin ointment Monitor for any signs of pain Brief discussion over the phone with Dr. Paul Hoyt, sent pictures via [employer], recommendation to monitor for pupillary response but continue current treatment Failure to thrive/fall Head CT negative for acute intracranial process or facial fracture, no cervical spine fracture or trauma poor appetite, weakness now eating better Physical therapy consultation when able to see better Hypercalcemia. Resolved likely secondary to dehydration Supratherapeutic INR resolved continue warfarin as ordered Hypertension Continue home blood pressure medications Asthma No exacerbation Continue albuterol History of CVA continue baseline meds Mental health Continue home medications GERD Continue PPI DVT prophylaxis - coumadin Attending Dr. Sibley Full code reason for continued hospitalization: Pt with improving herpes zoster involving the face, but lesions still at different stages, hence will continue IV acyclovir (renally adjusted) Quality Stroke Does the patient have a stroke diagnosis?: No VTE Prior VTE?: No VTE Risk Level:: Medical - moderate - high VTE Device Contraindication: Treatment Not Indicated VTE Drug Contraindication: N/A - Med Ordered
[2024-04-27] MEDS: Valsartan 80 MG TABLET PO (09:20)
[2024-04-27] MEDS: Atorvastatin Calcium 10 MG TABLET 5 MG PO (09:20)
[2024-04-27] MEDS: Folic Acid 1 MG TABLET PO (09:20)
[2024-04-27] MEDS: 0.9 % Sodium Chloride Flush 3 ML SYRINGE IVFLUSH ×3 (09:20→19:49)
[2024-04-27] MEDS: Ferrous Sulfate 324 MG TABLET.DR PO (09:20)
[2024-04-27] MEDS: predniSONE 10 MG TABLET 30 MG PO (09:20)
[2024-04-27] MEDS: Artificial Tears 15 ML DROPS 2 DROP EYE-RIGHT ×4 (09:21→19:50)
[2024-04-27] MEDS: Erythromycin Base 0.5% Oph Oin 1 GM TUBE 1 CM EYE-RIGHT ×3 (09:21→19:49)
[2024-04-27] MEDS: Montelukast Sodium 10 MG TABLET PO (09:21)
[2024-04-27] MEDS: modafiniL 100 MG TABLET PO (09:21)
[2024-04-27 12:00] VITALS: BP 137/74; PULSE 67; RESP 14; TEMP 36.2; O2SAT 96
[2024-04-27 15:45] VITALS: BP 156/71; PULSE 74; RESP 12; TEMP 36.3; O2SAT 96
[2024-04-27] MEDS: Warfarin Sodium 7.5 MG TABLET PO (17:31)
[2024-04-27 19:33] VITALS: BP 150/79; PULSE 67; RESP 18; TEMP 36.3; O2SAT 97
[2024-04-27] MEDS: Lithium Carbonate ER 300 MG TABLET.ER PO (19:48)
[2024-04-27] MEDS: lamoTRIgine 25 MG TABLET 150 MG PO (19:48)
[2024-04-27] MEDS: LORazepam 0.5 MG TABLET PO (22:46)
[2024-04-27 23:44] VITALS: BP 150/70; PULSE 66; RESP 16; TEMP 36.2; O2SAT 16
--- NOTE | 2024-04-28 00:06 | W.PM.IDCN ---
History of Present Illness Data of Consult Service Date: 04/22/24 Requesting physician: Emily Luz Primary Care Provider: MD MYNOR Barnard Reason for consult: right facial zoster She presents with weakness and was found on floor. She had seen opthalmologist and given cream for eye irritation. She developed zoster rash and had trouble opening eye. Review of Systems Review of Systems: Yes all other systems are reviewed and are negative PMFSH Past Medical History Medical History Gait instability Breast cancer screening Colon cancer screening 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) Impaired glucose tolerance Patent foramen ovale Tubular adenoma of colon History of renal calculi Hypercholesterolemia Obesity (BMI 30-39.9) Hypertension Asthma Bipolar disorder GERD (gastroesophageal reflux disease) Iron deficiency anemia History of CVA (cerebrovascular accident) Family History Family History Father Cataract Mother Anxiety Cancer Mental health disorder Brother Lung cancer Liver cancer Sister Dementia Autoimmune disease Surgical History Surgical History History of parathyroidectomy History of mastoidectomy Social History Social History Household Members: Spouse Housing: House Do you presently have visiting nurse or other home services: No Alcohol intake: never Patient Tobacco Use Status: Never used Tobacco e-Cigarette/Vaping Use: Never Used Second Hand Smoke Exposure: No service: No Current occupational status: retired Cognitive needs: Yes Hearing needs: No Vision needs: Yes Meds Allergies Allergy/AdvReac Type Severity Reaction Status Date / Time clindamycin [CLINDAMYCIN] Allergy Unknown UNKNOWN Verified 04/21/24 11:38 oxycodone [OXYCODONE] Allergy Unknown UNKNOWN Verified 04/21/24 11:38 Penicillins [PENICILLINS] Allergy Unknown UNKNOWN Verified 04/21/24 11:38 seafood Allergy Unknown Anaphylaxis Verified 04/21/24 11:38 shellfish derived Allergy Unknown Anaphylaxis Verified 04/21/24 11:38 [SHELLFISH DERIVED] animal dander [ANIMAL DANDER] AdvReac Unknown ITCHING, Verified 04/21/24 11:38 REDNESS atorvastatin [Lipitor] AdvReac Unknown myalgia Verified 04/21/24 11:38 Active Medications: Current Medications Acetaminophen (Acetaminophen 325 Mg Tablet) 650 mg PO Q6H PRN PRN Reason: Pain, Mild (Pain Scale 1-3), fever or headache Albuterol Sulfate (Albuterol Sulfate 90 Mcg 8 Gm Inhaler) 2 puff INHALE RQ4H PRN PRN Reason: shortness of breath or wheezing Artificial Tears (Artificial Tears 15 Ml Drops) 2 drop EYE-RIGHT QID [facility] Last Admin: 04/27/24 19:50 Dose: 2 drop Atorvastatin Calcium (Atorvastatin Calcium 10 Mg Tablet) 5 mg PO DAILY [facility] Last Admin: 04/27/24 09:20 Dose: 5 mg Calcium Carbonate (Calcium Carbonate 750 Mg Tab.Chew) 750 mg PO Q4H PRN PRN Reason: Heartburn Erythromycin (Erythromycin Base 0.5% Oph Oin 1 Gm Tube) 1 cm EYE-RIGHT TID [facility] Stop: 04/28/24 20:59 Last Admin: 04/27/24 19:49 Dose: 1 cm Ferrous Sulfate (Ferrous Sulfate 324 Mg Tablet.Dr) 324 mg PO DAILY [facility] Last Admin: 04/27/24 09:20 Dose: 324 mg Folic Acid (Folic Acid 1 Mg Tablet) 1 mg PO DAILY [facility] Last Admin: 04/27/24 09:20 Dose: 1 mg Acyclovir Sodium 680 mg/ (Sodium Chloride) 113.6 mls @ 113.6 mls/hr IV Q12H [facility] Last Infusion: 04/27/24 19:59 Dose: Infused Lamotrigine (Lamotrigine 25 Mg Tablet) 150 mg PO BEDTIME [facility] Last Admin: 04/27/24 19:48 Dose: 150 mg [place] Carbonate ([place] Carbonate Er 300 Mg Tablet.Er) 300 mg PO BEDTIME [facility] Last Admin: 04/27/24 19:48 Dose: 300 mg Lorazepam (Lorazepam 0.5 Mg Tablet) 0.5 mg PO BEDTIME PRN PRN Reason: anxiety Last Admin: 04/27/24 22:46 Dose: 0.5 mg Magnesium Hydroxide (Milk Of Magnesia 30 Ml Oral.Susp) 30 ml PO DAILY PRN PRN Reason: Constipation Last Admin: 04/25/24 16:29 Dose: 30 ml Melatonin (Melatonin 3 Mg Tablet) 6 mg PO BEDTIME PRN PRN Reason: Insomnia Last Admin: 04/23/24 22:04 Dose: 6 mg Modafinil (Modafinil 100 Mg Tablet) 100 mg PO DAILY [facility] Last Admin: 04/27/24 09:21 Dose: 100 mg Montelukast Sodium (Montelukast Sodium 10 Mg Tablet) 10 mg PO DAILY [facility] Last Admin: 04/27/24 09:21 Dose: 10 mg Omeprazole (Omeprazole 20 Mg Capsule.Dr) 20 mg PO DAILY@0630 [facility] Last Admin: 04/27/24 06:29 Dose: 20 mg Ondansetron HCl (Ondansetron Hcl 4 Mg/2 Ml Vial) 4 mg IVPUSH Q8H PRN PRN Reason: Nausea and Vomiting Last Admin: 04/22/24 21:20 Dose: 4 mg Prednisone (Prednisone 20 Mg Tablet) 20 mg PO DAILY [facility] Sodium Chloride (0.9 % Sodium Chloride Flush 3 Ml Syringe) 3 ml IVFLUSH QSHIFT [facility] Last Admin: 04/27/24 19:49 Dose: 3 ml Valsartan (Valsartan 80 Mg Tablet) 80 mg PO DAILY [facility] Last Admin: 04/27/24 09:20 Dose: 80 mg Warfarin Sodium (Warfarin Sodium 4 Mg Tablet) 4 mg PO DAILY@1800 [facility] Home Medications ?Medication ?Instructions ?Recorded ?Confirmed ?Last Taken ?Type alendronate 70 mg tablet (Fosamax) 70 mg PO MO 04/21/24 04/21/24 04/21/24 History tobramycin 0.3 %-dexamethasone 0.1 1 drp ophthalmic-Right TID 04/21/24 04/21/24 04/21/24 History % eye drops,suspension Physical Exam Vital Signs: Vital Signs: Last Vital Signs Temp 97.1 F 04/27/24 23:44 Pulse 66 04/27/24 23:44 Resp 16 04/27/24 23:44 BP 150/70 H 04/27/24 23:44 Pulse Ox 16 L 04/27/24 23:44 O2 Del Method Room Air 04/27/24 23:44 BMI result Body Mass Index 27.4 Const: General: cooperative HEENT: Other: right facial zoster Face and sinus: Yes normal facial exam Mouth: Normal oral and palatal mucosa present Teeth and gingiva: dentition normal Eyes: General: appearance normal, both eyes and all related structures Pupils: Equal, round and reactive pupils present Resp: Effort & Inspection: normal respiratory effort Cardio: Rate: regular rate Rhythm: regular rhythm GI: Palpation (GI): Soft to palpation and nontender : General: Yes no CVA tenderness Back/Spine/Pelvis: Back: no CVA tenderness Skin: General skin exam: no rashes or lesions noted Neuro: General: moves all extremities Cranial nerves: Yes Equal, round and reactive pupils present Extrem: General: Yes normal to inspection Psych: Appearance: grossly normal Results Labs 04/22/24 05:46 04/24/24 09:54 Microbiology Microbiology Results: Microbiology 04/21/24 Unknown Urine clean catch - Clean Catch Midstream Urine Culture - Final Assessment and Plan (1) Herpes zoster: Status: Acute Plan She has right facial zoster IV Acyclovir until improved and crusting and then 10 mg/kg/8h and then po Valtrex 1 g bid Follow eye doctor outpatient. Zoster vaccine if didnt get.
[2024-04-28 03:39] VITALS: BP 130/82; PULSE 61; RESP 16; TEMP 36.1; O2SAT 97
[2024-04-28] MEDS: Omeprazole 20 MG CAPSULE.DR PO (05:53)
[2024-04-28 07:37] LABS: INTERNATIONAL NORM RATIO 2.8 (0.9-1.1); Prothrombin Time 33.5 SEC (11.1-13.3)
[2024-04-28] MEDS: Acyclovir Sodium 680 MG in 0.9 % Sodium Chloride 100 ML 113.6 MG IV (07:37)
[2024-04-28] MEDS: 0.9 % Sodium Chloride Flush 3 ML SYRINGE IVFLUSH (07:37)
[2024-04-28] MEDS: Montelukast Sodium 10 MG TABLET PO (07:37)
[2024-04-28 07:38] VITALS: BP 148/72; PULSE 63; RESP 16; TEMP 36.6; O2SAT 97
[2024-04-28] MEDS: predniSONE 20 MG TABLET PO (07:38)
[2024-04-28] MEDS: Ferrous Sulfate 324 MG TABLET.DR PO (07:38)
[2024-04-28] MEDS: modafiniL 100 MG TABLET PO (07:38)
[2024-04-28] MEDS: Valsartan 80 MG TABLET PO (07:38)
[2024-04-28] MEDS: Atorvastatin Calcium 10 MG TABLET 5 MG PO (07:38)
[2024-04-28] MEDS: Erythromycin Base 0.5% Oph Oin 1 GM TUBE 1 CM EYE-RIGHT (07:39)
[2024-04-28] MEDS: Artificial Tears 15 ML DROPS 2 DROP EYE-RIGHT (07:39)
[2024-04-28] MEDS: Folic Acid 1 MG TABLET PO (07:39)
--- NOTE | 2024-04-28 08:59 | P.DS_ITS ---
DS: Providers Provider Date of Service: 04/28/24 Date of admission: 04/21/24 16:57 Primary care physician: Victoriano Wong MD Consults: 04/23/24 11:58 Consult to Infectious Diseases Routine Consulting Provider: [facility] Reason for consultation: Disseminated Herpes ophthalmicus DS: Diagnosis Discharge Diagnosis (1) Herpes zoster: Status: Acute DS: Summary Hospital Course Hospital Course: 83-year-old woman with multiple medical problems presenting to the ER for weakness, poor appetite and facial rash. According to the patient's she went to see an customer service attendant on Sunday as she had a small wound above her eye. She was given antibiotics and sent home. Since then the rash has worsened, she has erythema and edema across her right eye and forehead area. Right eye is shut closed due to swelling, she does have severe injection to right eye, fluorescent testing completed in the ED with no signs of corneal injury. Patient denies any visual changes. She does have some areas of crusting to her forehead and it appeared that she has a herpes zoster. She was given a dose of valacyclovir in the ER, will transition to acyclovir IV with prednisone. Patient denied any recent fever, chills. She did report some mild nausea but no vomiting. No recent illness or sick contacts. She is pretty sedentary she has a history of a stroke. Calcium is noted to be elevated as well as H&H but this is likely secondary to dehydration my blood pressure is mildly elevated as well. Plan will be to admit patient for treatment of herpes zoster and failure to thrive. 83-year-old woman treated for herpes zoster of the right side of the face with periorbital involvement. She had a negative fluorescent test in the ER. She was treated with IV acyclovir for 7 days, prednisone taper now down to 20 mg for 2 more days and then 10 mg for 3 days and then stopped. She completed 7 days of erythromycin ointment. She may continue with facial tears few times a day to keep eye moist during this hospitalization there was a discussion with outpatient ophthalmology, Dr. Paul Hoyt, he was sent pictures and recommended to monitor for pupillary response and continue treatment until improvement. At this point she does have crusting to the forehead area, edema to the right eye is significantly improved, she had some blurriness of the eye but that was likely related to the erythromycin ointment that she was receiving several times a day. She feels much better and is able to see better out of her right eye. She should follow up with outpatient ophthalmology and complete treatment. Failure to thrive/fall. She had a head CT which was negative for acute intracranial process or facial fracture. She did have poor appetite likely secondary to the beginnings of the herpes zoster. At this point she has been eating and drinking well. She should follow-up with her outpatient physical therapy when her herpes zoster has completely resolved. She had some hypercalcemia initially but this was likely related to dehydration and it is resolved. She was noted to also have supratherapeutic INR, likely related to dehydration poor oral intake. Her warfarin was held for a few days but resumed and she is to continue her usual dose. Hypertension. Continue home medications Asthma. No exacerbation during hospitalization. Continue albuterol History of CVA. Continue baseline medications Mental health. Continue home medications GERD. Continue PPI Time Attestation Discharge Coordination Time (in mins): 35 Quality: Safe Use of Opioids Does Pt have an Active Cancer Diagnosis on the Problem List?: No Quality: Stroke Does the patient have a stroke diagnosis?: No Physical Exam Vital Signs: Vital Signs: Last Vital Signs Temp 97.8 F 04/28/24 07:38 Pulse 63 04/28/24 07:38 Resp 16 04/28/24 07:38 BP 148/72 H 04/28/24 07:38 Pulse Ox 97 04/28/24 07:38 O2 Del Method Room Air 04/28/24 07:38 BMI result Body Mass Index 27.4 Appearing in no acute distress head is normocephalic atraumatic eyes pupils are PERRLA sclera is anicteric mouth throat mucous membranes are intact and moist neck is supple no lymphadenopathy, no JVD noted lung sounds are clear to auscultation heart regular rate rhythm, clear S1, S2 positive bowel sounds, abdomen is soft, nontender neuro patient is alert x3, no focal deficits Significantly improved edema to right eye, crusting noted to forehead area DS: Data Data Completed and Pending Labs on day of discharge: Laboratory Results - last 24 hr 04/28/24 05:49 Hold Purple Top SEE NOTE PT 33.5 H D INR 2.8 H Discharge Plan Discharge Anticipated Discharge Date/Time: 09/16/24 07:07 Patient Disposition: Home, Self-Care Discharge Diagnosis: Herpes zoster Herpes zoster ophthalmicus Referrals: Po,Victoriano Luna MD [Primary Care Provider] - 1 Week Discharge Medications: New valacyclovir 1 gram tablet 1,000 mg PO TID Qty: 21 0RF prednisone 10 mg tablet See Taper PO DIRECTED Qty: 7 0RF Taper: Prednisone 20 mg daily for 2 Days and 0 Hour 10 mg daily for 3 Days and 0 Hour Rx Instructions: see taper instructions Artificial Tears([id number]) 1-0.2-0.2 % Drops 2 drp ophthalmic-Right QID Qty: 15 0RF Continued irbesartan 150 mg tablet 150 mg PO DAILY Qty: 90 3RF warfarin 2 mg tablet 4 mg PO DAILY Qty: 180 3RF Protocol: Dose Management Condition: Sunday (Week One) Dose/Route: 4 mg Instruction: 2 x 2 mg tablets Condition: Sunday Dose/Route: 4 mg Instruction: 2 x 2 mg tablets Condition: Sunday Dose/Route: 4 mg Instruction: 2 x 2 mg tablets Condition: Sunday Dose/Route: 4 mg Instruction: 2 x 2 mg tablets Condition: Dose/Route: 4 mg Instruction: 2 x 2 mg tablets Condition: Sunday Dose/Route: 4 mg Instruction: 2 x 2 mg tablets Condition: Sunday Dose/Route: 4 mg Instruction: 2 x 2 mg tablets Condition: Sunday (Week Two) Dose/Route: 4 mg Instruction: 2 x 2 mg tablets Condition: Sunday Dose/Route: 4 mg Instruction: 2 x 2 mg tablets Condition: Sunday Dose/Route: 4 mg Instruction: 2 x 2 mg tablets Condition: Sunday Dose/Route: 4 mg Instruction: 2 x 2 mg tablets Condition: Dose/Route: 4 mg Instruction: 2 x 2 mg tablets Condition: Sunday Dose/Route: 4 mg Instruction: 2 x 2 mg tablets Condition: Sunday Dose/Route: 4 mg Instruction: 2 x 2 mg tablets Protocol Text: Adjustment Start Date: Sunday04/07/24 INR Value: 2.5 INR Date: 04/07/24 Recheck Date: 05/05/24 ferrous sulfate 325 mg (65 mg iron) tablet 325 mg PO DAILY Qty: 90 2RF ascorbic acid (vitamin C) 500 mg capsule 500 mg PO .QD 90 Days Qty: 90 2RF folic acid 1 mg tablet 1 mg PO DAILY Qty: 90 2RF lithium carbonate 300 mg tablet extended release 300 mg PO BEDTIME 30 Days Qty: 90 3RF rosuvastatin 5 mg tablet 5 mg PO DAILY 90 Days Qty: 90 2RF montelukast [Singulair] 10 mg tablet 10 mg PO DAILY Qty: 90 3RF lamotrigine 150 mg tablet 150 mg PO DAILY 90 Days Qty: 90 1RF albuterol sulfate 90 mcg/actuation HFA aerosol inhaler 2 puff inhalation Q4-6H PRN (Reason: shortness of breath or wheezing) Qty: 2 0RF pantoprazole 40 mg tablet,delayed release (DR/EC) 40 mg PO DAILY 90 Days Qty: 90 2RF modafinil 100 mg tablet 100 mg PO DAILY Qty: 90 0RF lorazepam 0.5 mg tablet 0.5 mg PO BEDTIME PRN (Reason: anxiety) Qty: 90 0RF alendronate [Fosamax] 70 mg tablet 70 mg PO MO Discontinued tobramycin-dexamethasone 0.3-0.1 % drops,suspension 1 drp ophthalmic-Right TID Discharge Orders: Discharge Order (Routine); Ordered 04/28/24 Ordered By: Emily Luz Diet: Advance to usual diet Activity on Discharge: As tolerated Stand Alone Forms: Patient Portal Discharge page Print Language: Citizen Of [place] Care Plan Goals: Follow up with customer service attendant within 1 week Complete valacyclovir for herpes zoster/shingles Complete steroid taper To prevent spreading the virus, people with shingles can: * Keep the rash covered * Avoid touching or scratching the rash * Wash hands often * Stay away from people with weakened immune systems * Stay away from people who have not had chickenpox or the chickenpox vaccine, especially if they are * Stay away from premature or low weight babies? * A person with shingles is usually contagious until all the blisters have scabbed over, which can take?7?10 days Health Concerns: Herpes zoster Herpes zoster ophthalmicus Plan of Treatment: Follow-up with primary care provider as needed Take all medications as prescribed Assessment: See discharge summary Patient Instructions: Shingles (GEN)
--- NOTE | 2024-04-28 09:05 | MHC.CM.PN ---
pt dcd home self care
--- NOTE | 2024-04-28 11:15 | PC.NURSE ---
Jenny MEDINA completed discharge and removed IV
== END 2024-04-28 11:17 | disposition home or self-care (01) | DRG 125 ==
LOC: HO.ED 16:31 → HO.EDOVER 17:01 → HO.S3 19:44
PROVIDERS: Family Medicine; Physician Assistant; Admitting Provider Nurse Practitioner Acute Care; Emergency Provider Emergency Medicine Emergency Medical Services; PCP Internal Medicine; Visit Provider Nurse Practitioner Acute Care
DX: B02.30 Zoster ocular disease, unspecified (principal); E86.0 Dehydration; E83.52 Hypercalcemia; R79.1 Abnormal coagulation profile; I10 Essential (primary) hypertension; J45.909 Unspecified asthma, uncomplicated; K21.9 Gastro-esophageal reflux disease without esophagitis; W19.XXXA Unspecified fall, initial encounter; I69.319 Unspecified symptoms and signs involving cognitive functions following cerebral infarction; Z68.27 Body mass index [BMI] 27.0-27.9, adult; Z79.01 Long term (current) use of anticoagulants; Z79.899 Other long term (current) drug therapy
CPT/HCPCS: 36415; 70450; 70486; 71260; 72125; 74177; 80048; 80053; 81001; 82550; 83735; 85025; 85610; 87086; 99285; J0133; J2405; J7120; Q9967

== ENCOUNTER → 2024-04-21 16:57 | Outpatient (BNV) | payer MEDICARE, SELFPAY | PROVIDERS: Admitting Provider Nurse Practitioner Acute Care; Emergency Provider Emergency Medicine Emergency Medical Services; PCP Internal Medicine; Visit Provider Internal Medicine | DX: B02.9 Zoster without complications (principal) | CPT/HCPCS: 99222 ==

== ENCOUNTER → 2024-04-21 16:57 | Outpatient (BNV) | payer MEDICARE, SELFPAY | PROVIDERS: Admitting Provider Nurse Practitioner Acute Care; Emergency Provider Emergency Medicine Emergency Medical Services; PCP Internal Medicine; Visit Provider Nurse Practitioner Acute Care | DX: R62.7 Adult failure to thrive (principal); B02.9 Zoster without complications | CPT/HCPCS: 99223; 99232; 99239 ==

== ENCOUNTER 2024-05-01 13:13 | Outpatient (AMB) | payer MEDICARE, SELFPAY ==
[2024-05-01 13:17] VITALS: BP 142/76; PULSE 87; O2SAT 93; BMI 24.3
--- NOTE | 2024-05-01 13:17 | A.OFFPC_ITS ---
Vital Signs 05/01/24 13:17 Height 5 ft 2 in Weight 133 lb BMI 24.3 BP 142/76 H Blood Pressure Location Lt brachial Position Sitting Pulse 87 Pulse Source Pulse Oximeter Pulse Oximetry (%) 93 Oxygen Delivery Method Room Air Intake Visit Reasons: TCM DISCHARGE 04/28 Condominium Association Manager Required: No Accompanied by: Spouse Allergies clindamycin [CLINDAMYCIN] Allergy (Unknown, Verified 05/01/24 13:18) UNKNOWN oxycodone [OXYCODONE] Allergy (Unknown, Verified 05/01/24 13:18) UNKNOWN Penicillins [PENICILLINS] Allergy (Unknown, Verified 05/01/24 13:18) UNKNOWN seafood Allergy (Unknown, Verified 05/01/24 13:18) Anaphylaxis shellfish derived [SHELLFISH DERIVED] Allergy (Unknown, Verified 05/01/24 13:18) Anaphylaxis animal dander [ANIMAL DANDER] Adverse Reaction (Unknown, Verified 05/01/24 13:18) ITCHING, REDNESS atorvastatin [Lipitor] Adverse Reaction (Unknown, Verified 05/01/24 13:18) myalgia Tobacco use date assessed: 11/14/23 Fall risk assessment: 2 + Falls in past year Last assessed Fall Risk: 05/01/24 Dental Screening Dental Screen Date: 02/12/24 HPI TCM TCM Information Date of Discharge 04/28/24 Discharged From [facility] HPI Comments History of Present Illness Details 83 y/o female patient who presents to [facility] today for TCM. Pt was admitted at [facility] on 04/21/24 for Disseminated Herpes Ophthalmicus right eye. She was discharged home 04/28/24 on Oral Anti-viral medication plus Steroid Taper. She has an appointment with her Eye doctor next week. Today Denies vision changes, headaches or dizziness. She is accompanied by who provides most history. asking if Patient can have a Rx for Stair Lift chair, since she is very weak on her lower extremities and unable to climb or go down the stairs at home. 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) Impaired glucose tolerance Patent foramen ovale Tubular adenoma of colon History of renal calculi Hypercholesterolemia Obesity (BMI 30-39.9) Hypertension Asthma Bipolar disorder GERD (gastroesophageal reflux disease) Iron deficiency anemia History of CVA (cerebrovascular accident) Surgical History History of parathyroidectomy History of mastoidectomy Family History Father Cataract Mother Anxiety Cancer Mental health disorder Brother Lung cancer Liver cancer Sister Dementia Autoimmune disease Social History Household Members: Spouse Housing: House Do you presently have visiting nurse or other home services: No Alcohol intake: never Patient Tobacco Use Status: Never used Tobacco Tobacco use type: Cigarette e-Cigarette/Vaping Use: Never Used Second Hand Smoke Exposure: No service: No Current occupational status: retired Cognitive needs: Yes Hearing needs: No Vision needs: Yes Questionnaire PHQ-9 Over the last 2 weeks, how often have you been bothered by any of the following problems? 1. Little interest or pleasure in doing things: not at all 2. Feeling down, depressed, or hopeless: not at all 3. Trouble falling or staying asleep, or sleeping too much: not at all 4. Feeling tired or having little energy: not at all 5. Poor appetite or overeating: not at all 6. Feeling bad about yourself - or that you are a failure or have let yourself or your family down: not at all 7. Trouble concentrating on things, such as reading the newspaper or watching television: not at all 8. Moving or speaking so slowly that other people could have noticed. Or the opposite - being so fidgety or restless that you have been moving around a lot more than usual: not at all 9. Thoughts that you would be better off or of hurting yourself in some way : not at all Total score: 0 Depression Screening Interpretation: Negative Depression Screening Done: Yes Source: Developed by Drs. Francis Kim, Shelley Estrella, Miguel Morrison and colleagues, with an educational kezia from [employer]. Thrive Questionnaire Date Thrive assessed: 04/22/24 Are you currently unemployed and looking for a job?: No AUDIT C Alcohol Use Questionnaire (AUDIT-C) 1. How often do you have a drink containing alcohol?: Never 3. How often do you have six or more drinks on one occasion?: Never Total Score: 0 MARANDA-7 AMB Questionnaire MARANDA-7 Date MARANDA - 7 assessed: 02/12/24 Source: Developed by Drs. Francis Kim, Shelley Estrella, Miguel Morrison and colleagues, with an educational kezia from [employer]. Review of Systems Const All systems reviewed & are unremarkable except as noted in HPI and below Physical exam (Primary Care) Vital Signs: Last Vital Signs Pulse 87 05/01/24 13:17 BP 142/76 H 05/01/24 13:17 Pulse Ox 93 05/01/24 13:17 Oxygen Delivery Method Room Air 05/01/24 13:17 BMI result Body Mass Index 24.3 Tobacco/Smoking Status: Tobacco use Status Tobacco use date assessed 11/14/23 05/01/24 13:25 Patient Tobacco Use Status Never used Tobacco 05/01/24 13:25 Tobacco use type Cigarette 05/01/24 13:25 e-Cigarette/Vaping Use Never Used 05/01/24 13:25 PHQ-9: PHQ-9 Score PHQ-9: Total score 0 05/01/24 13:27 Depression Screening Interpretation: Negative Thrive Assessment: Date of Thrive Assessment Date Thrive assessed 04/22/24 05/01/24 13:25 Const General: cooperative and no acute distress Nutritional Appearance: obese Orientation/consciousness: patient oriented x3 Eyes Conjunctivae: conjunctival abnormal right conjunctival injection diffuse and discharge purulent Pupils: Equal, round and reactive pupils present EOM: EOMs intact bilaterally Skin Rashes: rashes noted (right orbital rash, dry and crusty looking) Neuro Other: Ambulate with 1 assist General: patient oriented x3 and moves all extremities Cranial nerves: Yes Equal, round and reactive pupils present Psych Speech and movement: Normal speech and movement present Assessment and Plan Assessment & Plan (1) Disseminated herpes simplex: Code(s): B00.7 - Disseminated herpesviral disease Plan: Managed by Size Tester. Plan Will message PCP for Stair lift chair Coding Level of Care Code TCM Mod MDM <= 14 Days Diagnoses Disseminated herpes simplex B00.7 Time Spent (min) 20 Comment Spent on Reviewing hospital notes
== END 2024-05-01 13:38 | disposition home or self-care (01) ==
PROVIDERS: PCP Internal Medicine; Visit Provider Nurse Practitioner Family
DX: B00.7 Disseminated herpesviral disease (principal)

== ENCOUNTER → 2024-05-01 13:13 | Outpatient (BNVA) | payer MEDICARE, SELFPAY | PROVIDERS: PCP Internal Medicine; Visit Provider Nurse Practitioner Family | DX: B00.7 Disseminated herpesviral disease (principal) | CPT/HCPCS: 96127; 99212 ==

== ENCOUNTER 2024-05-12 14:49 | Outpatient (AMB) | payer MEDICARE, SELFPAY ==
--- NOTE | 2024-05-12 15:02 | MHC.OFFVISCO ---
Intake Intake Visit Reasons: Anticoagulation Allergies clindamycin [CLINDAMYCIN] Allergy (Unknown, Verified 05/12/24 14:56) UNKNOWN oxycodone [OXYCODONE] Allergy (Unknown, Verified 05/12/24 14:56) UNKNOWN Penicillins [PENICILLINS] Allergy (Unknown, Verified 05/12/24 14:56) UNKNOWN seafood Allergy (Unknown, Verified 05/12/24 14:56) Anaphylaxis shellfish derived [SHELLFISH DERIVED] Allergy (Unknown, Verified 05/12/24 14:56) Anaphylaxis animal dander [ANIMAL DANDER] Adverse Reaction (Unknown, Verified 05/12/24 14:56) ITCHING, REDNESS atorvastatin [Lipitor] Adverse Reaction (Unknown, Verified 05/12/24 14:56) myalgia Medication List - Last Reconciled 05/12/24 by Piedad Diana RN albuterol sulfate 90 mcg/actuation 2 puffs inhalation Q4-6H PRN alendronate (Fosamax) 70 mg PO MO ascorbic acid (vitamin C) 500 mg PO .QD 90 days ferrous sulfate 325 mg PO DAILY folic acid 1 mg PO DAILY irbesartan 150 mg PO DAILY lamotrigine 150 mg PO DAILY 90 days lithium carbonate ER 300 mg PO BEDTIME 30 days lorazepam 0.5 mg PO BEDTIME PRN modafinil 100 mg PO DAILY montelukast (Singulair) 10 mg PO DAILY pantoprazole 40 mg PO DAILY 90 days peg [id number] 1-0.2-0.2 % (Artificial Tears ([id number])) 2 drps ophthalmic-Right QID rosuvastatin 5 mg PO DAILY 90 days [STAIR LIFT As directed] warfarin 4 mg See Protocol PO DAILY Nursing Note INR 4.2- ?? out of therapeutic range of 2-3 Medications and supplements reviewed Patient status: pt s/p inpatient hospitalization for s/p fall, dehydration and shingles- d/c 2 weeks ago per spouse Medications or supplements: pt finished pred taper and valcyclovir last week- no interaction with warfarin per micromedex Diet: appetite poor Denies any signs and symptoms of bleeding or clotting or unusual bruising Bleeding, bruising, clotting discussed Nutritional guidance given: eat dark cooked greens to lower, no reds for 2-3 days Dose: hold warfarin tomm as pt took warfarin this am- then 4mg x 7 F/U INR Date : 1 week?? Patient verbalizing understanding of instructions given. 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
[2024-05-12 15:03] LABS: ~PT, ~INR - Anti Coag Clinic 4.2 (0.9-1.1)
== END 2024-05-12 15:17 | disposition home or self-care (01) ==
LOC: HO.ACS 14:49
PROVIDERS: PCP Internal Medicine; Visit Provider Internal Medicine
DX: Z79.01 Long term (current) use of anticoagulants (principal)

== ENCOUNTER → 2024-05-12 14:49 | Outpatient (BNVA) | payer MEDICARE, SELFPAY | PROVIDERS: PCP Internal Medicine; Visit Provider Internal Medicine | DX: Z86.73 Personal history of transient ischemic attack (TIA), and cerebral infarction without residual deficits (principal); Z79.01 Long term (current) use of anticoagulants; Z51.81 Encounter for therapeutic drug level monitoring | CPT/HCPCS: 85610; 99211 ==

== ENCOUNTER 2024-05-19 11:14 | Outpatient (AMB) | payer MEDICARE, SELFPAY ==
[2024-05-19 11:54] LABS: Prothrombin Time Whole Bld POC 34.5 sec (11.1-13.5); ~PT, ~INR - Anti Coag Clinic 2.9 (0.9-1.1)
--- NOTE | 2024-05-19 12:01 | MHC.OFFVISCO ---
Intake Intake Visit Reasons: Anticoagulation Allergies clindamycin [CLINDAMYCIN] Allergy (Unknown, Verified 05/19/24 11:46) UNKNOWN oxycodone [OXYCODONE] Allergy (Unknown, Verified 05/19/24 11:46) UNKNOWN Penicillins [PENICILLINS] Allergy (Unknown, Verified 05/19/24 11:46) UNKNOWN seafood Allergy (Unknown, Verified 05/19/24 11:46) Anaphylaxis shellfish derived [SHELLFISH DERIVED] Allergy (Unknown, Verified 05/19/24 11:46) Anaphylaxis animal dander [ANIMAL DANDER] Adverse Reaction (Unknown, Verified 05/19/24 11:46) ITCHING, REDNESS atorvastatin [Lipitor] Adverse Reaction (Unknown, Verified 05/19/24 11:46) myalgia Medication List - Last Reconciled 05/19/24 by Korina Andrew RN albuterol sulfate 90 mcg/actuation 2 puffs inhalation Q4-6H PRN alendronate (Fosamax) 70 mg PO MO ascorbic acid (vitamin C) 500 mg PO .QD 90 days ferrous sulfate 325 mg PO DAILY fluticasone furoate-vilanterol 100-25 mcg/dose (Breo Ellipta) 1 ea inhalation DAILY folic acid 1 mg PO DAILY irbesartan 150 mg PO DAILY lamotrigine 150 mg PO DAILY 90 days lithium carbonate ER 300 mg PO BEDTIME 30 days lorazepam 0.5 mg PO BEDTIME PRN modafinil 100 mg PO DAILY montelukast (Singulair) 10 mg PO DAILY pantoprazole 40 mg PO DAILY 90 days peg [id number] 1-0.2-0.2 % (Artificial Tears ([id number])) 2 drps ophthalmic-Right QID rosuvastatin 5 mg PO DAILY 90 days [STAIR LIFT As directed] tobramycin-dexamethasone 0.3-0.1 % drps ophthalmic (eye) warfarin 4 mg See Protocol PO DAILY Nursing Note INR: 2.9 in therapeutic range Medications and supplements reviewed pt condition is gradually improving - appetite is improving, no pain, using eye drops Denies any signs and symptoms of bleeding or bruising or clotting. Bleeding, bruising, clotting discussed Nutritional guidance given - resume weekly greens Dose: resume usual dose as long as appetite is good 4mg daily F/U INR: 4 weeks per spouse request, he was enc to call to r/s if lack of appetite or bruising or bleeding symptoms Patient and spouse verbalizes understanding of instructions given Anti-Coag Initial Assessment Social Hx Patient Tobacco Use Status: Never used Tobacco Tobacco use type: Cigarette alcohol intake: never Alcohol intake frequency: does not drink Coding Level of Care Code Est Patient Level 1 Diagnoses Current use of anticoagulant therapy Z79.01 Results AMB INR Fingerstick AMB INR Fingerstick 2.9 Last Edit by Korina Andrew RN on 05/19/24 11:57 MANUAL ENTRY Assessment & Plan Assessment & Plan (1) Current use of anticoagulant therapy: Code(s): Z79.01 - care home (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
== END 2024-05-19 12:06 | disposition home or self-care (01) ==
LOC: HO.ACS 11:14
PROVIDERS: PCP Internal Medicine; Visit Provider Internal Medicine
DX: Z79.01 Long term (current) use of anticoagulants (principal)

== ENCOUNTER → 2024-05-19 11:14 | Outpatient (BNVA) | payer MEDICARE, SELFPAY | PROVIDERS: PCP Internal Medicine; Visit Provider Internal Medicine | DX: Z86.73 Personal history of transient ischemic attack (TIA), and cerebral infarction without residual deficits (principal); Z79.01 Long term (current) use of anticoagulants; Z51.81 Encounter for therapeutic drug level monitoring | CPT/HCPCS: 85610; 99211 ==

== ENCOUNTER 2024-06-05 11:48 | Outpatient (AMB) | payer MEDICARE, SELFPAY ==
--- NOTE | 2024-06-05 12:28 | MHC.OFFVISPS ---
Intake Intake Visit Reasons: depression Allergies clindamycin [CLINDAMYCIN] Allergy (Unknown, Verified 05/19/24 11:46) UNKNOWN oxycodone [OXYCODONE] Allergy (Unknown, Verified 05/19/24 11:46) UNKNOWN Penicillins [PENICILLINS] Allergy (Unknown, Verified 05/19/24 11:46) UNKNOWN seafood Allergy (Unknown, Verified 05/19/24 11:46) Anaphylaxis shellfish derived [SHELLFISH DERIVED] Allergy (Unknown, Verified 05/19/24 11:46) Anaphylaxis animal dander [ANIMAL DANDER] Adverse Reaction (Unknown, Verified 05/19/24 11:46) ITCHING, REDNESS atorvastatin [Lipitor] Adverse Reaction (Unknown, Verified 05/19/24 11:46) myalgia HPI- Psychiatric Chief Complaint: depression HPI Narrative: Pt seen in f/u with . The pt had recently been tx for zoster effecting her r eye . The pt has been doing ok but avoiding going outside . pt has been stable in spite of recent stress no depressive sx or manic sx . Has been somewhat avoidant of being seen by others after some mild scaring on her face Past Psychiatric History: History of bipolar disorder was stable on lithium for years until CVA Mental Status Exam Mental Status Exam Narrative: Mental Status Exam Narrative: Appearance: Casually dressed r eye mild inflammation mild r fascial scarring Behavior: Cooperative psychomotor: Slowed ambulation difficulty with balance not using cane or walker Speech: Clear some hesitation Thought proccess logical some improved processing speed Thought content: Feeling okay wishes she could function better expressing some desire for further physical rehab future oriented Mood: Mood described as okay Affect: Sears affect somewhat flat SI:denies HI:denies VH/AH:none Delusions:none Insight/judgment self concious regarding how she looked Assessment and Plan Assessment & Plan (1) Cognitive impairment: Status: Acute Code(s): R41.89 - Other symptoms and signs involving cognitive functions and awareness (2) Herpes zoster: Status: Acute Code(s): B02.9 - Zoster without complications (3) Bipolar disorder: Status: Acute Qualifiers: Active/Remission status: currently active Current bipolar episode type: mixed Current episode severity: moderate Qualified Code(s): F31.62 - Bipolar disorder, current episode mixed, moderate Code(s): F31.9 - Bipolar disorder, unspecified Plan cont modafanil lithium lamictal encourage connections with senior ctr hypercalcemia appears to have corrected Medications: Refilled lithium carbonate ER 300 mg PO BEDTIME 90 tabs 3RF 30 days modafinil 100 mg PO DAILY 90 tabs 1RF Counseling and coordination of Care Details-Self Mgmt counseling: encourage social connection ongoing interaction Medication management counseling: Effectiveness and Side effects Diagnosis and Prognosis Counseling: Problematic behaviors secondary to diagnosis and Adequacy of current interventions Details: I spent [40] minutes reviewing the record, seeing the patient and documenting in the medical record. Counseling provided to the patient/caregiver as outlined below. Addressed patient/caregiver concerns regarding current medication regime including effective adherence. Addressed patient/caregiver concerns regarding diagnosis and prognosis including accuracy of diagnosis, prognosis over time, impact of diagnosis. Addressed patient/caregiver concerns regarding impact of recent stressors. 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) Impaired glucose tolerance Patent foramen ovale Tubular adenoma of colon History of renal calculi Hypercholesterolemia Obesity (BMI 30-39.9) Hypertension Asthma Bipolar disorder GERD (gastroesophageal reflux disease) Iron deficiency anemia History of CVA (cerebrovascular accident) Surgical History History of parathyroidectomy History of mastoidectomy Family History Father Cataract Mother Anxiety Cancer Mental health disorder Brother Lung cancer Liver cancer Sister Dementia Autoimmune disease Social History Household Members: Spouse Housing: House Do you presently have visiting nurse or other home services: No Alcohol intake: never Patient Tobacco Use Status: Never used Tobacco Tobacco use type: Cigarette e-Cigarette/Vaping Use: Never Used Second Hand Smoke Exposure: No service: No Current occupational status: retired Cognitive needs: Yes Hearing needs: No Vision needs: Yes Social History: Patient has a medical history hypertension renal insufficiency glaucoma status post CVA. 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 She does have 3 children. There is a strong family history of bipolar disorder no history of alcohol or substance abuse Substance History: none Trauma History: none Coding Level of Care Code Est Pt Level 3 (03246) Therapy 30m w/E&M (51708) Diagnoses Cognitive impairment R41.89 Herpes zoster B02.9 Bipolar disorder, current episode mixed, moderate F31.62 Active/Remission status: currently active Current bipolar episode type: mixed Current episode severity: moderate
== END 2024-06-05 14:15 | disposition home or self-care (01) ==
LOC: HO.HOP 11:48
PROVIDERS: PCP Internal Medicine; Visit Provider Psychiatry & Neurology Psychiatry
DX: R41.89 Other symptoms and signs involving cognitive functions and awareness (principal); B02.9 Zoster without complications; F31.62 Bipolar disorder, current episode mixed, moderate
CPT/HCPCS: 90833; 99213

== ENCOUNTER → 2024-06-05 11:48 | Outpatient (BNVA) | payer MEDICARE, SELFPAY | PROVIDERS: PCP Internal Medicine; Visit Provider Psychiatry & Neurology Psychiatry | DX: F31.62 Bipolar disorder, current episode mixed, moderate (principal); R41.89 Other symptoms and signs involving cognitive functions and awareness; B02.9 Zoster without complications; Z71.89 Other specified counseling | CPT/HCPCS: 99212 ==

== ENCOUNTER 2024-06-16 13:14 | Outpatient (AMB) | payer MEDICARE, SELFPAY ==
--- NOTE | 2024-06-16 13:28 | MHC.OFFVISCO ---
Intake Intake Visit Reasons: Anticoagulation Allergies clindamycin [CLINDAMYCIN] Allergy (Unknown, Verified 05/19/24 11:46) UNKNOWN oxycodone [OXYCODONE] Allergy (Unknown, Verified 05/19/24 11:46) UNKNOWN Penicillins [PENICILLINS] Allergy (Unknown, Verified 05/19/24 11:46) UNKNOWN seafood Allergy (Unknown, Verified 05/19/24 11:46) Anaphylaxis shellfish derived [SHELLFISH DERIVED] Allergy (Unknown, Verified 05/19/24 11:46) Anaphylaxis animal dander [ANIMAL DANDER] Adverse Reaction (Unknown, Verified 05/19/24 11:46) ITCHING, REDNESS atorvastatin [Lipitor] Adverse Reaction (Unknown, Verified 05/19/24 11:46) myalgia Nursing Note INR: 2.6 in therapeutic range Medications and supplements reviewed still recovering from shingles on her fore head and eye- getting better- tender to touch but no constant pain, vision improving No changes in diet, medications, or supplements, Denies any signs and symptoms of bleeding or bruising or clotting. Bleeding, bruising, clotting discussed Nutritional guidance given Dose: 4mg daily F/U INR: 1 month Patient verbalizes understanding of instructions given Anti-Coag Initial Assessment Social Hx Patient Tobacco Use Status: Never used Tobacco Tobacco use type: Cigarette alcohol intake: never Alcohol intake frequency: does not drink Coding Level of Care Code Est Patient Level 1 Diagnoses Current use of anticoagulant therapy Z79.01 Results AMB INR Fingerstick AMB INR Fingerstick 2.6 Last Edit by Korina Andrew RN on 06/16/24 13:24 manual entry Assessment & Plan Assessment & Plan (1) Current use of anticoagulant therapy: Code(s): Z79.01 - 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
[2024-06-16 13:39] LABS: Prothrombin Time Whole Bld POC 31.1 sec (11.1-13.5); ~PT, ~INR - Anti Coag Clinic 2.6 (0.9-1.1)
== END 2024-06-16 13:30 | disposition home or self-care (01) ==
LOC: HO.ACS 13:14
PROVIDERS: PCP Internal Medicine; Visit Provider Internal Medicine
DX: Z79.01 Long term (current) use of anticoagulants (principal)

== ENCOUNTER → 2024-06-16 13:14 | Outpatient (BNVA) | payer MEDICARE, SELFPAY | PROVIDERS: PCP Internal Medicine; Visit Provider Internal Medicine | DX: Z86.73 Personal history of transient ischemic attack (TIA), and cerebral infarction without residual deficits (principal); Z79.01 Long term (current) use of anticoagulants; Z51.81 Encounter for therapeutic drug level monitoring | CPT/HCPCS: 85610; 99211 ==

== ENCOUNTER 2024-07-14 13:35 | Outpatient (AMB) | payer MEDICARE, SELFPAY ==
[2024-07-14 13:43] LABS: Prothrombin Time Whole Bld POC 35.7 sec (11.1-13.5)
--- NOTE | 2024-07-14 13:49 | MHC.OFFVISCO ---
Intake Intake Visit Reasons: Anticoagulation Allergies clindamycin [CLINDAMYCIN] Allergy (Unknown, Verified 07/14/24 13:36) UNKNOWN oxycodone [OXYCODONE] Allergy (Unknown, Verified 07/14/24 13:36) UNKNOWN Penicillins [PENICILLINS] Allergy (Unknown, Verified 07/14/24 13:36) UNKNOWN seafood Allergy (Unknown, Verified 07/14/24 13:36) Anaphylaxis shellfish derived [SHELLFISH DERIVED] Allergy (Unknown, Verified 07/14/24 13:36) Anaphylaxis animal dander [ANIMAL DANDER] Adverse Reaction (Unknown, Verified 07/14/24 13:36) ITCHING, REDNESS atorvastatin [Lipitor] Adverse Reaction (Unknown, Verified 07/14/24 13:36) myalgia Medication List - Last Reconciled 07/14/24 by Korina Andrew RN albuterol sulfate 90 mcg/actuation 2 puffs inhalation Q4-6H PRN alendronate (Fosamax) 70 mg PO MO ascorbic acid (vitamin C) 500 mg PO .QD 90 days ferrous sulfate 325 mg PO DAILY fluticasone furoate-vilanterol 100-25 mcg/dose (Breo Ellipta) 1 ea inhalation DAILY folic acid 1 mg PO DAILY irbesartan 150 mg PO DAILY lamotrigine 150 mg PO DAILY 90 days lithium carbonate ER 300 mg PO BEDTIME 30 days lorazepam 0.5 mg PO BEDTIME PRN modafinil 100 mg PO DAILY montelukast (Singulair) 10 mg PO DAILY pantoprazole 40 mg PO DAILY 90 days peg [id number] 1-0.2-0.2 % (Artificial Tears ([id number])) 2 drps ophthalmic-Right QID rosuvastatin 5 mg PO DAILY 90 days [STAIR LIFT As directed] tobramycin-dexamethasone 0.3-0.1 % drps ophthalmic (eye) warfarin 4 mg See Protocol PO DAILY Nursing Note INR: 3.0 in therapeutic range Medications and supplements reviewed No changes in health, diet, medications, or supplements, Denies any signs and symptoms of bleeding or bruising or clotting. Bleeding, bruising, clotting discussed Nutritional guidance given Dose: SAME F/U INR: 1 MONTH Patient verbalizes understanding of instructions given Anti-Coag Initial Assessment Social Hx Patient Tobacco Use Status: Never used Tobacco Tobacco use type: Cigarette alcohol intake: never Alcohol intake frequency: does not drink Questionnaires HAS-BLED Does the patient had uncontrolled Hypertension?: No Does the patient have renal disease?: No Does the patient have liver disease?: No Does the patient have a history of stroke?: Yes (x 2) Has the patient had major bleeding or predisposition to bleeding?: Yes Does the patient have labile INRs?: No Is the patient over 65 years of age?: Yes Is the patient on medications that gives them a predisposition to bleeding?: Yes Does the patient use alcohol?: No HAS-BLED Score: 4 CHADSVASC Age: 75 or over Gender: Female Does the patient have a history of CHF?: No Does the patient have a history of Hypertension?: Yes Does the patient have a history of Stroke/TIA/Thromboembolism?: Yes Does the patient have a history of Vascular Disease (prior SD, PAD or aortic plaque)?: No Does the patient have a history of Diabetes?: No CHADS VACS Score: 6 Deidra Prediction Score Rsk VTE Active Cancer: No Previous VTE, excluding superficial vein thrombosis: No Reduced mobility: Yes Already known Thrombophilic Condition: No With-in last month Trauma and/or Surgery: No Elderly 70 year or older: Yes Heart and/or Respiratory Failure: No Acute Myocardial infarction and/or Ischemic Stroke: Yes Acute Infection and/or Rheumatologic Disorder: No Obesity (BMI 30 or greater): Yes Ongoing Hormonal Treatment: No Score: 6 Deidra Score less than 4; Low Risk of VTE Deidra Score 4 or greater; High Risk of VTE Coding Level of Care Code Est Patient Level 1 Diagnoses Current use of anticoagulant therapy Z79.01 Assessment & Plan Assessment & Plan (1) Current use of anticoagulant therapy: Code(s): Z79.01 - snf (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
== END 2024-07-14 13:50 | disposition home or self-care (01) ==
LOC: HO.ACS 13:35
PROVIDERS: PCP Internal Medicine; Visit Provider Internal Medicine
DX: Z79.01 Long term (current) use of anticoagulants (principal)

== ENCOUNTER → 2024-07-14 13:35 | Outpatient (BNVA) | payer MEDICARE, SELFPAY | PROVIDERS: PCP Internal Medicine; Visit Provider Internal Medicine | DX: Z86.73 Personal history of transient ischemic attack (TIA), and cerebral infarction without residual deficits (principal); Z79.01 Long term (current) use of anticoagulants; Z51.81 Encounter for therapeutic drug level monitoring | CPT/HCPCS: 85610; 99211 ==

== ENCOUNTER 2024-08-18 12:59 | Outpatient (AMB) | payer MEDICARE, SELFPAY ==
[2024-08-18 13:10] LABS: Prothrombin Time Whole Bld POC 26.9 sec (11.1-13.5); ~PT, ~INR - Anti Coag Clinic 2.2 (0.9-1.1)
--- NOTE | 2024-08-18 13:16 | MHC.OFFVISCO ---
Intake Intake Visit Reasons: Anticoagulation Allergies clindamycin [CLINDAMYCIN] Allergy (Unknown, Verified 08/18/24 13:02) UNKNOWN oxycodone [OXYCODONE] Allergy (Unknown, Verified 08/18/24 13:02) UNKNOWN Penicillins [PENICILLINS] Allergy (Unknown, Verified 08/18/24 13:02) UNKNOWN seafood Allergy (Unknown, Verified 08/18/24 13:02) Anaphylaxis shellfish derived [SHELLFISH DERIVED] Allergy (Unknown, Verified 08/18/24 13:02) Anaphylaxis animal dander [ANIMAL DANDER] Adverse Reaction (Unknown, Verified 08/18/24 13:02) ITCHING, REDNESS atorvastatin [Lipitor] Adverse Reaction (Unknown, Verified 08/18/24 13:02) myalgia Medication List - Last Reconciled 08/18/24 by Korina Andrew RN albuterol sulfate 90 mcg/actuation 2 puffs inhalation Q4-6H PRN alendronate (Fosamax) 70 mg PO MO ascorbic acid (vitamin C) 500 mg PO .QD 90 days ferrous sulfate 325 mg PO DAILY fluticasone furoate-vilanterol 100-25 mcg/dose (Breo Ellipta) 1 ea inhalation DAILY folic acid 1 mg PO DAILY irbesartan 150 mg PO DAILY lamotrigine 150 mg PO DAILY 90 days lithium carbonate ER 300 mg PO BEDTIME 30 days lorazepam 0.5 mg PO BEDTIME PRN modafinil 100 mg PO DAILY montelukast (Singulair) 10 mg PO DAILY pantoprazole 40 mg PO DAILY 90 days peg [id number] 1-0.2-0.2 % (Artificial Tears ([id number])) 2 drps ophthalmic-Right QID rosuvastatin 5 mg PO DAILY 90 days [STAIR LIFT As directed] tobramycin-dexamethasone 0.3-0.1 % drps ophthalmic (eye) warfarin 4 mg See Protocol PO DAILY Nursing Note INR: 2.2 in therapeutic range Medications and supplements reviewed No changes in health, diet, medications, or supplements, Denies any signs and symptoms of bleeding or bruising or clotting. Bleeding, bruising, clotting discussed Nutritional guidance given Dose: 4MG DAILY F/U INR: 1 MONTH Patient verbalizes understanding of instructions given Anti-Coag Initial Assessment Social Hx Patient Tobacco Use Status: Never used Tobacco Tobacco use type: Cigarette alcohol intake: never Alcohol intake frequency: does not drink Coding Level of Care Code Est Patient Level 1 Diagnoses Current use of anticoagulant therapy Z79.01 Results AMB INR Fingerstick AMB INR Fingerstick 2.2 Last Edit by Korina Andrew RN on 08/18/24 13:12 manual entry Assessment & Plan Assessment & Plan (1) Current use of anticoagulant therapy: Code(s): Z79.01 - [facility] (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
== END 2024-08-18 13:18 | disposition home or self-care (01) ==
LOC: HO.ACS 12:59
PROVIDERS: PCP Internal Medicine; Visit Provider Internal Medicine
DX: Z79.01 Long term (current) use of anticoagulants (principal)

== ENCOUNTER → 2024-08-18 12:59 | Outpatient (BNVA) | payer MEDICARE, SELFPAY | PROVIDERS: PCP Internal Medicine; Visit Provider Internal Medicine | DX: Z86.73 Personal history of transient ischemic attack (TIA), and cerebral infarction without residual deficits (principal); Z79.01 Long term (current) use of anticoagulants; Z51.81 Encounter for therapeutic drug level monitoring | CPT/HCPCS: 85610; 99211 ==

== ENCOUNTER 2024-09-15 15:40 | Outpatient (AMB) | payer MEDICARE, SELFPAY ==
--- NOTE | 2024-09-15 16:10 | A.OFFPC_ITS ---
Vital Signs 09/15/24 16:22 Height 5 ft 2 in Weight 145 lb 8 oz BMI 26.6 BP 120/60 Blood Pressure Location Lt brachial Position Sitting Pulse 92 Pulse Source Pulse Oximeter Temp 97.3 F Temp Source Skin Pulse Oximetry (%) 96 Oxygen Delivery Method Room Air Intake Visit Reasons: 3 Month Follow Up Intake Note: Patient is here to follow up on HTN, Asthma. Cadmium Burner Required: No Refrigeration Specialist: Present Accompanied by: Spouse Allergies clindamycin [CLINDAMYCIN] Allergy (Unknown, Verified 09/15/24 16:21) UNKNOWN oxycodone [OXYCODONE] Allergy (Unknown, Verified 09/15/24 16:21) UNKNOWN Penicillins [PENICILLINS] Allergy (Unknown, Verified 09/15/24 16:21) UNKNOWN seafood Allergy (Unknown, Verified 09/15/24 16:21) Anaphylaxis shellfish derived [SHELLFISH DERIVED] Allergy (Unknown, Verified 09/15/24 16:21) Anaphylaxis animal dander [ANIMAL DANDER] Adverse Reaction (Unknown, Verified 09/15/24 16:21) ITCHING, REDNESS atorvastatin [Lipitor] Adverse Reaction (Unknown, Verified 09/15/24 16:21) myalgia Tobacco use date assessed: 09/15/24 Fall risk assessment: No Falls in past year Last assessed Fall Risk: 09/15/24 Dental Screening Dental Screen Date: 09/15/24 Did you have a dental visit in the last 12 months?: No Did you have a dental problem in the last 6 months where you did not have access to dental care?: No Was dental information given to patient?: Patient has dentist HPI 3 Month Follow Up HPI Details 83-year-old overweight female with a his tory of impaired glucose tolerance nephrolithiasis hypercholesterolemia hypertension asthma bipolar disorder and GERD patient did have iron deficiency anemia and is better. Patient has a history of CVA also. Patient was last seen in February. Patient was in the hospital in February for zoster ophthalmicus. From then on has cleared up although has some pain still on the right eye and right side of the forehead. Patient also follows up with Dr. Garcia psychiatrist and continuing with present medication. [facility] Medical History Gait instability Breast cancer screening Colon cancer screening 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) Impaired glucose tolerance Patent foramen ovale Tubular adenoma of colon History of renal calculi Hypercholesterolemia Obesity (BMI 30-39.9) Hypertension Asthma Bipolar disorder GERD (gastroesophageal reflux disease) Iron deficiency anemia History of CVA (cerebrovascular accident) Surgical History History of parathyroidectomy History of mastoidectomy Family History Father Cataract Mother Anxiety Cancer Mental health disorder Brother Lung cancer Liver cancer Sister Dementia Autoimmune disease Social History Household Members: Spouse Housing: House Do you presently have visiting nurse or other home services: No Alcohol intake: never Patient Tobacco Use Status: Never used Tobacco Tobacco use type: Cigarette e-Cigarette/Vaping Use: Never Used Second Hand Smoke Exposure: No service: No Current occupational status: retired Cognitive needs: Yes Hearing needs: Yes (Hearing aide) Vision needs: Yes Questionnaire PHQ-9 Over the last 2 weeks, how often have you been bothered by any of the following problems? 1. Little interest or pleasure in doing things: not at all 2. Feeling down, depressed, or hopeless: not at all 3. Trouble falling or staying asleep, or sleeping too much: not at all 4. Feeling tired or having little energy: not at all 5. Poor appetite or overeating: not at all 6. Feeling bad about yourself - or that you are a failure or have let yourself or your family down: not at all 7. Trouble concentrating on things, such as reading the newspaper or watching television: not at all 8. Moving or speaking so slowly that other people could have noticed. Or the opposite - being so fidgety or restless that you have been moving around a lot more than usual: not at all 9. Thoughts that you would be better off or of hurting yourself in some way: not at all Total score: 0 Depression Screening Interpretation: Negative Depression Screening Done: Yes Source: Developed by Drs. Francis Kim, Shelley Estrella, Miguel Morrison and colleagues, with an educational kezia from [employer]. Thrive Questionnaire Date Thrive assessed: 09/15/24 I am a: Patient What is your living situation today?: I have a steady place to live Within the past 12 months, did the food you bought not last and you didn't have the money to get more?: Never true Within the past 12 months, did you worry whether your food would run out before you got money to buy more?: Never true Do you have trouble paying for medicines?: No Do you have trouble getting transportation to medical appointments?: No Do you have trouble paying your heating and electricity bill?: No Do you have trouble taking care of your child, family member or friend?: No Do you have trouble with day-to-day activities such as bathing, preparing meals, shopping, managing finances, etc.?: No Are you currently unemployed and looking for a job?: No Are you interested in more education?: No Please select the resources that you would like help with: None Currently or been in a relationship where the following occur: No concerns repo rted THRIVE Score: 0 AUDIT C Alcohol Use Questionnaire (AUDIT-C) 1. How often do you have a drink containing alcohol?: Never Total Score: 0 MARANDA-7 AMB Questionnaire MARANDA-7 Date MARANDA - 7 assessed: 09/15/24 Feeling nervous, anxious, or on edge: 0 = Not at all Not being able to stop or control worryin = Not at all Worrying too much about different things: 0 = Not at all Trouble relaxin = Not at all Being so restless that it is hard to sit still: 0 = Not at all Becoming easily annoyed or irritable: 0 = Not at all Feeling afraid as if something awful might happen: 0 = Not at all Total MARANDA-7 score (0-4 normal; 5-9 mild; 10-14 moderate; 15-21 severe): 0 Source: Developed by Drs. Francis Kim, Shelley Estrella, Miguel Morrison and colleagues, with an educational kezia from [employer]. Physical exam (Primary Care) Vital Signs: Last Vital Signs Temp 97.3 F 09/15/24 16:22 Pulse 92 09/15/24 16:22 BP 120/60 09/15/24 16:22 Pulse Ox 96 09/15/24 16:22 Oxygen Delivery Method Room Air 09/15/24 16:22 BMI result Body Mass Index 26.6 Tobacco/Smoking Status: Tobacco use Status Tobacco use date assessed 09/15/24 09/15/24 16:28 Patient Tobacco Use Status Never used Tobacco 09/15/24 16:10 Tobacco use type Cigarette 09/15/24 16:10 e-Cigarette/Vaping Use Never Used 09/15/24 16:10 PHQ-9: PHQ-9 Score PHQ-9: Total score 0 09/15/24 16:28 Depression Screening Interpretation: Negative Thrive Assessment: Date of Thrive Assessment Date Thrive assessed 09/15/24 09/15/24 16:28 Currently or been in a relationship where the following occur: No concerns reported Const General: alert; No acute distress Eyes Conjunctivae: conjunctivae normal Resp Auscultation: clear to auscultation bilaterally Cardio Rate: regular rate Rhythm: regular rhythm GI Inspection: Yes normal to inspection Extrem General: Yes normal to inspection and No edema Coding Level of Care Code Est Pt Level 4 (66745) Diagnoses Herpes zoster B02.9 Impaired glucose tolerance R73.02 Hypercholesterolemia E78.00 Essential hypertension I10 Hypertension type: essential hypertension Bipolar disorder, current episode mixed, moderate F31.62 Active/Remission status: currently active Current bipolar episode type: mixed Current episode severity: moderate Mild intermittent asthma without complication J45.20 Asthma severity: mild Asthma persistence: intermittent Asthma complication type: uncomplicated Assessment & Plan Assessment & Plan (1) Herpes zoster: Comment: R eye Code(s): B02.9 - Zoster without complications Category: Medical Plan: Resolved but the pain still has some problem but better. (2) Impaired glucose tolerance: Code(s): R73.02 - Impaired glucose tolerance (oral) Category: Medical Plan: Decrease the amount of carbohydrate intake, pasta, bread, rice and potatoes are all sugar and that is aside from all the sweet stuff, remember that fruits are good but they are Sweet also. 04/01/2024 last blood work (3) Hypercholesterolemia: Code(s): E78.00 - Pure hypercholesterolemia, unspecified Category: Medical Plan: Avoid fried foods, chicken skin, eggs, butter margarine, pastries and meat. Be it pork or beef they have a lot of cholesterol continuing on rosuvastatin (4) Hypertension: Code(s): I10 - Essential (primary) hypertension Category: Medical Qualifiers: Hypertension type: essential hypertension Qualified Code(s): I10 - Essential (primary) hypertension Plan: Continue with blood pressure medication. Decrease salt intake and exercise on irbesartan 150 mg once a day (5) Bipolar disorder: Comment: Dr. Garcia psychiatrist Code(s): F31.9 - Bipolar disorder, unspecified Category: Medical Qualifiers: Active/Remission status: currently active Current bipolar episode type: mixed Current episode severity: moderate Qualified Code(s): F31.62 - Bipolar disorder, current episode mixed, moderate Plan: Continue with counseling and therapy. (6) Asthma: Comment: PFT January 2018 Code(s): J45.909 - Unspecified asthma, uncomplicated Category: Medical Qualifiers: Asthma severity: mild Asthma persistence: intermittent Asthma complication type: uncomplicated Qualified Code(s): J45.20 - Mild intermittent asthma, uncomplicated Plan: Discussed about the use of the albuterol inhaler and as needed medication and Breo for control. Continuing to be taking Singulair
[2024-09-15 16:22] VITALS: BP 120/60; PULSE 92; TEMP 36.3; O2SAT 96; BMI 26.6
== END 2024-09-15 17:01 | disposition home or self-care (01) ==
PROVIDERS: PCP Internal Medicine; Visit Provider Internal Medicine
DX: I10 Essential (primary) hypertension (principal); F31.62 Bipolar disorder, current episode mixed, moderate; B02.9 Zoster without complications; R73.02 Impaired glucose tolerance (oral); E78.00 Pure hypercholesterolemia, unspecified; J45.20 Mild intermittent asthma, uncomplicated

== ENCOUNTER → 2024-09-15 15:40 | Outpatient (BNVA) | payer MEDICARE, SELFPAY | PROVIDERS: PCP Internal Medicine; Visit Provider Internal Medicine | DX: B02.9 Zoster without complications (principal); R73.02 Impaired glucose tolerance (oral); E78.00 Pure hypercholesterolemia, unspecified; I10 Essential (primary) hypertension; F31.62 Bipolar disorder, current episode mixed, moderate; J45.20 Mild intermittent asthma, uncomplicated | CPT/HCPCS: 99212 ==

== ENCOUNTER 2024-09-16 13:02 | Outpatient (AMB) | payer MEDICARE, SELFPAY ==
[2024-09-16 13:14] LABS: ~PT, ~INR - Anti Coag Clinic 2.7 (0.9-1.1)
--- NOTE | 2024-09-16 13:17 | MHC.OFFVISCO ---
Intake Intake Visit Reasons: Anticoagulation Allergies clindamycin [CLINDAMYCIN] Allergy (Unknown, Verified 09/16/24 13:09) UNKNOWN oxycodone [OXYCODONE] Allergy (Unknown, Verified 09/16/24 13:09) UNKNOWN Penicillins [PENICILLINS] Allergy (Unknown, Verified 09/16/24 13:09) UNKNOWN seafood Allergy (Unknown, Verified 09/16/24 13:09) Anaphylaxis shellfish derived [SHELLFISH DERIVED] Allergy (Unknown, Verified 09/16/24 13:09) Anaphylaxis animal dander [ANIMAL DANDER] Adverse Reaction (Unknown, Verified 09/16/24 13:09) ITCHING, REDNESS atorvastatin [Lipitor] Adverse Reaction (Unknown, Verified 09/16/24 13:09) myalgia Medication List - Last Reconciled 09/16/24 by Silvia Parker, RN albuterol sulfate 90 mcg/actuation 2 puffs inhalation Q4-6H PRN alendronate (Fosamax) 70 mg PO MO ascorbic acid (vitamin C) 500 mg PO .QD 90 days ferrous sulfate 325 mg PO DAILY fluticasone furoate-vilanterol 100-25 mcg/dose (Breo Ellipta) 1 ea inhalation DAILY folic acid 1 mg PO DAILY irbesartan 150 mg PO DAILY lamotrigine 150 mg PO DAILY 90 days lithium carbonate ER 300 mg PO BEDTIME 30 days lorazepam 0.5 mg PO BEDTIME PRN modafinil 100 mg PO DAILY montelukast (Singulair) 10 mg PO DAILY moxifloxacin 0.5% 1 drp ophthalmic-Right QID pantoprazole 40 mg PO DAILY 90 days peg [id number]-[id number] 1-0.2-0.2 % (Artificial Tears ([id number])) 2 drps ophthalmic-Right QID rosuvastatin 5 mg PO DAILY 90 days [STAIR LIFT As directed] tobramycin-dexamethasone 0.3-0.1 % drps ophthalmic (eye) warfarin 4 mg See Protocol PO DAILY Nursing Note Pt to ACS accompanied by INR: 2.7 in therapeutic range of 2-3 Medications and supplements reviewed No changes in health, diet, medications, or supplements, Denies any signs and symptoms of bleeding or bruising or clotting. Bleeding, bruising, clotting discussed Nutritional guidance given Dose: 4mg daily F/U INR: 4 weeks Patient verbalizes understanding of instructions given Anti-Coag Initial Assessment Social Hx Patient Tobacco Use Status: Never used Tobacco Tobacco use type: Cigarette alcohol intake: never Alcohol intake frequency: does not drink Coding Level of Care Code Est Patient Level 1 Diagnoses Current use of anticoagulant therapy Z79.01 Assessment & Plan Assessment & Plan (1) Current use of anticoagulant therapy: Code(s): Z79.01 - [facility] (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
== END 2024-09-16 13:18 | disposition home or self-care (01) ==
LOC: HO.ACS 13:02
PROVIDERS: PCP Internal Medicine; Visit Provider Internal Medicine
DX: Z79.01 Long term (current) use of anticoagulants (principal)

== ENCOUNTER → 2024-09-16 13:02 | Outpatient (BNVA) | payer MEDICARE, SELFPAY | PROVIDERS: PCP Internal Medicine; Visit Provider Internal Medicine | DX: Z86.73 Personal history of transient ischemic attack (TIA), and cerebral infarction without residual deficits (principal); Z79.01 Long term (current) use of anticoagulants; Z51.81 Encounter for therapeutic drug level monitoring | CPT/HCPCS: 85610; 99211 ==

== ENCOUNTER 2024-09-22 15:08 | Outpatient (AMB) | payer MEDICARE, SELFPAY ==
--- NOTE | 2024-09-22 15:46 | A.OFFPSYCH_ITS ---
Intake Intake Visit Reasons: depression Allergies clindamycin [CLINDAMYCIN] Allergy (Unknown, Verified 09/16/24 13:23) UNKNOWN oxycodone [OXYCODONE] Allergy (Unknown, Verified 09/16/24 13:23) UNKNOWN Penicillins [PENICILLINS] Allergy (Unknown, Verified 09/16/24 13:23) UNKNOWN seafood Allergy (Unknown, Verified 09/16/24 13:23) Anaphylaxis shellfish derived [SHELLFISH DERIVED] Allergy (Unknown, Verified 09/16/24 13:23) Anaphylaxis animal dander [ANIMAL DANDER] Adverse Reaction (Unknown, Verified 09/16/24 13:23) ITCHING, REDNESS atorvastatin [Lipitor] Adverse Reaction (Unknown, Verified 09/16/24 13:23) myalgia Medication List - Last Reconciled 09/22/24 by Emilio Garcia MD albuterol sulfate 90 mcg/actuation 2 puffs inhalation Q4-6H PRN alendronate (Fosamax) 70 mg PO MO ascorbic acid (vitamin C) 500 mg PO .QD 90 days ferrous sulfate 325 mg PO DAILY fluticasone furoate-vilanterol 100-25 mcg/dose (Breo Ellipta) 1 ea inhalation DAILY folic acid 1 mg PO DAILY irbesartan 150 mg PO DAILY lamotrigine 150 mg PO DAILY 90 days lithium carbonate ER 300 mg PO BEDTIME 30 days lorazepam 0.5 mg PO BEDTIME PRN modafinil 100 mg PO DAILY montelukast (Singulair) 10 mg PO DAILY moxifloxacin 0.5% 1 drp ophthalmic-Right QID pantoprazole 40 mg PO DAILY 90 days peg [id number] 1-0.2-0.2 % (Artificial Tears ([id number])) 2 drps ophthalmic-Right QID rosuvastatin 5 mg PO DAILY 90 days [STAIR LIFT As directed] tobramycin-dexamethasone 0.3-0.1 % drps ophthalmic (eye) warfarin 4 mg See Protocol PO DAILY HPI- Psychiatric Chief Complaint: depression HPI Narrative: The patient seen psychiatric follow-up with her . She has been somewhat apathetic recently recovering from a viral illness. No manic symptoms mild dysphoria and periods of apathy. Patient continues to go to the senior center she is leaving the house were frequently than she has in the past but generally only when her is around. Patient continues on Lamictal modafinil low- dose lithium. Some of patient's low motivation mild dysphoria may relate to chronic vision issues that she has been having since she herpes I infection as part of shingles Past Psychiatric History: History of bipolar disorder was stable on lithium for years until CVA Mental Status Exam Mental Status Exam Narrative: Mental Status Exam Narrative: Appearance: Casually dressed r eye mild inflammation mild r fascial scarring Behavior: Cooperative psychomotor: Slowed ambulation difficulty with balance not using cane or walker Speech: Clear some hesitation Thought proccess logical some improved processing speed Thought content: Feeling okay wishes she could function better expressing some desire for further physical rehab future oriented Mood: Mood described as okay Affect: Sears affect somewhat flat SI:denies HI:denies VH/AH:none Delusions:none Insight/judgment self concious regarding how she looked Assessment and Plan Assessment & Plan (1) Bipolar disorder: Status: Acute Qualifiers: Active/Remission status: currently active Current bipolar episode type: mixed Current episode severity: moderate Qualified Code(s): F31.62 - Bipolar disorder, current episode mixed, moderate Code(s): F31.9 - Bipolar disorder, unspecified (2) Herpes zoster: Status: Acute Code(s): B02.9 - Zoster without complications (3) 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): Status: Acute Code(s): I69.319 - Unspecified symptoms and signs involving cognitive functions following cerebral infarction (4) Gait instability: Status: Acute Code(s): R26.81 - Unsteadiness on feet Plan Consider change from modafinil 2 are modafinil check lithium level CBC comprehensive metabolic panel referred for PT evaluation and treatment Medications: Refilled modafinil 100 mg PO DAILY 90 tabs 0RF Orders: Orders Complete Blood Count Auto Diff 09/22/24 F31.62 - Bipolar disorder, current episode mixed, moderate Rudolph 09/22/24 F31.62 - Bipolar disorder, current episode mixed, moderate PT Evaluation and Treatment 09/22/24 Z86.73 - Personal history of transient ischemic attack (TIA), and cerebral infarction without residual deficits, R26.81 - Unsteadiness on feet Comprehensive [place]. Panel Fast 09/22/24 F31.62 - Bipolar disorder, current episode mixed, moderate Counseling and coordination of Care Pt. Self Management counseling: Behavior activation Details-Self Mgmt counseling: Issues related to motivational difficulties quality of life Diagnosis and Prognosis Counseling: Impact of family relationship, Problematic behaviors secondary to diagnosis and Adequacy of current interventions Details: I spent [38 minutes reviewing the record, seeing the patient and documenting in the medical record. Counseling provided to the patient/caregiver as outlined below. Addressed patient/caregiver concerns regarding current medication regime including effective adherence. Addressed patient/caregiver concerns regarding diagnosis and prognosis including accuracy of diagnosis, prognosis over time, impact of diagnosis. Addressed patient/caregiver concerns regarding impact of recent stressors. [facility] Medical History Gait instability Breast cancer screening Colon cancer screening 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) Impaired glucose tolerance Patent foramen ovale Tubular adenoma of colon History of renal calculi Hypercholesterolemia Obesity (BMI 30-39.9) Hypertension Asthma Bipolar disorder GERD (gastroesophageal reflux disease) Iron deficiency anemia History of CVA (cerebrovascular accident) Surgical History History of parathyroidectomy History of mastoidectomy Family History Father Cataract Mother Anxiety Cancer Mental health disorder Brother Lung cancer Liver cancer Sister Dementia Autoimmune disease Social History Household Members: Spouse Housing: House Do you presently have visiting nurse or other home services: No Alcohol intake: never Patient Tobacco Use Status: Never used Tobacco Tobacco use type: Cigarette e-Cigarette/Vaping Use: Never Used Second Hand Smoke Exposure: No service: No Current occupational status: retired Cognitive needs: Yes Hearing needs: Yes (Hearing aide) Vision needs: Yes Social History: Patient has a medical history hypertension renal insufficiency glaucoma status post CVA. 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 She does have 3 children. There is a strong family history of bipolar disorder no history of alcohol or substance abuse Substance History: none Trauma History: none Coding Level of Care Code Est Pt Level 3 (76846) Therapy 30m w/E&M (28097) Diagnoses Bipolar disorder, current episode mixed, moderate F31.62 Active/Remission status: currently active Current bipolar episode type: mixed Current episode severity: moderate Herpes zoster B02.9 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) I69.319 Gait instability R26.81
--- OUTSIDE RECORDS SUMMARY | 2024-09-22 16:14 | XMS_ITS | Patient Health Record ---
Author Organization [facility] Address [address] [place] [address] Care Team Providers Care Missileman Name Role Phone Victoriano Wong MD Primary Care Provider Ward Chandra Jr Unavailable [phone] Toñito FRANK, Vivek Unavailable Unavailable ALLERGIES Allergen (clinical drug ingredient) Drug/Non Drug Allergy documented on EMR Reaction Allergy Type Onset Date Status Penicillin Unknown Drug Allergy Active oxycodone Oxycodone HCl Unknown Drug Allergy Act angella clindamycin Clindamycin HCl Unknown Drug Allergy Active dogs,cats, sea food (uncoded) Unknown Allergy Active REASON FOR REFERRAL No Information MEDICATIONS Medication SIG (Take, Route, Fr equency, Duration) Notes Start Date End Date Status albuterol Active Flonase Active nexium Active Advair Diskus Active ZyrTEC Active Singulair Active Benicar Active Vitamin D3 Active Latanoprost Active KlonoPIN Active [place] Carbonate Ac tive SOCIAL HISTORY Sex Assigned At : Social History Observation Description Sex Assigned At Unknown PROBLEMS Problem Type ICD Code Onset Dates Problem Status W/U Status Risk SNOMED Code Notes Problem Family history of colorectal cancer (Z80.0) Active confirmed 5077099671221 Problem Encounter for screening for malignant neoplasm of colon (Z12.11) Active confirmed 314349134 Problem Encounter for screening for malignant neoplasm of rectum (Z12.12) Active confirmed Screening fo r malignant neoplasm of rectum (929258890) Problem History of adenomatous polyp of colon (Z86.010) Active confirmed 752744147 Problem Preprocedural examination (Z01.818) Active confirmed 95066436 PLAN OF TREATMENT Future Test Test Name Order Date COLONOSCOPY 06/13/2016 Insurance Providers Payer Name Payer Address Payer Phone Subscriber Number Group Number Insured Name Patient Relationship to Insured Coverage Start Date Coverage End Date [facility] [address] [place], [place] [id number] BRANDIE SANFORD Self - patient is the insured MEDICAL (GENERAL) HISTORY Medical History History ICD Code Colonoscopy 04-10-2011--2 tub ular adenomas removed, diverticulosis, internal hemorrhoids; neg. colonoscopy in 2004 Asthma Bipolar disease Allergies Denies [place],DM,CVA,renal disease Kidney stones--ESWL Glaucoma HTN Surgical History Surgery Date(Month/Year) mastoidectomy right ear 1955 parathyroid surgery 11/24/2009 peripheral Iridotomy left eye 11/14/2013 peripheral Iridotomy right eye 2013 trabeculectomy left eye 03/2016
== END 2024-09-22 15:42 | disposition home or self-care (01) ==
LOC: HO.HOP 15:08
PROVIDERS: PCP Internal Medicine; Visit Provider Psychiatry & Neurology Psychiatry
DX: F31.62 Bipolar disorder, current episode mixed, moderate (principal); B02.9 Zoster without complications; I69.319 Unspecified symptoms and signs involving cognitive functions following cerebral infarction; R26.81 Unsteadiness on feet
CPT/HCPCS: 90833; 99213

== ENCOUNTER → 2024-09-22 15:08 | Outpatient (BNVA) | payer MEDICARE, SELFPAY | PROVIDERS: PCP Internal Medicine; Visit Provider Psychiatry & Neurology Psychiatry | DX: F31.62 Bipolar disorder, current episode mixed, moderate (principal); B02.9 Zoster without complications; R26.81 Unsteadiness on feet; I69.319 Unspecified symptoms and signs involving cognitive functions following cerebral infarction | CPT/HCPCS: 99212 ==

== ENCOUNTER 2024-10-13 13:00 | Outpatient (AMB) | payer MEDICARE, SELFPAY ==
[2024-10-13 13:20] LABS: Prothrombin Time Whole Bld POC 30.9 sec (11.1-13.5); ~PT, ~INR - Anti Coag Clinic 2.6 (0.9-1.1)
--- NOTE | 2024-10-13 13:24 | MHC.OFFVISCO ---
Intake Intake Visit Reasons: Anticoagulation Allergies clindamycin [CLINDAMYCIN] Allergy (Unknown, Verified 10/13/24 13:13) UNKNOWN oxycodone [OXYCODONE] Allergy (Unknown, Verified 10/13/24 13:13) UNKNOWN Penicillins [PENICILLINS] Allergy (Unknown, Verified 10/13/24 13:13) UNKNOWN seafood Allergy (Unknown, Verified 10/13/24 13:13) Anaphylaxis shellfish derived [SHELLFISH DERIVED] Allergy (Unknown, Verified 10/13/24 13:13) Anaphylaxis animal dander [ANIMAL DANDER] Adverse Reaction (Unknown, Verified 10/13/24 13:13) ITCHING, REDNESS atorvastatin [Lipitor] Adverse Reaction (Unknown, Verified 10/13/24 13:13) myalgia Medication List - Last Reconciled 10/13/24 by Korina Andrew RN albuterol sulfate 90 mcg/actuation 2 puffs inhalation Q4-6H PRN alendronate (Fosamax) 70 mg PO MO ascorbic acid (vitamin C) 500 mg PO .QD 90 days ferrous sulfate 325 mg orally x 1 day/ week; fluticasone furoate-vilanterol 100-25 mcg/dose (Breo Ellipta) 1 ea inhalation DAILY folic acid 1 mg PO DAILY irbesartan 150 mg PO DAILY lamotrigine 150 mg PO DAILY 90 days lithium carbonate ER 300 mg PO BEDTIME 30 days lorazepam 0.5 mg PO BEDTIME PRN modafinil 100 mg PO DAILY montelukast (Singulair) 10 mg PO DAILY moxifloxacin 0.5% 1 drp ophthalmic-Right QID pantoprazole 40 mg PO DAILY 90 days peg [id number] 1-0.2-0.2 % (Artificial Tears ([id number])) 2 drps ophthalmic-Right QID rosuvastatin 5 mg PO DAILY 90 days [STAIR LIFT As directed] tobramycin-dexamethasone 0.3-0.1 % drps ophthalmic (eye) warfarin 4 mg See Protocol PO DAILY Nursing Note INR: 2.6 in therapeutic range Medications and supplements reviewed No changes in health, diet, medications, or supplements, Denies any signs and symptoms of bleeding or bruising or clotting. Bleeding, bruising, clotting discussed Nutritional guidance given Dose: 4MG DAILY F/U INR: 1 MONTH Patient verbalizes understanding of instructions given Anti-Coag Initial Assessment Social Hx Patient Tobacco Use Status: Never used Tobacco Tobacco use type: Cigarette alcohol intake: never Alcohol intake frequency: does not drink Coding Level of Care Code Est Patient Level 1 Diagnoses Current use of anticoagulant therapy Z79.01 Results AMB INR Fingerstick AMB INR Fingerstick 2.6 Last Edit by Korina Andrew RN on 10/13/24 13:22 manual entry Assessment & Plan Assessment & Plan (1) Current use of anticoagulant therapy: Code(s): Z79.01 - [facility] (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 Medications: Changed From ferrous sulfate 325 mg PO DAILY 90 tabs 2RF To ferrous sulfate 325 mg orally x 1 day/ week;
--- OUTSIDE RECORDS SUMMARY | 2024-10-13 15:14 | XMS_ITS | Patient Health Record ---
Author Organization [facility] Address [address] [place] [address] Care Team Providers Care Coil Machine Supervisor Name Role Phone Victoriano Wong MD Primary Care Provider Ward Chandra Jr Unavailable Toñito FRANK, Vivek Unavailable Unavailable ALLERGIES Allergen [...] Vitamin D3 Active Latanoprost Active KlonoPIN Active [place] Carbonate Ac tive SOCIAL HISTORY Sex Assigned At : Social History Observation Description Sex Assigned At Unknown PROBLEMS Problem Type ICD Code Onset Dates Problem Status W/U Status Risk SNOMED Code Notes Problem Encounter for screening for malignant neoplasm of colon (Z12.11) Active confirmed 242359281 Problem History of adenomatous polyp of colon (Z86.010) Active confirmed 327493166 Problem Encounter for screening for malignant neoplasm of rectum (Z12.12) Active confirmed Screening fo r malignant neoplasm of rectum (633592105) Problem Preprocedural examination (Z01.818) Active confirmed 04165831 Problem Family history of colorectal cancer (Z80.0) Active confirmed [id number] PLAN OF TREATMENT Future Test Test Name Order Date COLONOSCOPY 06/13/2016 Insurance Providers Payer Name Payer Address Payer Phone Subscriber Number Group Number Insured Name Patient Relationship to Insured Coverage Start Date Coverage End Date [facility] [address] [place], [place] [id number] [phone] [id number] BRANDIE SANFORD Self - patient is the insured MEDICAL (GENERAL) HISTORY Medical History History ICD Code Colonoscopy 04-10-2011--2 tub ular adenomas removed, diverticulosis, internal hemorrhoids; neg. colonoscopy in 2004 Asthma Bipolar disease Allergies Denies [place],DM,CVA,renal disease Kidney stones--ESWL Glaucoma HTN Surgical History Surgery Date(Month/Year) mastoidectomy right ear 1955 parathyroid surgery 11/24/2009 peripheral Iridotomy left eye 11/14/2013 peripheral Iridotomy right eye 2013 trabeculectomy left eye 03/2016
== END 2024-10-13 13:25 | disposition home or self-care (01) ==
LOC: HO.ACS 13:00
PROVIDERS: PCP Internal Medicine; Visit Provider Internal Medicine
DX: Z79.01 Long term (current) use of anticoagulants (principal)

== ENCOUNTER → 2024-10-13 13:00 | Outpatient (BNVA) | payer MEDICARE, SELFPAY | PROVIDERS: PCP Internal Medicine; Visit Provider Internal Medicine | DX: Z86.73 Personal history of transient ischemic attack (TIA), and cerebral infarction without residual deficits (principal); Z79.01 Long term (current) use of anticoagulants; Z51.81 Encounter for therapeutic drug level monitoring | CPT/HCPCS: 85610; 99211 ==

== ENCOUNTER 2024-11-17 13:01 | Outpatient (AMB) | payer MEDICARE, SELFPAY ==
[2024-11-17 13:08] LABS: Prothrombin Time Whole Bld POC 34.1 sec (11.1-13.5); ~PT, ~INR - Anti Coag Clinic 2.8 (0.9-1.1)
--- NOTE | 2024-11-17 13:09 | MHC.OFFVISCO ---
Intake Intake Visit Reasons: Anticoagulation Allergies clindamycin [CLINDAMYCIN] Allergy (Unknown, Verified 11/17/24 13:01) UNKNOWN oxycodone [OXYCODONE] Allergy (Unknown, Verified 11/17/24 13:01) UNKNOWN Penicillins [PENICILLINS] Allergy (Unknown, Verified 11/17/24 13:01) UNKNOWN seafood Allergy (Unknown, Verified 11/17/24 13:01) Anaphylaxis shellfish derived [SHELLFISH DERIVED] Allergy (Unknown, Verified 11/17/24 13:01) Anaphylaxis animal dander [ANIMAL DANDER] Adverse Reaction (Unknown, Verified 11/17/24 13:01) ITCHING, REDNESS atorvastatin [Lipitor] Adverse Reaction (Unknown, Verified 11/17/24 13:01) myalgia Medication List - Last Reconciled 11/17/24 by Silvia Parker, RN albuterol sulfate 90 mcg/actuation 2 puffs inhalation Q4-6H PRN alendronate (Fosamax) 70 mg PO MO ascorbic acid (vitamin C) 500 mg PO .QD 90 days ferrous sulfate 325 mg orally x 1 day/ week; fluticasone furoate-vilanterol 100-25 mcg/dose (Breo Ellipta) 1 ea inhalation DAILY folic acid 1 mg PO DAILY hydroxyzine HCl 25 mg PO TID PRN irbesartan 150 mg PO DAILY lamotrigine 150 mg PO DAILY 90 days lithium carbonate ER 300 mg PO BEDTIME 30 days lorazepam 0.5 mg PO BEDTIME PRN modafinil 100 mg PO DAILY montelukast (Singulair) 10 mg PO DAILY moxifloxacin 0.5% 1 drp ophthalmic-Right QID pantoprazole 40 mg PO DAILY 90 days peg [id number]-[id number] 1-0.2-0.2 % (Artificial Tears ([id number])) 2 drps ophthalmic-Right QID rosuvastatin 5 mg PO DAILY 90 days [STAIR LIFT As directed] tobramycin-dexamethasone 0.3-0.1 % drps ophthalmic (eye) warfarin 4 mg See Protocol PO DAILY Nursing Note INR: 2.8 in therapeutic range of 2-3 Medications and supplements reviewed No changes in health, diet, medications, or supplements, Denies any signs and symptoms of bleeding or bruising or clotting. Bleeding, bruising, clotting discussed Nutritional guidance given Dose: continue same dose of 4mg daily F/U INR: 4 weeks Patient verbalizes understanding of instructions given Anti-Coag Initial Assessment Social Hx Patient Tobacco Use Status: Never used Tobacco Tobacco use type: Cigarette alcohol intake: never Alcohol intake frequency: does not drink Coding Level of Care Code Est Patient Level 1 Diagnoses Current use of anticoagulant therapy Z79.01 Results AMB INR Fingerstick AMB INR Fingerstick 2.8 Last Edit by Silvia Parker RN on 11/17/24 13:08 interface delay Assessment & Plan Assessment & Plan (1) Current use of anticoagulant therapy: Code(s): Z79.01 - [facility] (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
--- OUTSIDE RECORDS SUMMARY | 2024-11-17 15:27 | XMS_ITS | Patient Health Record ---
Author Organization [facility] Address [address] [place] [address] Care Team Providers Care Customer Support Analyst Name Role Phone Victoriano Wong MD Primary Care Provider Ward Chandra Jr Unavailable Toñito FRANK, Vivek Unavailable Unavailable Allergies Allergen (clinical drug ingredient) Drug/Non Drug Allergy documented on EMR Reaction Allergy Type Onset Date Status Penicillin Unknown Drug Allergy Active oxycodone Oxycodone HCl Unknown Drug Allergy Act angella clindamycin Clindamycin HCl Unknown Drug Allergy Active dogs,cats, sea food (uncoded) Unknown Allergy Active Reason For Referral No Information Medications Medication SIG (Take, Route, Fr equency, Duration) Notes Start Date End Date Status albuterol Active Flonase Active nexium Active Advair Diskus Active ZyrTEC Active Singulair Active Benicar Active Vitamin D3 Active Latanoprost Active KlonoPIN Active [place] Carbonate Ac tive Problems Problem Type SNOMED Code ICD Code Onset Dates Problem Status W/U Status Risk Notes Problem 297199217 Encounter for screening for malignant neoplasm of colon (Z12.11) Active confirmed Problem 268177208 History of adenomatous polyp of colon (Z86.010) Active confirmed Problem Screening for malignant neoplasm of rectum (463627574) Encounter for screening for malignant neoplasm of rectum (Z12.12) Active confirmed Problem 32452822 Preprocedural examination (Z01.818) Active confirmed Problem [id number] Family history o f colorectal cancer (Z80.0) Active confirmed Plan Of Treatment Future Test Test Name Order Date COLONOSCOPY 06/13/2016 Insurance Providers Payer Name Payer Address Payer Phone Subscriber Number Group Number Insured Name Patient Relationship to Insured Coverage Start Date Coverage End Date [facility] [address] [place], [place] [id number] [phone] [id number] BRANDIE SANFORD Self - patient is the insured Medical (General) History Medical History History ICD Code Colonoscopy 04-10-2011--2 tub ular adenomas removed, diverticulosis, internal hemorrhoids; neg. colonoscopy in 2004 Asthma Bipolar disease Allergies Denies [place],DM,CVA,renal disease Kidney stones--ESWL Glaucoma HTN Surgical History Surgery Date(Month/Year) mastoidectomy right ear 1955 parathyroid surgery 11/24/2009 peripheral Iridotomy left eye 11/14/2013 peripheral Iridotomy right eye 2013 trabeculectomy left eye 03/2016
== END 2024-11-17 13:13 | disposition home or self-care (01) ==
LOC: HO.ACS 13:01
PROVIDERS: PCP Internal Medicine; Visit Provider Internal Medicine Medical Oncology
DX: Z79.01 Long term (current) use of anticoagulants (principal)

== ENCOUNTER → 2024-11-17 13:01 | Outpatient (BNVA) | payer MEDICARE, SELFPAY | PROVIDERS: PCP Internal Medicine; Visit Provider Internal Medicine Medical Oncology | DX: Z86.73 Personal history of transient ischemic attack (TIA), and cerebral infarction without residual deficits (principal); Z51.81 Encounter for therapeutic drug level monitoring; Z79.01 Long term (current) use of anticoagulants | CPT/HCPCS: 85610; 99211 ==

== ENCOUNTER 2024-12-15 13:00 | Outpatient (AMB) | payer MEDICARE, SELFPAY ==
[2024-12-15 13:07] LABS: Prothrombin Time Whole Bld POC 39.8 sec (11.1-13.5); ~PT, ~INR - Anti Coag Clinic 3.3 (0.9-1.1)
--- NOTE | 2024-12-15 13:12 | MHC.OFFVISCO ---
Intake Intake Visit Reasons: Anticoagulation Allergies clindamycin [CLINDAMYCIN] Allergy (Unknown, Verified 12/15/24 13:02) UNKNOWN oxycodone [OXYCODONE] Allergy (Unknown, Verified 12/15/24 13:02) UNKNOWN Penicillins [PENICILLINS] Allergy (Unknown, Verified 12/15/24 13:02) UNKNOWN seafood Allergy (Unknown, Verified 12/15/24 13:02) Anaphylaxis shellfish derived [SHELLFISH DERIVED] Allergy (Unknown, Verified 12/15/24 13:02) Anaphylaxis animal dander [ANIMAL DANDER] Adverse Reaction (Unknown, Verified 12/15/24 13:02) ITCHING, REDNESS atorvastatin [Lipitor] Adverse Reaction (Unknown, Verified 12/15/24 13:02) myalgia Medication List - Last Reconciled 12/15/24 by Silvia Parker, RN albuterol sulfate 90 mcg/actuation 2 puffs inhalation Q4-6H PRN alendronate (Fosamax) 70 mg PO MO ascorbic acid (vitamin C) 500 mg PO .QD 90 days ferrous sulfate 325 mg orally x 1 day/ week; fluticasone furoate-vilanterol 100-25 mcg/dose (Breo Ellipta) 1 ea inhalation DAILY folic acid 1 mg PO DAILY hydroxyzine HCl 25 mg PO TID PRN irbesartan 150 mg PO DAILY lamotrigine 150 mg PO DAILY 90 days lithium carbonate ER 300 mg PO BEDTIME 30 days lorazepam 0.5 mg PO BEDTIME PRN modafinil 100 mg PO DAILY montelukast (Singulair) 10 mg PO DAILY moxifloxacin 0.5% 1 drp ophthalmic-Right QID pantoprazole 40 mg PO DAILY 90 days peg [id number] 1-0.2-0.2 % (Artificial Tears ([id number])) 2 drps ophthalmic-Right QID rosuvastatin 5 mg PO DAILY 90 days [STAIR LIFT As directed] tobramycin-dexamethasone 0.3-0.1 % drps ophthalmic (eye) warfarin 4 mg See Protocol PO DAILY Nursing Note To [facility] accompanied by INR: 3.3?out of therapeutic range of 2-3 Medications and supplements reviewed Patient status: usual state of health Medications or supplements: no changes Diet: usual diet for pt Denies any signs and symptoms of bleeding or clotting or unusual bruising Bleeding, bruising, clotting discussed Nutritional guidance given: to have a serving of greens today. states they are having broccoli at supper today Dose: 4mg daily F/U INR Date: 4 weeks?? Patient and verbalizing understanding of instructions given. Anti-Coag Initial Assessment Social Hx Patient Tobacco Use Status: Never used Tobacco Tobacco use type: Cigarette alcohol intake: never Alcohol intake frequency: does not drink Coding Level of Care Code Est Patient Level 1 Diagnoses Current use of anticoagulant therapy Z79.01 Assessment & Plan Assessment & Plan (1) Current use of anticoagulant therapy: Code(s): Z79.01 - assisted (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
== END 2024-12-15 13:16 | disposition home or self-care (01) ==
LOC: HO.ACS 13:00
PROVIDERS: PCP Internal Medicine; Visit Provider Internal Medicine Medical Oncology
DX: Z79.01 Long term (current) use of anticoagulants (principal)

== ENCOUNTER → 2024-12-15 13:00 | Outpatient (BNVA) | payer MEDICARE, SELFPAY | PROVIDERS: PCP Internal Medicine; Visit Provider Internal Medicine Medical Oncology | DX: Z86.73 Personal history of transient ischemic attack (TIA), and cerebral infarction without residual deficits (principal); Z79.01 Long term (current) use of anticoagulants; Z51.81 Encounter for therapeutic drug level monitoring | CPT/HCPCS: 85610; 99211 ==

== ENCOUNTER → 2024-12-30 10:45 | Outpatient (BNVA) | payer MEDICARE, SELFPAY | PROVIDERS: PCP Internal Medicine; Visit Provider Psychiatry & Neurology Psychiatry | DX: F31.62 Bipolar disorder, current episode mixed, moderate (principal); Z86.73 Personal history of transient ischemic attack (TIA), and cerebral infarction without residual deficits; R26.81 Unsteadiness on feet ==

== ENCOUNTER 2025-01-12 13:04 | Outpatient (AMB) | payer MEDICARE, SELFPAY ==
[2025-01-12 13:26] LABS: Prothrombin Time Whole Bld POC 28.5 sec (11.1-13.5); ~PT, ~INR - Anti Coag Clinic 2.4 (0.9-1.1)
--- NOTE | 2025-01-12 13:29 | MHC.OFFVISCO ---
Intake Intake Visit Reasons: Anticoagulation Allergies clindamycin [CLINDAMYCIN] Allergy (Unknown, Verified 01/12/25 13:18) UNKNOWN oxycodone [OXYCODONE] Allergy (Unknown, Verified 01/12/25 13:18) UNKNOWN Penicillins [PENICILLINS] Allergy (Unknown, Verified 01/12/25 13:18) UNKNOWN seafood Allergy (Unknown, Verified 01/12/25 13:18) Anaphylaxis shellfish derived [SHELLFISH DERIVED] Allergy (Unknown, Verified 01/12/25 13:18) Anaphylaxis animal dander [ANIMAL DANDER] Adverse Reaction (Unknown, Verified 01/12/25 13:18) ITCHING, REDNESS atorvastatin [Lipitor] Adverse Reaction (Unknown, Verified 01/12/25 13:18) myalgia Medication List - Last Reconciled 01/12/25 by Silvia Parker, RN albuterol sulfate 90 mcg/actuation 2 puffs inhalation Q4-6H PRN alendronate (Fosamax) 70 mg PO MO ascorbic acid (vitamin C) 500 mg PO .QD 90 days ferrous sulfate 325 mg orally x 1 day/ week; fluticasone furoate-vilanterol 100-25 mcg/dose (Breo Ellipta) 1 ea inhalation DAILY folic acid 1 mg PO DAILY hydroxyzine HCl 25 mg PO TID PRN irbesartan 150 mg PO DAILY lamotrigine 150 mg PO DAILY 90 days lithium carbonate ER 300 mg PO BEDTIME 30 days lorazepam 0.5 mg PO BEDTIME PRN modafinil 100 mg PO DAILY montelukast (Singulair) 10 mg PO DAILY moxifloxacin 0.5% 1 drp ophthalmic-Right QID pantoprazole 40 mg PO DAILY 90 days peg [id number] 1-0.2-0.2 % (Artificial Tears ([id number])) 2 drps ophthalmic-Right QID rosuvastatin 5 mg PO DAILY 90 days [STAIR LIFT As directed] tobramycin-dexamethasone 0.3-0.1 % drps ophthalmic (eye) warfarin 4 mg See Protocol PO DAILY Nursing Note Pt to [facility] accompanied by INR: 2.4 in therapeutic range of 2-3 Medications and supplements reviewed No changes in health, diet, medications, or supplements, Denies any signs and symptoms of bleeding or bruising or clotting. Bleeding, bruising, clotting discussed Nutritional guidance given Dose: 4mg daily F/U INR: 4 weeks Patient verbalizes understanding of instructions given Anti-Coag Initial Assessment Social Hx Patient Tobacco Use Status: Never used Tobacco Tobacco use type: Cigarette alcohol intake: never Alcohol intake frequency: does not drink Coding Level of Care Code Est Patient Level 1 Diagnoses Current use of anticoagulant therapy Z79.01 Assessment & Plan Assessment & Plan (1) Current use of anticoagulant therapy: Code(s): Z79.01 - technician terminal and repeater (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
== END 2025-01-12 13:32 | disposition home or self-care (01) ==
LOC: HO.ACS 13:04
PROVIDERS: PCP Internal Medicine; Visit Provider Internal Medicine Medical Oncology
DX: Z79.01 Long term (current) use of anticoagulants (principal)

== ENCOUNTER → 2025-01-12 13:04 | Outpatient (BNVA) | payer MEDICARE, SELFPAY | PROVIDERS: PCP Internal Medicine; Visit Provider Internal Medicine Medical Oncology | DX: Z86.73 Personal history of transient ischemic attack (TIA), and cerebral infarction without residual deficits (principal); Z51.81 Encounter for therapeutic drug level monitoring; Z79.01 Long term (current) use of anticoagulants | CPT/HCPCS: 85610; 99211 ==

== ENCOUNTER 2025-01-20 12:49 | Outpatient (AMB) | payer MEDICARE, SELFPAY ==
--- NOTE | 2025-01-20 13:01 | MHC.PC.OV ---
Vital Signs 01/20/25 13:02 Height 5 ft 2 in Weight 150 lb BMI 27.4 BP 122/74 Blood Pressure Location Lt brachial Position Sitting Pulse 95 Pulse Source Pulse Oximeter Temp 97.0 F Temp Source Temporal Artery Scan Pulse Oximetry (%) 98 Oxygen Delivery Method Room Air Intake Visit Reasons: annual exam Allergies clindamycin [CLINDAMYCIN] Allergy (Unknown, Verified 01/20/25 13:06) UNKNOWN oxycodone [OXYCODONE] Allergy (Unknown, Verified 01/20/25 13:06) UNKNOWN Penicillins [PENICILLINS] Allergy (Unknown, Verified 01/20/25 13:06) UNKNOWN seafood Allergy (Unknown, Verified 01/20/25 13:06) Anaphylaxis shellfish derived [SHELLFISH DERIVED] Allergy (Unknown, Verified 01/20/25 13:06) Anaphylaxis animal dander [ANIMAL DANDER] Adverse Reaction (Unknown, Verified 01/20/25 13:06) ITCHING, REDNESS atorvastatin [Lipitor] Adverse Reaction (Unknown, Verified 01/20/25 13:06) myalgia Medication List - Last Reconciled 01/20/25 by Victoriano Wong MD albuterol sulfate 90 mcg/actuation 2 puffs inhalation Q4-6H PRN alendronate (Fosamax) 70 mg PO MO ascorbic acid (vitamin C) 500 mg PO .QD 90 days ferrous sulfate 325 mg orally x 1 day/ week; folic acid 1 mg PO DAILY hydroxyzine HCl 25 mg PO TID PRN irbesartan 150 mg PO DAILY lamotrigine 150 mg PO DAILY 90 days lithium carbonate ER 300 mg PO BEDTIME 30 days lorazepam 0.5 mg PO BEDTIME PRN montelukast (Singulair) 10 mg PO DAILY pantoprazole 40 mg PO DAILY 90 days peg [id number] 1-0.2-0.2 % (Artificial Tears ([id number])) 2 drps ophthalmic-Right QID rosuvastatin 5 mg PO DAILY 90 days [STAIR LIFT As directed] tobramycin-dexamethasone 0.3-0.1 % drps ophthalmic (eye) warfarin 4 mg See Protocol PO DAILY Tobacco use date assessed: 01/20/25 Fall risk assessment: 2 + Falls in past year Last assessed Fall Risk: 01/20/25 Dental Screening Dental Screen Date: 01/20/25 Did you have a dental visit in the last 12 months?: No Did you have a dental problem in the last 6 months where you did not have access to dental care?: No Was dental information given to patient?: Patient declined [facility] Medical History (Updated 01/20/25 @ 13:22 by Victoriano Wong MD) Obesity (BMI 30-39.9) CVA, old, cognitive deficits Unsteadiness on feet Gait instability Breast cancer screening Colon cancer screening 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) Impaired glucose tolerance Patent foramen ovale Tubular adenoma of colon History of renal calculi Hypercholesterolemia Hypertension Asthma Bipolar disorder GERD (gastroesophageal reflux disease) Iron deficiency anemia History of CVA (cerebrovascular accident) Surgical History History of parathyroidectomy History of mastoidectomy Family History Father Cataract Mother Anxiety Cancer Mental health disorder Brother Lung cancer Liver cancer Sister Dementia Autoimmune disease Social History Household Members: Spouse Housing: House Do you presently have visiting nurse or other home services: No Alcohol intake: never Patient Tobacco Use Status: Never used Tobacco Tobacco use type: Cigarette e-Cigarette/Vaping Use: Never Used Second Hand Smoke Exposure: No service: No Current occupational status: retired Cognitive needs: Yes Hearing needs: Yes (Hearing aide) Vision needs: Yes Questionnaire PHQ-9 Over the last 2 weeks, how often have you been bothered by any of the following problems? 1. Little interest or pleasure in doing things: not at all 2. Feeling down, depressed, or hopeless: not at all 3. Trouble falling or staying asleep, or sleeping too much: not at all 4. Feeling tired or having little energy: not at all 5. Poor appetite or overeating: not at all 6. Feeling bad about yourself - or that you are a failure or have let yourself or your family down: not at all 7. Trouble concentrating on things, such as reading the newspaper or watching television: not at all 8. Moving or speaking so slowly that other people could have noticed. Or the opposite - being so fidgety or restless that you have been moving around a lot more than usual: not at all 9. Thoughts that you would be better off or of hurting yourself in some way: not at all Total score: 0 Depression Screening Interpretation: Negative Depression Screening Done: Yes [id number] - PHQ-9 Billing: Yes Source: Developed by Drs. Francis Kim, Shelley Estrella, Miguel Morrison and colleagues, with an educational kezia from [employer]. Thrive Questionnaire Date Thrive assessed: 01/20/25 I am a: Parent/Caregiver What is your living situation today?: I have a steady place to live Within the past 12 months, did the food you bought not last and you didn't have the money to get more?: Never true Within the past 12 months, did you worry whether your food would run out before you got money to buy more?: Never true Do you have trouble paying for medicines?: No Do you have trouble getting transportation to medical appointments?: No Do you have trouble paying your heating and electricity bill?: No Do you have trouble taking care of your child, family member or friend?: No Do you have trouble with day-to-day activities such as bathing, preparing meals, shopping, managing finances, etc.?: Yes Are you currently unemployed and looking for a job?: I choose not to answer this question Are you interested in more education?: I choose not to answer this question Please select the resources that you would like help with: None Currently or been in a relationship where the following occur: I choose not to answer THRIVE Score: 0 AUDIT C Alcohol Use Questionnaire (AUDIT-C) 1. How often do you have a drink containing alcohol?: Never 3. How often do you have six or more drinks on one occasion?: Never Total Score: 0 MARANDA-7 AMB Questionnaire MARANDA-7 Date MARANDA - 7 assessed: 01/20/25 Feeling nervous, anxious, or on edge: 0 = Not at all Not being able to stop or control worryin = Not at all Worrying too much about different things: 0 = Not at all Trouble relaxin = Not at all Being so restless that it is hard to sit still: 0 = Not at all Becoming easily annoyed or irritable: 0 = Not at all Feeling afraid as if something awful might happen: 0 = Not at all Total MARANDA-7 score (0-4 normal; 5-9 mild; 10-14 moderate; 15-21 severe): 0 Source: Developed by Drs. Francis Kim, Shelley Estrella, Miguel Morrison and colleagues, with an educational kezia from [employer]. MARANDA-7 Assessment Billing MARANDA-7 Assessment Tool: MARANDA-7 Assessment 48204 Review of Systems Const Denies poor appetite and Denies weakness Eyes Denies no additional complaints ENT Reports Normal hearing present, Denies dizziness, Denies nasal congestion, Denies tinnitus and Denies sore throat Card Denies chest pain, Denies syncope, Denies rapid heart rate and Denies dyspnea Resp Denies cough and Denies dyspnea GI Denies change in stool character, Reports constipation, Denies diarrhea, Denies nausea and Denies vomiting Denies urinary frequency, Denies difficulty voiding and Denies dysuria Neuro Reports Normal hearing present, Denies confusion, Denies dizziness, Denies syncope and Denies weakness Psych Denies confusion Physical exam (Primary Care) Vital Signs: Last Vital Signs Temp 97.0 F 01/20/25 13:02 Pulse 95 01/20/25 13:02 BP 122/74 01/20/25 13:02 Pulse Ox 98 01/20/25 13:02 Oxygen Delivery Method Room Air 01/20/25 13:02 BMI result Body Mass Index 27.4 Tobacco/Smoking Status: Tobacco use Status Tobacco use date assessed 01/20/25 01/20/25 13:08 Patient Tobacco Use Status Never used Tobacco 01/20/25 13:02 Tobacco use type Cigarette 01/20/25 13:02 e-Cigarette/Vaping Use Never Used 01/20/25 13:02 PHQ-9: PHQ-9 Score PHQ-9: Total score 0 01/20/25 13:23 Depression Screening Interpretation: Negative Thrive Assessment: Date of Thrive Assessment Date Thrive assessed 01/20/25 01/20/25 13:08 Currently or been in a relationship where the following occur: I choose not to answer Const General: No confusion Orientation/consciousness: No confusion HENMT Head: Yes normocephalic Ears: external ears normal and TM's normal bilaterally Face and sinus: Yes normal facial exam Mouth: moist mucous membranes Throat: Yes tonsils normal Eyes Conjunctivae: conjunctivae normal Pupils: Equal, round and reactive pupils present and Pupil accommodation reflex normal Direct Ophthalmoscopy: normal light reflex Neck Neck: No lymphadenopathy Thyroid: Thyroid normal Chest Chest palpation & inspection: normal inspection of the chest Resp Effort & Inspection: normal respiratory effort and no audible wheezes Auscultation: clear to auscultation bilaterally, no crackles, no wheezes and lung sounds not diminished Cardio Rate: regular rate Rhythm: regular rhythm Peripheral pulses: radial pulses present and dorsalis pedis present GI Palpation (GI): no masses Auscultation: normal bowel sounds and normoactive bowel sounds Rectal Exam - Female: deferred Skin General skin exam: no rashes or lesions noted Rashes: no rashes Neuro General: No confusion Cranial nerves: Yes Equal, round and reactive pupils present and Yes Normal hearing present Cognition (Neuro): normal cognition Gait exam (Neuro): Normal gait present Motor exam (neuro): 5/5 motor strength present throughout Deep tendon reflexes (DTR's): Right brachioradialis reflex intensity grade: 2+, Left brachioradialis reflex intensity grade: 2+, Right patellar reflex intensity grade: 2+ and Left patellar reflex intensity grade: 2+ Extrem General: No edema Coding Level of Care Code Est Pt Prev Care >65y(90529) Diagnoses Physical exam, annual Z00.00 Overweight (BMI 25.0-29.9) E66.3 Impaired glucose tolerance R73.02 Osteoporosis M81.0 Hypercholesterolemia E78.00 Essential hypertension I10 Hypertension type: essential hypertension Mild intermittent asthma without complication J45.20 Asthma complication type: uncomplicated Asthma persistence: intermittent Asthma severity: mild Bipolar disorder, current episode mixed, moderate F31.62 Active/Remission status: currently active Current bipolar episode type: mixed Current episode severity: moderate Gastroesophageal reflux disease without esophagitis K21.9 Esophagitis presence: without esophagitis History of CVA (cerebrovascular accident) Z86.73 Cognitive impairment R41.89 Additional Codes MARANDA-7 Assessment Billing - MARANDA-7 Assessment Tool: MARANDA-7 Assessment 62186 ([id number]) PHQ-9 - 16087 - PHQ-9 Billing: Yes ([id number]) Assessment & Plan Assessment & Plan (1) Physical exam, annual: Code(s): Z00.00 - Encounter for general adult medical examination without abnormal findings Category: Medical Plan: Patient is advised to eat healthy, keep well hydrated, keep active and have adequate sleep. (2) Overweight (BMI 25.0-29.9): Code(s): E66.3 - Overweight Category: Medical Plan: Diet and exercise (3) Impaired glucose tolerance: Code(s): R73.02 - Impaired glucose tolerance (oral) Category: Medical Plan: Decrease the amount of carbohydrate intake, pasta, bread, rice and potatoes are all sugar and that is aside from all the sweet stuff, remember that fruits are good but they are Sweet also. (4) Osteoporosis: Code(s): M81.0 - Age-related osteoporosis without current pathological fracture Category: Medical Plan: Discussed the need for follow-up bone density (5) Hypercholesterolemia: Code(s): E78.00 - Pure hypercholesterolemia, unspecified Category: Medical Plan: Avoid fried foods, chicken skin, eggs, butter margarine, pastries and meat. Be it pork or beef they have a lot of cholesterol LDL goal of less than 100 and triglyceride of less than 150. On rosuvastatin 5 mg once a day (6) Hypertension: Code(s): I10 - Essential (primary) hypertension Category: Medical Qualifiers: Hypertension type: essential hypertension Qualified Code(s): I10 - Essential (primary) hypertension Plan: Continue with blood pressure medication. Decrease salt intake and exercise (7) Asthma: Comment: PFT January 2018 Code(s): J45.909 - Unspecified asthma, uncomplicated Category: Medical Qualifiers: Asthma complication type: uncomplicated Asthma persistence: intermittent Asthma severity: mild Qualified Code(s): J45.20 - Mild intermittent asthma, uncomplicated Plan: Continue with inhaler as needed (8) Bipolar disorder: Comment: Dr. Garcia psychiatrist Code(s): F31.9 - Bipolar disorder, unspecified Category: Medical Qualifiers: Active/Remission status: currently active Current bipolar episode type: mixed Current episode severity: moderate Qualified Code(s): F31.62 - Bipolar disorder, current episode mixed, moderate Plan: Continue to follow-up with psychiatry (9) GERD (gastroesophageal reflux disease): Code(s): K21.9 - Gastro-esophageal reflux disease without esophagitis Category: Medical Qualifiers: Esophagitis presence: without esophagitis Qualified Code(s): K21.9 - Gastro-esophageal reflux disease without esophagitis Plan: Avoid the foods that causes that usually spicy foods, tomato products, juices, coffee, soda and foods that your sensitive to. After eating do not lie down, allow 3-4 hours before in lie down. And keep the head of bed above 30 degrees to avoid the acid from going up. 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 and temporal infarct November 2018 Code(s): Z86.73 - Personal history of transient ischemic attack (TIA), and cerebral infarction without residual deficits Category: Medical Plan: Control the cholesterol, weight, blood pressure, patient on anticoagulation with Coumadin (11) Cognitive impairment: Code(s): R41.89 - Other symptoms and signs involving cognitive functions and awareness Category: Medical Plan: Supportive treatment Plan History of Present Illness The patient is an 84-year-old female presenting with a follow-up visit regarding the management of her chronic health conditions and a wellness examination. Hypertension is managed effectively with medication, and regular monitoring shows good control. Hypercholesterolemia is treated with rosuvastatin; recent lab results in November 2023 inform the management goals for cholesterol and triglyceride levels. Osteoporosis treatment continues with weekly Fosamax, and her last bone density scan was in February 2024. The patient's type 2 diabetes with impaired glucose tolerance is addressed with a dietary and exercise plan discussed during the visit. Bipolar disorder is actively managed with psychiatric follow-ups, and asthma symptoms are controlled with an albuterol inhaler, particularly needed for exertional dyspnea. Pantoprazole aids in GERD symptom management. A prior cerebrovascular accident managed with tPA necessitates ongoing anticoagulation therapy with Coumadin to mitigate stroke risk. Known drug allergies include atorvastatin, penicillin, oxycodone, and clindamycin. The patient reports issues with trigger finger, aggravated in the mornings, currently being managed conservatively. Health Maintenance - Discussions regarding diet and exercise to manage weight and diabetes. - Review of blood pressure management strategies. - Goal for LDL cholesterol under 130 mg/dL and triglycerides under 150 mg/dL. - Regular follow-ups with psychiatry for bipolar disorder. - Last bone density test in February 2024, no immediate need for repeat testing. - Patient advised to continue Fosamax and revisit bone health planning as necessary. - Allergy awareness and medication adjustments for known allergies documented. Social History - The patient reports a sedentary lifestyle with occasional physical activity. - Nutritional intake includes some high-calorie foods, such as ice cream, consumed weekly. - There is a history of high activity levels impeded by recent health conditions. - Family dynamics or support systems not detailed in the conversation. Review of Systems - Respiratory: Reports exertional dyspnea managed with albuterol inhaler at night. - Musculoskeletal: Reports stiffness and finger locking consistent with trigger finger. - Neurological: Denies recent episodes of dizziness or syncope; history of CVA noted. - Gastrointestinal: Denies any issues with swallowing or significant digestive complaints; no reports of nausea or vomiting. - Constitutional: Denies changes in appetite but reports weight gain. Physical Exam General: Cooperative, overweight, healthy appearing, comfortable, no acute distress and well developed Orientation: Patient oriented x3 Limitations: Gait instability noted, request for physical therapy due to CVA and gait instability Head: Normal to inspection Ears: Hearing grossly normal bilaterally Nose: Normal external nose present Face and sinus: Normal facial exam Eyes: Appearance normal, both eyes and all related structures; residual pain from shingles noted Neck: Normal visual inspection and Yes full ROM Respiratory: Normal respiratory effort and able to speak in complete sentences. Clear to auscultation bilaterally Cardiovascular: Regular rate and rhythm. Normal S1 and S2 GI: Normal to inspection. Soft to palpation and nontender Skin: No rashes or lesions noted Neuro: Patient oriented x3; history of CVA, status post TPA Extremities: Normal to inspection; trigger finger noted, conservative management with splinting recommended Results - Labs: Last cholesterol test in November 2023; electrolytes and blood work normal as of April 2024. - Imaging: Last bone density test from February 2024 showing osteoporosis. Plan The patient is instructed to maintain her current regimen for hypertension and hypercholesterolemia, alongside lifestyle modifications targeting diabetes management. Continued monitoring of cholesterol levels will guide therapy adjustments, and osteoporosis treatment with Fosamax remains ongoing. Asthma symptoms are managed with the current inhaler protocol. GERD will be controlled with ongoing pantoprazole therapy. She will follow up with psychiatry as part of managing her bipolar disorder. Trigger finger management involves home splinting techniques, with a referral for physical therapy to address gait and mobility concerns stemming from her previous CVA. Additional laboratory tests are planned for lipid and thyroid evaluation. Patient was informed and verbally consented to the use of an ambient scribe for clinic note documentation during this visit. Discussion Notes We discussed the importance of maintaining control over the patient's blood pressure and cholesterol levels, with specific targets for LDL and triglycerides to reduce cardiovascular disease risk. For osteoporosis, adherence to Fosamax was emphasized, and lifestyle changes were suggested to manage weight and impaired glucose tolerance. I informed her of the benefits of continued psychiatric care for bipolar disorder and the usage of her asthma medication as per symptoms. We agreed upon a plan to conservatively manage the trigger finger and the possibility of physical therapy for strengthening exercises post-CVA. I described the necessary laboratory follow-up, assuring that these evaluations would help guide ongoing management. Consent was achieved for the discussed strategies and interventions, with a three-month follow-up timeline established to evaluate progress and current care plans. Patient Instructions - Continue taking all prescribed medications as directed. - Follow dietary changes and exercise to assist with weight management and improve blood sugar levels. - Use the albuterol inhaler when experiencing shortness of breath. - Splint the trigger finger to manage symptoms. - Stay hydrated by drinking more water throughout the day. - Schedule and attend physical therapy sessions as planned. - Undergo the ordered lab work before the next appointment. - Return for follow-up in three months or sooner if there are new or worsening symptoms. Orders: Orders Free T4 (Free Thyroxine) Today Z86.73 - Personal history of transient ischemic attack (TIA), and cerebral infarction without residual deficits Thyroid Stimulating Hormone Today Z86.73 - Personal history of transient ischemic attack (TIA), and cerebral infarction without residual deficits Vitamin B12 and Folate Today Z86.73 - Personal history of transient ischemic attack (TIA), and cerebral infarction without residual deficits Ferritin Today Z86.73 - Personal history of transient ischemic attack (TIA), and cerebral infarction without residual deficits Reticulocyte Count Today Z86.73 - Personal history of transient ischemic attack (TIA), and cerebral infarction without residual deficits PT Evaluation and Treatment Today R26.81 - Unsteadiness on feet, Z86.73 - Personal history of transient ischemic attack (TIA), and cerebral infarction without residual deficits Complete Blood Count Auto Diff Today Z86.73 - Personal history of transient ischemic attack (TIA), and cerebral infarction without residual deficits Comprehensive Met. Panel Today Z86.73 - Personal history of transient ischemic attack (TIA), and cerebral infarction without residual deficits Lipid Panel Today E78.00 - Pure hypercholesterolemia, unspecified, Z86.73 - Personal history of transient ischemic attack (TIA), and cerebral infarction without residual deficits Vitamin D 25-OH Total Today Z86.73 - Personal history of transient ischemic attack (TIA), and cerebral infarction without residual deficits IRON PROFILE Today Z86.73 - Personal history of transient ischemic attack (TIA), and cerebral infarction without residual deficits Hemoglobin A1c Today Z86.73 - Personal history of transient ischemic attack (TIA), and cerebral infarction without residual deficits
[2025-01-20 13:02] VITALS: BP 122/74; PULSE 95; TEMP 36.1; O2SAT 98; BMI 27.4
== END 2025-01-20 13:44 | disposition home or self-care (01) ==
LOC: HO.HMCH 12:50
PROVIDERS: PCP Internal Medicine; Visit Provider Internal Medicine
DX: Z00.00 Encounter for general adult medical examination without abnormal findings (principal); E66.3 Overweight; F31.62 Bipolar disorder, current episode mixed, moderate; Z68.27 Body mass index [BMI] 27.0-27.9, adult; R73.02 Impaired glucose tolerance (oral); M81.0 Age-related osteoporosis without current pathological fracture; E78.00 Pure hypercholesterolemia, unspecified; I10 Essential (primary) hypertension; J45.20 Mild intermittent asthma, uncomplicated; K21.9 Gastro-esophageal reflux disease without esophagitis; Z86.73 Personal history of transient ischemic attack (TIA), and cerebral infarction without residual deficits; R41.89 Other symptoms and signs involving cognitive functions and awareness

== ENCOUNTER → 2025-01-20 12:49 | Outpatient (BNVA) | payer MEDICARE, SELFPAY | PROVIDERS: PCP Internal Medicine; Visit Provider Internal Medicine | DX: Z00.00 Encounter for general adult medical examination without abnormal findings (principal); E66.3 Overweight; Z68.27 Body mass index [BMI] 27.0-27.9, adult; R73.02 Impaired glucose tolerance (oral); M81.0 Age-related osteoporosis without current pathological fracture; E78.00 Pure hypercholesterolemia, unspecified; I10 Essential (primary) hypertension; J45.20 Mild intermittent asthma, uncomplicated; F31.62 Bipolar disorder, current episode mixed, moderate; K21.9 Gastro-esophageal reflux disease without esophagitis; R41.89 Other symptoms and signs involving cognitive functions and awareness; Z86.73 Personal history of transient ischemic attack (TIA), and cerebral infarction without residual deficits; Z79.01 Long term (current) use of anticoagulants; Z13.31 Encounter for screening for depression; Z13.30 Encounter for screening examination for mental health and behavioral disorders, unspecified | CPT/HCPCS: 96127; 99397 ==

== ENCOUNTER 2025-02-10 13:02 | Outpatient (AMB) | payer MEDICARE, SELFPAY ==
[2025-02-10 13:10] LABS: Prothrombin Time Whole Bld POC 38.7 sec (11.1-13.5); ~PT, ~INR - Anti Coag Clinic 3.2 (0.9-1.1)
--- NOTE | 2025-02-10 13:17 | MHC.OFFVISCO ---
Intake Intake Visit Reasons: Anticoagulation Allergies clindamycin (CLINDAMYCIN) Allergy (Unknown, Verified 02/10/25 13:06) UNKNOWN oxycodone (OXYCODONE) Allergy (Unknown, Verified 02/10/25 13:06) UNKNOWN Penicillins (PENICILLINS) Allergy (Unknown, Verified 02/10/25 13:06) UNKNOWN seafood Allergy (Unknown, Verified 02/10/25 13:06) Anaphylaxis shellfish derived (SHELLFISH DERIVED) Allergy (Unknown, Verified 02/10/25 13:06) Anaphylaxis animal dander (ANIMAL DANDER) Adverse Reaction (Unknown, Verified 02/10/25 13:06) ITCHING, REDNESS atorvastatin (Lipitor) Adverse Reaction (Unknown, Verified 02/10/25 13:06) myalgia Medication List - Last Reconciled 02/10/25 by Maryjane Real RN albuterol sulfate 90 mcg/actuation 2 puffs inhalation Q4-6H PRN alendronate (Fosamax) 70 mg PO MO ascorbic acid (vitamin C) 500 mg PO .QD 90 days ferrous sulfate 325 mg orally x 1 day/ week; folic acid 1 mg PO DAILY hydroxyzine HCl 25 mg PO TID PRN irbesartan 150 mg PO DAILY lamotrigine 150 mg PO DAILY 90 days lithium carbonate ER 300 mg PO BEDTIME 30 days lorazepam 0.5 mg PO BEDTIME PRN montelukast (Singulair) 10 mg PO DAILY pantoprazole 40 mg PO DAILY 90 days peg [id number] 1-0.2-0.2 % (Artificial Tears ([id number])) 2 drps ophthalmic-Right QID rosuvastatin 5 mg PO DAILY 90 days [STAIR LIFT As directed] tobramycin-dexamethasone 0.3-0.1 % drps ophthalmic (eye) warfarin 4 mg See Protocol PO DAILY Nursing Note NO CP,SOB,DIET/MED CHANGES,FALLS OR SX OF BLEEDING. DECREASE DOSE SLIGHTLY TOMORROW THEN RESUME 4MGM AILY AND FOLLOW-UP IN 4 WEEKS. [place] TODAY GOOD UNDERSTANDING OF DOSING INSTR.VERB.BYPT.AND SPOUSE. Anti-Coag Initial Assessment Social Hx Patient Tobacco Use Status: Never used Tobacco Tobacco use type: Cigarette alcohol intake: never Alcohol intake frequency: does not drink Coding Level of Care Code Est Patient Level 1 Diagnoses Current use of anticoagulant therapy Z79.01 Assessment & Plan Assessment & Plan (1) Current use of anticoagulant therapy: Code(s): Z79.01 - intermodal customer service (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
== END 2025-02-10 13:22 | disposition home or self-care (01) ==
LOC: HO.ACS 13:02
PROVIDERS: PCP Internal Medicine; Visit Provider Internal Medicine Medical Oncology
DX: Z79.01 Long term (current) use of anticoagulants (principal)

== ENCOUNTER → 2025-02-10 13:02 | Outpatient (BNVA) | payer MEDICARE, SELFPAY | PROVIDERS: PCP Internal Medicine; Visit Provider Internal Medicine Medical Oncology | DX: Z79.01 Long term (current) use of anticoagulants (principal) | CPT/HCPCS: 85610; 99211 ==

== ENCOUNTER 2025-03-10 13:16 | Outpatient (AMB) | payer MEDICARE, SELFPAY ==
[2025-03-10 13:36] LABS: Prothrombin Time Whole Bld POC 49.6 sec (11.1-13.5); ~PT, ~INR - Anti Coag Clinic 4.1 (0.9-1.1)
--- NOTE | 2025-03-10 13:41 | MHC.OFFVISCO ---
Intake Intake Visit Reasons: Anticoagulation Allergies clindamycin (CLINDAMYCIN) Allergy (Unknown, Verified 03/10/25 13:24) UNKNOWN oxycodone (OXYCODONE) Allergy (Unknown, Verified 03/10/25 13:24) UNKNOWN Penicillins (PENICILLINS) Allergy (Unknown, Verified 03/10/25 13:24) UNKNOWN seafood Allergy (Unknown, Verified 03/10/25 13:24) Anaphylaxis shellfish derived (SHELLFISH DERIVED) Allergy (Unknown, Verified 03/10/25 13:24) Anaphylaxis animal dander (ANIMAL DANDER) Adverse Reaction (Unknown, Verified 03/10/25 13:24) ITCHING, REDNESS atorvastatin (Lipitor) Adverse Reaction (Unknown, Verified 03/10/25 13:24) myalgia Medication List - Last Reconciled 03/10/25 by Silvia Parker, RN albuterol sulfate 90 mcg/actuation 2 puffs inhalation Q4-6H PRN alendronate (Fosamax) 70 mg PO MO ascorbic acid (vitamin C) 500 mg PO .QD 90 days ferrous sulfate 325 mg orally x 1 day/ week; folic acid 1 mg PO DAILY hydroxyzine HCl 25 mg PO TID PRN irbesartan 150 mg PO DAILY lamotrigine 150 mg PO DAILY 90 days lithium carbonate ER 300 mg PO BEDTIME 30 days lorazepam 0.5 mg PO BEDTIME PRN montelukast (Singulair) 10 mg PO DAILY pantoprazole 40 mg PO DAILY 90 days peg [id number] 1-0.2-0.2 % (Artificial Tears ([id number])) 2 drps ophthalmic-Right QID rosuvastatin 5 mg PO DAILY 90 days [STAIR LIFT As directed] tobramycin-dexamethasone 0.3-0.1 % drps ophthalmic (eye) warfarin 4 mg See Protocol PO DAILY Nursing Note Pt to ACS accompanied by INR: 4.1out of therapeutic range of 2-3 Medications and supplements reviewed Patient status: feels well Medications or supplements: no changes Diet: usual diet for pt, maybe had too much summer fruits that raise the INR Denies any signs and symptoms of bleeding or clotting or unusual bruising Bleeding, bruising, clotting discussed Nutritional guidance given: to hold summer fruits and to have a serving of greens today. states they will have broccoli. Dose: pt already took today's dose so will hold tomorrow's dose of 4mg F/U INR Date: 4 weeks?? Patient verbalizing understanding of instructions given. Anti-Coag Initial Assessment Social Hx Patient Tobacco Use Status: Never used Tobacco Tobacco use type: Cigarette alcohol intake: never Alcohol intake frequency: does not drink Coding Level of Care Code Est Patient Level 1 Diagnoses Current use of anticoagulant therapy Z79.01 Results AMB INR Fingerstick AMB INR Fingerstick 4.1 Last Edit by Silvia Parker RN on 03/10/25 13:36 interface delay Assessment & Plan Assessment & Plan (1) Current use of anticoagulant therapy: Code(s): Z79.01 - alf (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
== END 2025-03-10 13:49 | disposition home or self-care (01) ==
LOC: HO.ACS 13:16
PROVIDERS: PCP Internal Medicine; Visit Provider Internal Medicine Medical Oncology
DX: Z79.01 Long term (current) use of anticoagulants (principal)

== ENCOUNTER → 2025-03-10 13:16 | Outpatient (BNVA) | payer MEDICARE, SELFPAY | PROVIDERS: PCP Internal Medicine; Visit Provider Internal Medicine Medical Oncology | DX: Z86.73 Personal history of transient ischemic attack (TIA), and cerebral infarction without residual deficits (principal); Z79.01 Long term (current) use of anticoagulants; Z51.81 Encounter for therapeutic drug level monitoring | CPT/HCPCS: 85610; 99211 ==

== ENCOUNTER 2025-04-07 13:06 | Outpatient (AMB) | payer MEDICARE, SELFPAY ==
[2025-04-07 13:26] LABS: Prothrombin Time Whole Bld POC 40.3 sec (11.1-13.5); ~PT, ~INR - Anti Coag Clinic 3.4 (0.9-1.1)
--- NOTE | 2025-04-07 13:39 | MHC.OFFVISCO ---
Intake Intake Visit Reasons: Anticoagulation Allergies clindamycin (CLINDAMYCIN) Allergy (Unknown, Verified 04/07/25 13:18) UNKNOWN oxycodone (OXYCODONE) Allergy (Unknown, Verified 04/07/25 13:18) UNKNOWN Penicillins (PENICILLINS) Allergy (Unknown, Verified 04/07/25 13:18) UNKNOWN seafood Allergy (Unknown, Verified 04/07/25 13:18) Anaphylaxis shellfish derived (SHELLFISH DERIVED) Allergy (Unknown, Verified 04/07/25 13:18) Anaphylaxis animal dander (ANIMAL DANDER) Adverse Reaction (Unknown, Verified 04/07/25 13:18) ITCHING, REDNESS atorvastatin (Lipitor) Adverse Reaction (Unknown, Verified 04/07/25 13:18) myalgia Medication List - Last Reconciled 04/07/25 by Korina Andrew RN albuterol sulfate 90 mcg/actuation 2 puffs inhalation Q4-6H PRN alendronate (Fosamax) 70 mg PO MO ascorbic acid (vitamin C) 500 mg PO .QD 90 days ferrous sulfate 325 mg orally x 1 day/ week; folic acid 1 mg PO DAILY hydroxyzine HCl 25 mg PO TID PRN irbesartan 150 mg PO DAILY lamotrigine 150 mg PO DAILY 90 days lithium carbonate ER 300 mg PO BEDTIME 30 days lorazepam 0.5 mg PO BEDTIME PRN montelukast (Singulair) 10 mg PO DAILY ofloxacin 0.3% 1 drp ophthalmic-Right QID pantoprazole 40 mg PO DAILY 90 days peg [id number] 1-0.2-0.2 % (Artificial Tears ([id number])) 2 drps ophthalmic-Right QID rosuvastatin 5 mg PO DAILY 90 days [STAIR LIFT As directed] tobramycin-dexamethasone 0.3-0.1 % drps ophthalmic (eye) warfarin 4 mg See Protocol PO DAILY Nursing Note INR 3.4 out of therapeutic range Medications and supplements reviewed Patient status:still trating shingles in her eye, decreased appetite, plus spouse cooking less due him having dental procedures and not feeling well Medications or supplements: February new eye gtts in eye from shingles Diet: less greens and protein Denies any signs and symptoms of bleeding or clotting or unusual bruising Bleeding, bruising, clotting discussed Nutritional guidance given: try to resume protein and greens Dose: decrease weekly dose 2mg x 1 day/ 4mg x 6 days F/U INR Date: 2 weeks due to dose and diet changes ?? Patient verbalizing understanding of instructions given. Anti-Coag Initial Assessment Social Hx Patient Tobacco Use Status: Never used Tobacco Tobacco use type: Cigarette alcohol intake: never Alcohol intake frequency: does not drink Coding Level of Care Code Est Patient Level 1 Diagnoses Current use of anticoagulant therapy Z79.01 Assessment & Plan Assessment & Plan (1) Current use of anticoagulant therapy: Code(s): Z79.01 - longterm (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
== END 2025-04-07 13:45 | disposition home or self-care (01) ==
LOC: HO.ACS 13:06
PROVIDERS: PCP Internal Medicine; Visit Provider Internal Medicine Medical Oncology
DX: Z79.01 Long term (current) use of anticoagulants (principal)

== ENCOUNTER → 2025-04-07 13:06 | Outpatient (BNVA) | payer MEDICARE, SELFPAY | PROVIDERS: PCP Internal Medicine; Visit Provider Internal Medicine Medical Oncology | DX: Z86.73 Personal history of transient ischemic attack (TIA), and cerebral infarction without residual deficits (principal); Z79.01 Long term (current) use of anticoagulants; Z51.81 Encounter for therapeutic drug level monitoring | CPT/HCPCS: 85610; 99211 ==

== ENCOUNTER 2025-04-21 13:01 | Outpatient (AMB) | payer MEDICARE, SELFPAY ==
[2025-04-21 13:34] LABS: Prothrombin Time Whole Bld POC 36.5 sec (11.1-13.5); ~PT, ~INR - Anti Coag Clinic 3.0 (0.9-1.1)
--- NOTE | 2025-04-21 13:39 | MHC.OFFVISCO ---
Intake Intake Visit Reasons: Anticoagulation Allergies clindamycin (CLINDAMYCIN) Allergy (Unknown, Verified 04/21/25 13:26) UNKNOWN oxycodone (OXYCODONE) Allergy (Unknown, Verified 04/21/25 13:26) UNKNOWN Penicillins (PENICILLINS) Allergy (Unknown, Verified 04/21/25 13:26) UNKNOWN seafood Allergy (Unknown, Verified 04/21/25 13:26) Anaphylaxis shellfish derived (SHELLFISH DERIVED) Allergy (Unknown, Verified 04/21/25 13:26) Anaphylaxis animal dander (ANIMAL DANDER) Adverse Reaction (Unknown, Verified 04/21/25 13:26) ITCHING, REDNESS atorvastatin (Lipitor) Adverse Reaction (Unknown, Verified 04/21/25 13:26) myalgia Medication List - Last Reconciled 04/21/25 by Korina Andrew RN albuterol sulfate 90 mcg/actuation 2 puffs inhalation Q4-6H PRN alendronate (Fosamax) 70 mg PO MO ascorbic acid (vitamin C) 500 mg PO .QD 90 days ferrous sulfate 325 mg orally x 1 day/ week; folic acid 1 mg PO DAILY hydroxyzine HCl 25 mg PO TID PRN irbesartan 150 mg PO DAILY lamotrigine 150 mg PO DAILY 90 days lithium carbonate ER 300 mg PO BEDTIME 30 days lorazepam 0.5 mg PO BEDTIME PRN montelukast (Singulair) 10 mg PO DAILY ofloxacin 0.3% 1 drp ophthalmic-Right QID pantoprazole 40 mg PO DAILY 90 days peg [id number] 1-0.2-0.2 % (Artificial Tears ([id number])) 2 drps ophthalmic-Right QID rosuvastatin 5 mg PO DAILY 90 days [STAIR LIFT As directed] tobramycin-dexamethasone 0.3-0.1 % drps ophthalmic (eye) warfarin 4 mg See Protocol PO DAILY Nursing Note INR: 3.0 in therapeutic range Medications and supplements reviewed *Diet not quite back to their normal -spouse had dental procedures and making soft foods *Seeing her eye Dr tomorrow to take lense off her eye affected by the shingles- by one eyewear consultant it was recommended that she have the eye sewn shut - she would have to stop the warfarin - she and her refused that. Denies any signs and symptoms of bleeding or bruising or clotting. Bleeding, bruising, clotting discussed Nutritional guidance given - olivia gilliam Dose: keep lower dose for now 2mg x 1 day/ 4mg x 6 days F/U INR: 2 weeks while on lower dose Patient verbalizes understanding of instructions given Anti-Coag Initial Assessment Social Hx Patient Tobacco Use Status: Never used Tobacco Tobacco use type: Cigarette alcohol intake: never Alcohol intake frequency: does not drink Coding Level of Care Code Est Patient Level 1 Diagnoses Current use of anticoagulant therapy Z79.01 Results AMB INR Fingerstick AMB INR Fingerstick 3.0 Last Edit by Korina Andrew RN on 04/21/25 13:34 manual entry Assessment & Plan Assessment & Plan (1) Current use of anticoagulant therapy: Code(s): Z79.01 - halfway (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
== END 2025-04-21 13:45 | disposition home or self-care (01) ==
LOC: HO.ACS 13:01
PROVIDERS: PCP Internal Medicine; Visit Provider Internal Medicine Medical Oncology
DX: Z79.01 Long term (current) use of anticoagulants (principal)

== ENCOUNTER → 2025-04-21 13:01 | Outpatient (BNVA) | payer MEDICARE, SELFPAY | PROVIDERS: PCP Internal Medicine; Visit Provider Internal Medicine Medical Oncology | DX: Z86.73 Personal history of transient ischemic attack (TIA), and cerebral infarction without residual deficits (principal); Z79.01 Long term (current) use of anticoagulants; Z51.81 Encounter for therapeutic drug level monitoring | CPT/HCPCS: 85610; 99211 ==

== ENCOUNTER 2025-04-29 11:21 | Outpatient (AMB) | payer MEDICARE, SELFPAY ==
--- NOTE | 2025-04-29 11:50 | MHC.OFFVISPS ---
Intake Intake Visit Reasons: depression Allergies clindamycin (CLINDAMYCIN) Allergy (Unknown, Verified 04/21/25 13:26) UNKNOWN oxycodone (OXYCODONE) Allergy (Unknown, Verified 04/21/25 13:26) UNKNOWN Penicillins (PENICILLINS) Allergy (Unknown, Verified 04/21/25 13:26) UNKNOWN seafood Allergy (Unknown, Verified 04/21/25 13:26) Anaphylaxis shellfish derived (SHELLFISH DERIVED) Allergy (Unknown, Verified 04/21/25 13:26) Anaphylaxis animal dander (ANIMAL DANDER) Adverse Reaction (Unknown, Verified 04/21/25 13:26) ITCHING, REDNESS atorvastatin (Lipitor) Adverse Reaction (Unknown, Verified 04/21/25 13:26) myalgia Medication List - Last Reconciled 04/29/25 by Emilio Garcia MD albuterol sulfate 90 mcg/actuation 2 puffs inhalation Q4-6H PRN alendronate (Fosamax) 70 mg PO MO ascorbic acid (vitamin C) 500 mg PO .QD 90 days ferrous sulfate 325 mg orally x 1 day/ week; folic acid 1 mg PO DAILY hydroxyzine HCl 25 mg PO TID PRN irbesartan 150 mg PO DAILY lamotrigine 150 mg PO DAILY 90 days lithium carbonate ER 300 mg PO BEDTIME 30 days lorazepam 0.5 mg PO BEDTIME PRN montelukast (Singulair) 10 mg PO DAILY ofloxacin 0.3% 1 drp ophthalmic-Right QID pantoprazole 40 mg PO DAILY 90 days peg [id number] 1-0.2-0.2 % (Artificial Tears ([id number])) 2 drps ophthalmic-Right QID rosuvastatin 5 mg PO DAILY 90 days [STAIR LIFT As directed] tobramycin-dexamethasone 0.3-0.1 % drps ophthalmic (eye) warfarin 4 mg See Protocol PO DAILY HPI- Psychiatric Chief Complaint: depression HPI Narrative: Patient is an 84-year-old female with history of bipolar disorder and status post CVA. Patient's mood generally stable has done well with modafinil no manic or significant depressive symptoms. Modafinil well tolerated. Continues on Lamictal and lithium low dose Past Psychiatric History: History of bipolar disorder was stable on lithium for years until CVA Mental Status Exam Mental Status Exam Narrative: Mental Status Exam Narrative: Appearance: Casually dressed r eye mild inflammation mild r fascial scarring Behavior: Cooperative psychomotor: Slowed ambulation difficulty with balance not using cane or walker Speech: Clear some hesitation Thought proccess logical some improved processing speed Thought content: Feeling okay wishes she could function better expressing some desire for further physical rehab future oriented Mood: Mood described as okay Affect: Sears affect somewhat flat SI:denies HI:denies VH/AH:none Delusions:none Insight/judgment self concious regarding how she looked Assessment and Plan Assessment & Plan (1) Bipolar disorder: Status: Acute Qualifiers: Active/Remission status: currently active Current bipolar episode type: mixed Current episode severity: moderate Qualified Code(s): F31.62 - Bipolar disorder, current episode mixed, moderate Code(s): F31.9 - Bipolar disorder, unspecified Plan Continue plan of care check lithium level thyroid functioning patient also has scheduled labs for metabolic and kidney functioning patient seen with her Orders: Orders TSH reflex Free T4 04/29/25 F31.62 - Bipolar disorder, current episode mixed, moderate, I10 - Essential (primary) hypertension [place] 04/29/25 F31.62 - Bipolar disorder, current episode mixed, moderate, I10 - Essential (primary) hypertension Counseling and coordination of Care Details: I spent [] minutes reviewing the record, seeing the patient and documenting in the medical record. Counseling provided to the patient/caregiver as outlined below. Addressed patient/caregiver concerns regarding current medication regime including effective adherence. Addressed patient/caregiver concerns regarding diagnosis and prognosis including accuracy of diagnosis, prognosis over time, impact of diagnosis. Addressed patient/caregiver concerns regarding impact of recent stressors. [facility] Medical History (Updated 01/20/25 @ 13:22 by Victoriano Wong MD) Obesity (BMI 30-39.9) CVA, old, cognitive deficits Unsteadiness on feet Gait instability Breast cancer screening Colon cancer screening 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) Impaired glucose tolerance Patent foramen ovale Tubular adenoma of colon History of renal calculi Hypercholesterolemia Hypertension Asthma Bipolar disorder GERD (gastroesophageal reflux disease) Iron deficiency anemia History of CVA (cerebrovascular accident) Surgical History History of parathyroidectomy History of mastoidectomy Family History Father Cataract Mother Anxiety Cancer Mental health disorder Brother Lung cancer Liver cancer Sister Dementia Autoimmune disease Social History Household Members: Spouse Housing: House Do you presently have visiting nurse or other home services: No Alcohol intake: never Patient Tobacco Use Status: Never used Tobacco Tobacco use type: Cigarette e-Cigarette/Vaping Use: Never Used Second Hand Smoke Exposure: No service: No Current occupational status: retired Cognitive needs: Yes Hearing needs: Yes (Hearing aide) Vision needs: Yes Social History: Patient has a medical history hypertension renal insufficiency glaucoma status post CVA. 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 She does have 3 children. There is a strong family history of bipolar disorder no history of alcohol or substance abuse Substance History: none Trauma History: none Coding Level of Care Code Est Pt Level 4 (02230) Diagnoses Bipolar disorder, current episode mixed, moderate F31.62 Active/Remission status: currently active Current bipolar episode type: mixed Current episode severity: moderate
--- OUTSIDE RECORDS SUMMARY | 2025-04-29 14:42 | XMS_ITS | Patient Health Record ---
Author [facility] Address [address] [place] [address] Care Team Providers Care Care Consultant Name Role Phone Victoriano Wong Primary Care Provider Delroy Curiel Unavailable [phone] Allergies Allergen (clinical drug ingredient) Drug/Non Drug Allergy documented on EMR Reaction Allergy Type Onset Date Status Dander Dander (uncoded) Unknown Allergy Act angella amoxicillin Amoxicillin Unknown Drug Allergy Act angella povidone-iodine Betadine Unknown Drug Allergy A ctive clindamycin Clindamycin HCl Unknown Drug Allergy Active Reason For Referral No Information Medications Medication SIG (Take, Route, Frequency, Duration) Notes Start Date End Date Status Montelukast Sodium 10 MG 1 tablet Orally Once a day; Duration: 30 day(s) Active Baby Aspirin Active Walker as directed 06/25/2020 Active Centrum Silver - as directed Orally Active clonazePAM 0.5 MG 1 tablet at bedtime Orally Once a day Active Irbesartan 150 MG 1 tablet Orally Once a day; Duration: 30 day(s) Active Pantoprazole Sodium 40 MG 1 tablet Orall y Once a day; Duration: 30 day(s) Active Super B Complex Acti ve Rosuvastatin Calcium 5 MG 1 tablet Orall y Once a day; Duration: 30 day(s) Active Advair Diskus Active Warfarin Sodium 2 MG 1 tablet Orally Onc e a day; Duration: 30 day(s) Active North Powder Carbonate ER 450 MG 1 tablet at bedtime Orally Once a day; Duration: 30 day(s) Active MethylFolate Active Social History Tobacco Use: Social History Observation Description Date Details (start date - stop date) Never Smoker NA - NA Tobacco Use/Smoking Question Answer Notes Are you a: nonsmoker Additional Findings: Tobacco Non-User Current no n-smoker Alcohol Screen Question Answer Notes Did you have a drink containing alcohol in the p ast year? No Points 0 Interpretation Negative Tobacco use other than smoking: Question Answer Notes Are you an other tobacco user? No Plan Of Treatment Pending Test Test Name Order Date X ray : Foot, right 3V 06/25/2020 35145- Short Leg Cast 06/25/2020 Insurance Providers Payer Name Payer Address Payer Phone Subscriber Number Group Number Insured Name Patient Relationship to Insured Coverage Start Date Coverage End Date [employer] 65 Medicare Preferred [address] [place] [address] [id number] Alexandra Rutherford Self - patient is the insured Medical (General) History Medical History History ICD Code asthma Cholesterol Cataracts Depression Glaucoma High blood pressure Reflux ( GERD) Stroke Surgical History Surgery Date(Month/Year) cataract surgery 2019
== END 2025-04-29 12:19 | disposition home or self-care (01) ==
LOC: HO.HOP 11:21
PROVIDERS: PCP Internal Medicine; Visit Provider Psychiatry & Neurology Psychiatry
DX: F31.62 Bipolar disorder, current episode mixed, moderate (principal)
CPT/HCPCS: 99214

== ENCOUNTER → 2025-04-29 11:21 | Outpatient (BNVA) | payer MEDICARE, SELFPAY | PROVIDERS: PCP Internal Medicine; Visit Provider Psychiatry & Neurology Psychiatry | DX: F31.62 Bipolar disorder, current episode mixed, moderate (principal); Z79.899 Other long term (current) drug therapy; Z86.73 Personal history of transient ischemic attack (TIA), and cerebral infarction without residual deficits | CPT/HCPCS: 99212 ==

== ENCOUNTER 2025-05-05 13:04 | Outpatient (AMB) | payer MEDICARE, SELFPAY ==
[2025-05-05 13:30] LABS: Prothrombin Time Whole Bld POC 37.7 sec (11.1-13.5); ~PT, ~INR - Anti Coag Clinic 3.1 (0.9-1.1)
--- NOTE | 2025-05-05 13:33 | MHC.OFFVISCO ---
Intake Intake Visit Reasons: Anticoagulation Allergies clindamycin (CLINDAMYCIN) Allergy (Unknown, Verified 05/05/25 13:23) UNKNOWN oxycodone (OXYCODONE) Allergy (Unknown, Verified 05/05/25 13:23) UNKNOWN Penicillins (PENICILLINS) Allergy (Unknown, Verified 05/05/25 13:23) UNKNOWN seafood Allergy (Unknown, Verified 05/05/25 13:23) Anaphylaxis shellfish derived (SHELLFISH DERIVED) Allergy (Unknown, Verified 05/05/25 13:23) Anaphylaxis animal dander (ANIMAL DANDER) Adverse Reaction (Unknown, Verified 05/05/25 13:23) ITCHING, REDNESS atorvastatin (Lipitor) Adverse Reaction (Unknown, Verified 05/05/25 13:23) myalgia Medication List - Last Reconciled 05/05/25 by Silvia Parker, RN albuterol sulfate 90 mcg/actuation 2 puffs inhalation Q4-6H PRN alendronate (Fosamax) 70 mg PO MO ascorbic acid (vitamin C) 500 mg PO .QD 90 days ferrous sulfate 325 mg orally x 1 day/ week; folic acid 1 mg PO DAILY hydroxyzine HCl 25 mg PO TID PRN irbesartan 150 mg PO DAILY lamotrigine 150 mg PO DAILY 90 days lithium carbonate ER 300 mg PO BEDTIME 30 days lorazepam 0.5 mg PO BEDTIME PRN montelukast (Singulair) 10 mg PO DAILY ofloxacin 0.3% 1 drp ophthalmic-Right QID pantoprazole 40 mg PO DAILY 90 days peg [id number] 1-0.2-0.2 % (Artificial Tears ([id number])) 2 drps ophthalmic-Right QID rosuvastatin 5 mg PO DAILY 90 days [STAIR LIFT As directed] tobramycin-dexamethasone 0.3-0.1 % drps ophthalmic (eye) warfarin 4 mg See Protocol PO DAILY Nursing Note Pt to ACS accompanied by INR: 3.1 out of therapeutic range of 2-3 Medications and supplements reviewed Patient status: no changes in health Medications or supplements: no changes Diet: has been a little off her normal diet due to eating soft food due to dental problems. Getting back to normal diet now. Denies any signs and symptoms of bleeding or clotting or unusual bruising Bleeding, bruising, clotting discussed Nutritional guidance given: to have a serving of greens. states he will cook asparagus tonight. Dose: Pt took today's dose already so will decrease tomorrow's dose to 2mg (4mg) then 4mg X 6 days and 2mg X 1 day (Sun) F/U INR Date: 2 weeks?? Patient verbalizing understanding of instructions given. Anti-Coag Initial Assessment Social Hx Patient Tobacco Use Status: Never used Tobacco Tobacco use type: Cigarette alcohol intake: never Alcohol intake frequency: does not drink Coding Level of Care Code Est Patient Level 1 Diagnoses Current use of anticoagulant therapy Z79.01 Assessment & Plan Assessment & Plan (1) Current use of anticoagulant therapy: Code(s): Z79.01 - termination clerk (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
== END 2025-05-05 13:41 | disposition home or self-care (01) ==
LOC: HO.ACS 13:04
PROVIDERS: PCP Internal Medicine; Visit Provider Internal Medicine Medical Oncology
DX: Z79.01 Long term (current) use of anticoagulants (principal)

== ENCOUNTER → 2025-05-05 13:04 | Outpatient (BNVA) | payer MEDICARE, SELFPAY | PROVIDERS: PCP Internal Medicine; Visit Provider Internal Medicine Medical Oncology | DX: Z86.73 Personal history of transient ischemic attack (TIA), and cerebral infarction without residual deficits (principal); Z79.01 Long term (current) use of anticoagulants; Z51.81 Encounter for therapeutic drug level monitoring | CPT/HCPCS: 85610; 99211 ==

== ENCOUNTER 2025-05-11 14:00 | Outpatient (RCR) | payer MEDICARE, SELFPAY ==
[2025-02-18 13:00] VITALS: O2SAT 96
--- NOTE | 2025-02-18 15:12 | MHC.PT.EP ---
[facility] [place] Office [place] Office [place] Office [address] Brice Munoz [address] [phone] F: [phone] F: [phone] F: [phone] F: [phone] Physical Therapy Plan of Care Date of Evaluation: 02/18/25 Date of Surgery: Diagnosis: This is an 84 yo female presenting to skilled PT with a script for gait instability, history of CVA. Assessment: This is an 84 yo female presenting to skilled PT with a script for gait instability, history of CVA. Pt is well known to this facility having been here for gait instability many times. Her last course of PT was ended due to admission to the hospital for treatment of herpes zoster and failure to thrive/fall (04/2024). She presents today with referral for gait instability once more for the last >5 years/a stroke about 6 years ago with R side affected. She has had multiple falls in the past, the last being last week. She has a walker and cane but refuses to use it. Assessment reveals no reports of pain. Patient demos decreased B LE ROM, strength of B LE's, poor balance, poor endurance and impaired posture with forward head, increased thoracic kyphosis and rounded shoulders. Based on functional limitations, impaired QOL and pain tolerance patient is a fair candidate for skilled PT 2x/wk for 4wks due to compliance in the past, motivation and vision. Frequency and Duration: The patient will be seen 2x/wk for 4wks Short Term Goals: Pt will demo safe transfers sit<>stand, supine<>sit with good carryover in 2 weeks. Pt will demonstrate compliance with use of AD in 2 weeks. Snf Goals: Pt will demonstrate improved DGI score by 5 points in 4 weeks for reduced risk of falls. Pt will demonstrate improved 30 second chair stand test by 1 STS in 4 weeks for improved LE endurance. Pt will demonstrate improved TUG score by 4 seconds in 4 weeks for reduced risk of falls. Treatment Plan: Modalities to reduce pain, spasms and effusion. Manual therapy to restore motion and function. Therapeutic exercise to improve strength and flexibility. Neuromuscular re-education for posture and balance. Therapeutic activities to return to functional activities of daily living. Electronically signed by: Cathy Cedeno PT Please sign and return to therapist. Thank you for your referral.
--- NOTE | 2025-05-12 07:53 | MHC.PT.DC ---
[facility] [place] Office [place] Office [place] Office [address] Brice Munoz [address] [phone] F: [phone] F: [phone] F: [phone] F: [phone] Physical Therapy Discharge Report Diagnosis: This is an 84 yo female presenting to skilled PT with a script for gait instability, history of CVA. Date of Surgery: Date of Evaluation: 02/18/25 Date of Discharge: 05/12/25 Treatments to Date: 9 Cancellations to Date: 0 No Shows to Date: 0 Discharge Status: Achieved Goals Improved Function Independent with HEP Discharge Summary: Patient with good understanding of her exercise program and good support from her spouse. They will continue to work on her HEP I at this time. She demos improved safety awareness, improved compliance with her AD, improved sit to stand and improved endurance. She has met her goals for the most part and is appropriate for DC at this time. Electronically signed by: Cathy Cedeno, PT Please sign and return to therapist. Thank you for your referral.
== END 2025-05-12 07:53 | disposition home or self-care (01) ==
LOC: HO.PTCHIC 14:00
PROVIDERS: PCP Internal Medicine; Visit Provider Internal Medicine
DX: R26.81 Unsteadiness on feet (principal); Z86.73 Personal history of transient ischemic attack (TIA), and cerebral infarction without residual deficits
CPT/HCPCS: 97110; 97116; 97162; 97163

== ENCOUNTER 2025-05-18 09:22 | Outpatient (REF) | payer MEDICARE, SELFPAY ==
[2025-05-18 09:38] LABS: MANUAL DIFF FLAG NO
[2025-05-18 10:03] LABS: Hematocrit 40.4 % (37.0-47.0); Hemoglobin 13.1 g/dl (12.0-16.0); Imm Gran Abs Auto 0.03 X10*3/uL (0.00-0.03); Imm Gran Pct Auto 0.5 % (0.0-0.4); Lymphocytes Absolute Auto 1.2 X10*3/uL (1.2-4.9); Mean Corpuscular HGB Conc 32.4 g/dl (31.0-35.0); Mean Corpuscular Hemoglobin 28.7 pg (27.0-33.0); Mean Corpuscular Volume 88.4 fL (80.0-98.0); NRBC Abs Auto 0.000 X10*3/uL (0.0-0.012); NRBC Pct Auto 0.0 /100WBC (0.0-0.2); Platelet Count 215 X10*3/uL (160-400); Red Blood Count 4.57 X10*6/uL (4.20-5.50); Reticulocytes Absolute 0.078 X10*6/uL (0.026-0.095); White Blood Count 6.1 X10*3/uL (4.8-10.8)
[2025-05-18 11:07] LABS: Alanine Aminotransferase 28 U/L (0-31); Albumin Level 4.5 g/dL (3.5-5.0); Alkaline Phosphatase 57 U/L (39-117); Anion Gap 11 (12-20); Aspartate Amino Transferase 34 U/L (5-31); Blood Urea Nitrogen 21 mg/dL (9-16); Calcium 10.2 mg/dL (8.4-10.2); Carbon Dioxide 26 mmol/L (22-29); Chloride 111 mmol/L (96-108); Cholesterol 131 mg/dL (<200); Estimated Glomerular Filt Rate 50; HDL Cholesterol 48 mg/dL (>40); Iron 52 mcg/dL (30-160); Percent Iron Saturation 17 % (15-50); Potassium 4.1 mmol/L (3.3-5.1); Sodium 144 mmol/L (135-145); Total Iron Binding Capacity 302 mcg/dL (228-428); Total Protein 6.7 g/dL (6.5-8.0); Triglycerides 109 mg/dL (<150); Unsaturated Iron Binding 250 ug/dL
[2025-05-18 11:11] LABS: Ferritin 29 ng/mL (10-250); Free T4 (Free Thyroxine) 1.02 ng/dL (0.71-1.85); Thyroid Stimulating Hormone 1.58 uIU/mL (0.32-4.0)
[2025-05-18 11:16] LABS: Folate 15.1 ng/mL (> or = 4.0); Vitamin B12 472 pg/mL (200-900)
== END 2025-05-18 09:23 | disposition home or self-care (01) ==
LOC: HO.LAB 09:22
PROVIDERS: Absent Provider Psychiatry & Neurology Psychiatry; PCP Internal Medicine; Visit Provider Internal Medicine
DX: E78.00 Pure hypercholesterolemia, unspecified (principal); Z86.73 Personal history of transient ischemic attack (TIA), and cerebral infarction without residual deficits; Z13.1 Encounter for screening for diabetes mellitus
CPT/HCPCS: 36415; 80053; 80061; 82306; 82607; 82728; 82746; 83036; 83540; 84439; 84443; 85025; 85045

== ENCOUNTER 2025-05-19 13:18 | Outpatient (AMB) | payer MEDICARE, SELFPAY ==
[2025-05-19 13:21] VITALS: BP 148/86; PULSE 90; TEMP 36.3; O2SAT 96; BMI 28.0
--- NOTE | 2025-05-19 13:21 | MHC.PC.OV ---
Vital Signs 05/19/25 13:21 05/19/25 13:37 Height 5 ft 2 in Weight 153 lb 3.54 oz BMI 28.0 BP 148/86 H 134/70 Blood Pressure Location Rt brachial Lt brachial Position Sitting Sitting Pulse 90 Pulse Source Pulse Oximeter Temp 97.3 F Temp Source Temporal Artery Scan Pulse Oximetry (%) 96 Oxygen Delivery Method Room Air Intake Visit Reasons: CVA, GAit instability Allergies clindamycin (CLINDAMYCIN) Allergy (Unknown, Verified 05/19/25 14:15) UNKNOWN oxycodone (OXYCODONE) Allergy (Unknown, Verified 05/19/25 14:15) UNKNOWN Penicillins (PENICILLINS) Allergy (Unknown, Verified 05/19/25 14:15) UNKNOWN seafood Allergy (Unknown, Verified 05/19/25 14:15) Anaphylaxis shellfish derived (SHELLFISH DERIVED) Allergy (Unknown, Verified 05/19/25 14:15) Anaphylaxis animal dander (ANIMAL DANDER) Adverse Reaction (Unknown, Verified 05/19/25 14:15) ITCHING, REDNESS atorvastatin (Lipitor) Adverse Reaction (Unknown, Verified 05/19/25 14:15) myalgia Tobacco use date assessed: 05/19/25 Fall risk assessment: 1 Fall in past year Last assessed Fall Risk: 05/19/25 Dental Screening Dental Screen Date: 05/19/25 Did you have a dental visit in the last 12 months?: No Did you have a dental problem in the last 6 months where you did not have access to dental care?: No Was dental information given to patient?: No [facility] Medical History Obesity (BMI 30-39.9) CVA, old, cognitive deficits Unsteadiness on feet Gait instability Breast cancer screening Colon cancer screening 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) Impaired glucose tolerance Patent foramen ovale Tubular adenoma of colon History of renal calculi Hypercholesterolemia Hypertension Asthma Bipolar disorder GERD (gastroesophageal reflux disease) Iron deficiency anemia History of CVA (cerebrovascular accident) Surgical History History of parathyroidectomy History of mastoidectomy Family History Father Cataract Mother Anxiety Cancer Mental health disorder Brother Lung cancer Liver cancer Sister Dementia Autoimmune disease Social History Household Members: Spouse Housing: House Do you presently have visiting nurse or other home services: No Alcohol intake: never Patient Tobacco Use Status: Never used Tobacco Tobacco use type: Cigarette e-Cigarette/Vaping Use: Never Used Second Hand Smoke Exposure: No service: No Current occupational status: retired Cognitive needs: Yes Hearing needs: Yes (Hearing aide) Vision needs: Yes Questionnaire PHQ-9 Over the last 2 weeks, how often have you been bothered by any of the following problems? 1. Little interest or pleasure in doing things: not at all 2. Feeling down, depressed, or hopeless: not at all 3. Trouble falling or staying asleep, or sleeping too much: not at all 4. Feeling tired or having little energy: not at all 5. Poor appetite or overeating: not at all 6. Feeling bad about yourself - or that you are a failure or have let yourself or your family down: not at all 7. Trouble concentrating on things, such as reading the newspaper or watching television: not at all 8. Moving or speaking so slowly that other people could have noticed. Or the opposite - being so fidgety or restless that you have been moving around a lot more than usual: not at all 9. Thoughts that you would be better off or of hurting yourself in some way: not at all Total score: 0 Depression Screening Interpretation: Negative Depression Screening Done: Yes Source: Developed by Drs. Francis Kim, Shelley Estrella, Miguel Morrison and colleagues, with an educational kezia from [employer]. Thrive Questionnaire Date Thrive assessed: 01/20/25 I am a: Parent/Caregiver What is your living situation today?: I have a steady place to live Within the past 12 months, did the food you bought not last and you didn't have the money to get more?: Never true Within the past 12 months, did you worry whether your food would run out before you got money to buy more?: Never true Do you have trouble paying for medicines?: No Do you have trouble getting transportation to medical appointments?: No Do you have trouble paying your heating and electricity bill?: No Do you have trouble taking care of your child, family member or friend?: No Do you have trouble with day-to-day activities such as bathing, preparing meals, shopping, managing finances, etc.?: Yes Are you currently unemployed and looking for a job?: I choose not to answer this question Are you interested in more education?: I choose not to answer this question Please select the resources that you would like help with: None Currently or been in a relationship where the following occur: I choose not to answer THRIVE Score: 0 AUDIT C Alcohol Use Questionnaire (AUDIT-C) 1. How often do you have a drink containing alcohol?: Never 3. How often do you have six or more drinks on one occasion?: Never Total Score: 0 MARANDA-7 AMB Questionnaire MARANDA-7 Date MARANDA - 7 assessed: 01/20/25 Feeling nervous, anxious, or on edge: 0 = Not at all Not being able to stop or control worryin = Not at all Worrying too much about different things: 0 = Not at all Trouble relaxin = Not at all Being so restless that it is hard to sit still: 0 = Not at all Becoming easily annoyed or irritable: 0 = Not at all Feeling afraid as if something awful might happen: 0 = Not at all Total MARANDA-7 score (0-4 normal; 5-9 mild; 10-14 moderate; 15-21 severe): 0 Source: Developed by Drs. Francis Kim, Shelley Estrella, Miguel Morrison and colleagues, with an educational kezia from [employer]. Physical exam (Primary Care) Vital Signs: Last Vital Signs Temp 97.3 F 05/19/25 13:21 Pulse 90 05/19/25 13:21 BP 134/70 05/19/25 13:37 Pulse Ox 96 05/19/25 13:21 Oxygen Delivery Method Room Air 05/19/25 13:21 BMI result Body Mass Index 28.0 Tobacco/Smoking Status: Tobacco use Status Tobacco use date assessed 05/19/25 05/19/25 13:27 Patient Tobacco Use Status Never used Tobacco 05/19/25 13:27 Tobacco use type Cigarette 05/19/25 13:27 e-Cigarette/Vaping Use Never Used 05/19/25 13:27 PHQ-9: PHQ-9 Score PHQ-9: Total score 0 05/19/25 13:49 Depression Screening Interpretation: Negative Thrive Assessment: Date of Thrive Assessment Date Thrive assessed 01/20/25 05/19/25 13:27 Currently or been in a relationship where the following occur: I choose not to answer Const General: alert; No acute distress Eyes Conjunctivae: conjunctivae normal Resp Auscultation: clear to auscultation bilaterally Cardio Rate: regular rate Rhythm: regular rhythm GI Inspection: Yes normal to inspection Neuro Other: l HIP HEMATOMA 1 week Extrem General: Yes normal to inspection and No edema Office Procedures Flu Questionnaire Does the patient have a severe egg allergy?: No Does the patient have severe life threatening allergies?: No Does the patient have a fever or illness today?: No Has the patient ever had Guillain-Estelline Syndrome?: No Has the patient ever had any past reaction to a flu shot?: No Immunizations Fluarix [id number] (PF) 45 mcg (15 mcg x 3)/0.5 mL IM syringe Performing Provider: Victoriano Wong MD [facility] Administered by: Shonda Diamond CMA on 05/19/25 13:48 Dose Route Admin Location Dispensed Lot Number Expiration Date [facility] Board Layer 0.5 mL IM Left Deltoid 0.5 mL [id number] 02/09/26 16108-928-30 [employer] VIS Given Date VIS Provided VIS Publication Date 05/19/25 Single Vaccine 24 Eligibility Eligibility Date Funding Source Not [facility] Eligible 05/19/25 Private Coding Level of Care Code Est Pt Level 4 (56185) Complex EM visit Add On G2211 Diagnoses Essential hypertension I10 Hypertension type: essential hypertension Hypercholesterolemia E78.00 Bipolar disorder, current episode mixed, moderate F31.62 Active/Remission status: currently active Current bipolar episode type: mixed Current episode severity: moderate Impaired glucose tolerance R73.02 Gastroesophageal reflux disease without esophagitis K21.9 Esophagitis presence: without esophagitis History of CVA (cerebrovascular accident) Z86.73 Cognitive impairment R41.89 Assessment & Plan Assessment & Plan (1) Hypertension: Code(s): I10 - Essential (primary) hypertension Category: Medical Qualifiers: Hypertension type: essential hypertension Qualified Code(s): I10 - Essential (primary) hypertension Plan: Continue with blood pressure medication. Decrease salt intake and exercise patient is on losartan 150 mg once a day (2) Hypercholesterolemia: Code(s): E78.00 - Pure hypercholesterolemia, unspecified Category: Medical Plan: Avoid fried foods, chicken skin, eggs, butter margarine, pastries and meat. Be it pork or beef they have a lot of cholesterol LDL goal of less than 70 and triglyceride of less than 150 on rosuvastatin 5 mg once a day (3) Bipolar disorder: Comment: Dr. Garcia psychiatrist Code(s): F31.9 - Bipolar disorder, unspecified Category: Medical Qualifiers: Active/Remission status: currently active Current bipolar episode type: mixed Current episode severity: moderate Qualified Code(s): F31.62 - Bipolar disorder, current episode mixed, moderate Plan: continue to follow-up with psychiatry on lorazepam, lithium, lamotrigine, hydroxyzine (4) Impaired glucose tolerance: Code(s): R73.02 - Impaired glucose tolerance (oral) Category: Medical Plan: Decrease the amount of carbohydrate intake, pasta, bread, rice and potatoes are all sugar and that is aside from all the sweet stuff, remember that fruits are good but they are Sweet also. (5) GERD (gastroesophageal reflux disease): Code(s): K21.9 - Gastro-esophageal reflux disease without esophagitis Category: Medical Qualifiers: Esophagitis presence: without esophagitis Qualified Code(s): K21.9 - Gastro-esophageal reflux disease without esophagitis Plan: Avoid the foods that causes that usually spicy foods, tomato products, juices, coffee, soda and foods that your sensitive to. After eating do not lie down, allow 3-4 hours before in lie down. And keep the head of bed above 30 degrees to avoid the acid from going up. (6) History of CVA (cerebrovascular accident): Comment: Status post tPA July 2017 left ART CONSULTANT territory occipital and temporal infarct November 2018 Code(s): Z86.73 - Personal history of transient ischemic attack (TIA), and cerebral infarction without residual deficits Category: Medical Plan: Continue supportive treatment patient on anticoagulation (7) Cognitive impairment: Code(s): R41.89 - Other symptoms and signs involving cognitive functions and awareness Category: Medical Plan: Supportive treatment Plan History of Present Illness The patient is an 84-year-old female presenting for a follow-up visit. She has a history of dementia, managed with psychiatric follow-ups and medication, including lithium, although her lithium levels were noted to be low. The patient also has osteoporosis, with the last bone density test conducted in February 2024. She has impaired glucose tolerance, but recent blood work showed normal sugar levels. Her medical history includes hypertension, hypercholesterolemia, asthma, bipolar disorder, gastroesophageal reflux disease, and a history of cerebrovascular accident. She had a left occipital and temporal infarct and received TPA in 2016 and 2018. Recent laboratory results showed normal blood count, electrolytes, and renal function, although creatinine was elevated at 4.06. Cholesterol levels were well-managed with an LDL of 62, and other parameters such as B12, vitamin D, folic acid, and thyroid function were within normal limits. [employer] Maintenance Social History Review of Systems Physical Exam Results - Labs: Normal blood count, normal electrolytes, elevated creatinine at 4.06, normal sugar levels, cholesterol LDL of 62, normal B12, vitamin D, folic acid, and thyroid function. Plan Patient was informed and verbally consented to the use of an ambient scribe for clinic note documentation during this visit. 1. Dementia The patient is to continue follow-up with psychiatry for management of dementia, with adjustments to lithium therapy as needed due to low levels. 2. Osteoporosis The patient should continue osteoporosis management, with consideration for follow-up bone density testing as appropriate. 3. Impaired Glucose Tolerance The patient should continue monitoring glucose levels, with dietary and lifestyle modifications as needed to manage impaired glucose tolerance. 4. Hypertension The patient is on irbesartan 150 mg once daily for hypertension management. 5. Hypercholesterolemia The patient is on rosuvastatin 5 mg once daily, with a goal LDL of less than 70 and triglycerides less than 150. 6. Bipolar Disorder The patient is to continue psychiatric follow-up and medication management with lorazepam, lithium, lamotrigine, and hydroxyzine. 7. Gastroesophageal Reflux Disease (Gerd) The patient should continue supportive treatment for gastroesophageal reflux disease. 8. History Of Cerebrovascular Accident (Cva) The patient is on anticoagulation therapy as part of the management plan for her history of cerebrovascular accident. Discussion Notes Patient Instructions Orders: Orders Influenza [id number] Immunization Today Z23 - Encounter for immunization Medications: Discontinued pantoprazole Discontinued Reason: Doctor's Order 40 mg PO DAILY 90 days 90 tabs 2RF K21.9 - Gastro-esophageal reflux disease without esophagitis
[2025-05-19 13:37] VITALS: BP 134/70
== END 2025-05-19 13:51 | disposition home or self-care (01) ==
LOC: HO.HMCH 13:20
PROVIDERS: PCP Internal Medicine; Visit Provider Internal Medicine
DX: I10 Essential (primary) hypertension (principal); E78.00 Pure hypercholesterolemia, unspecified; F31.62 Bipolar disorder, current episode mixed, moderate; R73.02 Impaired glucose tolerance (oral); K21.9 Gastro-esophageal reflux disease without esophagitis; Z86.73 Personal history of transient ischemic attack (TIA), and cerebral infarction without residual deficits; R41.89 Other symptoms and signs involving cognitive functions and awareness; Z23 Encounter for immunization

== ENCOUNTER → 2025-05-19 13:18 | Outpatient (BNVA) | payer MEDICARE, SELFPAY | PROVIDERS: PCP Internal Medicine; Visit Provider Internal Medicine | DX: I10 Essential (primary) hypertension (principal); E78.00 Pure hypercholesterolemia, unspecified; F31.62 Bipolar disorder, current episode mixed, moderate; R73.02 Impaired glucose tolerance (oral); K21.9 Gastro-esophageal reflux disease without esophagitis; R41.89 Other symptoms and signs involving cognitive functions and awareness; F03.90 Unspecified dementia, unspecified severity, without behavioral disturbance, psychotic disturbance, mood disturbance, and anxiety; Z23 Encounter for immunization; Z86.73 Personal history of transient ischemic attack (TIA), and cerebral infarction without residual deficits; Z51.81 Encounter for therapeutic drug level monitoring; Z79.01 Long term (current) use of anticoagulants | CPT/HCPCS: 85610; 90471; 90656; 96127; 99211; 99212 ==

== ENCOUNTER 2025-05-19 14:14 | Outpatient (AMB) | payer MEDICARE, SELFPAY ==
[2025-05-19 14:23] LABS: Prothrombin Time Whole Bld POC 27.1 sec (11.1-13.5); ~PT, ~INR - Anti Coag Clinic 2.3 (0.9-1.1)
--- NOTE | 2025-05-19 14:30 | MHC.OFFVISCO ---
Intake Intake Visit Reasons: Anticoagulation Allergies clindamycin (CLINDAMYCIN) Allergy (Unknown, Verified 05/19/25 14:15) UNKNOWN oxycodone (OXYCODONE) Allergy (Unknown, Verified 05/19/25 14:15) UNKNOWN Penicillins (PENICILLINS) Allergy (Unknown, Verified 05/19/25 14:15) UNKNOWN seafood Allergy (Unknown, Verified 05/19/25 14:15) Anaphylaxis shellfish derived (SHELLFISH DERIVED) Allergy (Unknown, Verified 05/19/25 14:15) Anaphylaxis animal dander (ANIMAL DANDER) Adverse Reaction (Unknown, Verified 05/19/25 14:15) ITCHING, REDNESS atorvastatin (Lipitor) Adverse Reaction (Unknown, Verified 05/19/25 14:15) myalgia Medication List - Last Reconciled 05/19/25 by Korina Andrew RN albuterol sulfate 90 mcg/actuation 2 puffs inhalation Q4-6H PRN alendronate (Fosamax) 70 mg PO MO ascorbic acid (vitamin C) 500 mg PO .QD 90 days ferrous sulfate 325 mg orally x 1 day/ week; folic acid 1 mg PO DAILY hydroxyzine HCl 25 mg PO TID PRN irbesartan 150 mg PO DAILY lamotrigine 150 mg PO DAILY 90 days lithium carbonate ER 300 mg PO BEDTIME 30 days lorazepam 0.5 mg PO BEDTIME PRN montelukast (Singulair) 10 mg PO DAILY ofloxacin 0.3% 1 drp ophthalmic-Right QID peg [id number] 1-0.2-0.2 % (Artificial Tears ([id number])) 2 drps ophthalmic-Right QID rosuvastatin 5 mg PO DAILY 90 days [STAIR LIFT As directed] tobramycin-dexamethasone 0.3-0.1 % drps ophthalmic (eye) warfarin 4 mg See Protocol PO DAILY Nursing Note INR: 2.3 in therapeutic range Medications and supplements reviewed * pt had PCP appt today - pantoprazole will be discontinued as of tomorrow, it can raise the INR, stopping it will cause INR to lower *pt and her family are eating their usual meals now that her has recovered from dental work Denies any signs and symptoms of bleeding or bruising or clotting. Bleeding, bruising, clotting discussed Nutritional guidance given - resume usual diet Dose: resume 4mg daily and recheck in 2 weeks F/U INR: 06/02/2025 Patient verbalizes understanding of instructions given Anti-Coag Initial Assessment Social Hx Patient Tobacco Use Status: Never used Tobacco Tobacco use type: Cigarette alcohol intake: never Alcohol intake frequency: does not drink Coding Level of Care Code Est Patient Level 1 Diagnoses Current use of anticoagulant therapy Z79.01 Assessment & Plan Assessment & Plan (1) Current use of anticoagulant therapy: Code(s): Z79.01 - rn long term care (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
== END 2025-05-19 14:34 | disposition home or self-care (01) ==
LOC: HO.ACS 14:14
PROVIDERS: PCP Internal Medicine; Visit Provider Internal Medicine Medical Oncology
DX: Z79.01 Long term (current) use of anticoagulants (principal)

== ENCOUNTER 2025-06-02 13:05 | Outpatient (AMB) | payer MEDICARE, SELFPAY ==
[2025-06-02 13:31] LABS: Prothrombin Time Whole Bld POC 32.7 sec (11.1-13.5); ~PT, ~INR - Anti Coag Clinic 2.7 (0.9-1.1)
--- NOTE | 2025-06-02 13:35 | MHC.OFFVISCO ---
Intake Intake Visit Reasons: Anticoagulation Allergies clindamycin (CLINDAMYCIN) Allergy (Unknown, Verified 06/02/25 13:25) UNKNOWN oxycodone (OXYCODONE) Allergy (Unknown, Verified 06/02/25 13:25) UNKNOWN Penicillins (PENICILLINS) Allergy (Unknown, Verified 06/02/25 13:25) UNKNOWN seafood Allergy (Unknown, Verified 06/02/25 13:25) Anaphylaxis shellfish derived (SHELLFISH DERIVED) Allergy (Unknown, Verified 06/02/25 13:25) Anaphylaxis animal dander (ANIMAL DANDER) Adverse Reaction (Unknown, Verified 06/02/25 13:25) ITCHING, REDNESS atorvastatin (Lipitor) Adverse Reaction (Unknown, Verified 06/02/25 13:25) myalgia Medication List - Last Reconciled 06/02/25 by Korina Andrew RN albuterol sulfate 90 mcg/actuation 2 puffs inhalation Q4-6H PRN alendronate (Fosamax) 70 mg PO MO ascorbic acid (vitamin C) 500 mg PO .QD 90 days ferrous sulfate 325 mg orally x 1 day/ week; folic acid 1 mg PO DAILY hydroxyzine HCl 25 mg PO TID PRN irbesartan 150 mg PO DAILY lamotrigine 150 mg PO DAILY 90 days lithium carbonate ER 300 mg PO BEDTIME 30 days lorazepam 0.5 mg PO BEDTIME PRN montelukast (Singulair) 10 mg PO DAILY ofloxacin 0.3% 1 drp ophthalmic-Right QID peg [id number] 1-0.2-0.2 % (Artificial Tears ([id number])) 2 drps ophthalmic-Right QID rosuvastatin 5 mg PO DAILY 90 days [STAIR LIFT As directed] tobramycin-dexamethasone 0.3-0.1 % drps ophthalmic (eye) warfarin 4 mg See Protocol PO DAILY Nursing Note INR: 2.7 in therapeutic range Medications and supplements reviewed No changes in health, diet, medications, or supplements, Denies any signs and symptoms of bleeding or bruising or clotting. Bleeding, bruising, clotting discussed Nutritional guidance given Dose: has resumed 4mg daily F/U INR: 4weeks- after spouse returns from vacation Patient verbalizes understanding of instructions given Anti-Coag Initial Assessment Social Hx Patient Tobacco Use Status: Never used Tobacco Tobacco use type: Cigarette alcohol intake: never Alcohol intake frequency: does not drink Coding Level of Care Code Est Patient Level 1 Diagnoses Current use of anticoagulant therapy Z79.01 Assessment & Plan Assessment & Plan (1) Current use of anticoagulant therapy: Code(s): Z79.01 - shelter (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
== END 2025-06-02 13:38 | disposition home or self-care (01) ==
LOC: HO.ACS 13:05
PROVIDERS: PCP Internal Medicine; Visit Provider Internal Medicine Medical Oncology
DX: Z79.01 Long term (current) use of anticoagulants (principal)

== ENCOUNTER → 2025-06-02 13:05 | Outpatient (BNVA) | payer MEDICARE, SELFPAY | PROVIDERS: PCP Internal Medicine; Visit Provider Internal Medicine Medical Oncology | DX: Z79.01 Long term (current) use of anticoagulants (principal) | CPT/HCPCS: 85610; 99211 ==

== ENCOUNTER 2025-06-29 14:25 | Outpatient (AMB) | payer MEDICARE, SELFPAY ==
[2025-06-29 14:53] LABS: Prothrombin Time Whole Bld POC 57.3 sec (11.1-13.5); ~PT, ~INR - Anti Coag Clinic 4.8 (0.9-1.1)
--- NOTE | 2025-06-29 15:01 | MHC.OFFVISCO ---
Intake Intake Visit Reasons: Anticoagulation Allergies clindamycin (CLINDAMYCIN) Allergy (Unknown, Verified 06/29/25 14:44) UNKNOWN oxycodone (OXYCODONE) Allergy (Unknown, Verified 06/29/25 14:44) UNKNOWN Penicillins (PENICILLINS) Allergy (Unknown, Verified 06/29/25 14:44) UNKNOWN seafood Allergy (Unknown, Verified 06/29/25 14:44) Anaphylaxis shellfish derived (SHELLFISH DERIVED) Allergy (Unknown, Verified 06/29/25 14:44) Anaphylaxis animal dander (ANIMAL DANDER) Adverse Reaction (Unknown, Verified 06/29/25 14:44) ITCHING, REDNESS atorvastatin (Lipitor) Adverse Reaction (Unknown, Verified 06/29/25 14:44) myalgia Medication List - Last Reconciled 06/29/25 by Korina Andrew RN albuterol sulfate 90 mcg/actuation 2 puffs inhalation Q4-6H PRN alendronate (Fosamax) 70 mg PO MO ascorbic acid (vitamin C) 500 mg PO .QD 90 days ferrous sulfate 325 mg orally x 1 day/ week; folic acid 1 mg PO DAILY hydroxyzine HCl 25 mg PO TID PRN irbesartan 150 mg PO DAILY lamotrigine 150 mg PO DAILY 90 days lithium carbonate ER 300 mg PO BEDTIME 30 days lorazepam 0.5 mg PO BEDTIME PRN montelukast (Singulair) 10 mg PO DAILY ofloxacin 0.3% 1 drp ophthalmic-Right QID peg [id number] 1-0.2-0.2 % (Artificial Tears ([id number])) 2 drps ophthalmic-Right QID rosuvastatin 5 mg PO DAILY 90 days [STAIR LIFT As directed] tobramycin-dexamethasone 0.3-0.1 % drps ophthalmic (eye) warfarin 4 mg See Protocol PO DAILY Nursing Note INR 4.8 out of therapeutic range Medications and supplements reviewed Patient status: Pt spouse was away 2 weeks ,her sister prepared meals, she did not eat her usual greens Medications or supplements: states no changes Diet: good Denies any signs and symptoms of bleeding or clotting or unusual bruising Bleeding, bruising, clotting discussed Nutritional guidance given: greens x 2 days Dose: already took warfarin today , hold warfarin tomorrow and 2mg Wed- then 4mg daily F/U INR Date : ?? Patient verbalizing understanding of instructions given. 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
== END 2025-06-29 15:05 | disposition home or self-care (01) ==
LOC: HO.ACS 14:25
PROVIDERS: PCP Internal Medicine; Visit Provider Internal Medicine Medical Oncology
DX: Z79.01 Long term (current) use of anticoagulants (principal)

== ENCOUNTER → 2025-06-29 14:25 | Outpatient (BNVA) | payer MEDICARE, SELFPAY | PROVIDERS: PCP Internal Medicine; Visit Provider Internal Medicine Medical Oncology | DX: Z79.01 Long term (current) use of anticoagulants (principal) | CPT/HCPCS: 85610; 99211 ==

== ENCOUNTER 2025-07-06 13:50 | Outpatient (AMB) | payer MEDICARE, SELFPAY ==
--- NOTE | 2025-07-06 14:21 | MHC.OFFVISCO ---
Intake Intake Visit Reasons: Anticoagulation Allergies clindamycin (CLINDAMYCIN) Allergy (Unknown, Verified 07/06/25 14:07) UNKNOWN oxycodone (OXYCODONE) Allergy (Unknown, Verified 07/06/25 14:07) UNKNOWN Penicillins (PENICILLINS) Allergy (Unknown, Verified 07/06/25 14:07) UNKNOWN seafood Allergy (Unknown, Verified 07/06/25 14:07) Anaphylaxis shellfish derived (SHELLFISH DERIVED) Allergy (Unknown, Verified 06/29/25 14:44) Anaphylaxis animal dander (ANIMAL DANDER) Adverse Reaction (Unknown, Verified 07/06/25 14:07) ITCHING, REDNESS atorvastatin (Lipitor) Adverse Reaction (Unknown, Verified 07/06/25 14:07) myalgia Medication List - Last Reconciled 07/06/25 by Korina Andrew RN albuterol sulfate 90 mcg/actuation 2 puffs inhalation Q4-6H PRN alendronate (Fosamax) 70 mg PO MO ascorbic acid (vitamin C) 500 mg PO .QD 90 days ferrous sulfate 325 mg orally x 1 day/ week; folic acid 1 mg PO DAILY hydroxyzine HCl 25 mg PO TID PRN irbesartan 150 mg PO DAILY lamotrigine 150 mg PO DAILY 90 days lithium carbonate ER 300 mg PO BEDTIME 30 days lorazepam 0.5 mg PO BEDTIME PRN montelukast (Singulair) 10 mg PO DAILY ofloxacin 0.3% 1 drp ophthalmic-Right QID peg [id number] 1-0.2-0.2 % (Artificial Tears ([id number])) 2 drps ophthalmic-Right QID rosuvastatin 5 mg PO DAILY 90 days [STAIR LIFT As directed] warfarin 4 mg See Protocol PO DAILY Nursing Note INR: 3.1 in therapeutic range- down from 4.8 last week Medications and supplements reviewed No changes in health, diet, medications, or supplements, Denies any signs and symptoms of bleeding or bruising or clotting. Bleeding, bruising, clotting discussed Nutritional guidance given - keep up weekly greens Dose: 4mg daily F/U INR: 2 weeks Patient verbalizes understanding of instructions given Anti-Coag Initial Assessment Social Hx Patient Tobacco Use Status: Never used Tobacco Tobacco use type: Cigarette alcohol intake: never Alcohol intake frequency: does not drink Coding Level of Care Code Est Patient Level 1 Diagnoses Current use of anticoagulant therapy Z79.01 Results AMB INR Fingerstick AMB INR Fingerstick 3.1 Last Edit by Korina Andrew RN on 07/06/25 14:16 manual entry Assessment & Plan Assessment & Plan (1) Current use of anticoagulant therapy: Code(s): Z79.01 - marine 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
[2025-07-07 08:18] LABS: Prothrombin Time Whole Bld POC 38.1 sec (11.1-13.5); ~PT, ~INR - Anti Coag Clinic 3.2 (0.9-1.1)
== END 2025-07-06 14:23 | disposition home or self-care (01) ==
LOC: HO.ACS 13:50
PROVIDERS: PCP Internal Medicine; Visit Provider Internal Medicine Medical Oncology
DX: Z79.01 Long term (current) use of anticoagulants (principal)

== ENCOUNTER → 2025-07-06 13:50 | Outpatient (BNVA) | payer MEDICARE, SELFPAY | PROVIDERS: PCP Internal Medicine; Visit Provider Internal Medicine Medical Oncology | DX: Z79.01 Long term (current) use of anticoagulants (principal) | CPT/HCPCS: 85610; 99211 ==

== ENCOUNTER 2025-07-20 13:21 | Outpatient (AMB) | payer MEDICARE, SELFPAY ==
--- NOTE | 2025-07-20 14:03 | MHC.OFFVISPS ---
Intake Intake Visit Reasons: depression Allergies clindamycin (CLINDAMYCIN) Allergy (Unknown, Verified 07/27/25 13:08) UNKNOWN oxycodone (OXYCODONE) Allergy (Unknown, Verified 07/27/25 13:08) UNKNOWN Penicillins (PENICILLINS) Allergy (Unknown, Verified 07/27/25 13:08) UNKNOWN seafood Allergy (Unknown, Verified 07/27/25 13:08) Anaphylaxis shellfish derived (SHELLFISH DERIVED) Allergy (Unknown, Verified 07/27/25 13:08) Anaphylaxis animal dander (ANIMAL DANDER) Adverse Reaction (Unknown, Verified 07/27/25 13:08) ITCHING, REDNESS atorvastatin (Lipitor) Adverse Reaction (Unknown, Verified 07/27/25 13:08) myalgia Medication List - Last Reconciled 07/20/25 by Emilio Garcia MD albuterol sulfate 90 mcg/actuation 2 puffs inhalation Q4-6H PRN alendronate (Fosamax) 70 mg PO MO ascorbic acid (vitamin C) 500 mg PO .QD 90 days ferrous sulfate 325 mg orally x 1 day/ week; folic acid 1 mg PO DAILY hydroxyzine HCl 25 mg PO TID PRN irbesartan 150 mg PO DAILY lamotrigine 150 mg PO DAILY 90 days lithium carbonate ER 300 mg PO BEDTIME 30 days lorazepam 0.5 mg PO BEDTIME PRN montelukast (Singulair) 10 mg PO DAILY ofloxacin 0.3% 1 drp ophthalmic-Right QID peg [id number] 1-0.2-0.2 % (Artificial Tears ([id number])) 2 drps ophthalmic-Right QID rosuvastatin 5 mg PO DAILY 90 days [STAIR LIFT As directed] warfarin 4 mg See Protocol PO DAILY HPI- Psychiatric Chief Complaint: depression HPI Narrative: 09/20/24, 1:38 PM (18m) PATIENT SUMMARY The patient presented for a follow-up psychiatric evaluation to monitor medication management and assess overall stability in the context of bipolar disorder and chronic fatigue and dysphoria status post CVA HPI Patient is an 84-year-old female with a history of bipolar disorder seen with her . She has been managed and has remained stable on a combination of modafinil status post CVA for increase alertness energy which has been helpful, lamotrigine and low-dose lithium The patient reported feeling so-so and noted no significant changes in balance or walking ability. The patient has not engaged much in physical therapy activities. The patient confirmed taking a small white pill at night, possibly lorazepam, which seems to help. The patient described staying awake most days but sometimes falls asleep while watching TV. The patient is described as being more alert at night compared to mornings. Patient's generally quite attentive to the patient and they do go to lunch couple of times week. Patient's sister continues to visit on a regular basis she does have fatigue and lack of motivation during the day often. MENTAL STATUS The patient described their mood as so-so. PAIN The patient did not report any pain or provide a pain level during the encounter. BACKGROUND The patient did not report any new allergies or changes in medications. The patient continues to take multiple medications, including warfarin, lithium, lamotrigine, and lorazepam. The patient denied any new medical changes and confirmed stability. The patient is also on Singulair and Modafinil. There was no report of any physical symptoms beyond occasional forgetfulness. Slowed mentation , chronic balance difficulties, will not use a walker. Past Psychiatric History: History of bipolar disorder was stable on lithium for years until CVA Results Reviewed Results Reviewed: Specimen Inquiry Name: Alexandra Joyce Age/Sex: 84/F : 1940 Unit#: [id number] Attend Dr: Emilio Garcia MD Re07/21/25 Status: DEP [facility] Disch: SPEC : [id number] INO: 07/21/25 STATUS: COMP REQ : [id number] RECD: 07/21/[address]: Emilio Garcia MD COMP: 07/21/25 ENTERED: 07/21/[address]: Victoriano Wong MD ORDERED: CMP, TSH Rflx Test Result Flag Reference Sodium 143 135-145 mmol/L Potassium 4.2 3.3-5.1 mmol/L CL 109 H 96-108 mmol/L CO2 28 22-29 mmol/L Gap 10 L 12-20 BUN 18 H 9-16 mg/dL Creat 0.98 0.5-1.4 mg/dL eGFR 54 Chronic Kidney Disease: Estimated GFR < 60 mL/min/1.73m2 Severe Kidney Disease: Estimated GFR < 15 mL/min/1.73m2 Glucose, Random 82 60-115 mg/dL CA 10.6 H 8.4-10.2 mg/dL Total Bili 0.3 0.0-1.0 mg/dL AST (GOT) 26 5-31 U/L ALT (GPT) 32 H 0-31 U/L Protein, Total 7.0 6.5-8.0 g/dL Alb 4.7 3.5-5.0 g/dL Alk Phos 62 39-117 U/L TSH 0.95 0.32-4.0 uIU/mL END OF REPORT Assessment and Plan Assessment & Plan (1) Bipolar disorder: Status: Acute Qualifiers: Active/Remission status: currently active Current bipolar episode type: mixed Current episode severity: moderate Qualified Code(s): F31.62 - Bipolar disorder, current episode mixed, moderate Code(s): F31.9 - Bipolar disorder, unspecified (2) 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 Continue lamotrigine low-dose lithium. Kidney function blood sugar unremarkable some hypercalcemia which can be seen with lithium use. Patient was seeing nephrology on a regular basis [place] level 0.42 Medications: Changed From modafinil 100 mg PO DAILY 90 tabs 1RF To modafinil 100 mg PO DAILY 90 tabs 1RF 90 days Orders: Orders Comprehensive Met. Panel 07/21/25 F31.62 - Bipolar disorder, current episode mixed, moderate, I10 - Essential (primary) hypertension, E04.1 - Nontoxic single thyroid nodule TSH reflex Free T4 07/21/25 F31.62 - Bipolar disorder, current episode mixed, moderate, I10 - Essential (primary) hypertension, E04.1 - Nontoxic single thyroid nodule [place] 07/21/25 F31.62 - Bipolar disorder, current episode mixed, moderate, I10 - Essential (primary) hypertension, E04.1 - Nontoxic single thyroid nodule Counseling and coordination of Care Pt. Self Management counseling: Behavior activation and General coping skills Medication management counseling: Effectiveness, Side effects and Dosing range Diagnosis and Prognosis Counseling: Prognosis over time, Problematic behaviors secondary to diagnosis and Adequacy of current interventions Details-Diagnosis/Prognosis counseling: Encourage increase physical activity Details: I spent [30] minutes reviewing the record, seeing the patient and documenting in the medical record. Counseling provided to the patient/caregiver as outlined below. Addressed patient/caregiver concerns regarding current medication regime including effective adherence. Addressed patient/caregiver concerns regarding diagnosis and prognosis including accuracy of diagnosis, prognosis over time, impact of diagnosis. Addressed patient/caregiver concerns regarding impact of recent stressors. [facility] Medical History Obesity (BMI 30-39.9) CVA, old, cognitive deficits Unsteadiness on feet Gait instability Breast cancer screening Colon cancer screening 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) Impaired glucose tolerance Patent foramen ovale Tubular adenoma of colon History of renal calculi Hypercholesterolemia Hypertension Asthma Bipolar disorder GERD (gastroesophageal reflux disease) Iron deficiency anemia History of CVA (cerebrovascular accident) Surgical History History of parathyroidectomy History of mastoidectomy Family History Father Cataract Mother Anxiety Cancer Mental health disorder Brother Lung cancer Liver cancer Sister Dementia Autoimmune disease Social History Household Members: Spouse Housing: House Do you presently have visiting nurse or other home services: No Alcohol intake: never Patient Tobacco Use Status: Never used Tobacco Tobacco use type: Cigarette e-Cigarette/Vaping Use: Never Used Second Hand Smoke Exposure: No service: No Current occupational status: retired Cognitive needs: Yes Hearing needs: Yes (Hearing aide) Vision needs: Yes Social History: Patient has a medical history hypertension renal insufficiency glaucoma status post CVA. 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 She does have 3 children. 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
== END 2025-07-20 14:33 | disposition home or self-care (01) ==
LOC: HO.HOP 13:21
PROVIDERS: PCP Internal Medicine; Visit Provider Psychiatry & Neurology Psychiatry
DX: F31.62 Bipolar disorder, current episode mixed, moderate (principal); I69.319 Unspecified symptoms and signs involving cognitive functions following cerebral infarction
CPT/HCPCS: 99214

== ENCOUNTER → 2025-07-20 13:21 | Outpatient (BNVA) | payer MEDICARE, SELFPAY | PROVIDERS: PCP Internal Medicine; Visit Provider Psychiatry & Neurology Psychiatry | DX: F31.62 Bipolar disorder, current episode mixed, moderate (principal); I63.319 Cerebral infarction due to thrombosis of unspecified middle cerebral artery | CPT/HCPCS: 99212 ==

== ENCOUNTER 2025-07-21 12:13 | Outpatient (REF) | payer MEDICARE, SELFPAY ==
[2025-07-21 13:33] LABS: Lithium 0.42 mmol/L (0.60-1.20)
[2025-07-21 13:53] LABS: Alanine Aminotransferase 32 U/L (0-31); Albumin Level 4.7 g/dL (3.5-5.0); Alkaline Phosphatase 62 U/L (39-117); Anion Gap 10 (12-20); Aspartate Amino Transferase 26 U/L (5-31); Blood Urea Nitrogen 18 mg/dL (9-16); Calcium 10.6 mg/dL (8.4-10.2); Carbon Dioxide 28 mmol/L (22-29); Chloride 109 mmol/L (96-108); Estimated Glomerular Filt Rate 54; Potassium 4.2 mmol/L (3.3-5.1); Sodium 143 mmol/L (135-145); Total Protein 7.0 g/dL (6.5-8.0)
== END 2025-07-21 12:14 | disposition home or self-care (01) ==
LOC: HO.LAB 12:13
PROVIDERS: PCP Internal Medicine; Visit Provider Psychiatry & Neurology Psychiatry
DX: F31.62 Bipolar disorder, current episode mixed, moderate (principal); I10 Essential (primary) hypertension; E04.1 Nontoxic single thyroid nodule
CPT/HCPCS: 36415; 80053; 80178; 84443; 85610; 99211

== ENCOUNTER 2025-07-21 13:01 | Outpatient (AMB) | payer MEDICARE, SELFPAY ==
--- NOTE | 2025-07-21 13:19 | MHC.OFFVISCO ---
Intake Intake Visit Reasons: Anticoagulation Allergies clindamycin (CLINDAMYCIN) Allergy (Unknown, Verified 07/21/25 13:02) UNKNOWN oxycodone (OXYCODONE) Allergy (Unknown, Verified 07/21/25 13:02) UNKNOWN Penicillins (PENICILLINS) Allergy (Unknown, Verified 07/21/25 13:02) UNKNOWN seafood Allergy (Unknown, Verified 07/21/25 13:02) Anaphylaxis shellfish derived (SHELLFISH DERIVED) Allergy (Unknown, Verified 07/21/25 13:02) Anaphylaxis animal dander (ANIMAL DANDER) Adverse Reaction (Unknown, Verified 07/21/25 13:02) ITCHING, REDNESS atorvastatin (Lipitor) Adverse Reaction (Unknown, Verified 07/21/25 13:02) myalgia Medication List - Last Reconciled 07/21/25 by Korina Andrew RN albuterol sulfate 90 mcg/actuation 2 puffs inhalation Q4-6H PRN alendronate (Fosamax) 70 mg PO MO ascorbic acid (vitamin C) 500 mg PO .QD 90 days ferrous sulfate 325 mg orally x 1 day/ week; folic acid 1 mg PO DAILY hydroxyzine HCl 25 mg PO TID PRN irbesartan 150 mg PO DAILY lamotrigine 150 mg PO DAILY 90 days lithium carbonate ER 300 mg PO BEDTIME 30 days lorazepam 0.5 mg PO BEDTIME PRN modafinil 100 mg PO DAILY 90 days montelukast (Singulair) 10 mg PO DAILY ofloxacin 0.3% 1 drp ophthalmic-Right QID peg [id number] 1-0.2-0.2 % (Artificial Tears ([id number])) 2 drps ophthalmic-Right QID rosuvastatin 5 mg PO DAILY 90 days [STAIR LIFT As directed] warfarin 4 mg See Protocol PO DAILY Nursing Note pt came to [facility] with spouse who manages her care INR 4.6 out of therapeutic range Medications and supplements reviewed Patient status: Pt eating less and noticed she has lost weight - clothes are loose Medications or supplements: no changes Diet: appetite is less, had a meal with a lot of garlic yesterday Denies any signs and symptoms of bleeding or clotting or unusual bruising Bleeding, bruising, clotting discussed Nutritional guidance given: eat cooked greens today to help lower the INR Dose: already took dose today - hold warfarin tomorrow and then decrease to 2mg then 2,g x 2 days/ 4mg x 5 days nxet week F/U INR Date : 07/27/25 ?? Patient an spouse verbalizing understanding of instructions given. Anti-Coag Initial Assessment Social Hx Patient Tobacco Use Status: Never used Tobacco Tobacco use type: Cigarette alcohol intake: never Alcohol intake frequency: does not drink Coding Level of Care Code Est Patient Level 1 Diagnoses Current use of anticoagulant therapy Z79.01 Results AMB INR Fingerstick AMB INR Fingerstick 4.6 Last Edit by Korina Andrew RN on 07/21/25 13:14 MANUAL ENTRY Assessment & Plan Assessment & Plan (1) Current use of anticoagulant therapy: Code(s): Z79.01 - terminal makeup operator (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
[2025-07-22 08:29] LABS: Prothrombin Time Whole Bld POC 55.1 sec (11.1-13.5); ~PT, ~INR - Anti Coag Clinic 4.6 (0.9-1.1)
== END 2025-07-21 13:23 | disposition home or self-care (01) ==
LOC: HO.ACS 13:01
PROVIDERS: PCP Internal Medicine; Visit Provider Internal Medicine Medical Oncology
DX: Z79.01 Long term (current) use of anticoagulants (principal)

== ENCOUNTER 2025-07-27 13:07 | Outpatient (AMB) | payer MEDICARE, SELFPAY ==
[2025-07-27 13:15] LABS: Prothrombin Time Whole Bld POC 25.7 sec (11.1-13.5); ~PT, ~INR - Anti Coag Clinic 2.1 (0.9-1.1)
--- NOTE | 2025-07-27 13:18 | MHC.OFFVISCO ---
Intake Intake Visit Reasons: Anticoagulation Allergies clindamycin (CLINDAMYCIN) Allergy (Unknown, Verified 07/27/25 13:08) UNKNOWN oxycodone (OXYCODONE) Allergy (Unknown, Verified 07/27/25 13:08) UNKNOWN Penicillins (PENICILLINS) Allergy (Unknown, Verified 07/27/25 13:08) UNKNOWN seafood Allergy (Unknown, Verified 07/27/25 13:08) Anaphylaxis shellfish derived (SHELLFISH DERIVED) Allergy (Unknown, Verified 07/27/25 13:08) Anaphylaxis animal dander (ANIMAL DANDER) Adverse Reaction (Unknown, Verified 07/27/25 13:08) ITCHING, REDNESS atorvastatin (Lipitor) Adverse Reaction (Unknown, Verified 07/27/25 13:08) myalgia Medication List - Last Reconciled 07/27/25 by Silvia Parker, RN albuterol sulfate 90 mcg/actuation 2 puffs inhalation Q4-6H PRN alendronate (Fosamax) 70 mg PO MO ascorbic acid (vitamin C) 500 mg PO .QD 90 days ferrous sulfate 325 mg orally x 1 day/ week; folic acid 1 mg PO DAILY hydroxyzine HCl 25 mg PO TID PRN irbesartan 150 mg PO DAILY lamotrigine 150 mg PO DAILY 90 days lithium carbonate ER 300 mg PO BEDTIME 30 days lorazepam 0.5 mg PO BEDTIME PRN modafinil 100 mg PO DAILY 90 days montelukast (Singulair) 10 mg PO DAILY ofloxacin 0.3% 1 drp ophthalmic-Right QID peg [id number] 1-0.2-0.2 % (Artificial Tears ([id number])) 2 drps ophthalmic-Right QID rosuvastatin 5 mg PO DAILY 90 days [STAIR LIFT As directed] warfarin 4 mg See Protocol PO DAILY Nursing Note INR: 2.1 in therapeutic range of 2-3 Medications and supplements reviewed No changes in health, diet, medications, or supplements, Denies any signs and symptoms of bleeding or bruising or clotting. Bleeding, bruising, clotting discussed Nutritional guidance given to avoid greens today Dose: 4mg X 5 days and 2mg X 2 days (Sun & Wed) F/U INR: 2 weeks \Patient verbalizes understanding of instructions given Anti-Coag Initial Assessment Social Hx Patient Tobacco Use Status: Never used Tobacco Tobacco use type: Cigarette alcohol intake: never Alcohol intake frequency: does not drink Coding Level of Care Code Est Patient Level 1 Diagnoses Current use of anticoagulant therapy Z79.01 Assessment & Plan Assessment & Plan (1) Current use of anticoagulant therapy: Code(s): Z79.01 - ferry terminal agent (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
== END 2025-07-27 13:23 | disposition home or self-care (01) ==
LOC: HO.ACS 13:07
PROVIDERS: PCP Internal Medicine; Visit Provider Internal Medicine Medical Oncology
DX: Z79.01 Long term (current) use of anticoagulants (principal)

== ENCOUNTER → 2025-07-27 13:07 | Outpatient (BNVA) | payer MEDICARE, SELFPAY | PROVIDERS: PCP Internal Medicine; Visit Provider Internal Medicine Medical Oncology | DX: Z86.73 Personal history of transient ischemic attack (TIA), and cerebral infarction without residual deficits (principal); Z51.81 Encounter for therapeutic drug level monitoring; Z79.01 Long term (current) use of anticoagulants | CPT/HCPCS: 85610; 99211 ==

== ENCOUNTER 2025-08-11 12:59 | Outpatient (AMB) | payer MEDICARE, SELFPAY ==
[2025-08-11 13:11] LABS: Prothrombin Time Whole Bld POC 26.0 sec (11.1-13.5); ~PT, ~INR - Anti Coag Clinic 2.2 (0.9-1.1)
--- NOTE | 2025-08-11 13:18 | MHC.OFFVISCO ---
Intake Intake Visit Reasons: Anticoagulation Allergies clindamycin (CLINDAMYCIN) Allergy (Unknown, Verified 08/11/25 13:04) UNKNOWN oxycodone (OXYCODONE) Allergy (Unknown, Verified 08/11/25 13:04) UNKNOWN Penicillins (PENICILLINS) Allergy (Unknown, Verified 08/11/25 13:04) UNKNOWN seafood Allergy (Unknown, Verified 08/11/25 13:04) Anaphylaxis shellfish derived (SHELLFISH DERIVED) Allergy (Unknown, Verified 08/11/25 13:04) Anaphylaxis animal dander (ANIMAL DANDER) Adverse Reaction (Unknown, Verified 08/11/25 13:04) ITCHING, REDNESS atorvastatin (Lipitor) Adverse Reaction (Unknown, Verified 08/11/25 13:04) myalgia Medication List - Last Reconciled 08/11/25 by Korina Andrew RN albuterol sulfate 90 mcg/actuation 2 puffs inhalation Q4-6H PRN alendronate (Fosamax) 70 mg PO MO ascorbic acid (vitamin C) 500 mg PO .QD 90 days ferrous sulfate 325 mg orally x 1 day/ week; folic acid 1 mg PO DAILY hydroxyzine HCl 25 mg PO TID PRN irbesartan 150 mg PO DAILY lamotrigine 150 mg PO DAILY 90 days lithium carbonate ER 300 mg PO BEDTIME 30 days lorazepam 0.5 mg PO BEDTIME PRN modafinil 100 mg PO DAILY 90 days montelukast (Singulair) 10 mg PO DAILY ofloxacin 0.3% 1 drp ophthalmic-Right QID peg [id number] 1-0.2-0.2 % (Artificial Tears ([id number])) 2 drps ophthalmic-Right QID rosuvastatin 5 mg PO DAILY 90 days [STAIR LIFT As directed] warfarin 4 mg See Protocol PO DAILY Nursing Note INR: 2.2 in therapeutic range Medications and supplements reviewed No changes in health, diet, medications, or supplements, Denies any signs and symptoms of bleeding or bruising or clotting. Bleeding, bruising, clotting discussed Nutritional guidance given Dose: 2MG X 2 DAYS/ 4MG X 5 DAYSS F/U INR: 3 WEEKS Patient verbalizes understanding of instructions given Anti-Coag Initial Assessment Social Hx Patient Tobacco Use Status: Never used Tobacco Tobacco use type: Cigarette alcohol intake: never Alcohol intake frequency: does not drink Coding Level of Care Code Est Patient Level 1 Diagnoses Current use of anticoagulant therapy Z79.01 Assessment & Plan Assessment & Plan (1) Current use of anticoagulant therapy: Code(s): Z79.01 - intermediate frame tender (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
== END 2025-08-11 13:20 | disposition home or self-care (01) ==
LOC: HO.ACS 12:59
PROVIDERS: PCP Internal Medicine; Visit Provider Internal Medicine Medical Oncology
DX: Z79.01 Long term (current) use of anticoagulants (principal)

== ENCOUNTER → 2025-08-11 12:59 | Outpatient (BNVA) | payer MEDICARE, SELFPAY | PROVIDERS: PCP Internal Medicine; Visit Provider Internal Medicine Medical Oncology | DX: I63.89 Other cerebral infarction (principal); Z51.81 Encounter for therapeutic drug level monitoring; Z79.01 Long term (current) use of anticoagulants | CPT/HCPCS: 85610; 99211 ==